=== PATIENT | male | born 1940 | race Caucasian/White ===

== ENCOUNTER 2020-02-13 07:05 | Outpatient (NON) | payer MEDICARE, BC, SELFPAY ==
[2020-02-13 18:30] LABS: SARS-CoV-2 RNA PCR Negative
== END 2020-02-13 07:06 ==
LOC: ANHCOVIDDT 07:11
PROVIDERS: Visit Provider Nurse Practitioner Adult Health
DX: R68.89 Other general symptoms and signs (principal); Z20.828 Contact with and (suspected) exposure to other viral communicable diseases
CPT/HCPCS: 87635; C9803; U0003

== ENCOUNTER 2020-06-24 15:33 | Outpatient (NON) | payer MEDICARE, BC, SELFPAY | END 2020-06-24 15:34 | disposition home or self-care (01) | LOC: ANHLAB 15:37 | PROVIDERS: Visit Provider Specialist | DX: C44.42 Squamous cell carcinoma of skin of scalp and neck (principal); L82.1 Other seborrheic keratosis | CPT/HCPCS: 88304; 88305 ==

== ENCOUNTER 2021-04-05 08:49 | Outpatient (CLI) | payer MEDICARE, SELFPAY ==
--- NOTE | ~2021-04-05 | XR_ITS ---
EXAMINATION: XR chest 2V 04/05/2021 09:15 INDICATION: Increasing shortness of breath with Covid PROCEDURE: PA and lateral views of the chest COMPARISON: 08/14/2014 FINDINGS: The lungs are clear. The cardiomediastinal silhouette is within normal limits. There are no pleural effusions. There is no pneumothorax suspected. 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 IMPRESSION: 1: NO ACUTE CARDIOPULMONARY DISEASE. Reviewed, dictated and finalized at location B. CIATE MARKETING MANAGER
== END 2021-04-05 08:50 | disposition home or self-care (01) ==
PROVIDERS: PCP Nurse Practitioner Adult Health; Visit Provider Nurse Practitioner
DX: R06.09 Other forms of dyspnea (principal)
CPT/HCPCS: 71046

== ENCOUNTER 2021-04-20 14:16 | Outpatient (CLI) | payer MEDICARE, SELFPAY ==
--- NOTE | 2021-04-21 14:24 | WPDSIXMINUTE ---
Six Minute Walk Procedure Procedure Performed Pulmonary Stress Test (6 min walk) Six Minute Walk This is a 6 minute walk test. The test was performed and interpreted in accordance with the 2014 ERS/ATS task force guidelines. Findings: The patient's resting room air oxygen saturation measured by pulse oximetry was 97% and heart rate was 69 bpm. Patient ambulated for 274 meters and oxygen saturation remained 94 to 97%. Heart rate at the end of the study was 91 bpm. The patient did not qualify for supplemental oxygen at rest or with ambulation. There are no prior studies for comparison.
--- NOTE | 2021-04-21 14:25 | WPDPFTINT ---
PFT Procedure Performed PFT Procedure Performed Spirometry with Pre/Post Bronchodilator Plethysmography (Lung Vol) Diffusing Cap (DLCO) Flow Vol Loop PFT Interpretation This is a pulmonary function test with pre and post-bronchodilator spirometry, plethysmography and diffusing capacity. The test was performed and results interpreted in accordance with the 2019 and 2005 ATS/ERS Task Force guidelines respectively using the Global Lung Function Initiative-2012 reference equations. Patient demonstrated good effort and cooperation. Reproducibility criteria were met. The quality of the pre bronchodilator spirometry maneuver was Grade A and post bronchodilator spirometry maneuver was Grade A. Findings: Spirometry: The contour the inspiratory and expiratory flow tracing are normal. The pre bronchodilator FVC is 3.40 L, 86% predicted. The pre bronchodilator FEV1 is 2.42 L, 83% predicted. The FEV1: FVC ratio 71%. The post bronchodilator FVC is 3.48 L, representing a 2% increase. The post bronchodilator FEV1 is 2.61 L, representing an 8% increase. The post bronchodilator FEV1: FVC ratio 75%. Plethysmography: The total lung capacity 5.76 L, 81% predicted. Functional residual capacity is 3.27 L, 86% predicted. The residual volume is 2.36 L, 89% predicted. Diffusing capacity: The absolute diffusion on adjusted for hemoglobin is 22.4, 93% predicted. The diffusing capacity adjusted for alveolar volume is 4.05, 111% predicted. Impression: The spirometry is normal without evidence of an obstructive abnormality. There is no significant improvement after inhaling a single dose of albuterol. The lung volumes are normal. The diffusing capacity is normal. There are no prior studies for comparison
== END 2021-04-20 14:17 | disposition home or self-care (01) ==
LOC: ANHPFT 14:18
PROVIDERS: PCP Nurse Practitioner Adult Health; Visit Provider Nurse Practitioner
DX: R06.09 Other forms of dyspnea (principal)
CPT/HCPCS: 94060; 94618; 94726; 94729

== ENCOUNTER 2021-07-27 08:51 | Outpatient (CLI) | payer MEDICARE, SELFPAY ==
--- NOTE | 2021-07-28 11:03 | WPDMETH ---
Methacholine Procedure Perform Procedure Performed Methacholine Challenge Methacholine Challenge Methacholine challenge testing was performed with increasing doses of nebulized methacholine according to ATS / ERS 2017 guidelines. Following administration of 464.4 mcg of nebulized methacholine ( level 5 of provocative dose), the measured FEV1 decreased by 21% from baseline. Post administration of nebulized short-acting bronchodilator, the FEV1 returned back to near baseline value. Impression: Positive methacholine challenge testing. Normal airway hyperresponsiveness.
== END 2021-07-27 08:52 | disposition home or self-care (01) ==
PROVIDERS: PCP Nurse Practitioner Adult Health; Visit Provider Nurse Practitioner
DX: J45.909 Unspecified asthma, uncomplicated (principal)
CPT/HCPCS: 94070; J7674

== ENCOUNTER 2023-03-28 13:59 | Outpatient (CLI) | payer MEDICARE, SELFPAY ==
--- NOTE | ~2023-03-28 | XR_ITS ---
Clinical Indication: Acute bronchitis PA and lateral views of the chest: Comparison: 04/05/2021 Findings: The lungs are clear, without evidence of focal consolidation or pleural effusion. Cardiome diastinal silhouette is stable. Bones and soft tissues are unremarkable. Impression: Clear lungs. Reviewed, dictated and finalized at location . NICAL TRAINING COORDINATOR Impression: Clear lungs.
== END 2023-03-28 14:00 | disposition home or self-care (01) ==
PROVIDERS: PCP Nurse Practitioner Adult Health; Visit Provider Family Medicine
DX: J20.9 Acute bronchitis, unspecified (principal)
CPT/HCPCS: 71046

== ENCOUNTER 2023-05-24 10:10 | Outpatient (CLI) | payer MEDICARE, SELFPAY ==
[2023-05-24 10:37] LABS: Anion Gap 6 mmol/L (8-16); Blood Urea Nitrogen 14 mg/dL (9-20); Calcium 10.3 mg/dL (8.4-10.2); Carbon Dioxide 27 mmol/L (22-30); Chloride 103 mmol/L (98-107); Estimated Glomerular Filt Rate > 60; Glucose 107 mg/dL (65-110); Potassium 4.6 mmol/L (3.4-5.0); Sodium 136 mmol/L (137-145)
== END 2023-05-24 10:11 | disposition home or self-care (01) ==
LOC: ANHSURGERY 10:13
PROVIDERS: Anesthesiology; PCP Family Medicine; Visit Provider Surgery
DX: K40.30 Unilateral inguinal hernia, with obstruction, without gangrene, not specified as recurrent (principal); E11.9 Type 2 diabetes mellitus without complications; Z01.818 Encounter for other preprocedural examination
CPT/HCPCS: 36415; 80048; 86850; 86900; 86901

== ENCOUNTER 2023-06-01 00:40 | Day surgery (SDC) | payer MEDICARE, SELFPAY ==
[2023-05-23 09:22] VITALS: BMI 27.4
--- NOTE | 2023-05-23 09:44 | PC.NURSE ---
PRE-OP INSTRUCTIONS, PLEASE READ CAREFULLY Report to the Outpatient Waiting Room, entrance under the green pavilion located off [facility], at time _1000_ on date _06/01/23_. Planned Procedure Time: _1200_. Time changes happen often and if your time is changed the preop area will call you the afternoon before. - You and your visitor will be asked to self-screen and do not enter if you have any COVID symptoms. - A mask is optional within the hospital at this time. Patients may have clear liquids (water, carbonated beverages, clear teas, apple juice) until 3 hours prior to surgery with a maximum of 20 ounces. - No food from midnight until time of surgery Take the following medications with a SIP of water the morning of surgery: _CELECOXIB, ESCITALOPRAM, METOPROLOL, & TRAMADOL IF NEEDED_ DO NOT STOP ANY OF YOUR OTHER PRESCRIPTION MEDICATIONS PRIOR TO SURGERY ?EXCEPT THE FOLLOWING Medications to discontinue per DR. QUINN - _XARELTO 5 DAYS PRIOR TO SURGERY, Date to take last dose 05/26/23_ Please no make-up, nail swedish, hairspray, perfume, deodorant, or body powder the day of surgery. No jewelry (including any body piercings) or valuables the day of surgery, leave them at home. Please take a shower or bath the night before, or the morning of, surgery with an antibacterial soap. Wear comfortable, loose fitting clothing. - Jewelry must be removed prior to entering the operating room. Rings and piercings that are not removed may be cut off. - The hospital will not accept responsibility for valuables. - Please leave all valuables, including medications, at home the day of surgery. If you are going home after surgery, a licensed front end loader driver must drive you home. - NO public transportation without another adult if you receive anesthesia. - We recommend that an adult stay with you for 24 hours following discharge. - We also recommend that you do not drive, make important decision, drink alcoholic beverages, or take any drugs that were not prescribed by your health care provider for at least 24 hours after your discharge time. Follow any additional instructions given to you from your surgeon. If you or anyone in your household have experienced Covid symptoms in the past week, please notify your surgeon or the nurse liaison at the phone number below for possible testing. Telephone instructions given to _PATIENT_and asked if any additional questions and then verbalized understanding. Patient advised to call surgeon office or pre surgery nurse liaison [phone] if any additional questions.
[2023-06-01] VITALS (8 sets, daily range): BP systolic 118–160; BP diastolic 65–87; PULSE 64–75; RESP 14–18; TEMP 36.7–37.1; O2SAT 94–99
[2023-06-01 10:26] LABS: Glucose Point of Care 122 mg/dl (65-105)
[2023-06-01] MEDS: LACTATED RINGERS 1,000 ML 30 ML IV CONT ×2 (10:35→14:01)
[2023-06-01] MEDS: ACETAMINOPHEN 500 MG TABLET 1000 MG PO (10:35)
[2023-06-01] MEDS: KETOROLAC 15 MG/ML VIAL (*BKC) IV PUSH (10:35)
--- NOTE | 2023-06-01 11:16 | WPDANESEPPF ---
Anes - Initial Pre Proc Eval Procedure: Operation Date: 06/01/23 12:00 Proposed Procedures p Robotic Assisted Laparoscopic Incarcerated Left Inguinal Hernia Repair with Mesh - Edith Pride MD Date/Time: 06/01/23 11:16 Surgeon: Edith Pride MD Pre Op Diagnosis: Incarcerated Left Inguinal Hernia Patient Data Age: 83 Gender: M Height: 1.78 m Weight: 86.81 kg Allergies Allergy/AdvReac Type Severity Reaction Status Date / Time Iodinated Contrast Media Allergy Unknown Hives Verified 05/23/23 09:20 Home Medications Medication Instructions Recorded Confirmed Type aspirin 81 mg tablet,delayed 81 mg PO DAILY 11/15/22 05/23/23 History release celecoxib 200 mg capsule (Celebrex) 200 mg PO DAILY 11/15/22 05/23/23 History escitalopram oxalate 10 mg tablet 10 mg PO DAILY 11/15/22 05/23/23 History (Lexapro) metoprolol succinate 25 mg 25 mg PO DAILY 11/15/22 05/23/23 History tablet,extended release 24 hr pantoprazole 40 mg tablet,delayed 40 mg PO QAM 11/15/22 05/23/23 History release tramadol 50 mg tablet 50 mg PO Q6H PRN Pain 11/15/22 05/23/23 History valsartan 320 mg tablet 320 mg PO DAILY 11/15/22 05/23/23 History atorvastatin 20 mg tablet 20 mg DAILY 05/23/23 05/23/23 History dulaglutide 0.75 mg/0.5 mL 0.75 mg subcut WEEKLY 05/23/23 05/23/23 History subcutaneous pen injector (Trulicity) rivaroxaban 2.5 mg tablet (Xarelto) 2.5 mg DAILY 05/23/23 05/23/23 History Laboratory Tests 06/01/23 10:23 POC Capillary Glucose 122 H mg/dl (65-105) Patient hx anesthesia problems: none Family hx anesthesia problems: none Results Review: All pre-operative results and documents have been reviewed as part of the pre-operative evaluation. [facility] Past Medical History Medical History Anxiety Asthma Depression Heart disease Stroke 2019 Surgical History Surgical History History of hernia surgery hiatal surgery repair in 1960s Hx of heart bypass surgery 1998 Family History Family History Father Diabetes mellitus Heart disease Cerebrovascular accident Mother Cancer Social History Social History Smoking status: Never smoker Second hand tobacco smoke exposure: No Alcohol intake: never Substance use: never Substance use type: does not use Living arrangements: with family Additional living arrangements comments: LIVES WITH SPOUSE Ena [place] Occupation/Education: retired Spiritual care concerns: No Anes - Eval Final PreProcedure Day of Procedure 06/01/23 11:16 Patient weight: overweight Heart: regular rate and rhythm Lungs: clear to auscultation Airway: Mallampati scale class II Neurological: alert and oriented Last oral intake: >/= 8 hours ASA classification: III Emergent: no Anesthetic plan: proceed Anesthesia type and monitoring: general ETT and standard monitoring Results Review: All pre-operative results and documents have been reviewed as part of the pre-operative evaluation. Informed Consent: The patient's anesthetic plan and its attendant risks and benefits were discussed with the patient/family/POA. Questions were solicited and answers provided to the satisfaction of the patient/family/POA.
--- NOTE | 2023-06-01 12:01 | PM.IMHP ---
H&P: HPI History of Present Illness Date/Time: 06/01/23 12:01 Chief Complaint: left inguinal hernia Narrative: Martín returns to the office accompanied by his for another recheck of a left inguinal hernia. Patient was previously evaluated for this in November 2022. Patient was asymptomatic at the time of his last visit, surgical repair was recommended, but patient elected to continue monitoring the hernia. Patient states since his last visit. The bulge causes discomfort with walking. He states the hernia is more prominent after he has a BM's. He states BM's are infrequent, states they occur every two days. Denies any difficulty with urination. Review of Systems Review of Systems: All systems reviewed & are unremarkable except as noted in HPI and below PMFSH Past Medical History Medical History Anxiety Asthma Depression Heart disease Stroke 2018 Surgical History Surgical History History of hernia surgery hiatal surgery repair in 1960s Hx of heart bypass surgery 1998 Family History Family History Father Diabetes mellitus Heart disease Cerebrovascular accident Mother Cancer Social History Social History Smoking status: Never smoker Second hand tobacco smoke exposure: No Alcohol intake: never Substance use: never Substance use type: does not use Living arrangements: with family Additional living arrangements comments: LIVES WITH SPOUSE - [place] Occupation/Education: retired Spiritual care concerns: No Meds Home Medications and Allergies Home Medications Medication Instructions Recorded Confirmed Type aspirin 81 mg tablet,delayed 81 mg PO DAILY 11/15/22 06/01/23 History release celecoxib 200 mg capsule (Celebrex) 200 mg PO DAILY 11/15/22 06/01/23 History escitalopram oxalate 10 mg tablet 10 mg PO DAILY 11/15/22 06/01/23 History (Lexapro) metoprolol succinate 25 mg 25 mg PO DAILY 11/15/22 06/01/23 History tablet,extended release 24 hr pantoprazole 40 mg tablet,delayed 40 mg PO QAM 11/15/22 05/23/23 History release tramadol 50 mg tablet 50 mg PO Q6H PRN Pain 11/15/22 05/23/23 History valsartan 320 mg tablet 320 mg PO DAILY 11/15/22 05/23/23 History atorvastatin 20 mg tablet 20 mg DAILY 05/23/23 05/23/23 History dulaglutide 0.75 mg/0.5 mL 0.75 mg subcut WEEKLY 05/23/23 05/23/23 History subcutaneous pen injector (Trulicity) rivaroxaban 2.5 mg tablet (Xarelto) 2.5 mg DAILY 05/23/23 06/01/23 History Allergies Allergy/AdvReac Type Severity Reaction Status Date / Time Iodinated Contrast Media Allergy Unknown Hives Verified 06/01/23 11:36 Vital Signs Vital Signs - 24 hr 06/01/23 10:35 Temperature 37.1 C Pulse Rate 64 Respiratory Rate 14 Blood Pressure 142/78 H Pulse Oximetry 98 Oxygen Delivery Room Air Exam Const: General: cooperative, comfortable and no acute distress Resp: Auscultation: clear to auscultation bilaterally Cardio: Rate: regular rate Rhythm: regular rhythm GI: Inspection: normal to inspection and visible herniation GI Palp: Yes abdominal tenderness, Yes Soft to palpation, Yes Tenderness to palpation present (GI) and Yes Hernia present Other: LIH - moderate sized Assessment and Plan Assessment and plan (1) Incarcerated left inguinal hernia: Code(s): K40.30 - Unilateral inguinal hernia, with obstruction, without gangrene, not specified as recurrent Status: Acute Assessment and Plan: will setup for robotic assisted repair c mesh
--- NOTE | 2023-06-01 12:02 | WPDHPUPDATE1 ---
History and Physical Update Update Date/Time: 06/01/23 12:02 History and Physical has been reviewed, including an updated exam of the patient. There are NO changes in the patient's condition. Risks, benefits, and alternatives have been discussed and questions answered. Patient agrees to proceed with procedure.
[2023-06-01] MEDS: ceFAZolin 2 GM/D5W 50 ML 2 GM/50 ML BAG IVPB (12:06)
[2023-06-01] MEDS: BUPIVACAINE/EPINEPHRINE 0.5% 30 ML VIAL INFILTRATE (12:47)
--- NOTE | 2023-06-01 13:38 | P.OP_ITS ---
Procedure Note - Detailed Date of Procedure 06/01/23 Pre-op Diagnosis Incarcerated Left Inguinal Hernia Post-op Diagnosis Same Procedure Performed robotic assisted incarcerated left inguinal hernia repair with mesh Surgeon Edith Pride MD Anesthesia General Indications 83 y/o M c LIH and worsening groin pain over last few months. Hernia has become incarcerated and is quite symptomatic. Findings Incarcerated indirect left inguinal hernia with small bowel Description of Procedure Patient was brought into the operating room and placed in the supine position. After adequate induction of general anesthesia, the patient was prepped and draped in normal sterile fashion. A time-out was then done to verify the patient's identity, as well as the procedure being performed. I began by making a 8 mm incision in the supraumbilical region, a Veress needle was then placed into the peritoneal cavity. CO2 gas was then insufflated and after adequate pneumoperitoneum was achieved, the Veress needle was removed. I then placed an 8 mm trocar through this incision. I then placed the endoscope through this trocar site and under direct visualization placed 2 further 8 mm ports in the right and left mid abdomen. The [employer] robot was then docked to the 3 trocar sites. I then scrubbed out and went to the robotic console. Upon examining the pelvis, it was noted that the patient had a large incarcerated left inguinal hernia. The right side was examined and no hernia defect was noted. Using gentle traction I was able to reduce the hernia contents which was noted to include a loop of small intestine. I then began by making a preperitoneal flap approximately 6 cm superior to the defect. This flap was carried medially past the umbilical ligaments and laterally to the transversalis. It then began dissection of my medial compartment taking this down to the pubic tubercle. I then began the lateral dissection taking this down to the transversalis fascia. Once these compartments were achieved, I began dissection around the cord structures. A large sized indirect hernia was noted at this point. Using careful dissection, was able to reduce indirect hernia sac off the cord structures. Once this was adequately done, I went ahead and placed a large piece of 3D Max mesh into the abdominal cavity. The mesh was carefully positioned, centering the center of the mesh over the indirect defect. Once this was done, was very satisfied with our repair. Using 3-0 Vicryl sutures, I tacked the mesh medially to Feliciano's ligament. Two lateral sutures were placed from the mesh to the transversalis fascia. I then closed the peritoneal flap with a running 2.0 V Lock suture. The abdomen was then desufflated, and all ports were removed. All incisions were then closed with the 4.0 monocryl sutu re. Dermabond was placed on each wound. The patient tolerated the procedure well, was extubated in the operating room postoperatively, and will now be transferred to the recovery room in stable condition. Implants large 3DMax mesh Estimated Blood Loss 10 Drains No Packing No Pathology None sent Complications No immediate complications Condition Stable Disposition PACU [facility] Billing Surgery - Charge Forward: Surgery Billing
[2023-06-01 13:49] LABS: Glucose Point of Care 135 mg/dl (65-105)
== END 2023-06-01 15:48 | disposition home or self-care (01) ==
PROVIDERS: PCP Family Medicine; Visit Provider Surgery
PROC: 8E0Y4CZ Robotic Assisted Procedure of Lower Extremity, Percutaneous Endoscopic Approach (ICD-10-PCS; CPT 49650; principal; 2023-06-01 12:00)
DX: K40.30 Unilateral inguinal hernia, with obstruction, without gangrene, not specified as recurrent (principal); F41.9 Anxiety disorder, unspecified; J45.909 Unspecified asthma, uncomplicated; F32.A Depression, unspecified; Z79.82 Long term (current) use of aspirin; Z79.1 Long term (current) use of non-steroidal anti-inflammatories (NSAID); Z79.891 Long term (current) use of opiate analgesic; Z79.85 Long-term (current) use of injectable non-insulin antidiabetic drugs; Z79.01 Long term (current) use of anticoagulants; Z98.890 Other specified postprocedural states; Z86.79 Personal history of other diseases of the circulatory system; Z86.73 Personal history of transient ischemic attack (TIA), and cerebral infarction without residual deficits; Z95.1 Presence of aortocoronary bypass graft; Z82.49 Family history of ischemic heart disease and other diseases of the circulatory system; Z80.9 Family history of malignant neoplasm, unspecified
CPT/HCPCS: 49507; S2900; 36415; 80048; 82948; 86850; 86900; 86901; A9270; C1781; J0690; J1100; J1170; J1885; J2371; J2405; J2704; J3010; J7120

== ENCOUNTER 2024-04-18 19:54 | Emergency (ER) | payer MEDICARE, SELFPAY ==
--- OUTSIDE RECORDS SUMMARY | 2024-04-18 19:57 | XMS_ITS | Clinical Summary ---
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
--- OUTSIDE RECORDS SUMMARY | 2024-04-18 19:57 | XMS_ITS | Clinical Summary ---
Author Organization [place] [id number] Address [address] [place] [address] Care Team Providers Care Puffer Tender Name Role Phone Martin Varela MD Unavailable [phone] No, Physician Primary Care Provider Allergies Active Allergy Reactions Criticality Noted Date Comments Iodinated Contrast Media Hives Medium 12/12/2018 Medications metoprolol XL (TOPROL-XL) 25 mg 24 hr tablet Take 1 tablet (25 mg total) by mouth daily Active atorvastatin (LIPITOR) 10 mg tablet Take 1 tablet (10 mg total) by mouth daily Active pantoprazole DR (PROTONIX) 40 mg EC tablet Take 1 tablet (40 mg total) by mouth daily Active valsartan (DIOVAN) 320 mg tablet Take 0.5 tablets (160 mg total) by mouth daily 9 Active ONETOUCH VERIO strip 0 Active ONETOUCH VERIO SYSTEM [facility] 0 Active escitalopram (LEXAPRO) 10 mg tablet 0 Active ONETOUCH DELICA PLUS LANCET [facility] 0 Active XARELTO 2.5 mg tablet 0 Active traMADol (ULTRAM) 50 mg tablet 0 Active nitroglycerin (NITROSTAT) 0.4 mg SL tablet Active aspirin 81 mg enteric coated tablet Take 1 tablet (81 mg total) by mouth daily 30 tablet 11 0 Active dulaglutide (Trulicity) 0.75 mg/0.5 mL pen injector Trulicity 0.75 mg/0.5 mL pen injector 0 Active Trulicity 0.75 mg/0.5 mL pen injector 1 Active celecoxib (CeleBREX) 200 mg capsule 2 Active albuterol HFA (PROVENTIL HFA,VENTOLIN HFA,PROAIR HFA) 90 mcg/actuation inhaler Inhale 2 puffs every 6 (six) hours as needed for wheezing 1 each 4 Active fluticasone furoate-vilante roL (BREO ELLIPTA) 100-25 mcg/dose diskus inhaler Inhale 1 puff daily Rinse mouth with water after use. Do not swallow. 30 each 4 02/13/20 25 Active Active Problems Problem Noted Date Diagnosed Date Chronic obstructive pulmonary disease, unspecifi ed 02/13/2024 Right wrist pain 01/07/2022 Primary osteoarthritis of fi rst carpometacarpal joint of right hand 01/07/2022 Extensor carpi ulnaris tendinitis 01/07/2022 Coronary arteriosclerosis 07/19/2019 Essential hypertension 07/19/2019 Gastroesophageal reflux disease 07/19/2019 Hyperlipidemia 07/19/2019 Type 2 diabetes mellitus 07/19/2019 Vitamin B12 deficiency (non anemic) 07/19/2019 Hemiparesis affecting left s beverly as late effect of stroke (CMS/HCC) 07/19/2019 Encounters Date Type Department Care Team Description 02/13/2024 11:00 AM EMERGENCY COMMUNICATIONS DISPATCHER Office Visit [facility] at [address] [place] [address] Jordan Ricks DO Shortness of breath (Primary Dx); Mild persistent asthma without complication; Elevated diaphragm; Obstructive sleep apnea from Last 3 Months Immunizations Name Administration Dates Next Due Influenza, Trivalent, High D ose, Split, Preservative Free, Intramuscular 12/17/2018 Surgical History Surgery Date Site/Laterality Comments HIATAL HERNIA REPAIR CORONARY ARTERY BYPASS GRAFT Medical History Medical History Date Comments Diabetes mellitus (HCC) Hypertension Hyperlipidemia CAD (coronary artery disease) Polio osteopathy of lower leg, right (HCC) Stroke ([facility]) 2018 SOB (shortness of breath) Wheezing Genetic disorder 2019 Family History Medical History Relation Name Comments Cancer Father Prostate Cancer Mother Breast Relation Name Status Comments Father Mother Social History Tobacco Use Types Packs/Day Years Used Date Smoking Tobacco: Never Passive Smoke Exposure: Past Smokeless Tobacco: Never Tobacco Cessation:Counseling Given: Not Answered Alcohol Use Standard Drinks/Week Comments Not Currently 0 (1 standard drink = 0.6 oz pur e alcohol) AUDIT-C Answer Date Recorded Q1: How often do you have a drink containing alc ohol? Monthly or less 02/13/2024 Average Number of Drinks Not on file 024 Frequency of Binge Drinking Not on file 05/2023 PHQ-2 Answer Date Recorded PHQ-2 Score 0 12/13/2018 Sex and Gender Information Value Date Recorded Sex Assigned at Not on file Legal Sex Male 9:15 AM EMERGENCY COMMUNICATIONS DISPATCHER Gender Identity Male 07/18/2019 6:52 AM CDT Sexual Orientation Not on file Obstetrics History Last Filed Vital Signs Vital Sign Reading Time Taken Comments Blood Pressure 134/78 02/13/2024 11:02 AM EMERGENCY COMMUNICATIONS DISPATCHER Pulse 67 02/13/2024 11:02 AM EMERGENCY COMMUNICATIONS DISPATCHER Temperature 35.4 C (95.7 F) 02/13/2024 11:02 AM EMERGENCY COMMUNICATIONS DISPATCHER Respiratory Rate 16 02/13/2024 11:02 AM EMERGENCY COMMUNICATIONS DISPATCHER Oxygen Saturation 99% 02/13/2024 11:02 AM EMERGENCY COMMUNICATIONS DISPATCHER Inhaled Oxygen Concentration - - Weight 87.2 kg (192 lb 4.8 oz) 02/13/2024 11:02 AM EMERGENCY COMMUNICATIONS DISPATCHER Height 177.8 cm (5' 10 ) 02/13/2024 11:02 AM EMERGENCY COMMUNICATIONS DISPATCHER Body Mass Index 27.59 02/13/2024 11:02 AM EMERGENCY COMMUNICATIONS DISPATCHER Plan of Treatment Health Maintenance Due Date Last Done Comments Albumin Creatinine Ratio, Urine 1941 Fall Risk Assessment 1941 eGFR 1941 Dilated Eye Exam 1941 Foot Exam 1941 Pneumococcal vaccine 65+ (1 of 2 - PCV) 1947 Hepatitis B Screening 1959 Zoster Vaccine (1 of 2) 1991 Well Visit 65+ 2006 Hemoglobin A1C 06/14/2019 12/13/2018, 12/12/2018 Depression Screening 12/13/2019 12/12/2018, 12/13/19 19 Lipid Panel 12/14/2019 12/13/2018, 12/12/2018 Influenza Vaccine (#1) 2023 1, 01/04/2020, 01/02/2019, Additional history exists DTaP/Tdap/Td Vaccine (2 - Td or Tdap) 09/08/2027 09/07/2017 Procedures Procedure Name Priority Date/Time Associated Diagnosis Comments HEMOGLOBIN A1C STAT 12/12/2018 3:01 PM CDT LIPID PANEL STAT 12/12/2018 3:01 PM CDT from Last 3 Months or Most Recently Relevant to Health Maintenance Results * (ABNORMAL) Hemoglobin A1c (12/12/2018 3:01 PM CDT) Hgb A1C 6.8(H) 4.0 - 5.6 % [facility] Estimated Average Glucose 148 mg/dL [facility] Comment: The ADA recommends reporting an estimated Average Glucose (eAG) with all Hemoglobin A1c results using the equation derived from a study of 507 normal and diabetic adults. Minority populations were underrepresented and children were not included. (Diabetes Care 31:5379-2225, 2008). The eAG is not equivalent to a fasting glucose. Blood specimen (specimen) 12/12/2018 3:01 PM CDT 12/12/2018 4:14 PM CDT Leann Ellis MD LAB BLOOD ORDERABLES Fin al Result [facility] [address] [place] [address] * Lipid panel (12/12/2018 3:01 PM CDT) Cholesterol 120 30 - 199 mg/dL [facility] Comment: Interpretive Data Ages < or = 19 years Acceptable: <170 mg/dL Borderline high: 170-199 mg/dL High: >or= 200 mg/dL Ages > or = 20 years Desirable: <200 mg/dL Borderline high: 200-239 mg/dL High: >or= 240 mg/dL Literature References: 1. Expert Panel on Integrated Guidelines for Cardiovascular Health and Risk Reduction in Children and Adolescents. Pediatrics 2011;128:S213 2. NCEP Expert Panel. Circulation 2004;110:227 Current Interpretive Data was last revised on 2017. Triglycerides 146 <=149 mg/dL [facility] Comment: Interpretive Data Ages < or = 9 years Acceptable: <75 mg/dL Borderline high: 75-99 mg/dL High: >or= 100 mg/dL Ages 10 to 20 years Acceptable: <90 mg/dL Borderline high: 90-129 mg/dL High: >or= 130 mg/dL Ages > or = 20 years Desirable: <150 mg/dL Borderline high: 150-199 mg/dL High: 200-499 mg/dL Very high: >or= 499 mg/dL Literature References: 1. Expert Panel on Integrated Guidelines for Cardiovascular Health and Risk Reduction in Children and Adolescents. Pediatrics 2011;128:S213 2. NCEP Expert Panel. Circulation 2004;110:227 Current Interpretive Data was last revised on 2017. HDL 41 >=40 mg/dL [facility] Comment: Interpretive Data Ages < or = 19 years Acceptable: >45 mg/dL Borderline low: 40-45 mg/dL Low: <40 mg/dL Ages > or = 20 years Desirable: >or= 60 mg/dL Low: <40 mg/dL Literature References: 1. Expert Panel on Integrated Guidelines for Cardiovascular Health and Risk Reduction in Children and Adolescents. Pediatrics 2011;128:S213 2. NCEP Expert Panel. Circulation 2004;110:227 Current Interpretive Data was last revised on 2017. LDL, calculated 50 <=129 mg/dL [facility] Comment: Interpretive Data Ages < or = 19 years Acceptable: <110 mg/dL Borderline high: 110-129 mg/dL High: >or= 130 mg/dL Ages > or = 20 years Optimal: <100 mg/dL Near optimal: 100-129 mg/dL Borderline high: 130-159 mg/dL High: >160 mg/dL Literature References: 1. Expert Panel on Integrated Guidelines for Cardiovascular Health and Risk Reduction in Children and Adolescents. Pediatrics 2011;128:S213 2. NCEP Expert Panel. Circulation 2003;110:227 Current Interpretive Data was last revised on 2017. Non-HDL Cholesterol 79 mg/dL [facility] Comment: Interpretive Data Ages < or = 19 years Acceptable: <120 mg/dL Borderline high: 120-144 mg/dL High: >145 mg/dL Ages > or = 20 years When triglycerides are >200 mg/dL, Non-HDL cholesterol is a secondary target of therapy with treatment goals that are 30 mg/dL greater than the LDL cholesterol target. Literature References: 1. Expert Panel on Integrated Guidelines for Cardiovascular Health and Risk Reduction in Children and Adolescents. Pediatrics 2011;128:S213 2. NCEP Expert Panel. Circulation 2004;110:227 Current Interpretive Data was last revised on 2017. Chol/HDL ratio 3 [facility] Blood specimen (specimen) 12/12/2018 3:01 PM CDT 12/12/2018 3:11 PM CDT Leann Ellis MD LAB BLOOD ORDERABLES Fin al Result [facility] [address] [place] [address] from Last 3 Months or Most Recently Relevant to Health Maintenance Insurance [employer] [facility] Address: [facility] [address] [place] [address] [facility] MED[facility] Address: [address] [address] [place] [address] [facility] MED[facility] Address: [address] [address] [place] [address] Advance Directives For more information, please contact: [phone] * LIMITED - No CPR (Latest Code Status on File) Date Activated Date Inactivated Comments 12/13/2018 2:31 AM 12/19/2018 4:52 PM Question Answer Comments Provide aggressive medical m anagement before a full cardiopulmonary arrest occurs. Use antibiotics, IV Fluids, and medical treatment unless specifically selected below: No intubation * Full Code Date Activated Date Inactivated Comments 12/12/2018 11:06 PM 12/13/2018 2:31 AM Care Teams Puffer Tender Relationship Specialty Start Date End Date No, Physician PCP - General 08/14/23 Martin Varela MD [address] [address] Surgeon Orthopedic Surgery 04/08/20
--- OUTSIDE RECORDS SUMMARY | 2024-04-18 19:57 | XMS_ITS | CONTINUITY OF CARE DOCUMENT ---
Author Name rosa elena, rosa elena Address Unknown Organization 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 active Deborah Nina MD HTN-- echo ef 60%, 05/2021 active Ramana wolfe Hyperlipidemia, stress nuc normal 08/2019 active Deborah Nina MD DYSLIPIDEMIA completed - Deborah Nina MD CAD-06/18 CAROTID NEG completed - Deborah Nina MD CHEST PAIN abnl stress 09/23, cath showed complete revasc w OSMAN to lAD, SVG to RCA , 30% circ active Deborah Nina MD Family History Coronary Hear t Disease male < 55: completed - Deborah Nina MD Family History Coronary Hear t Disease male < 55: completed - Deborah Nina MD Diabetes mellitus active Deborah Nina MD Unsteady gait active Deborah Nina MD Shoulder pain, left and right active Deborah Nina MD CVA active Deborah Nina MD Leg edema, bilateral active Rupert Nacht Vertigo active Rupert Polancot NIRU, mild active Ramana Hoff Cough active Ramana Hoff Diabetes Mellitus, Type II, controlled w/vascular complications active Deborah Nina MD ENCOUNTERS Date Type Provider Location Encounter Diag nosis - In-person encounter Office Visit Deborah Nina MD [facility] - In-person encounter Office Visit Deborah Nina MD [facility] - In-person encounter Office Visit Deborah Nina MD [facility] CAROTID NEG - In-person encounter Office Visit Deborah Nina MD [facility] Diabetes Mellitus, Type II, controlled w/vascular complications - In-person encounter Office Visit Deborah Nina MD [facility] - In-person encounter Office Visit Deborah Nina MD [facility] - In-person encounter Office Visit Deborah Nina MD [facility] HTN-- echo ef 60%, 2OSA, mildCough - In-person encounter Office Visit Deborah Nina MD [facility] - In-person encounter Office Visit [facility] Hyperlipidemia, stress nuc normal 08/2019 - In-person encounter Office Visit Deborah Nina MD [facility] - In-person encounter Office Visit Deborah Nina MD [facility] Leg edema, bilateralVertigo - In-person encounter Office Visit Deborah Nina MD [facility] - In-person encounter Office Visit Deborah Nina MD [facility] - In-person encounter Office Visit Deborah Nina MD [facility] - In-person encounter Office Visit Deborah Nina MD [facility] - In-person encounter Office Visit Deborah Nina MD [facility] CVA - In-person encounter Office Visit Deborah Nina MD [facility] - In-person encounter Office Visit [facility] Shoulder pain, left and right - In-person encounter Office Visit Deborah Nina MD [facility] - In-person encounter Office Visit Deborah Nina MD [facility] Unsteady gait - In-person encounter Office Visit Deborah Nina MD [facility] - In-person encounter Office Visit Deborah Nina MD [facility] - In-person encounter Office Visit Deborah Nnia MD [facility] - In-person encounter Office Visit Deborah Nina MD [facility] DYSLIPIDEMIADiabetes mellitus - In-person encounter Office Visit Deborah Nina MD [facility] CHEST PAIN abnl stress 09/23, cath showed complete revasc w OSMAN to lAD, SVG to RCA , 30% circFamily History Coronary Heart Disease male < 55:Family History Coronary Heart Disease male < 55: - In-person encounter Office Visit Deborah Nina MD [facility] CHEST PAIN abnl stress 09/23, cath showed complete revasc w OSMAN to lAD, SVG to RCA , 30% circ - In-person encounter Office Visit [facility] CAD S/P CABG,OSMAN TO LAD,SVG TO RCA 1999CHEST PAIN abnl stress 09/23, cath showed complete revasc w OSMAN to lAD, SVG to RCA , 30% circ - In-person encounter Office Visit Deborah Nina MD [facility] - In-person encounter Office Visit Deborah Nina MD [facility] - In-person encounter Office Visit Deborah Nina MD [facility] - In-person encounter Office Visit Deborah Nina MD [facility] - In-person encounter Office Visit Deborah Nina MD [facility] CAD S/P CABG,OSMAN TO LAD,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 - In-person encounter Office Visit Deborah Nina MD [facility] VITAL SIGNS Date Observation Value Provider Body Mass Index (Ratio) 27.26 kg/m2 Ramana Hoff blood pressure, diastolic 75 mm[Hg] Bharath Isabel RN blood pressure, systolic 129 mm[Hg] Luly Isabel RN oxygen saturation, oximetry 96 % Luly Isabel RN respiratory rate E&M 16 /min Luly horton RN pulse rate 70 /min Luly Isabel RN weight E&M 190 [lb_av] Luly Isabel RN Body Mass Index (Ratio) 26.25 kg/m2 Ramana Hoff pulse rate 77 /min Sujey Luke blood pressure, cuff size regular Ta bitha Luke blood pressure, diastolic 82 mm[Hg] Ta bitha Luke blood pressure, systolic 126 mm[Hg] Tab itha Luke oxygen saturation, oximetry 97 % Sujey Luke weight E&M 183 [lb_av] Sujey Luke respiratory rate E&M 12 /min Sujey Luke height E&M 70 [in_i] Sujey Luke Body Mass Index (Ratio) 27.12 kg/m2 aNbil Guzman blood pressure, diastolic 77 mm[Hg] Ary urenaLogcharmaine blood pressure, systolic 139 mm[Hg] Mimi ogic blood pressure, cuff size regular Ja et blood pressure, diastolic 77 mm[Hg] Ja rret blood pressure, systolic 139 mm[Hg] Radha brito pulse rate 75 /min Francis weight E&M 189 [lb_av] Francis y oxygen saturation, oximetry 95 % Francis respiratory rate E&M 12 /min Francis height E&M 70 [in_i] Francis y Body Mass Index (Ratio) 27.69 kg/m2 Grey Nina MD pulse rate 60 /min Jazmin Rdz respiratory rate E&M 20 /min Jazmin Rdz blood pressure, diastolic 79 mm[Hg] octavio Rdz blood pressure, systolic 146 mm[Hg] She miguel Rdz oxygen saturation, oximetry 97 % Jazmin Rdz blood pressure, cuff size regular octavio Rdz weight E&M 193 [lb_av] Jazmin Rdz height E&M 70 [in_i] Jazmin Rdz Body Mass Index (Ratio) 26.83 kg/m2 Lesly rojas Puhse blood pressure, diastolic 83 mm[Hg] Ary nkLogic blood pressure, systolic 139 mm[Hg] Mimi og blood pressure, diastolic 83 mm[Hg] octavio Rdz blood pressure, systolic 139 mm[Hg] She rrsolomon Rdz blood pressure, cuff size regular octavio Rdz respiratory rate E&M 18 /min Jazmin Rdz oxygen saturation, oximetry 97 % Jazmin Rdz pulse rate 64 /min Jazmin Rdz weight E&M 187 [lb_av] Jazmin Rdz height E&M 70 [in_i] Jazmin Rdz Body Mass Index (Ratio) 26.54 kg/m2 Lesly Lafleurmichael blood pressure, cuff size large Ke rri Gruenenfelder blood pressure, diastolic 62 mm[Hg] Ke rri Gruenenfelder blood pressure, systolic 132 mm[Hg] Ker ri Gruenenfelder oxygen saturation, oximetry 98 % Danyell Gruenenfelder respiratory rate E&M 16 /min Danyell G ruenenfelder pulse rate 70 /min Danyell Gruenenfe lder weight E&M 185 [lb_av] Danyell Gruenenfe lder height E&M 70 [in_i] Danyell Gruenenfe er Body Mass Index (Ratio) 28.41 kg/m2 Grey Nina MD blood pressure, cuff size large Mo shravan Withee blood pressure, diastolic 70 mm[Hg] [facility] blood pressure, systolic 130 mm[Hg] [facility] lauryn Withee oxygen saturation, oximetry 97 % Parris Mondragon pulse rate 80 /min Parris zhao respiratory rate E&M 18 /min Lacy Mondragon weight E&M 198 [lb_av] Parris zhao height E&M 70 [in_i] Parris zhao blood pressure, diastolic 80 mm[Hg] Ri az Vaughnmeddemetra blood pressure, systolic 136 mm[Hg] Amaya z Ahmedzai pulse rate 68 /min Ramana Vaughnmedzaramez oxygen saturation, oximetry 96 % Ramana Vaughnmedzai height E&M 70 [in_i] Dayanara Andrea Body Mass Index (Ratio) 26.97 kg/m2 Grey Nian MD blood pressure, cuff size regular Kr otis Orourke blood pressure, diastolic 80 mm[Hg] Kr otis Corderoby blood pressure, systolic 150 mm[Hg] Cornelio [place] pulse rate 66 /min Marilu [place]ourke oxygen saturation, oximetry 98 % Marilusolomon [place] respiratory rate E&M 18 /min Marilusolomon [place] weight E&M 188 [lb_av] Marilusolomon [place] height E&M 70 [in_i] Marilusolomon [place] blood pressure, cuff size regular Cy simba Mccarthy blood pressure, diastolic 62 mm[Hg] Cy simba Mccarthy blood pressure, systolic 116 mm[Hg] Chary Mccarthy oxygen saturation, oximetry 98 % Denise Mccarthy respiratory rate E&M 16 /min Denise Mccarthy pulse rate 71 /min Denise Frazier l Body Mass Index (Ratio) 27.83 kg/m2 Cynjimmy Mccarthy weight in kilograms E&M 88.00 kg Cynjimmy gorman Mccarthy weight E&M 194 [lb_av] Denise Dormanbel l height E&M 70 [in_i] Denise Dormanbel l height in centimeters E&M 177.80 cm Vasiliy cottrell Mccarthy Body Mass Index (Ratio) 27.12 kg/m2 Anurag Farr blood pressure, diastolic 60 mm[Hg] Karsten Goddard blood pressure, diastolic -1 mm[Hg] Li nkLogic blood pressure, systolic 126 mm[Hg] Mimi kLogic blood pressure, systolic 126 mm[Hg] She kaylan [place] blood pressure, resting Yes Rory Goddard pulse rate 80 /min Kathy clemons oxygen saturation, oximetry 96 % Kathy Goddard respiratory rate E&M 18 /min Giovanni Goddard weight E&M 189 [lb_av] Kathy clemons height E&M 70 [in_i] Kathy clemons Body Mass Index (Ratio) 27.69 kg/m2 Grey Nina MD blood pressure, cuff size large Ke rri Gruenenfelder blood pressure, diastolic 70 mm[Hg] Ke rri Gruenenfelder blood pressure, systolic 110 mm[Hg] Dylan Pereira respiratory rate E&M 16 /min Danyell Semaj northnfelder oxygen saturation, oximetry 97 % Danyell Maurynfelder pulse rate 70 /min Danyell Coby [facility] weight E&M 193 [lb_av] Danyell Augieuenenfe er height E&M 70 [in_i] Danyell Bibinenfe lder Body Mass Index (Ratio) 26.69 kg/m2 Grey Nina MD blood pressure, diastolic 89 mm[Hg] To nsha Barr blood pressure, systolic 132 mm[Hg] Ton sha Barr respiratory rate E&M 18 /min Tonsha Barr oxygen saturation, oximetry 93 % Tonsha Barr pulse rate 99 /min Tonsha Barr weight E&M 186 [lb_av] Tonsha Barr height E&M 70 [in_i] Tonsha Barr temperature site temporal Zakiya Tank sley temperature E&M 97.5 [degF] Zakiya Tanks darryl Body Mass Index (Ratio) 27.26 kg/m2 Grey Nina MD blood pressure, diastolic 92 mm[Hg] Cy ntsherif Fabio blood pressure, systolic 178 mm[Hg] Chary willie Mccarthy respiratory rate E&M 16 /min Denise Mccarthy pulse rate 64 /min Denise Dandybel l oxygen saturation, oximetry 98 % Denise Mccarthy blood pressure, cuff size regular Cy ntsherif Mccarthy weight E&M 190 [lb_av] Denise Campbel l height E&M 70 [in_i] Denise Campbel l temperature site temporal Zakiya [facility] temperature E&M 97.3 [degF] Zakiya [facility] Body Mass Index (Ratio) 27.12 kg/m2 Grey Nina MD blood pressure, diastolic 86 mm[Hg] To [facility] blood pressure, systolic 158 mm[Hg] [facility] oxygen saturation, oximetry 98 % [facility] respiratory rate E&M 16 /min [facility] pulse rate 73 /min [facility] weight E&M 189 [lb_av] [facility] height E&M 70 [in_i] [facility] Body Mass Index (Ratio) 27.69 kg/m2 Grey Nina MD blood pressure, cuff size regular Cy simba Mccarthy blood pressure, diastolic 80 mm[Hg] Cy ntsherif Mccarthy blood pressure, systolic 138 mm[Hg] Chary willie Fabio oxygen saturation, oximetry 98 % Denise Fabio respiratory rate E&M 16 /min Denise Mccarthy pulse rate 68 /min Denise Campbel l weight E&M 193 [lb_av] Denise Campbel l height E&M 70 [in_i] Denise jaquez Body Mass Index (Ratio) 27.69 kg/m2 Grey Nina MD blood pressure, cuff size large Ke rri Gruenenfelder blood pressure, diastolic 84 mm[Hg] Ke rri Gruenenfelder blood pressure, systolic 152 mm[Hg] Ker ri Gruenenfelder oxygen saturation, oximetry 97 % Danyell Gruenenfelder respiratory rate E&M 18 /min Danyell G ruenenfelder pulse rate 69 /min Danyell Gruenenfe lder weight E&M 193 [lb_av] Danyell Gruenenfe lder height E&M 70 [in_i] Danyell Gruenenfe lder Body Mass Index (Ratio) 27.40 kg/m2 Grey Nina MD blood pressure, diastolic 70 mm[Hg] Kr isty Sharad blood pressure, systolic 136 mm[Hg] Tuani stsolomon [place] pulse rate 77 /min Marilu [place] oxygen saturation, oximetry 96 % Marilu [place] respiratory rate E&M 16 /min Marilu [place] weight E&M 191 [lb_av] Marilu [place] blood pressure, cuff size regular Kr isty [place] height E&M 70 [in_i] Marilu [place] Body Mass Index (Ratio) 27.63 kg/m2 Grey Nina MD blood pressure, cuff size large Ke rri Augieuenemelisa blood pressure, diastolic 74 mm[Hg] Ke rri Gruenenfelder blood pressure, systolic 124 mm[Hg] Dylan ri Augieuenenfjoseer oxygen saturation, oximetry 97 % Danyell Kelli respiratory rate E&M 18 /min Danyell G ruenenfelder pulse rate 72 /min Danyell Tenorio lder weight E&M 192.6 [lb_av] Danyell Lantigua peter height E&M 70 [in_i] Danyell Lantiguae er Body Mass Index (Ratio) 27.69 kg/m2 Grey Nina MD blood pressure, cuff size large Ke rri Grueneyolandajoseer blood pressure, diastolic 100 mm[Hg] Ke rri Gruenenfjoseer blood pressure, systolic 162 mm[Hg] Dylan ri Steffier oxygen saturation, oximetry 98 % Danyell Ghoshsugeyyolandajoseer respiratory rate E&M 18 /min Danyell Cha shareelorrainenfjoseer pulse rate 62 /min Danyell Tenorio er weight E&M 193 [lb_av] Danyell Grzegorze er height E&M 70 [in_i] Danyell Tenorio er Body Mass Index (Ratio) 27.69 kg/m2 Grey Nina MD blood pressure, resting Yes [facility] Martins blood pressure, diastolic 80 mm[Hg] [facility], [facility] 130 mm[Hg] Kil [facility] oxygen saturation, oximetry 97 % [facility] E&M 16 /min [facility] pulse rate 62 /min [facility] weight E&M 193 [lb_av] Nathaly Martins height E&M 70 [in_i] [facility] Body [facility] Index (Ratio) 27.40 kg/m2 Grey Nina MD blood pressure, cuff size regular Ke rri Kelli blood pressure, diastolic 90 mm[Hg] Ke rri Gruenemelisa blood pressure, systolic 151 mm[Hg] Dylan cordova Kelli oxygen saturation, oximetry 98 % Danyell Kelli respiratory rate E&M 16 /min Danyell Cha elva pulse rate 62 /min Danyell Tenorio luis weight E&M 191 [lb_av] Danyell Coby smith height E&M 70 [in_i] Danyell Bibisamanthasurendra smith blood pressure, diastolic 90 mm[Hg] Ehsan gastelum Kelli blood pressure, systolic 140 mm[Hg] Dylan cordova Kelli pulse rate 65 /min Danyell Bibisamanthayolandamichael luis oxygen saturation, oximetry 97 % Danyell Kelli respiratory rate E&M 16 /min Danyell Cha elva Body Mass Index (Ratio) 28.26 kg/m2 Vy myrick Kelli weight E&M 197 [lb_av] Danyell Coby smith blood pressure, diastolic 81 mm[Hg] Ta maria elena Gonzalez blood pressure, systolic 137 mm[Hg] Raf walters Gonzalez pulse rate 60 /min Jo Ann Lisa oxygen saturation, oximetry 98 % Jo Ann Gonzalez respiratory rate E&M 18 /min Jo Ann Gonzalez Body Mass Index (Ratio) 29.12 kg/m2 Ying jakob Gonzalez weight E&M 203 [lb_av] Jo Ann Gonzalez Body Mass Index (Ratio) 29.27 kg/m2 Anea nicole Alexander blood pressure, diastolic 85 mm[Hg] An eatris Alexander blood pressure, systolic 150 mm[Hg] Ane atris Alexander pulse rate 66 /min Aneatris Alexander oxygen saturation, oximetry 97 % Aneatris Alexander respiratory rate E&M 17 /min Aneatri s Alexander weight E&M 204 [lb_av] Aneatris Alexander Body Mass Index (Ratio) 29.12 kg/m2 Mynorl meño Oconnorlivan blood pressure, diastolic 80 mm[Hg] As hlee Maicol blood pressure, systolic 124 mm[Hg] Mynor Milian pulse rate 66 /min Erkia Milian oxygen saturation, oximetry 98 % Erika Milian respiratory rate E&M 16 /min Erika Milian weight E&M 203 [lb_av] Erika Celestinjordana Body Mass Index (Ratio) 29.81 kg/m2 Alexsandra Hart blood pressure, har[place] tolic, second observation 82 mm[Hg] Tammy Hart blood pressure, syst olic, second observation 146 mm[Hg] Tammy Hart blood pressure, diastolic 82 mm[Hg] Na cher Hart blood pressure, systolic 146 mm[Hg] Breanna patrick Hart pulse rate 67 /min Tammy Hart oxygen saturation, oximetry 96 % Tammy Hart respiratory rate E&M 17 /min Tammy Hart weight E&M 207 [lb_av] Tammy Hart Body Mass Index (Ratio) 29.38 kg/m2 Andre Bonilla blood pressure, diastolic, left arm 76 mm [Hg] Malik Bonilla blood pressure, systolic, left arm 124 mm [Hg] Malik Bonilla blood pressure, diastolic, right arm 80 m m[Hg] Malik Bonilla blood pressure, systolic, right arm 138 m m[Hg] Malik Bonilla blood pressure, diastolic 79 mm[Hg] Strickland blood pressure, systolic 124 mm[Hg] Jasen Bonilla pulse rate 68 /min Malik Bonilla respiratory rate E&M 16 /min Malik Bonilla oxygen saturation, oximetry 96 % Malik Bonilla weight E&M 204 [lb_av] Malik Bonilla height E&M 70 [in_i] Malik Bonilla blood pressure, diastolic 88 mm[Hg] Jh Greer RN blood pressure, systolic 151 mm[Hg] Wilfredo Greer RN pulse rate 59 /min Wilfredo Greer RN oxygen saturation, oximetry 99 % Wilfredo Greer RN respiratory rate E&M 18 /min Wilfredo adams RN weight E&M 201 [lb_av] Wilfredo Greer RN blood pressure, diastolic, left arm 80 mm [Hg] Wilfredo Greer RN blood pressure, systolic, left arm 138 mm [Hg] Wilfredo Greer RN blood pressure, diastolic, right arm 90 m m[Hg] Wilfredo Greer RN blood pressure, systolic, right arm 140 m m[Hg] Wilfredo Greer RN blood pressure, diastolic 80 mm[Hg] Jh Greer RN blood pressure, systolic 138 mm[Hg] Wilfredo Greer RN pulse rate 57 /min Wilfredo Greer RN oxygen saturation, oximetry 98 % Wilfredo Greer RN respiratory rate E&M 16 /min Wilfredo adams RN weight E&M 206 [lb_av] Wilfredo Greer RN blood pressure, diastolic 82 mm[Hg] Nilda seph [place] blood pressure, systolic 138 mm[Hg] Fabricio eph [place] pulse rate 68 /min Yovanny [place] oxygen saturation, oximetry 98 % Yovanny [place] respiratory rate E&M 16 /min Yovanny [place] weight E&M 204.5 [lb_av] Yovanny [place] blood pressure, diastolic 89 mm[Hg] Doreen Summers MA blood pressure, systolic 141 mm[Hg] Mani Summers MA pulse rate 60 /min Jessica Summers MA oxygen saturation, oximetry 97 % Jessica Summers MA respiratory rate E&M 18 /min Jessica Summers MA weight E&M 211 [lb_av] Jessica Summers MA ALLERGIES Allergy Name Onset Date Reaction Criticality Status IVP DYE itching itching Low Criticality acti ve AMBIEN Low Criticality active RESULTS Date Observation Value Provider Reference Range Interpretation Location hemoglobin A1C, blood, as % of total hemoglobin 6.5 % OF TOTAL HGB [facility] <5.7 High folate, serum 13.3 ng/mL [facility] Normal B-12, serum 518 pg/mL [facility] 200-1100 Normal prostate specific antigen 2.7 ng/mL [facility] < OR = 4.0 Normal microalbumin/total urine volume 4 mg/L [facility] Units converted. See lab report for original value. Normal alanine aminotransferase (SGPT), serum 22 1/L [facility] 9-46 Normal aspartate aminotransferase (SGOT), serum 20 1/L [facility] 10-35 Normal alkaline phosphatase, serum 50 1/L [facility] 40-115 Normal bilirubin, serum, indirect 0.6 MG/DL (CALC) [facility] 0.2-1.2 Normal bilirubin, serum, direct 0.2 mg/dL [facility] < OR = 0.2 Normal bilirubin, serum, total 0.8 mg/dL [facility] 0.2-1.2 Normal albumin/globulin ratio, serum 2.0 (calc) [facility] 1.0-2.5 Normal globulins, serum, total 2.1 G/DL (CALC) [facility] 1.9-3.7 Normal albumin, serum 4.1 g/dL [facility] 3.6-5.1 Normal protein, total, serum 6.2 g/dL [facility] 6.1-8.1 Normal calcium, serum 9.5 mg/dL [facility] 8.6-10.3 Normal carbon dioxide, venous blood 27 mmol/L [facility] 20-31 Normal chloride, serum 106 mmol/L [facility] 98-110 Normal potassium, serum 4.4 mmol/L [facility] 3.5-5.3 Normal sodium, serum 139 mmol/L [facility] 135-146 Normal urea nitrogen/creatinine ratio, serum NOT APPLICABLE (calc) [facility] 6-22 Estimated Glomerular Filtration Rate (calc) 98 mL/min/{1.73_ m2} [facility] > OR = 60 Normal creatinine, serum 0.86 mg/dL [facility] 0.70-1.18 Normal urea nitrogen, blood 11 mg/dL [facility] 7-25 Normal blood glucose, random 104 mg/dL [facility] 65-99 High cholesterol, non-HDL, total 67 MG/DL (CALC) [facility] Normal cholesterol/HDL ratio, serum, percent 2.5 (calc) [facility] < OR = 5.0 Normal LDL cholesterol, serum 50 MG/DL (CALC) [facility] <130 Normal triglyceride, serum, fasting 85 mg/dL [facility] <150 Normal HDL cholesterol, serum 46 mg/dL [facility] > OR = 40 Normal cholesterol, serum 113 mg/dL [facility] 125-200 Low prothrombin time (patient) 10.4 s [facility] 9.0-11.5 Normal international normalized ratio (INR) 1.0 [facility] Normal basophils as percent of blood leukocytes 0.4 % [facility] Normal eosinophils as percent of blood leukocytes 4.5 % [facility] Normal monocyte count, blood 9.8 % [facility] Normal lymphocyte count, blood 26.1 % [facility] Normal neutrophils as percent of blood leukocytes 59.2 % [facility] Normal basophils, absolute, manual 20 cells/mcL [facility] 0-200 Normal eosinophils, absolute, manual 230 cells/mcL [facility] 15-500 Normal monocytes, absolute, manual 500 cells/mcL [facility] 200-950 Normal lymphocytes, absolute 1331 CELLS/UL [facility] 850-3900 Normal Absolute Neutrophil count 3019 cells/mcL [facility] 3331-9957 Normal platelet count 181 THOUSAND/UL [facility] 140-400 Normal red blood cell distribution width 15.2 % [facility] 11.0-15.0 High mean corpuscular hemoglobin concentration, RBC 32.1 G/DL [facility] 32.0-36.0 Normal mean corpuscular hemoglobin, RBC 26.9 pg [facility] 27.0-33.0 Low mean corpuscular volume, RBC 83.8 fL [facility] 80.0-100.0 Normal hematocrit, blood 46.5 % [facility] 38.5-50.0 Normal hemoglobin electrophoresis, blood 14.9 [facility] 13.2-17.1 Normal erythrocyte (RBC) count 5.55 MILLION/UL [facility] 4.20-5.80 Normal leukocyte (white blood cells) count, blood 5.1 THOUSAND/UL [facility] 3.8-10.8 Normal calcium, serum 9.4 mg/dL [facility] 8.6-10.3 Normal carbon dioxide, venous blood 25 mmol/L [facility] 19-30 Normal chloride, serum 104 mmol/L [facility] 98-110 Normal potassium, serum 4.6 mmol/L [facility] 3.5-5.3 Normal sodium, serum 140 mmol/L [facility] 135-146 Normal urea nitrogen/creatinine ratio, serum NOT APPLICABLE (calc) [facility] 6- Estimated Glomerular Filtration Rate (calc) 95 mL/min/{1.73_ m2} [facility] > OR = 60 Normal creatinine, serum 0.93 mg/dL [facility] 0.70-1.18 Normal urea nitrogen, blood 12 mg/dL [facility] 7-25 Normal blood glucose, random 113 mg/dL [facility] 65-99 High cholesterol/HDL ratio, serum, percent 3.0 (calc) [facility] < OR = 5.0 Normal LDL cholesterol, serum 70 MG/DL (CALC) [facility] <130 Normal triglyceride, serum, fasting 70 mg/dL [facility] <150 Normal HDL cholesterol, serum 41 mg/dL [facility] > OR = 40 Normal cholesterol, serum 125 mg/dL [facility] 125-200 Normal cholesterol, serum 130 mg/dL [facility] creatinine, serum 0.97 mg/dL [facility] blood glucose, random 119 mg/dL [facility] triglyceride, serum, fasting 81 mg/dL [facility] HDL cholesterol, serum 42 mg/dL [facility] cholesterol/HDL ratio, serum 3.3 [facility] lipoprotein, beta, serum, point, quantitative, calculated 82 mg/dL [facility] cholesterol, serum 140 mg/dL [facility] alanine aminotransferase (SGPT), serum 27 1/L [facility] aspartate aminotransferase (SGOT), serum 22 1/L [facility] creatinine, serum 0.98 mg/dL [facility] urea nitrogen, blood 14 mg/dL [facility] potassium, serum 4.8 mmol/L [facility] sodium, serum 139 mmol/L [facility] HISTORY OF MEDICATION USE Medication Status Instructions Dates Provider Indications Com ments atorvastatin 20 mg tablet active TAKE 1 TABLET BY MOUTH ONCE DAILY Deborah Nina MD lidocaine 5% adhesive patch,medicated active Apply Local application as needed for pain 09/25 Ramana Hoff magnesium oxide 200 mg magnesium tablet active Ramana Hoff Nitrostat 0.4 mg tablet, sublingual active Place 1 tablet under tongue as directed for pain May repeat every 5 minutes if still having chest pain- to max of 3 tablets per episode. 05/15 Ramana Hoff metoprolol succinate 25 mg tablet extended release 24 hr active TAKE 1 TABLET BY MOUTH ONCE DAILY 05/09 Divine Roth valsartan 320 mg tablet active TAKE 1 TABLET BY MOUTH DAILY 05/09 [facility] Xarelto 2.5 mg tablet active TAKE 1 TABLET BY MOUTH TWICE DAILY 05/09 [facility] escitalopram oxalate 10 mg tablet active TAKE 1 TABLET BY MOUTH DAILY 04/16 Deborah Nina MD atorvastatin 10 mg tablet completed TAKE 1 TABLET BY MOUTH ONCE DAILY 04/16 - Deborah Nina MD celecoxib 200 mg capsule active Ramana Hoff metoprolol succinate 25 mg tablet extended release 24 hr completed Take 1 tablet by mouth once a day 04/01 - 05/09 [facility] atorvastatin 20 mg tablet completed Take 1 tablet by mouth once a day 04/01 - 04/16 [facility] Breo Ellipta 100-25 mcg/dose blister with device active Ramana Hoff valsartan 320 mg tablet completed TAKE 1 TABLET DAILY 06/17 - 05/09 [facility] atorvastatin 20 mg tablet completed TAKE 1 TABLET DAILY 04/01 - 04/01 Danyell Pereira Xarelto 2.5 mg tablet completed TAKE 1 TABLET TWICE A DAY 10/12 - 05/09 [facility] amlodipine 10 mg tablet completed TAKE 1 TABLET DAILY 10/12 - 11/02 Jacki Clark metoprolol succinate 25 mg tablet extended release 24 hr completed TAKE 1 TABLET DAILY 10/12 - 04/01 Danyell Pereira escitalopram oxalate 10 mg tablet completed TAKE 1 TABLET DAILY 10/12 - 04/16 Francis Mejias hydrochlorothiazide 25 mg tablet completed Take 1 tablet by mouth once a day 09/28 - 09/23 Ramana Hoff Trulicity 0.75 mg/0.5 mL pen injector active 1 once a week 04/26 Danyell Pereira amlodipine 5 mg tablet completed Take 1 tablet by mouth once a day take 1/ pill of 10 mg daily 07/29 - 10/12 Deborah Nina MD LOSARTAN POTASSIUM 100 MG ORAL TABLET completed 05/06 - 07/29 Denise Mccarthy #90, 90 days supply, Prescribed by DEBORAH NINA, Filled 03/05/2018 METFORMIN HCL ER 500 MG ORAL TABLET EXTENDED RELEASE 24 HOUR completed 06/11 - 07/29 Deborah Nina MD #270, 90 days supply, Prescribed by GINA HARRISON, Filled 09/05/2018 tramadol 50 mg tablet active 03/21 Deborah Nina MD #180, 90 days supply, Prescribed by GINA HARRISON, Filled 03/21/2019 ONETOUCH VERIO W/DEVICE KIT completed USE 1 TO CHECK GLUCOSE ONCE DAILY 03/21 - 09/28 Danyell Pereira #1, 30 days supply, Prescribed by GINA HARRISON, Filled 03/22/2019 ONETOUCH DELICA PLUS [id number] completed USE 1 LANCET TO CHECK GLUCOSE ONCE DAILY 03/21 - 09/28 Danyell Pereira #100, 90 days supply, Prescribed by GINA HARRISON, Filled 03/22/2019 Lexapro 10 mg tablet completed 1 tablet once a day 03/18 - 10/12 Deborah Nina MD Xarelto 2.5 mg tablet completed Take 1 tablet twice a day - 10/12 Jacki Atkins valsartan 320 mg tablet completed Take 1 tablet once a day 03/20 - 06/17 Rupert Nacht Nitrostat 0.4 mg tablet, sublingual completed Apply 1 tablet under tongue as needed 08/31 - 05/15 Ramana Hoff Adult Aspirin Regimen 81 mg tablet,delayed release (DR/EC) active 07/07 Deborah Nina MD VITAMIN D-3 1000 UNIT ORAL CAPSULE completed once a day 06/14 - 08/21 Danyell Pereira LIDODERM 5 % EXTERNAL PATCH completed 2 patches on for 12 hours and off for 12 hours 06/14 - 08/21 Danyell Pereira pantoprazole 40 mg tablet,delayed release (DR/EC) active 1 tablet once a day 03/13 Deborah Nina MD LOSARTAN POTASSIUM 100 MG ORAL TABLET completed Take one tablet daily - 05/30 Angélica Thornton RN metoprolol succinate 25 mg tablet extended release 24 hr completed Take 1 tablet once a day 06/11 - 10/12 Jacki Clark PROTONIX 40 MG ORAL PACKET completed - 09/28 Danyell Pereira COMPASS PROTONIX VS PLACEBO completed 11/08 - 08/[address] RN ACETAMINOPHEN 650 MG RECTAL SUPPOSITORY completed as needed - 09/28 Jo Ann Gonzalez VITAMIN D3 1000 UNIT ORAL CAPSULE completed 1 daily - 09/28 Danyell Pereira METFORMIN HCL 500 MG ORAL TABLET completed 1 in am and 2 pm - 03/18 Denise Mccarthy PSYLLIUM HUSK 100 % POWD completed 2 capsule once a day - 05/24 Ramana Hoff COMPASS ASA/ RIVAROXABAN completed 06/06 - 08/[address] RN LIDODERM 5 % EXTERNAL PATCH completed 2 patch off 12 on 12 hours - 03/[address] RN NIGHTTIME SLEEP TABLET completed 2 tablet every night - 05/24 Ramana Hoff METAMUCIL CAPSULE completed 2 cap daily - 09/28 Erika Milian TRAMADOL HCL TABLET completed 50mg 1-2 tab s as needed every 4-6 hrs - 04/09 Malik Bonilla LOPRESSOR TABLET completed 50mg 1/2 tab am and pm - Deborah Nina MD PLAVIX 75 MG ORAL TABLET completed ONE TAB. DAILY - 06/[address] RN Lipitor 20 mg tablet completed 1 tablet once a day 04/26 - 04/01 Rupert Farr ASPIRIN 81 MG ORAL TABLET completed ONE TAB. DAILY - 06/[address] RN Mobic 15 mg tablet completed once a day - 05/24 Ramana Kavya SOCIAL HISTORY Date Observation Value Provider drug use none [facility] passive cigarette sm galen exposure no [facility] smoking status Never smoker [facility] drug use none [facility] alcohol use no Ramana claudio passive cigarette sm galen exposure no Ramana claudio smoking status Never smoker Ramana claudio drug use none [facility] alcohol use no Ramanajose luis Hoff passive cigarette sm galen exposure no Ramanajose luis Hoff smoking status Never smoker Ramana Israel smoking status Never smoker Jazmin Rdz social history reviewed E&M revi ewed - no changes required Deborah Nina MD social history E&M Marital Statu s: E thnicity: Smoking History: P dayana has never smoked. Ramana Hoff smoking status Never smoker Jazmin Rdz social history reviewed E&M revi ewed - no changes required Ramana Hoff exercise type walking Danyell green physical exercise, f requency, days per week no Danyell Pereira caffeine use, averag e drinks per day no Danyell Pereira passive cigarette sm galen exposure no Danyell Pereira smoking status Never smoker Danyell villanueva social history reviewed E&M revi ewed - no changes required Ramana Hoff exercise type walking Parris Frey gabriel physical exercise, f requency, days per week no Parris Mondragon caffeine use, averag e drinks per day no Parris Mondragon passive cigarette sm galen exposure no Parris Mondragon smoking status Never smoker Parris Do social history reviewed E&M revi ewed - no changes required Ramana Hoff social history reviewed E&M revi ewed - no changes required Ramana Hoff social history E&M Marital Statu s: E thnicity: S moking History: P dayana has never smoked. Ramana Hoff social history reviewed E&M revi ewed - no changes required Ramana Hoff social history E&M Marital Statu s: E thnicity: Smoking History: P dayana has never smoked. Ramana Hoff social history reviewed E&M revi ewed - no changes required Ramana Hoff exercise type walking Denise rai physical exercise, f requency, days per week no Denise Mccarthy caffeine use, averag e drinks per day no Denise Mccarthy passive cigarette sm galen exposure no Denise Mccarthy smoking status Never smoker Denise christine social history E&M Marital Statu s: E thnicity: Smoking History: P atbhavik has never smoked. Rupert Farr social history reviewed E&M revi ewed - no changes required Rupert Farr exercise type walking Kathy gonsalez physical exercise, f requency, days per week no Kathy Goddard caffeine use, averag e drinks per day no Kathy Goddard passive cigarette sm galen exposure no Kathy Goddard smoking status Never smoker Kathy chris social history E&M Marital Statu s: E thnicity: Smoking History: P atbhavik has never smoked. Cornelius Boo Evan social history reviewed E&M revi ewed - no changes required Cornelius Gordon exercise type walking Danyell Lantigua peter physical exercise, f requency, days per week no Danyell Pereira caffeine use, averag e drinks per day no Danyell Pereira passive cigarette sm galen exposure no Danyell Lantiguajoseapril smoking status Never smoker Danyell katzer social history E&M Marital Statu s: E thnicity: Smoking History: P dayana has never smoked. Deborah Nina MD social history reviewed E&M revi ewed - no changes required Deborah Nina MD exercise type walking [facility] physical exercise, f requency, days per week no [facility] caffeine use, averag e drinks per day no [facility] passive cigarette sm galen exposure no [facility] smoking status Never smoker [facility] social history E&M Marital Statu s: E thnicity: Smoking History: P atbhavik has never smoked. Deborah Nina MD social history reviewed E&M revi ewed - no changes required Deborah Nina MD exercise type walking Denise rai physical exercise, f requency, days per week no Denise Mccarthy caffeine use, averag e drinks per day no Denise Mccarthy passive cigarette sm galen exposure no Denise Mccarthy smoking status Never smoker Denise christine exercise type walking Deborah Zhao physical exercise, f requency, days per week no Deborah Nina MD caffeine use, averag e drinks per day no Deborah Nina MD passive cigarette sm galen exposure no Deborah Nina MD smoking status Never smoker Deborah Nina MD social history reviewed E&M revi ewed - no changes required Deborah Nina MD exercise type walking Deborah Zhao physical exercise, f requency, days per week no Deborah Nina MD caffeine use, averag e drinks per day no Deborah Nina MD passive cigarette sm galen exposure no Deborah Nina MD smoking status Never smoker Deborah Nina MD social history E&M Marital Statu s: E thnicity: Smoking History: P dayana has never smoked. Deborah Nina MD social history reviewed E&M revi ewed - no changes required Deborah Nina MD social history reviewed E&M revi ewed - no changes required Deborah Nina MD exercise type walking Danyell green physical exercise, f requency, days per week no Danyell Pereira alcohol use, average drinks per day none Danyell Pereira alcohol use no Danyell Coby smither caffeine use, averag e drinks per day no Danyell Pereira drug use none Danyell Coby smither passive cigarette sm galen exposure no Danyell Pereira smoking status Never smoker Danyell villanueva social history reviewed E&M revi ewed - no changes required Marilu Orourke exercise type walking Marilu Orourke physical exercise, f requency, days per week no Marilu [place] alcohol use, average drinks per day none Marilu [place] alcohol use no Marilu [place] caffeine use, averag e drinks per day no Marilu [place] drug use none Marilu Sharad passive cigarette sm galen exposure no Marilu Corderoby smoking status Never smoker Marilu Sharad social history reviewed E&M revi ewed - no changes required Deborah Nina MD exercise type walking Danyell green physical exercise, f requency, days per week no Danyell Kelli alcohol use, average drinks per day none Danyell Kelli alcohol use no Danyell Coby lder caffeine use, averag e drinks per day no Danyell Kelli drug use none Danyell Coby lder passive cigarette sm galen exposure no Danyell Kelli smoking status Never smoker Danyell villanueva number of grandchildren Deborah Nina MD T walt Nina MD social history reviewed E&M revi ewed - no changes required Deborah Nina MD exercise type walking Danyell green physical exercise, f requency, days per week no Danyell Kelli alcohol use, average drinks per day none Danyell Kelli alcohol use no Danyell Coby lder caffeine use, averag e drinks per day no Danyell Kelli drug use none Danyell Coby lder passive cigarette sm galen exposure no Danyell Kelli smoking status Never smoker Danyell villanueva social history reviewed E&M revi ewed - no changes required Deborah Nina MD exercise type walking Nathaly Martins physical exercise, f requency, days per week no Nathaly Martins alcohol use, average drinks per day none Nathaly Martins alcohol use no [place] Martins caffeine use, averag e drinks per day no [place] Martins drug use none [place] Martins passive cigarette sm galen exposure no [place] Martins smoking status Never smoker Nathaly Herring guille social history reviewed E&M revi ewed - no changes required Deborah Nina MD exercise type walking Danyell Ghoshgeorgia green physical exercise, f requency, days per week no Danyell Lantiguajoseapril alcohol use, average drinks per day none Danyell Kelli alcohol use no Danyell Tenorio lder caffeine use, averag e drinks per day no Danyell Lantiguajoseapril drug use none Danyell Tenorio lder passive cigarette sm galen exposure no Danyell Lantiguajoseapril smoking status Never smoker Danyell Ghoshsugeyjerrod kay social history reviewed E&M revi ewed - no changes required Deborah Nina MD alcohol use no Danyell Tenorio luiser smoking status Never smoker Danyell Augieemma villanueva social history reviewed E&M revi ewed - no changes required Deborah Nina MD social history reviewed E&M revi ewed - no changes required Deborah Nina MD social history reviewed E&M revi ewed - no changes required Deborah Nina MD smoking status Never smoker Eirka Celestinjordana social history reviewed E&M reviewed Deborah Nina MD social history reviewed E&M reviewed Deborah Nina MD exercise type walking Malik elder drug use none Deborah Nina MD passive cigarette sm galen exposure no Malik Bonilla smoking status never smoker Stephanijordana silveira social history reviewed E&M reviewed Wilfredo Greer RN social history reviewed E&M reviewed Wilfredo Greer RN social history reviewed E&M reviewed Deborah Nina MD social history E&M Marital Statu s: E thnicity: Deborah Nina MD drug use none Deborah Nina MD social history reviewed E&M reviewed Deborah Nina MD physical exercise, f requency, days per week no [employer] caffeine use, averag e drinks per day no [employer] alcohol use, average drinks per day none [employer] smoking status Non-smoker [employer] FUNCTIONAL STATUS Date Observation Value Provider HRA, CV Assess/Plan, Angina (inactive) Management Plan continue current therapy Ramana Ahmedzai HRA, CV Assess/Plan, Angina (inactive) Management Plan continue current therapy Ramana Ahmedzai HRA, CV Assess/Plan, Angina (inactive) Management Plan continue current therapy Ramana Ahmedzai HRA, CV Assess/Plan, Angina (inactive) Management Plan continue current therapy Deborah Nina MD HRA, CV Assess/Plan, Angina (inactive) Management Plan continue current therapy Ramana Ahmedzai HRA, CV Assess/Plan, Angina (inactive) Management Plan continue current therapy Ramana Ahmedzai HRA, CV Assess/Plan, Angina (inactive) Management Plan continue current therapy Ramana Ahmedzai HRA, CV Assess/Plan, Angina (inactive) Management Plan continue current therapy Ramana Ahmedzai HRA, CV Assess/Plan, Angina (inactive) Management Plan continue current therapy Ramana Ahmedzai HRA, CV Assess/Plan, Angina (inactive) Management Plan continue current therapy Ramana Hoff HRA, CV Assess/Plan, Angina (inactive) Management Plan continue current therapy Rupert Farr HRA, CV Assess/Plan, Angina (inactive) Management Plan continue current therapy Cornelius Gordon HRA, CV Assess/Plan, Angina (inactive) Management Plan continue current therapy Deborah Nina MD HRA, CV Assess/Plan, Angina (inactive) Management Plan continue current therapy Deborah Nina MD HRA, CV Assess/Plan, Angina (inactive) Management Plan continue current therapy Deborah Nina MD HRA, CV Assess/Plan, Angina (inactive) Management Plan continue current therapy Deborah Nina MD HRA, CV Assess/Plan, Angina (inactive) Management Plan continue current therapy Deborah Nina MD HRA, CV Assess/Plan, Angina (inactive) Management Plan continue current therapy Deborah Nina MD HRA, CV Assess/Plan, Angina (inactive) Management Plan continue current therapy Deborah Nina MD MENTAL STATUS Date Observation Value Provider assessment of judgme nt and insight E&M Alert and oriented to time, place and person. Mood and affect are normal. Deborah Nina MD assessment of judgme nt and insight E&M Alert and oriented to time, place and person. Mood and affect are normal. Nilda Street assessment of judgme nt and insight E&M Alert and oriented to time, place and person. Mood and affect are normal. Wilfredo Greer RN assessment of judgme nt and insight E&M Alert and oriented to time, place and person. Mood and affect are normal. Wilfredo Greer RN assessment of judgme nt and insight E&M Alert and oriented to time, place and person. Mood and affect are normal. Deborah Nina MD assessment of judgme nt and insight E&M Alert and oriented to time, place and person. Mood and affect are normal. Deborah Nina MD FAMILY HISTORY Family Member Condition Father IA male <55 Mother Family History Unkno wn Father Family History Coron bib Heart Disease male < 55: Father Family History Coron bib Heart Disease male < 55: INSURANCE PROVIDERS Payer name Policy type / Coverage type [employer] party ID [employer] GRP MEDICARE ADVANTAGE PLAN (PPO) Medicare [id number] ADVANCE DIRECTIVES Name Date DISCUSSED - NO DECISION MADE TREATMENT PLAN Date Name Performer [id number],B, Deborah Nina MD [id number], Deborah Nina MD [id number],B, Deborah Nina MD [id number],B, Deborah Nina MD [id number],B, Deborah Nina MD [id number],S, Ramana Ahmedza i [id number],S, Ramana Ahmedza i [id number],S, Ramana Ahmedza i [id number],S, Ramana Ahmedza i [id number],S, Ramana Ahmedza i [id number],S, Ramana Ahmedza i [id number],S, Ramana Ahmedza i [id number],S, Ramana Ahmedza i [id number],S, Ramana Ahmedza i [id number],S, Ramana Ahmedza i [id number],S, Ramana Ahmedza i [id number],S, Ramana Ahmedza i [id number],S, Ramana Ahmedza i [id number],S, Ramana Ahmedza i [id number],S, Ramana Ahmedza i [id number],S, Ramana Ahmedza i [id number],S, Ramana Ahmedza i [id number],N, Ramana Ahmedza i [id number],B, Ramana Ahmedza i [id number],B, Ramana Ahmedza i [id number],S, Ramana Ahmedza i [id number],B, Ramana Ahmedza i [id number],B, Ramana Ahmedza i [id number],S, Ramana Ahmedza i [id number],S, Ramana Ahmedza i [id number],S, Ramana Ahmedza i [id number],S, Ramana Ahmedza i [id number],S, Ramana Ahmedza i [id number],S, Ramana Ahmedza i [id number],S, Ramana Ahmedza i [id number],S, Ramana Ahmedza i [id number],S, Ramana Ahmedza i [id number],S, Ramana Ahmedza i [id number],S, Ramana Ahmedza i [id number],S, Ramana Ahmedza i [id number],S, Ramana Ahmedza i [id number],W, Rupert Farr [id number],Rupert Hammonds [id number],SRupert [id number],SRupert [id number],Rupert Hammonds Cardiology:This visi t has been a part of the consistent, comprehensive, and ongoing management of the chronic medical condition(s) listed above for the patient. His updated medication list for this problem includes: Nitrostat 0.4 Mg Tablet, Sublingual (Nitroglycerin) ..... Place 1 tablet under tongue as directed for pain may repeat every 5 minutes if still having chest pain- to max of 3 tablets per episode. Metoprolol Succinate 25 Mg Tablet Extended Release 24 Hr (Metoprolol succinate) ..... Take 1 tablet by mouth once daily Adult Aspirin Regimen 81 Mg Tablet,delayed Release (dr/ec) (Aspirin) Deborah Nina MD Cardiology Ramana Hoff Cardiology: H is updated medication list for this problem includes: Valsartan 320 Mg Tablet (Valsartan) ..... Take 1 tablet by mouth daily Trulicity 0.75 Mg/0.5 Ml Pen Injector (Dulaglutide) ..... 1 once a week Adult Aspirin Regimen 81 Mg Tablet,delayed Release (dr/ec) (Aspirin) [facility] Cardiology: H is updated medication list for this problem includes: Atorvastatin 10 Mg Tablet (Atorvastatin) ..... Take 1 tablet by mouth once daily [facility]: H is updated medication list for this problem includes: Nitrostat 0.4 Mg Tablet, Sublingual (Nitroglycerin) ..... Place 1 tablet under tongue as directed for pain may repeat every 5 minutes if still having chest pain- to max of 3 tablets per episode. Metoprolol Succinate 25 Mg Tablet Extended Release 24 Hr (Metoprolol succinate) ..... Take 1 tablet by mouth once daily Adult Aspirin Regimen 81 Mg Tablet,delayed Release (dr/ec) (Aspirin) [facility]: H is updated medication list for this problem includes: Valsartan 320 Mg Tablet (Valsartan) ..... Take 1 tablet by mouth daily Trulicity 0.75 Mg/0.5 Ml Pen Injector (Dulaglutide) ..... 1 once a week Adult Aspirin Regimen 81 Mg Tablet,delayed Release (dr/ec) (Aspirin) Ramana Israel Cardiology: H is updated medication list for this problem includes: Nitrostat 0.4 Mg Tablet, Sublingual (Nitroglycerin) ..... Place 1 tablet under tongue as directed for pain may repeat every 5 minutes if still having chest pain- to max of 3 tablets per episode. Metoprolol Succinate 25 Mg Tablet Extended Release 24 Hr (Metoprolol succinate) ..... Take 1 tablet by mouth once daily Adult Aspirin Regimen 81 Mg Tablet,delayed Release (dr/ec) (Aspirin) [facility]: B P today: 129/75 P rior BP: 126/82 (09/26/2023) Labs Reviewed: C reat: 0.86 (08/18/2016) C hol: 113 (08/18/2016) HDL: 46 (08/18/2016) LDL: 50 MG/DL (CALC) (08/18/2016) T (08/18/2016) His updated medication list for this problem includes: Metoprolol Succinate 25 Mg Tablet Extended Release 24 Hr (Metoprolol succinate) ..... Take 1 tablet by mouth once daily Valsartan 320 Mg Tablet (Valsartan) ..... Take 1 tablet by mouth daily Adult Aspirin Regimen 81 Mg Tablet,delayed Release (dr/ec) (Aspirin) [facility]: H is updated medication list for this problem includes: Nitrostat 0.4 Mg Tablet, Sublingual (Nitroglycerin) ..... Place 1 tablet under tongue as directed for pain may repeat every 5 minutes if still having chest pain- to max of 3 tablets per episode. Metoprolol Succinate 25 Mg Tablet Extended Release 24 Hr (Metoprolol succinate) ..... Take 1 tablet by mouth once daily Adult Aspirin Regimen 81 Mg Tablet,delayed Release (dr/ec) (Aspirin) [facility] Cardiology: H is updated medication list for this problem includes: Metoprolol Succinate 25 Mg Tablet Extended Release 24 Hr (Metoprolol succinate) ..... Take 1 tablet by mouth once daily Valsartan 320 Mg Tablet (Valsartan) ..... Take 1 tablet by mouth daily Adult Aspirin Regimen 81 Mg Tablet,delayed Release (dr/ec) (Aspirin) [facility] Cardiology: H is updated medication list for this problem includes: Valsartan 320 Mg Tablet (Valsartan) ..... Take 1 tablet by mouth daily Trulicity 0.75 Mg/0.5 Ml Pen Injector (Dulaglutide) ..... 1 once a week Adult Aspirin Regimen 81 Mg Tablet,delayed Release (dr/ec) (Aspirin) [facility] Cardiology: H is updated medication list for this problem includes: Nitrostat 0.4 Mg Tablet, Sublingual (Nitroglycerin) ..... Place 1 tablet under tongue as directed for pain may repeat every 5 minutes if still having chest pain- to max of 3 tablets per episode. Metoprolol Succinate 25 Mg Tablet Extended Release 24 Hr (Metoprolol succinate) ..... Take 1 tablet by mouth once daily Adult Aspirin Regimen 81 Mg Tablet,delayed Release (dr/ec) (Aspirin) [facility] Cardiology: H is updated medication list for this problem includes: Valsartan 320 Mg Tablet (Valsartan) ..... Take 1 tablet by mouth daily Trulicity 0.75 Mg/0.5 Ml Pen Injector (Dulaglutide) ..... 1 once a week Adult Aspirin Regimen 81 Mg Tablet,delayed Release (dr/ec) (Aspirin) [facility] Cardiology: H is updated medication list for this problem includes: Atorvastatin 10 Mg Tablet (Atorvastatin) ..... Take 1 tablet by mouth once daily [facility] Cardiology [facility] Cardiology: H is updated medication list for this problem includes: Nitrostat 0.4 Mg Tablet, Sublingual (Nitroglycerin) ..... Place 1 tablet under tongue as directed for pain may repeat every 5 minutes if still having chest pain- to max of 3 tablets per episode. Metoprolol Succinate 25 Mg Tablet Extended Release 24 Hr (Metoprolol succinate) ..... Take 1 tablet by mouth once daily Adult Aspirin Regimen 81 Mg Tablet,delayed Release (dr/ec) (Aspirin) [facility] Cardiology: B P today: 139/77 P rior BP: 146/79 (11/29/2022) Labs Reviewed: C reat: 0.86 (08/18/2016) C hol: 113 (08/18/2016) HDL: 46 (08/18/2016) LDL: 50 MG/DL (CALC) (08/18/2016) T (08/18/2016) His updated medication list for this problem includes: Metoprolol Succinate 25 Mg Tablet Extended Release 24 Hr (Metoprolol succinate) ..... Take 1 tablet by mouth once daily Valsartan 320 Mg Tablet (Valsartan) ..... Take 1 tablet by mouth daily Adult Aspirin Regimen 81 Mg Tablet,delayed Release (dr/ec) (Aspirin) [facility] Cardiology: H is updated medication list for this problem includes: Valsartan 320 Mg Tablet (Valsartan) ..... Take 1 tablet by mouth daily Trulicity 0.75 Mg/0.5 Ml Pen Injector (Dulaglutide) ..... 1 once a week Adult Aspirin Regimen 81 Mg Tablet,delayed Release (dr/ec) (Aspirin) [facility] Cardiology [facility] Cardiology: H is updated medication list for this problem includes: Atorvastatin 20 Mg Tablet (Atorvastatin) ..... Take 1 tablet by mouth once daily [facility] Cardiology:Pt denies any CP or SOB. H is updated medication list for this problem includes: Nitrostat 0.4 Mg Tablet, Sublingual (Nitroglycerin) ..... Place 1 tablet under tongue as directed for pain may repeat every 5 minutes if still having chest pain- to max of 3 tablets per episode. Metoprolol Succinate 25 Mg Tablet Extended Release 24 Hr (Metoprolol succinate) ..... Take 1 tablet by mouth once daily Adult Aspirin Regimen 81 Mg Tablet,delayed Release (dr/ec) (Aspirin) [facility] Deborah Nina MD Cardiology Deborah Nina MD Cardiology Deborah Nina MD Cardiology Deborah Nina MD Cardiology Deborah Nina MD Cardiology Ramana Ahmedzai Cardiology Ramana Ahmedzai Cardiology Ramana Ahmedzai Cardiology Ramana Ahmedzai Cardiology Ramana Ahmedzai Cardiology Ramana Ahmedzai Cardiology Ramana Ahmedzai Cardiology Ramana Ahmedzai Cardiology Ramana Ahmedzai Cardiology Ramana Ahmedzai Cardiology Ramana Ahmedzai Cardiology Ramana Ahmedzai Cardiology Ramana Ahmedzai Cardiology Ramana Ahmedzai Cardiology Ramana Ahmedzai Cardiology Ramana Ahmedzai Cardiology Ramana Ahmedzai Cardiology Ramana Ahmedzai Cardiology Ramana Ahmedzai Cardiology Ramana Ahmedzai Cardiology Ramana Ahmedzai Cardiology Ramana Ahmedzai Cardiology Ramana Ahmedzai Cardiology Ramana Ahmedzai Cardiology Ramana Ahmedzai Cardiology Ramana Ahmedzai Cardiology Ramana Ahmedzai Cardiology Ramana Ahmedzai Cardiology Ramana Ahmedzai Cardiology Ramana Ahmedzai Cardiology follow up Ramana Ahmedz ai Cardiology follow up Ramana Ahmedz ai Cardiology follow up Ramana Robertson ai Cardiology follow up Ramana Robertson ai Cardiology follow up Ramana Robertson ai Cardiology follow up Ramana Robertson ai Cardiology Rupert Nacht Cardiology Rupert Nacht Cardiology Rupert Nacht Cardiology Rupert Nacht Cardiology Rupert Nacht Cardiology Follow u p Toniya Sin gh Cardiology Follow u p Toniya Sin priscilla BAER Cardiology Follow u p Toniya Sin gh Cardiology Follow u p Cornelius C Regina tty Cardiology Follow u p Cornelius C Regina tty Cardiology Follow u p Cornelius C Regina tty Cardiology Deborah Nina MD Cardiology Deborah Nina MD Cardiology [place] Nina MD Cardiology Deborah Nina MD Cardiology Deborah Nina MD Cardiology [place] Nina MD Cardiology Deborah Nina MD Cardiology Deborah Nina MD Cardiology Deborah Nina MD Cardiology Deborah Nina MD Cardiology Deborah Nina MD Cardiology Deborah Nina MD Cardiology Deborah Nina MD Cardiology Deborah Nina MD Cardiology Deborah Nina MD Cardiology followup Deborah Nina MD Cardiology followup Deborah Nina MD Cardiology followup Deborah Nina MD Cardiology followup Deborah Nina MD Cardiology Follow up Deborah yancey MD Cardiology Follow up Ton[place] yancey MD Cardiology Follow up Deborah yancey MD Cardiology Follow up [place] yancey MD Cardiology Deborah Nina MD Cardiology Deborah Nina MD Cardiology: B P today: 136/70 P rior BP: 124/74 (08/21/2017) Labs Reviewed: C reat: 0.86 (08/18/2016) C hol: 113 (08/18/2016) HDL: 46 (08/18/2016) LDL: 50 MG/DL (CALC) (08/18/2016) T (08/18/2016) Deborah Nina MD Cardiology:Last week , had a severe pain in right shoulder while sitting that lasted for 5 minutes in the afternoon. Was not muscle pain, and had not eaten prior. BP was in the 140s at that time. Had a similar pain in left shoulder today and thought he should come in. Pt denies any neck issues. Prescribed nitrostat. Deborah Nina MD Cardiology Follow up Deborah yancey MD Cardiology Follow up Deborah yancey MD Cardiology Follow up Deborah yancey MD Cardiology Follow up : H is updated medication list for this problem includes: Toprol Xl 25 Mg Oral Tablet Extended Release 24 Hour (Metoprolol succinate) ..... One tab daily Aspirin Adult Low Dose 81 Mg Oral Tablet Delayed Release (Aspirin) ..... One tab by mouth daily N uclear Stress Findings: 1. Abnormal myocardial perfusion imaging after vasodilator stress with Regadenoson. 2. Normal left ventricular systolic function with a calculated ejection fraction of 64%. 3 . Myocardial scintigraphy demonstrates a moderate sized reversible lateral wall defect consistent with ischemia. - (10/22/2013) C ardiac Cath: % RCA stenosis: 50%. % LAD stenosis: 99% subtotal occlusion. (04/14/1998) C arotid Doppler/Duplex: Minimal smooth atherosclerotic plaque bilaterally (<39%). Antegrade flow in both vertebrals. (06/12/2007) C HOL: 113 (08/18/2016) LDL: 50 MG/DL (CALC) (08/18/2016) HDL: 46 (08/18/2016) T (08/18/2016) H CT: 46.5 (10/30/2013) Platelets: 181 THOUSAND/UL (10/30/2013) R BC: 5.55 MILLION/UL (10/30/2013) BUN: 11 (08/18/2016) Creat: 0.86 (08/18/2016) Na+: 139 (08/18/2016) K+: 4.4 (08/18/2016) Cl: 106 (08/18/2016) PT: 10.4 (10/30/2013) INR: 1.0 (10/30/2013) Deborah Nina MD Cardiology Follow up :Losartan increased. Will follow closely. H is updated medication list for this problem includes: Losartan Potassium 100 Mg Oral Tablet (Losartan potassium) ..... Take one tablet daily Toprol Xl 25 Mg Oral Tablet Extended Release 24 Hour (Metoprolol succinate) ..... One tab daily Aspirin Adult Low Dose 81 Mg Oral Tablet Delayed Release (Aspirin) ..... One tab by mouth daily Deborah Nina MD Cardiology Follow up Deborah yancey MD Cardiology Follow up : O rders: C arotid Duplex Bilateral (CPT-28325) 9 9214 MOD Complex (CPT-79515) Deborah Nina MD Cardiology Follow up Deborah yancey MD Cardiology follow up Deborah yancey MD Cardiology follow up Deborah yancey MD Cardiology follow up Deborah yancey MD Cardiology follow up Deborah yancey MD Cardiology follow up Deborah yancey MD Cardiology Follow up Deborah yancey MD Cardiology Follow up Deborah yancey MD Cardiology Follow up Deborah yancey MD Cardiology Follow up Luisilucian yancey MD Cardiology Follow u p Toniya Sin priscilla BAER Cardiology Follow u p Toniya Sin priscilla BAER Cardiology Follow u p Toniya Sin priscilla BAER Cardiology Follow u p Toniya Sin priscilla BAER Cardiology,follow up:on metformi n, hgbaic 7.2 Deborah Nina MD Cardiology,follow up Deborah yancey MD Cardiology,follow up Deborah yancey MD Cardiology,follow up Deborah yancey MD hfu: H is updated medication list for this problem includes: Lipitor 10 Mg Tabs (Atorvastatin calcium) ..... Daily Deborah Nina MD hfu: H is updated medication list for this problem includes: Lipitor 10 Mg Tabs (Atorvastatin calcium) ..... Daily Lopressor Tabs (Metoprolol tartrate tabs) ..... 50mg 1/2 tab am and pm Deboarh Nina MD hfu: H is updated medication list for this problem includes: Lopressor Tabs (Metoprolol tartrate tabs) ..... 50mg 1/2 tab am and pm Deborah Nina MD hfu: H is updated medication list for this problem includes: Lopressor Tabs (Metoprolol tartrate tabs) ..... 50mg 1/2 tab am and pm Deborah Nina MD f/u: H is updated medication list for this problem includes: Lipitor 10 Mg Tabs (Atorvastatin calcium) ..... Daily Deborah Nina MD f/u: H is updated medication list for this problem includes: Lopressor Tabs (Metoprolol tartrate tabs) ..... 50mg 1/2 tab am and pm Deborah Nina MD f/u: H is updated medication list for this problem includes: Lipitor 10 Mg Tabs (Atorvastatin calcium) ..... Daily Lopressor Tabs (Metoprolol tartrate tabs) ..... 50mg 1/2 tab am and pm Deborah Nina MD f/u: H is updated medication list for this problem includes: Lopressor Tabs (Metoprolol tartrate tabs) ..... 50mg 1/2 tab am and pm Deborah Nina MD follow up : H is updated medication list for this problem includes: Lipitor 10 Mg Tabs (Atorvastatin calcium) ..... Daily BP today: 146/82 Prior BP: 124/79 (04/09/2012) Deborah Nina MD follow up : H is updated medication list for this problem includes: Aspirin 81 Mg Tabs (Aspirin) ..... One tab. daily Lipitor 10 Mg Tabs (Atorvastatin calcium) ..... Daily Plavix 75 Mg Tabs (Clopidogrel bisulfate) ..... One tab. daily Lopressor Tabs (Metoprolol tartrate tabs) ..... 50mg 1/2 tab am and pm BP today: 146/82 Prior BP: 124/79 (04/09/2012) N uclear Stress Findings: EF - 59%. T est negative but inconcluside by ECG criteria as achieved only 77% of target heart rate. H ypertensive blood pressure response. G ood exercise tolerance. T est was terminated due to shortness of breath and fatigue. N ormal myocardial perfusion imaging. (06/12/2007) C ardiac Cath: % RCA stenosis: 50%. % LAD stenosis: 99% subtotal occlusion. (04/14/1998) C arotid Doppler/Duplex: Minimal smooth atherosclerotic plaque bilaterally (<39%). Antegrade flow in both vertebrals. (06/12/2007) Deborah Nina MD follow up : H is updated medication list for this problem includes: Aspirin 81 Mg Tabs (Aspirin) ..... One tab. daily Plavix 75 Mg Tabs (Clopidogrel bisulfate) ..... One tab. daily Lopressor Tabs (Metoprolol tartrate tabs) ..... 50mg 1/2 tab am and pm Orders: E KG ([id number]) BP today: 146/82 Prior BP: 124/79 (04/09/2012) N uclear Stress Findings: EF - 59%. T est negative but inconcluside by ECG criteria as achieved only 77% of target heart rate. H ypertensive blood pressure response. G ood exercise tolerance. T est was terminated due to shortness of breath and fatigue. N ormal myocardial perfusion imaging. (06/12/2007) C ardiac Cath: % RCA stenosis: 50%. % LAD stenosis: 99% subtotal occlusion. (04/14/1998) Carotid Doppler/Duplex: Minimal smooth atherosclerotic plaque bilaterally (<39%). Antegrade flow in both vertebrals. (06/12/2007) Deborah Nina MD follow up: H is updated medication list for this problem includes: Aspirin 81 Mg Tabs (Aspirin) ..... One tab. daily Lipitor 10 Mg Tabs (Atorvastatin calcium) ..... Daily Plavix 75 Mg Tabs (Clopidogrel bisulfate) ..... One tab. daily Lopressor Tabs (Metoprolol tartrate tabs) ..... 50mg 1/2 tab am and pm BP today: 124/79 Prior BP: 151/88 (04/04/2011) N uclear Stress Findings: EF - 59%. T est negative but inconcluside by ECG criteria as achieved only 77% of target heart rate. H ypertensive blood pressure response. G ood exercise tolerance. T est was terminated due to shortness of breath and fatigue. N ormal myocardial perfusion imaging. (06/12/2007) C ardiac Cath: % RCA stenosis: 50%. % LAD stenosis: 99% subtotal occlusion. (04/14/1998) C arotid Doppler/Duplex: Minimal smooth atherosclerotic plaque bilaterally (<39%). Antegrade flow in both vertebrals. (06/12/2007) Deborah Nina MD follow up: H is updated medication list for this problem includes: Lipitor 10 Mg Tabs (Atorvastatin calcium) ..... Daily BP today: 124/79 Prior BP: 151/88 (04/04/2011) Deborah Nina MD follow up: H is updated medication list for this problem includes: Aspirin 81 Mg Tabs (Aspirin) ..... One tab. daily Lipitor 10 Mg Tabs (Atorvastatin calcium) ..... Daily Plavix 75 Mg Tabs (Clopidogrel bisulfate) ..... One tab. daily Lopressor Tabs (Metoprolol tartrate tabs) ..... 50mg 1/2 tab am and pm BP today: 124/79 Prior BP: 151/88 (04/04/2011) N uclear Stress Findings: EF - 59%. T est negative but inconcluside by ECG criteria as achieved only 77% of target heart rate. H ypertensive blood pressure response. G ood exercise tolerance. T est was terminated due to shortness of breath and fatigue. N ormal myocardial perfusion imaging. (06/12/2007) C ardiac Cath: % RCA stenosis: 50%. % LAD stenosis: 99% subtotal occlusion. (04/14/1998) C arotid Doppler/Duplex: Minimal smooth atherosclerotic plaque bilaterally (<39%). Antegrade flow in both vertebrals. (06/12/2007) Deborah Nina MD follow up: H is updated medication list for this problem includes: Aspirin 81 Mg Tabs (Aspirin) ..... One tab. daily Plavix 75 Mg Tabs (Clopidogrel bisulfate) ..... One tab. daily Lopressor Tabs (Metoprolol tartrate tabs) ..... 50mg 1/2 tab am and pm Orders: E KG ([id number]) BP today: 124/79 Prior BP: 151/88 (04/04/2011) N uclear Stress Findings: EF - 59%. T est negative but inconcluside by ECG criteria as achieved only 77% of target heart rate. H ypertensive blood pressure response. G ood exercise tolerance. T est was terminated due to shortness of breath and fatigue. N ormal myocardial perfusion imaging. (06/12/2007) C ardiac Cath: % RCA stenosis: 50%. % LAD stenosis: 99% subtotal occlusion. (04/14/1998) C arotid Doppler/Duplex: Minimal smooth atherosclerotic plaque bilaterally (<39%). Antegrade flow in both vertebrals. (06/12/2007) Deborah Nina MD routine- echo prior : H is updated medication list for this problem includes: Aspirin 81 Mg Tabs (Aspirin) ..... One tab. daily Lipitor 10 Mg Tabs (Atorvastatin calcium) ..... Daily Plavix 75 Mg Tabs (Clopidogrel bisulfate) ..... One tab. daily Lopressor Tabs (Metoprolol tartrate tabs) ..... 50mg 1/2 tab am and pm BP today: 151/88 Prior BP: 138/80 (03/29/2010) N uclear Stress Findings: EF - 59%. T est negative but inconcluside by ECG criteria as achieved only 77% of target heart rate. H ypertensive blood pressure response. G ood exercise tolerance. Test was terminated due to shortness of breath and fatigue. N ormal myocardial perfusion imaging. (06/12/2007) C ardiac Cath: % RCA stenosis: 50%. % LAD stenosis: 99% subtotal occlusion. (04/14/1998) C arotid Doppler/Duplex: Minimal smooth atherosclerotic plaque bilaterally (<39%). Antegrade flow in both vertebrals. (06/12/2007) Orders: E KG ([id number]) Deborah Nina MD routine- echo prior : H is updated medication list for this problem includes: Aspirin 81 Mg Tabs (Aspirin) ..... One tab. daily Lopressor Tabs (Metoprolol tartrate tabs) ..... 50mg 1/2 tab am and pm BP today: 151/88 P rior BP: 138/80 (03/29/2010) Deborah Nina MD routine- echo prior : H is updated medication list for this problem includes: Lipitor 10 Mg Tabs (Atorvastatin calcium) ..... Daily BP today: 151/88 Prior BP: 138/80 (03/29/2010) Deborah Nina MD routine- echo prior : H is updated medication list for this problem includes: Lipitor 10 Mg Tabs (Atorvastatin calcium) ..... Daily BP today: 151/88 Prior BP: 138/80 (03/29/2010) Deborah Nina MD routine- echo prior : H is updated medication list for this problem includes: Aspirin 81 Mg Tabs (Aspirin) ..... One tab. daily Lipitor 10 Mg Tabs (Atorvastatin calcium) ..... Daily Plavix 75 Mg Tabs (Clopidogrel bisulfate) ..... One tab. daily Lopressor Tabs (Metoprolol tartrate tabs) ..... 50mg 1/2 tab am and pm BP today: 151/88 Prior BP: 138/80 (03/29/2010) N uclear Stress Findings: EF - 59%. T est negative but inconcluside by ECG criteria as achieved only 77% of target heart rate. H ypertensive blood pressure response. G ood exercise tolerance. Test was terminated due to shortness of breath and fatigue. N ormal myocardial perfusion imaging. (06/12/2007) C ardiac Cath: % RCA stenosis: 50%. % LAD stenosis: 99% subtotal occlusion. (04/14/1998) C arotid Doppler/Duplex: Minimal smooth atherosclerotic plaque bilaterally (<39%). Antegrade flow in both vertebrals. (06/12/2007) Deborah Nina MD routine- echo prior : H is updated medication list for this problem includes: Aspirin 81 Mg Tabs (Aspirin) ..... One tab. daily Plavix 75 Mg Tabs (Clopidogrel bisulfate) ..... One tab. daily Lopressor Tabs (Metoprolol tartrate tabs) ..... 50mg 1/2 tab am and pm BP today: 151/88 Prior BP: 138/80 (03/29/2010) N uclear Stress Findings: EF - 59%. T est negative but inconcluside by ECG criteria as achieved only 77% of target heart rate. H ypertensive blood pressure response. G ood exercise tolerance. T est was terminated due to shortness of breath and fatigue. N ormal myocardial perfusion imaging. (06/12/2007) C ardiac Cath: % RCA stenosis: 50%. % LAD stenosis: 99% subtotal occlusion. (04/14/1998) C arotid Doppler/Duplex: Minimal smooth atherosclerotic plaque bilaterally (<39%). Antegrade flow in both vertebrals. (06/12/2007) E chocardiogram: EF - 60%. M ild concentric LVH. D iastolic dysfunction. T race mitral valve regurgitation. T race tricuspid regurgitation. R FASHION ADVISER is estimated < 30mmHg and is normal. (06/12/2007) Deborah Nina MD routine : H is updated medication list for this problem includes: Eq Aspirin Ec Tbec (Aspirin tbec) ..... 325 mg daily Lipitor 10 Mg Tabs (Atorvastatin calcium) ..... Daily Plavix 75 Mg Tabs (Clopidogrel bisulfate) ..... One tab. daily Lopressor Tabs (Metoprolol tartrate tabs) ..... 50mg 1/2 tab am and pm BP today: / Prior BP: 138/82 (07/04/2008) N uclear Stress Findings: EF - 59%. T est negative but inconcluside by ECG criteria as achieved only 77% of target heart rate. H ypertensive blood pressure response. G ood exercise tolerance. T est was terminated due to shortness of breath and fatigue. N ormal myocardial perfusion imaging. (06/12/2007) C ardiac Cath: % RCA stenosis: 50%. % LAD stenosis: 99% subtotal occlusion. (04/14/1998) C arotid Doppler/Duplex: Minimal smooth atherosclerotic plaque bilaterally (<39%). Antegrade flow in both vertebrals. (06/12/2007) Deborah Nina MD routine : H is updated medication list for this problem includes: Eq Aspirin Ec Tbec (Aspirin tbec) ..... 325 mg daily Lopressor Tabs (Metoprolol tartrate tabs) ..... 50mg 1/2 tab am and pm Prior BP: 138/82 (07/04/2008) Deborah Nina MD routine : H is updated medication list for this problem includes: Lipitor 10 Mg Tabs (Atorvastatin calcium) ..... Daily BP today: / Prior BP: 138/82 (07/04/2008) Deborah Nina MD routine : H is updated medication list for this problem includes: Lipitor 10 Mg Tabs (Atorvastatin calcium) ..... Daily BP today: / Prior BP: 138/82 (07/04/2008) Deborah Nina MD routine : H is updated medication list for this problem includes: Eq Aspirin Ec Tbec (Aspirin tbec) ..... 325 mg daily Lipitor 10 Mg Tabs (Atorvastatin calcium) ..... Daily Plavix 75 Mg Tabs (Clopidogrel bisulfate) ..... One tab. daily Lopressor Tabs (Metoprolol tartrate tabs) ..... 50mg 1/2 tab am and pm BP today: / Prior BP: 138/82 (07/04/2008) N uclear Stress Findings: EF - 59%. T est negative but inconcluside by ECG criteria as achieved only 77% of target heart rate. H ypertensive blood pressure response. G ood exercise tolerance. T est was terminated due to shortness of breath and fatigue. N ormal myocardial perfusion imaging. (06/12/2007) C ardiac Cath: % RCA stenosis: 50%. % LAD stenosis: 99% subtotal occlusion. (04/14/1998) C arotid Doppler/Duplex: Minimal smooth atherosclerotic plaque bilaterally (<39%). Antegrade flow in both vertebrals. (06/12/2007) Deborah Nina MD routine : H is updated medication list for this problem includes: Eq Aspirin Ec Tbec (Aspirin tbec) ..... 325 mg daily Plavix 75 Mg Tabs (Clopidogrel bisulfate) ..... One tab. daily Lopressor Tabs (Metoprolol tartrate tabs) ..... 50mg 1/2 tab am and pm BP today: / Prior BP: 138/82 (07/04/2008) N uclear Stress Findings: EF - 59%. T est negative but inconcluside by ECG criteria as achieved only 77% of target heart rate. H ypertensive blood pressure response. G ood exercise tolerance. T est was terminated due to shortness of breath and fatigue. N ormal myocardial perfusion imaging. (06/12/2007) C ardiac Cath: % RCA stenosis: 50%. % LAD stenosis: 99% subtotal occlusion. (04/14/1998) C arotid Doppler/Duplex: Minimal smooth atherosclerotic plaque bilaterally (<39%). Antegrade flow in both vertebrals. (06/12/2007) E chocardiogram: EF - 60%. M ild concentric LVH. D iastolic dysfunction. T race mitral valve regurgitation. T race tricuspid regurgitation. R FASHION ADVISER is estimated < 30mmHg and is normal. (06/12/2007) Orders: E KG ([id number]) Deborah Nina MD FU: room 3: H is updated medication list for this problem includes: Eq Aspirin Ec Tbec (Aspirin tbec) ..... 325 mg daily BP today: 138/82 P rior BP: 141/89 (01/04/2008) Deborah Nina MD FU: room 3: H is updated medication list for this problem includes: Lipitor 10 Mg Tabs (Atorvastatin calcium) ..... Daily BP today: 138/82 Prior BP: 141/89 (01/04/2008) Deborah Nina MD FU: room 3: H is updated medication list for this problem includes: Eq Aspirin Ec Tbec (Aspirin tbec) ..... 325 mg daily Lipitor 10 Mg Tabs (Atorvastatin calcium) ..... Daily Plavix 75 Mg Tabs (Clopidogrel bisulfate) ..... One tab. daily BP today: 138/82 Prior BP: 141/89 (01/04/2008) N uclear Stress Findings: EF - 59%. T est negative but inconcluside by ECG criteria as achieved only 77% of target heart rate. H ypertensive blood pressure response. G ood exercise tolerance. T est was terminated due to shortness of breath and fatigue. N ormal myocardial perfusion imaging. (06/12/2007) C ardiac Cath: % RCA stenosis: 50%. % LAD stenosis: 99% subtotal occlusion. (04/14/1998) C arotid Doppler/Duplex: Minimal smooth atherosclerotic plaque bilaterally (<39%). Antegrade flow in both vertebrals. (06/12/2007) Deborah Nina MD ROUTINE : H is updated medication list for this problem includes: Eq Aspirin Ec Tbec (Aspirin tbec) ..... 325 mg daily BP today: 141/89 Deborah Nina MD ROUTINE : H is updated medication list for this problem includes: Eq Aspirin Ec Tbec (Aspirin tbec) ..... 325 mg daily Lipitor 10 Mg Tabs (Atorvastatin calcium) ..... Daily Plavix 75 Mg Tabs (Clopidogrel bisulfate) ..... One tab. daily BP today: 141/89 Prior BP: / () N uclear Stress Findings: EF - 59%. T est negative but inconcluside by ECG criteria as achieved only 77% of target heart rate. H ypertensive blood pressure response. G ood exercise tolerance. T est was terminated due to shortness of breath and fatigue. N ormal myocardial perfusion imaging. (06/12/2007) C ardiac Cath: % RCA stenosis: 50%. % LAD stenosis: 99% subtotal occlusion. (04/14/1998) C arotid Doppler/Duplex: Minimal smooth atherosclerotic plaque bilaterally (<39%). Antegrade flow in both vertebrals. (06/12/2007) Deborah Nina MD ROUTINE : H is updated medication list for this problem includes: Lipitor 10 Mg Tabs (Atorvastatin calcium) ..... Daily BP today: 141/89 Prior BP: / () Deborah Nina MD Date Name Sleep Study Home Complete Echo Venous Doppler Bilat eral LE - Reflux Renal Artery Duplex Stress Regadenoson STR - Nuclear Complete Echo Carotid Duplex Bilat eral Complete Echo HISTORY OF PROCEDURES Procedure Date Procedure Name Provider Procedure Notes S tatus Complex e/m visit add on Deborah Nina MD completed EKG Deborah Nina MD completed EKG Deborah Nina MD completed Regadenoson, 4 units Deborah Nina MD completed Cardiolite, 2 units Deborah Nina MD completed SPECT Images Deborah Nina MD complet ed Stress EKG Deborah Nina MD completed EKG Deborah Nina MD completed Stress EKG Sarika David MD complet ed Cardiolite, 2 units Sarika David MD completed SPECT Images Sarika David MD compl eted SNOMED-CT: [id number] Current Medications Documented Deborah Nina MD completed SNOMED-CT: [id number] Physical Exam, Performed: Pulse Exam of Foot Deborah Nina MD completed EKG Deborah Nina MD completed SNOMED-CT: [id number] Current Medications Documented Deborah Nina MD completed SNOMED-CT: [id number] Physical Exam, Performed: Pulse Exam of Foot Deborah Nina MD completed SNOMED-CT: [id number] Current Medications Documented Deborah Nina MD completed SNOMED-CT: [id number] Physical Exam, Performed: Pulse Exam of Foot Deborah Nina MD completed EKG Deborah Nina MD completed SNOMED-CT: [id number] Current Medications Documented Deborah Nina MD completed EKG Deborah Nina MD completed EKG Deborah Nina MD completed EKG Deborah Nina MD completed EKG Deborah Nina MD completed EKG Deborah Nina MD completed EKG Deborah Nina MD completed
--- OUTSIDE RECORDS SUMMARY | 2024-04-18 19:57 | XMS_ITS | Patient Health Summary ---
Author Organization [facility] Address [address] [address] Care Team Providers Care Bundle Breaker Name Role Phone Madisyn Echeverria ESTHER-BUTTER WRAPPER Primary Care Provider + Note from [facility],non-owned Affiliates and Associated Physician Practices is amultiple site organization consisting of ambulatory clinics and hospital sitesin [place], [place], [place] and [place]. This disclosure is being madepursuant to the Care Everywhere program and may not contain all information available regarding this patient. Last updated 17.[facility] Allergies * Contrast-Iodinated Agents For Ct/Other(Urticaria) -Medium Criticality Medications * Be aware that medications may not be up to date on this document. Alwaysverify current medications with the patient. * traMADol (ULTRAM) 50 MG tablet Take 50 mg by mouth 2 times daily as needed for Pain * aspirin (ASPIRIN) 81 MG chew tablet Take 81 mg by mouth once daily * atorvastatin (LIPITOR) 20 MG tablet Take 20 mg by mouth at bedtime * metoprolol succinate XL 24hr (TOPROL XL) 25 MG tablet(Started 06/12/2019) Take 25 mg by mouth at bedtime * pantoprazole EC (PROTONIX) 40 MG tablet Take 40 mg by mouth once daily * escitalopram (LEXAPRO) 10 MG tablet(Started 01/16/2019) Take 10 mg by mouth once daily * dulaglutide (TRULICITY) 0.75 MG/0.5ML injection(Started 02/24/2020) Inject 0.75 mg subcutaneously every 7 days On sundays * meloxicam (MOBIC) 15 MG tablet(Started 03/31/2020) Take 15 mg by mouth once daily * rivaroxaban (XARELTO) 2.5 MG TABS tablet(Started 03/14/2019) Take 2.5 mg by mouth 2 times daily * valsartan (DIOVAN) 320 MG tablet(Started 12/19/2018) Take 320 mg by mouth once daily * diphenhydrAMINE (BENADRYL) 50 MG capsule Take 50 mg by mouth at bedtime * amLODIPine (NORVASC) 10 MG tablet Take 10 mg by mouth once daily * meclizine (ANTIVERT) 25 MG tablet(Started 06/10/2020) Take 1 (one) tablet by mouth 3 times daily as needed for Dizziness 1 refill by 06/10/2021 Active Problems Problem Noted Date Diagnosed Date 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 Dyspnea on exertion 05/18/2021 Dizziness 06/09/2020 Vertigo 06/09/2020 Coronary arteriosclerosis 07/19/2019 Gastroesophageal reflux disease 07/19/2019 Hemiparesis affecting left side as late effect o f stroke 07/19/2019 CVA (cerebrovascular accident) 01/16/2019 Essential hypertension 12/21/2018 Type 2 diabetes mellitus 12/08/2014 Hyperlipidemia 07/04/2007 Social History Tobacco Use Types Packs/Day Years Used Date Smoking Tobacco: Former Smokeless Tobacco: Never Alcohol Use Standard Drinks/Week Comments Not Currently 0 (1 standard drink = 0.6 oz pur e alcohol) occ Sex and Gender Information Value Date Recorded Sex Assigned at Not on file Gender Identity Not on file Sexual Orientation Not on file Last Filed Vital Signs Vital Sign Reading Time Taken Comments Blood Pressure 117/75 07/30/2021 9:15 AM CDT Pulse 55 07/30/2021 9:15 AM CDT Temperature 36.5 C (97.7 F) 06/10/2020 4:04 PM CDT Respiratory Rate 18 07/30/2021 9:15 AM CDT Oxygen Saturation 95% 07/30/2021 9:15 AM CDT Inhaled Oxygen Concentration - - Weight 83.9 kg (185 lb) 07/30/2021 9:15 AM CDT Height 177.8 cm (5' 10 ) 07/30/2021 9:15 AM CDT Body Mass Index 26.54 07/30/2021 9:15 AM CDT Procedures * PFT(Performed 07/27/2021) * CT CHEST WO CONTRAST(Performed 06/24/2021) * PFT(Performed 04/20/2021) * CARDIAC EKG ORDER(Performed 06/17/2020) * CARDIAC EKG ORDER(Performed 06/12/2020) * MRI BRAIN WO CONTRAST(Performed 06/10/2020) Performed for Vertigo * GLUCOSE - POINT OF CARE(Performed 06/10/2020) * GLUCOSE - POINT OF CARE(Performed 06/10/2020) * BASIC METABOLIC PANEL (CALCIUM TOTAL)(Performed 06/10/2020) Performed for Dizziness * GLUCOSE - POINT OF CARE(Performed 06/10/2020) * CT HEAD WO CONTRAST(Performed 06/09/2020) Performed for Dizziness * CT ANGIO BRAIN AND NECK(Performed 06/09/2020) Performed for Dizziness * COMPREHENSIVE METABOLIC PANEL(Performed 06/09/2020) * CBC W AUTO DIFFERENTIAL(Performed 06/09/2020) * EKG 12-LEAD(Performed 06/09/2020) Performed for Dizziness Results * PFT (07/27/2021) Scanned Document SCANNING ONLY * CT CHEST WO CONTRAST (06/24/2021) Anatomical Region Laterality Modality Chest Other Scanned Document CT ORDERABLES * PFT (04/20/2021) Scanned Document SCANNING ONLY * CARDIAC EKG ORDER (06/17/2020 10:44 AM CDT) Only the most recent of2 resultswithin the time period is included. Narrative 06/17/2020 10:44 AM CDT Ordered by an unspecified provider. Scanned Document CARDIAC SERVICES ORD ERABLES * MRI BRAIN WO CONTRAST (06/10/2020 1:50 PM CDT) Anatomical Region Laterality Modality Head Magnetic Resonan ce 06/10/2020 2:20 PM CDT Impressions 06/10/2020 3:25 PM CDT Periventricular, subcortical and pontine small vessel ischemic changes. Remote lacunar infarct of the right lentiform nucleus. Right parietal and posterior temporal conglomerate of subcentimeter areas of fluid signal intensity, possibly from a combination of remote insult and focally dilated perivascular spaces. No intracranial bleed or evidence of acute ischemic process. *Reading Radiologist: Ilsa Ricks on 06/10/2020 at 3:25 PM Narrative 06/10/2020 3:25 PM CDT MR brain without contrast: HISTORY: 80-year-old with hemiparesis due to previous stroke. Sudden onset of dizziness. TECHNIQUE: MR imaging of the brain was performed using multiple planes and multiple sequences. No intravenous contrast was administered. COMPARISON: Head CT from 06/09/2020. FINDINGS: The ventricles are midline, mildly prominent, proportionate to the sulci. There is no prominence of the frontal extra-axial spaces. There is no extraaxial hematoma. There is no subarachnoid bleed. The basilar cisterns are preserved. There are several small focal areas of increased T2 and FLAIR signal at the periventricular, subcortical white matter and josé, most consistent with small vessel ischemic changes. There is a remote lacunar infarct of the right lentiform nucleus. A conglomerate of small subcentimeter areas of fluid signal intensity are seen at the right parietal and posterior temporal periventricular and subcortical white matter, that could be from sequela of prior insult and focally dilated perivascular spaces. There are also tiny remote infarcts of the left cerebellum. The cerebellar pontine angles are patent. The major vascular flow voids are maintained. The retro-orbital fat is normal. The visualized portions of the paranasal sinuses demonstrate normal aeration. The mastoid cells appear well aerated. On the diffusion sequences, there is no evidence of acute ischemic process. Procedure Note Ilsa Ricks MD - 06/10/2020 MR brain without contrast: HISTORY: 80-year-old with hemiparesis due to previous stroke. Sudden onset of dizziness. TECHNIQUE: MR imaging of the brain was performed using multiple planes and multiple sequences. No intravenous contrast was administered. COMPARISON: Head CT from 06/09/2020. FINDINGS: The ventricles are midline, mildly prominent, proportionate to the sulci. There is no prominence of the frontal extra-axial spaces. There is no extraaxial hematoma. There is no subarachnoid bleed. The basilar cisterns are preserved. There are several small focal areas of increased T2 and FLAIR signal at the periventricular, subcortical white matter and josé, most consistent with small vessel ischemic changes. There is a remote lacunar infarct of the right lentiform nucleus. A conglomerate of small subcentimeter areas of fluid signal intensity are seen at the right parietal and posterior temporal periventricular and subcortical white matter, that could be from sequela of prior insult and focally dilated perivascular spaces. There are also tiny remote infarcts of the left cerebellum. The cerebellar pontine angles are patent. The major vascular flow voids are maintained. The retro-orbital fat is normal. The visualized portions of the paranasal sinuses demonstrate normal aeration. The mastoid cells appear well aerated. On the diffusion sequences, there is no evidence of acute ischemic process. IMPRESSION Periventricular, subcortical and pontine small vessel ischemic changes. Remote lacunar infarct of the right lentiform nucleus. Right parietal and posterior temporal conglomerate of subcentimeter areas of fluid signal intensity, possibly from a combination of remote insult and focally dilated perivascular spaces. No intracranial bleed or evidence of acute ischemic process. *Reading Radiologist: Ilsa Ricks on 06/10/2020 at 3:25 PM Piotr Alejandra MD MR ORDERABLES * (ABNORMAL) GLUCOSE - POINT OF CARE (06/10/2020 1:06 PM CDT) Only the most recent of3 resultswithin the time period is included. [facility] Glucose WB/POC 210(H) 70 - 106 mg/dL 06/10/2020 2:41 PM CDT [facility] Specimen Type Arterial/C apillary 06/10/2020 2:41 PM CDT [facility] Blood BLOOD SPECIMEN / Unknown 06/10/2020 1:06 PM CDT 06/10/2020 2:41 PM CDT Angelica Townsend MD LAB - POINT OF CARE ORDERABLES [facility] [address] [place] [address] * (ABNORMAL) BASIC METABOLIC PANEL (CALCIUM TOTAL) (06/10/2020 3:30 AM CDT) [facility] Glucose 159(H) 70 - 105 mg/dL 06/10/2020 4:24 AM CDT [facility] Sodium 138 136 - 145 mmol/L 06/10/2020 4:24 AM CDT [facility] Potassium 4.3 3.5 - 5.1 mmol/L 06/10/2020 4:24 AM CDT [facility] Chloride 108(H) 98 - 107 mmol/L 06/10/2020 4:24 AM CDT [facility] CO2 21(L) 23 - 31 mmol/L 06/10/2020 4:24 AM CDT [facility] Calcium 9.6 8.4 - 10.4 mg/dL 06/10/2020 4:24 AM CDT [facility] Anion Gap 9 8 - 18 mmol/L 06/10/2020 4:24 AM CDT [facility] Comment:Attention clinician: Reference Range change. BUN 21 8.4 - 25.7 mg/dL 06/10/2020 4:24 AM CDT [facility] Creatinine 0.81 0.72 - 1.25 mg/dL 06/10/2020 4:24 AM CDT [facility] eGFR by MDRD >60 mL/min/1.7 3m2 06/10/2020 4:24 AM CDT [facility] eGFR by MDRD >60 mL/min/1.7 3m2 06/10/2020 4:24 AM T [facility] Blood BLOOD SPECIMEN / Unknown Lab Venipuncture / Unknown 06/10/2020 3:30 AM CDT 06/10/2020 3:46 AM CDT Keisha Martini MD LAB - CHEMISTRY RICK [facility] Organization Address City/State/ZIP Co de Phone Number [facility] [address] [place] [address] * CT HEAD - NON CONTRAST (06/09/2020 2:37 PM CDT) Anatomical Region Laterality Modality Head Computed Tomogra phy 06/09/2020 2:39 PM CDT Impressions 06/09/2020 2:41 PM CDT Old right basal ganglia and deep white matter infarcts on the right. No acute findings. *Reading Radiologist: Gerry Tai on 06/09/2020 at 2:41 PM Narrative 06/09/2020 2:[address] head without contrast HISTORY: Dizziness and nausea. History of CVA in 2019. History of contrast allergy. TECHNIQUE: A noncontrast head CT was obtained. All CT scans at [facility] are performed using dose optimization techniques as appropriate to a performed exam to include AEC and Adjustment of mA and/or kV according to patient size (as appropriate to indication/reason for exam). FINDINGS: There is cerebral cortical atrophy. There are old right basal ganglia lacunar infarcts and infarcts in the posterior right mcclure radiata. The ventricles are not dilated out of proportion to the cortical sulci. There is no mass or midline shift. No intracranial hemorrhage is seen. No significant inflammatory change involves the paranasal sinuses or the mastoid air cells. Procedure Note Gerry Tai MD - 06/09/2020 CT head without contrast HISTORY: Dizziness and nausea. History of CVA in 2019. History of contrast allergy. TECHNIQUE: A noncontrast head CT was obtained. All CT scans at [facility] are performed using dose optimization techniques as appropriate to a performed exam to include AEC and Adjustment of mA and/or kV according to patient size (as appropriate to indication/reason for exam). FINDINGS: There is cerebral cortical atrophy. There are old right basal ganglia lacunar infarcts and infarcts in the posterior right mcclure radiata. The ventricles are not dilated out of proportion to the cortical sulci. There is no mass or midline shift. No intracranial hemorrhage is seen. No significant inflammatory change involves the paranasal sinuses or the mastoid air cells. IMPRESSION Old right basal ganglia and deep white matter infarcts on the right. No acute findings. *[place] Radiologist: Gerry Tai on 06/09/2020 at 2:41 PM Bean Pickering MD CT ORDERABLES * CT ANGIO HEAD AND NECK W WO CONTRAST (CTA for STROKE) (06/09/2020 2:33 PM CDT) Anatomical Region Laterality Modality Head Computed Tomogra phy 06/09/2020 2:42 PM CDT Impressions 06/09/2020 2:47 PM CDT Minor calcific plaque in the aortic arch and at the carotid bifurcations. No significant stenosis or arterial occlusive disease in the neck or head. *[place] Radiologist: Gerry Tai on 06/09/2020 at 2:47 PM Narrative 06/09/2020 2:[address] angiogram brain and neck HISTORY: Dizziness and nausea. Rule out carotid dissection or occlusion. History of CVA in 2019. TECHNIQUE: The patient was premedicated with Benadryl due to history of contrast allergy. 100 cc of Isovue-[address] scans at [facility] are performed using dose optimization techniques as appropriate to a performed exam to include AEC and Adjustment of mA and/or kV according to patient size (as appropriate to indication/reason for exam). FINDINGS: There is calcific plaque in the aortic arch. The origins of the great vessels are nonstenotic. The common carotid arteries appear unremarkable. There is a small amount of calcific plaque at the carotid bifurcations with no measurable stenosis. The internal and external carotid arteries higher up in the neck appear unremarkable. Both vertebral arteries are patent and similar in size. Views of the intracranial circulation show that the petrous and cavernous portions of each internal carotid artery are patent. Anterior and middle cerebral artery branch vessels are normal in appearance. The basilar artery and posterior fossa branch vessels are likewise normal. There is no [place] aneurysm, vascular malformation, or major arterial branch occlusion. There is no evidence of aneurysm or intimal dissection in the carotid or vertebral circulations. There has been prior median sternotomy. There is cervical spondylosis C3-C7. Procedure Note Gerry Tai MD - 06/09/2020 CT angiogram brain and neck HISTORY: Dizziness and nausea. Rule out carotid dissection or occlusion. History of CVA in 2019. TECHNIQUE: The patient was premedicated with Benadryl due to history of contrast allergy. 100 cc of Isovue-[address] scans at [facility] are performed using dose optimization techniques as appropriate to a performed exam to include AEC and Adjustment of mA and/or kV according to patient size (as appropriate to indication/reason for exam). FINDINGS: There is calcific plaque in the aortic arch. The origins of the great vessels are nonstenotic. The common carotid arteries appear unremarkable. There is a small amount of calcific plaque at the carotid bifurcations with no measurable stenosis. The internal and external carotid arteries higher up in the neck appear unremarkable. Both vertebral arteries are patent and similar in size. Views of the intracranial circulation show that the petrous and cavernous portions of each internal carotid artery are patent. Anterior and middle cerebral artery branch vessels are normal in appearance. The basilar artery and posterior fossa branch vessels are likewise normal. There is no [place] aneurysm, vascular malformation, or major arterial branch occlusion. There is no evidence of aneurysm or intimal dissection in the carotid or vertebral circulations. There has been prior median sternotomy. There is cervical spondylosis C3-C7. IMPRESSION Minor calcific plaque in the aortic arch and at the carotid bifurcations. No significant stenosis or arterial occlusive disease in the neck or head. *[place] Radiologist: Gerry Tai on 06/09/2020 at 2:47 PM Bean Pickering MD CT ORDERABLES * (ABNORMAL) CBC W AUTO DIFFERENTIAL (06/09/2020 1:33 PM CDT) WBC 6.8 4.4 - 10.7 x10E9/L 06/09/2020 1:37 PM CDT [facility] WBC Corrected 06/09/2020 1:37 PM CDT [facility] RBC 4.93 3.80 - 5.40 x10E12/L 06/09/2020 1:37 PM CDT [facility] Hemoglobin 12.9 12.0 - 17.6 gm/dL 06/09/2020 1:37 PM CDT [facility] Hematocrit 39.7 35.2 - 51.7 % 06/09/2020 1:37 PM CDT [facility] MCV 80.5(L) 80.7 - 98.3 fl 06/09/2020 1:37 PM CDT [facility] MCH 26.2(L) 26.7 - 34.0 pg 06/09/2020 1:37 PM CDT [facility] MCHC 32.5 30.8 - 35.9 gm/dL 06/09/2020 1:37 PM CDT [facility] Platelet Count 208 153 - 416 x10E9/L 06/09/2020 1:37 PM CDT [facility] RDW-CV 15.7(H) 12.1 - 14.9 % 06/09/2020 1:37 PM CDT [facility] MPV 10.5 9.4 - 12.9 fl 06/09/2020 1:37 PM CDT [facility] Neutrophils % 81.6(H) 44.0 - 73.0 % 06/09/2020 1:37 PM CDT [facility] Lymphocytes % 10.0(L) 20.0 - 43.0 % 06/09/2020 1:37 PM CDT [facility] Monocytes % 7.2 5.0 - 13.0 % 06/09/2020 1:37 PM CDT [facility] Eosinophils % 0.3 0.0 - 6.0 % 06/09/2020 1:37 PM CDT [facility] Basophils % 0.6 0.0 - 2.0 % 06/09/2020 1:37 PM CDT [facility] Immature Granulocytes 0.3 0 - 1 % 06/09/2020 1:37 PM CDT [facility] Neutrophil Absolute 5.55 2.01 - 7.14 x10E9/L 06/09/2020 1:37 PM CDT [facility] Lymphocytes Absolute 0.68(L) 1.07 - 3.94 x10E9/L 06/09/2020 1:37 PM CDT [facility] Monocytes Absolute 0.49 0.26 - 1.07 x10E9/L 06/09/2020 1:37 PM CDT [facility] Eosinophils Absolute 0.02 0 - 0.47 x10E9/L 06/09/2020 1:37 PM CDT [facility] Basophils Absolute 0.04 0 - 0.08 x10E9/L 06/09/2020 1:37 PM CDT [facility] Immature Granulocytes Absolute 0.02 0.00 - 0.06 x10E9/L 06/09/2020 1:37 PM CDT [facility] nRBC Auto 0 /100 WBC 06/09/2020 1:37 PM CDT [facility] Blood BLOOD SPECIMEN / Unknown Venipuncture / Unknown 06/09/2020 1:33 PM CDT 06/09/2020 1:35 PM CDT Bean Pickering MD LAB - HEMATOLOGY ORD ERABLES [facility] [address] [place] [address] * (ABNORMAL) COMPREHENSIVE METABOLIC PANEL (06/09/2020 1:33 PM CDT) [facility] Signature Glucose 142(H) 70 - 105 mg/dL 06/09/2020 1:53 PM CDT [facility] Sodium 137 136 - 145 mmol/L 06/09/2020 1:53 PM CDT [facility] Potassium 4.2 3.5 - 5.1 mmol/L 06/09/2020 1:53 PM CDT [facility] Chloride 109(H) 98 - 107 mmol/L 06/09/2020 1:53 PM CDT [facility] CO2 19(L) 23 - 31 mmol/L 06/09/2020 1:53 PM CDT [facility] Calcium 9.2 8.4 - 10.4 mg/dL 06/09/2020 1:53 PM CDT [facility] Anion Gap 9 8 - 18 mmol/L 06/09/2020 1:53 PM CDT [facility] Comment:Attention clinician: Reference Range change. BUN 13 8.4 - 25.7 mg/dL 06/09/2020 1:53 PM CDT [facility] Creatinine 0.81 0.72 - 1.25 mg/dL 06/09/2020 1:53 PM CDT [facility] Alkaline Phosphatase 61 40 - 150 U/L 06/09/2020 1:53 PM CDT [facility] Comment:Attention clinician: Reference Range change. ALT 31 0 - 61 U/L 06/09/2020 1:53 PM CDT [facility] AST 27 5 - 34 U/L 06/09/2020 1:53 PM CDT [facility] Protein Total 6.2(L) 6.4 - 8.3 gm/dL 06/09/2020 1:53 PM CDT [facility] Albumin 3.8 3.2 - 4.6 gm/dL 06/09/2020 1:53 PM CDT [facility] Bilirubin Total 0.8 0.2 - 1.2 mg/dL 06/09/2020 1:53 PM CDT [facility] Comment:Attention clinician: Reference Range change. eGFR by MDRD >60 mL/min/1.7 3m2 06/09/2020 1:53 PM CDT [facility] eGFR by MDRD >60 mL/min/1.7 3m2 06/09/2020 1:53 PM CDT [facility] Blood BLOOD SPECIMEN / Unknown Venipuncture / Unknown 06/09/2020 1:33 PM CDT 06/09/2020 1:35 PM CDT Bean Pickering MD LAB - CHEMISTRY RICK BAIG [facility] [address] [place] [address] * EKG 12-LEAD (06/09/2020 1:25 PM CDT) Pathologist [facility] Ventricular Rate 80 BPM [facility] Atrial Rate 80 BPM [facility] P-R Interval 148 ms [facility] QRS Duration ms 92 ms [facility] Q-T Interval ms 410 ms [facility] QTC Calculation (Bezet) 472 ms [facility] Calculated R [place] 156 degrees [facility] Calculated T [place] 153 degrees [facility] Interpretation EKG Normal sinus rhythm Left posterior fascicular block Possible Inferior infarct , age undetermined Abnormal ECG No previous ECGs available Confirmed by Shan Gillette ([id number]) on 06/10/2020 10:59:22 AM [facility] 06/09/2020 1:25 PM CDT 06/10/2020 10:59 AM CDT Bean Pickering MD ECG ORDERABLES [facility] Care Teams Bundle Breaker Relationship Specialty Start Date End Date Madisyn Echeverria APRN-WALDEMAR [address] [id number] PCP - General Nurse Practitioner 07/30/21
--- OUTSIDE RECORDS SUMMARY | 2024-04-18 19:57 | XMS_ITS | Referral Summary ---
Author Organization [facility] Address [address] [place] [address] Care Team Providers Care Lead Manufacturing Technician Name Role Phone Madisyn Echeverria ESTHER-INDEPENDENT SALES REPRESENTATIVE Primary Care Provider + Source Comments [facility],non-owned Affiliates and Associated Physician Practices is amultiple site organization consisting of ambulatory clinics and hospital sitesin [place], [place], [place] and [place]. This disclosure is being madepursuant to the Care Everywhere program and may not contain all information available regarding this patient. Last updated 17.[facility] Allergies Active Allergy Reactions Criticality Noted Date Comments Contrast-Iodinated Agents For Ct/Other Urticaria Medium 06/09/2020 Medications * Be aware that medications may not be up to date on this document. Alwaysverify current medications with the patient. Medication Sig Dispensed Refills Start Date End Date Status traMADol (ULTRAM) 50 MG tablet Take 50 mg by mouth 2 times daily as needed for Pain Active aspirin (ASPIRIN) 81 MG chew tablet Take 81 mg by mouth once daily Active atorvastatin (LIPITOR) 20 MG tablet Take 20 mg by mouth at bedtime Active metoprolol succinate XL 24hr (TOPROL XL) 25 MG tablet Take 25 mg by mouth at bedtime 06/12/2019 Active pantoprazole EC (PROTONIX) 40 MG tablet Take 40 mg by mouth once daily Active escitalopram (LEXAPRO) 10 MG tablet Take 10 mg by mouth once daily 01/16/2019 Active dulaglutide (TRULICITY) 0.75 MG/0.5ML injection Inject 0.75 mg subcutaneously every 7 days On sundays02/24/2020 Active meloxicam (MOBIC) 15 MG tablet Take 15 mg by mouth once daily 03/31/2020 Active rivaroxaban (XARELTO) 2.5 MG TABS tablet Take 2.5 mg by mouth 2 times daily 03/14/2019 Active valsartan (DIOVAN) 320 MG tablet Take 320 mg by mouth once daily 12/19/2018 Active diphenhydrAMINE (BENADRYL) 50 MG capsule Take 50 mg by mouth at bedtime Active amLODIPine (NORVASC) 10 MG tablet Take 10 mg by mouth once daily Active meclizine (ANTIVERT) 25 MG tablet Take 1 (one) tablet by mouth 3 times daily as needed for Dizziness 30 tablet 1 06/10/2020 Active Additional Information Patient not taking.Reported on 07/30/2021 Active Problems Problem Noted Date Diagnosed Date [...] Mass Index 26.54 07/30/2021 9:15 AM CDT Plan of Treatment Not on file Procedures Procedure Name Priority Date/Time Associated Diagnosis Comments BASIC METABOLIC PANEL (CALCIUM TOTAL) Routine 06/10/2020 3:30 AM CDT Dizziness from Last 3 Months or Most Recently Relevant to Health Maintenance Results * (ABNORMAL) BASIC METABOLIC PANEL (CALCIUM TOTAL) (06/10/2020 3:30 AM CDT) Glucose 159(H) 70 - 105 mg/dL 06/10/2020 4:24 AM CDT [facility] Sodium 138 136 - 145 mmol/L 06/10/2020 4:24 AM CDT [facility] Potassium 4.3 3.5 - 5.1 mmol/L 06/10/2020 4:24 AM CDT [facility] Chloride 108(H) 98 - 107 mmol/L 06/10/2020 4:24 AM CDT [facility] CO2 21(L) 23 - 31 mmol/L 06/10/2020 4:24 AM CDT [facility] Calcium 9.6 8.4 - 10.4 mg/dL 06/10/2020 4:24 AM CDT [facility] Anion Gap 9 8 - 18 mmol/L 06/10/2020 4:24 AM CDT [facility] Comment:Attention clinician: Reference Range change. BUN 21 8.4 - 25.7 mg/dL 06/10/2020 4:24 AM CDT [facility] Creatinine 0.81 0.72 - 1.25 mg/dL 06/10/2020 4:24 AM CDT [facility] eGFR by MDRD >60 mL/min/1.7 3m2 06/10/2020 4:24 AM CDT [facility] eGFR by MDRD >60 mL/min/1.7 3m2 06/10/2020 4:24 AM CDT [facility] Blood BLOOD SPECIMEN / Unknown Lab Venipuncture / Unknown 06/10/2020 3:30 AM CDT 06/10/2020 3:46 AM CDT Keisha Martini MD LAB - CHEMISTRY RICK Macdonald Organization Address City/State/ZIP Co de Phone Number [facility] [address] [place] [address] from Last 3 Months or Most Recently Relevant to Health Maintenance Advance Directives * Full Code (Latest Code Status on File) Date Activated Date Inactivated Comments 06/09/2020 8:16 PM 06/10/2020 8:56 PM * Full Code Date Activated Date Inactivated Comments 06/09/2020 7:13 PM 06/09/2020 8:16 PM Care Teams Lead Manufacturing Technician Relationship Specialty Start Date End Date Madisyn Echeverria APRN-CNP [address] [phone] PCP - General Nurse Practitioner 07/30/21
--- OUTSIDE RECORDS SUMMARY | 2024-04-18 19:57 | XMS_ITS | Encounter Summary ---
Author Organization [facility] Address [address] [place] [address] Care Team Providers Care Associate Director Of Sales Name Role Phone Madisyn Echeverria NP Primary Care Provider [phone] Encounter Details Date Type Department Care Team (Late st Contact Info) Description 12/26/2018 Hospital Follow-up Call [facility] [place] [address] Mere Carty Social History Tobacco Use Types Packs/Day Years Used Date Smoking Tobacco: Never Smokeless Tobacco: Never Alcohol Use Standard Drinks/Week Comments No 0 (1 standard drink = 0.6 oz pur e alcohol) AUDIT-C Answer Date Recorded Frequency of Alcohol Consumption Never 12/19/2018 Average Number of Drinks Not on file 019 Frequency of Binge Drinking Not on file 11/2018 Sex and Gender Information Value Date Recorded Sex Assigned at Not on file Legal Sex Male 12:21 PM CDT Gender Identity Not on file Sexual Orientation Not on file documented as of this encounter Functional Status * RETIRED Are you deaf or do you have serious difficulty hearing Answer Date of Assessment Author Status No 12/19/2018 3:40 PM CDT Activ e * RETIRED Are you blind or do you have serious difficulty seeing, even when wearing glasses? Answer Date of Assessment Author Status No 12/19/2018 3:40 PM CDT Activ e * Do you have serious difficulty walking or climbing stairs? Answer Date of Assessment Author Status No 12/19/2018 3:40 PM CDT Yovana Diamond RN Active * Do you have difficulty dressing or bathing? Answer Date of Assessment Author Status Yes 12/19/2018 3:40 PM Yovana Camacho RN Active * Because of a physical, mental, or emotional condition, do you have difficulty doing errands alone such as visiting a doctor's office or shopping? Answer Date of Assessment Author Status No 12/19/2018 3:40 PM Yovana Camacho RN Active documented as of this encounter Mental Status * Because of a physical, mental, or emotional condition, do you have serious difficulty concentrating, remembering, or making decisions? Answer Entry Date Author Status No 12/19/2018 3:40 PM Yovana Camacho RN Active documented in this encounter Plan of Treatment Not on file documented as of this encounter Visit Diagnoses Not on filedocumented in this encounter Care Teams Associate Director Of Sales Relationship Specialty Start Date End Date Madisyn Echeverria NP [address] [place] [address] PCP - General NURSE PRACTITIONER 12/19/18 documented as of this encounter
--- OUTSIDE RECORDS SUMMARY | 2024-04-18 19:57 | XMS_ITS | Clinical Summary ---
Author Organization [facility] Address [address] [place] [address] Care Team Providers Care Fingernail Sculptor Name Role Phone Madisyn Echeverria ESTHER-CASING SPLITTER Primary Care Provider + Source Comments [facility],non-owned Affiliates and Associated Physician Practices is amultiple site organization consisting of ambulatory clinics and hospital sitesin [place], [place], [place] and [place]. This disclosure is being madepursuant to the Care Everywhere program and may not contain all information available regarding this patient. Last updated 17.[facility] Allergies Active Allergy Reactions Criticality Noted Date [...] 07/30/2021 9:15 AM CDT Plan of Treatment Health Maintenance Due Date Last Done Comments MEDICARE AWV 12 MONTHS 1940 DTAP/TDAP/TD VACCINES (1 - Tdap) 1960 PNEUMOCOCCAL VACCINE 50+ (1 of 2 - PCV) 1960 ZOSTER VACCINE (1 of 2) 1991 Respiratory Syncytial Virus (RSV) Vaccine Pt: or over 60 yrs (1 - 1-dose 75+ series) 2016 DIABETES-SERUM CREATININE 06/10/20212020, 06/09/2020, 03/04/2009, Additional history exists DIABETES RETINOPATHY SCREENING 07/27/2021 DIABETES-FOOT EXAM WITH MONOFILAMENT 07/27/2021 DIABETES-HGB A1C 07/27/2021 COVID-19 VACCINE ( season) 2023 06/26/2020, 06/07/2020 INFLUENZA VACCINE (#1) 2023 , 01/04/2020, 01/02/2019, Additional history exists DEPRESSION SCREENING 03/13/2024 DIABETES - URINE PROTEIN SCREENING 03/13/2024 HEPATITIS B VACCINE Aged Out No longe r eligible based on patient's age to complete this topic HIB VACCINE Aged Out No longer eligi ble based on patient's age to complete this topic HPV VACCINE Aged Out No longer eligi ble based on patient's age to complete this topic MENINGOCOCCAL (Group B) VACCINE Aged Out No longer eligible based on patient's age to complete this topic MENINGOCOCCAL VACCINE Aged Out No tigre luisa eligible based on patient's age to complete this topic Procedures Procedure Name Priority Date/Time Associated Diagnosis Comments BASIC METABOLIC PANEL (CALCIUM TOTAL) Routine 06/10/2020 3:30 AM CDT Dizziness from Last 3 Months or Most Recently Relevant to Health Maintenance Results * (ABNORMAL) BASIC METABOLIC PANEL (CALCIUM TOTAL) (06/10/2020 3:30 AM CDT) [facility] Signature Glucose 159(H) 70 - 105 mg/dL 06/10/2020 4:24 AM CDT [facility] Sodium 138 136 - 145 mmol/L 06/10/2020 4:24 AM CDT [facility] Potassium 4.3 3.5 - 5.1 mmol/L 06/10/2020 4:24 AM CDT [facility] Chloride 108(H) 98 - 107 mmol/L 06/10/2020 4:24 AM CDT [facility] CO2 21(L) 23 - 31 mmol/L 06/10/2020 4:24 AM CDT [facility] Calcium 9.6 8.4 - 10.4 mg/dL 06/10/2020 4:24 AM CDT [facility] Anion Gap 9 8 - 18 mmol/L 06/10/2020 4:24 AM CDT [facility] Comment:Attention clinician: Reference Range change. BUN 21 8.4 - 25.7 mg/dL 06/10/2020 4:24 AM CDT [facility] Creatinine 0.81 0.72 - 1.25 mg/dL 06/10/2020 4:24 AM CDT [facility] eGFR by MDRD >60 mL/min/1.7 3m2 06/10/2020 4:24 AM CDT [facility] eGFR by MDRD >60 mL/min/1.7 2 06/10/2020 4:24 AM CDT [facility] Blood BLOOD SPECIMEN / Unknown Lab Venipuncture / Unknown 06/10/2020 3:30 AM CDT 06/10/2020 3:46 AM CDT Keisha Martini MD LAB - CHEMISTRY RICK BAIG [facility] Organization Address City/State/ZIP Co de Phone Number [facility] [address] [place] [place] [phone] from Last 3 Months or Most Recently Relevant to Health Maintenance Advance Directives * Full Code (Latest Code Status on File) Date Activated Date Inactivated Comments 06/09/2020 8:16 PM 06/10/2020 8:56 PM * Full Code Date Activated Date Inactivated Comments 06/09/2020 7:13 PM 06/09/2020 8:16 PM Care Teams Fingernail Sculptor Relationship Specialty Start Date End Date Madisyn Echeverria APRN-CNP [address] [phone] PCP - General Nurse Practitioner 07/30/21
--- OUTSIDE RECORDS SUMMARY | 2024-04-18 19:57 | XMS_ITS | Referral Summary ---
Author Organization [place] [id number] [facility] Address [address] [place] [address] Care Team Providers Care Tobacco Stripper Hand Name Role Phone Martin Varela MD Unavailable [phone] No, Physician Primary Care Provider [phone] Encounters Date Type Department Care Team Description 02/13/2024 11:00 AM ANGER CONTROL COUNSELOR Office Visit [facility] Pulmonary at [address] [place] [address] Jordan Ricks DO Shortness of breath (Primary Dx); Mild persistent asthma without complication; Elevated diaphragm; Obstructive sleep apnea from Last 3 Months Allergies Active Allergy Reactions Criticality Noted Date [...] VERIO strip 0 Active [facility]CH [facility] 0 Active escitalopram (LEXAPRO) 10 mg tablet 0 Active ONETOUCH DELICA PLUS LANCET 33 gauge misc 0 Active XARELTO 2.5 mg tablet 0 [...] hours as needed for wheezing 1 each 11 4 Active fluticasone furoate-vilante roL (BREO ELLIPTA) 100-25 mcg/dose diskus inhaler Inhale 1 puff daily Rinse mouth with water after use. Do not swallow. 30 each 11 4 02/13/20 25 Active Active Problems Problem [...] s beverly as late effect of stroke ([facility]) 07/19/2019 Immunizations Name Administration Dates Next Due Influenza, Trivalent, High D ose, Split, Preservative Free, Intramuscular 12/17/2018 Social History Tobacco Use Types Packs/Day Years [...] on file Legal Sex Male 9:15 AM ANGER CONTROL COUNSELOR Gender Identity Male 07/18/2019 6:52 AM CDT Sexual Orientation Not on file Last Filed Vital Signs Vital Sign Reading Time Taken Comments Blood Pressure 134/78 02/13/2024 11:02 AM ANGER CONTROL COUNSELOR Pulse 67 02/13/2024 11:02 AM ANGER CONTROL COUNSELOR Temperature 35.4 C (95.7 F) 02/13/2024 11:02 AM ANGER CONTROL COUNSELOR Respiratory Rate 16 02/13/2024 11:02 AM ANGER CONTROL COUNSELOR Oxygen Saturation 99% 02/13/2024 11:02 AM ANGER CONTROL COUNSELOR Inhaled Oxygen Concentration - - Weight 87.2 kg (192 lb 4.8 oz) 02/13/2024 11:02 AM ANGER CONTROL COUNSELOR Height 177.8 cm (5' 10 ) 02/13/2024 11:02 AM ANGER CONTROL COUNSELOR Body Mass Index 27.59 02/13/2024 11:02 AM ANGER CONTROL COUNSELOR Plan of Treatment Not on file Procedures Procedure Name Priority Date/Time Associated Diagnosis Comments HEMOGLOBIN A1C STAT 12/12/2018 3:01 PM CDT LIPID PANEL STAT 12/12/2018 3:01 PM CDT from Last 3 Months or Most Recently Relevant to Health Maintenance Results * (ABNORMAL) Hemoglobin A1c (12/12/2018 3:01 PM CDT) Hgb A1C 6.8(H) 4.0 - 5.6 % [facility] Estimated Average Glucose 148 mg/dL [facility] Comment: The ADA recommends reporting an estimated Average Glucose (eAG) with all Hemoglobin A1c results using the equation derived from a study of 507 normal and diabetic adults. Minority populations were underrepresented and children were not included. (Diabetes Care 31:0521-7034, 2008). The eAG is not equivalent to a fasting glucose. Blood specimen (specimen) 12/12/2018 3:01 PM CDT 12/12/2018 4:14 PM CDT us Leann Ellis MD LAB BLOOD ORDERABLES Fin al Result [facility] [address] [place] [address] * Lipid panel (12/12/2018 3:01 PM CDT) Cholesterol 120 30 - 199 mg/dL [facility] Comment: Interpretive Data Ages < or = [...] revised on 2017. Triglycerides 146 <=149 mg/dL [facility] Comment: Interpretive Data Ages < or = [...] revised on 2017. HDL 41 >=40 mg/dL [facility] Comment: Interpretive Data Ages < or = [...] on 2017. LDL, calculated 50 <=129 mg/dL [facility] Comment: Interpretive Data Ages < or = [...] revised on 2017. Non-HDL Cholesterol 79 mg/dL [facility] Comment: Interpretive Data Ages < or = [...] last revised on 2017. Chol/HDL ratio 3 [facility] Blood specimen (specimen) 12/12/2018 3:01 PM CDT 12/12/2018 3:11 PM CDT Leann Ellis MD LAB BLOOD ORDERABLES Fin al Result [facility] [address] [place] [address] from Last 3 Months or Most Recently Relevant to Health Maintenance Insurance MEDICARE [facility] Address: [address] [address] [place] [address] MEDICARE [facility] Address: [address] [address] [place] [address] MEDICARE [employer] Advance Directives For more information, please contact: [phone] * LIMITED - No CPR (Latest Code [...] 11:06 PM 12/13/2018 2:31 AM Care Teams Tobacco Stripper Hand Relationship Specialty Start Date End Date No, Physician PCP - General 08/14/23 Martin Varela MD [address] [address] Surgeon Orthopedic Surgery 04/08/20
--- OUTSIDE RECORDS SUMMARY | 2024-04-18 19:57 | XMS_ITS | Clinical Summary ---
Author Organization [facility] Address [address] [place] [address] Care Team Providers Care Biopharmaceutical Rep Name Role Phone Madisyn Echeverria NP Primary Care Provider [phone] Allergies Active Allergy Reactions Criticality Noted Date Comments Iodinated Contrast Media Hives 12/19/2018 contrast Medications atorvastatin 10 MG tablet Take 10 mg by mouth nightly at bedtime. Active metoprolol succinate ER 25 MG 24 hr tablet Take 25 mg by mouth daily. Active pantoprazole EC 40 MG tablet Take 40 mg by mouth daily. Active valsartan 160 MG tablet Take 160 mg by mouth daily. 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 120 tablet 12/26/2018 Active escitalopram 10 MG tablet 01/16/2019 Active Active Problems Problem Noted Date Diagnosed Date Spastic hemiparesis of left nondominant side ([facility]) 01/30/2019 Slurred speech 12/21/2018 Essential hypertension 12/21/2018 Diabetes ([facility]) 12/21/2018 CVA (cerebral vascular accident) ([facility]) 12/19/2018 Family History Medical History Relation Comments Heart Disease Father Cancer Mother Relation Status Comments Father Mother breast Social History Tobacco Use Types Packs/Day Years [...] Sign Reading Time Taken Comments Blood Pressure 120/66 12/25/2018 8:00 AM CDT Pulse 76 12/25/2018 8:00 AM CDT Temperature 36.9 C (98.5 F) 12/25/2018 8:00 AM CDT Respiratory Rate 20 12/25/2018 8:00 AM CDT Oxygen Saturation 97% 12/25/2018 8:00 AM CDT Inhaled Oxygen Concentration - - Weight 80.8 kg (178 lb 2.1 oz) 12/22/2018 2:31 A M CDT Height 177.8 cm (5' 10 ) 12/19/2018 2:00 PM CDT Body Mass Index 25.56 12/19/2018 2:00 PM CDT Plan of Treatment Health Maintenance Due Date Last Done Comments Kidney Health Evaluation 1941 Hemoglobin A1C 1941 Lipid Panel 1941 Pneumococcal Vaccine: 65+ Years (1 of 2 - PCV) 1947 Diabetes: Retinopathy Eye Exam 1959 DTaP, Tdap and Td Vaccines (1 - Tdap) 1960 Zoster Vaccines (1 of 2) 1991 Annual Medicare Wellness Visit 2006 RSV Immunization or 60+ Years (1 - 1-dose 75+ series) 2016 COVID-19 Vaccine ( - 2023- season) 2023 Influenza Adult (#1) 2023 11/28/2017, 01/05/2017, 12/14/2015, Additional history exists Meningococcal B Vaccine Aged Out No l onger eligible based on patient's age to complete this topic Meningococcal Vaccine Aged Out No tigre luisa eligible based on patient's age to complete this topic RSV Immunizations Under 20 Months Aged Out No longer eligible based on patient's age to complete this topic Insurance [employer] Advance Directives * DNR (Latest Code Status on File) Date Activated Date Inactivated Comments 12/19/2018 2:41 PM 12/25/2018 4:32 PM * Full Code Date Activated Date Inactivated Comments 12/19/2018 2:18 PM 12/19/2018 2:41 PM Care Teams Biopharmaceutical Rep Relationship Specialty Start Date End Date Madisyn Echeverria NP [facility] [place] [address] PCP - General NURSE PRACTITIONER 12/19/18
[2024-04-18 20:30] VITALS: BP 139/65; PULSE 72; RESP 16; TEMP 37.1; O2SAT 97
[2024-04-18 21:12] LABS: Influenza A QL RT-PCR Positive (Negative); Influenza B QL RT-PCR Negative (Negative); RSV RNA, RT-PCR Negative (Negative); SARS-CoV-2 RNA PCR Negative (Negative)
--- NOTE | 2024-04-18 23:09 | PC.NURSE ---
gonna take dad home.
--- OUTSIDE RECORDS SUMMARY | 2024-04-18 23:24 | XMS_ITS | Clinical Summary ---
Author Organization [facility] Address [address] [place] [address] Phone Care Team Providers Care Enamel Drier Name Role Phone Unavailable Primary Care Provider Unavailabl e Social History Tobacco Use Types Packs/Day Years Used Date Smoking Tobacco: Never Assessed Sex and Gender Information Value Date Recorded Sex Assigned at Not on file Legal Sex Male 5:42 AM PATIENT [facility] MGR Gender Identity Not on file Sexual Orientation [...] 2023 Insurance MEDICARE PART A AND B [employer] BLUE ACCESS/TRUE BLUE PPO [facility]
--- OUTSIDE RECORDS SUMMARY | 2024-04-18 23:24 | XMS_ITS | Clinical Summary ---
Author Organization [facility] Address [address] [place] [address] Care Team Providers Care American Indian Studies Professor Name Role Phone Madisyn Echeverria NP Primary Care Provider [phone] Allergies Active Allergy Reactions Criticality Noted Date [...] to thrombosis of right middle cerebral artery ([facility]) Take 1 tablet (325 mg total) by mouth daily. 120 tablet 12/26/2018 Active escitalopram 10 MG tablet 01/16/2019 Active Active Problems Problem Noted Date Diagnosed Date Spastic hemiparesis of left nondominant side ([facility]) 01/30/2019 Slurred speech 12/21/2018 Essential hypertension 12/21/2018 Diabetes ([facility]) 12/21/2018 CVA (cerebral vascular accident) ([facility]) 12/19/2018 Family History Medical History Relation [...] 2:18 PM 12/19/2018 2:41 PM Care Teams American Indian Studies Professor Relationship Specialty Start Date End Date Madisyn Echeverria NP [facility] [place] [address] PCP - General NURSE PRACTITIONER 12/19/18
--- OUTSIDE RECORDS SUMMARY | 2024-04-18 23:24 | XMS_ITS | Patient Health Summary ---
Author Organization [facility] Address [address] [place] [address] Care Team Providers Care Width Stripper Name Role Phone Madisyn Echeverria ESTHER-SPECIAL EVENTS MANAGER Primary Care Provider + Note from [facility],non-owned Affiliates and Associated Physician Practices is amultiple site organization consisting of ambulatory clinics and hospital sitesin [place], [place], [place] and [place]. This disclosure is being madepursuant to the Care Everywhere program and may not contain all information available regarding this patient. Last updated 17.[facility] Allergies * Contrast-Iodinated Agents For Ct/Other(Urticaria) [...] at the periventricular, subcortical white matter and ojsé, most consistent with small vessel ischemic changes. [...] of3 resultswithin the time period is included. [facility] Glucose WB/POC 210(H) 70 - 106 mg/dL 06/10/2020 2:41 PM CDT [facility] Specimen Type Arterial/C apillary 06/10/2020 2:41 PM CDT [facility] Blood BLOOD SPECIMEN / Unknown 06/10/2020 1:06 PM CDT 06/10/2020 2:41 PM CDT Angelica Townsend MD LAB - POINT OF CARE ORDERABLES [facility] [address] [place] [address] * (ABNORMAL) BASIC METABOLIC PANEL (CALCIUM TOTAL) (06/10/2020 3:30 AM CDT) [facility] Glucose 159(H) 70 - 105 mg/dL 06/10/2020 4:24 AM CDT [facility] Sodium 138 136 - 145 mmol/L 06/10/2020 4:24 AM CDT [facility] Potassium 4.3 3.5 - 5.1 mmol/L 06/10/2020 4:24 AM CDT [facility] Chloride 108(H) 98 - 107 mmol/L 06/10/2020 4:24 AM CDT [facility] CO2 21(L) 23 - 31 mmol/L 06/10/2020 4:24 AM CDT [facility] Calcium 9.6 8.4 - 10.4 mg/dL 06/10/2020 4:24 AM CDT [facility] Anion Gap 9 8 - 18 mmol/L 06/10/2020 4:24 AM CDT [facility] Comment:Attention clinician: Reference Range change. BUN 21 8.4 - 25.7 mg/dL 06/10/2020 4:24 AM CDT [facility] Creatinine 0.81 0.72 - 1.25 mg/dL 06/10/2020 4:24 AM CDT [facility] eGFR by MDRD >60 mL/min/1.7 3m2 06/10/2020 4:24 AM CDT [facility] eGFR by MDRD >60 mL/min/1.7 3m2 06/10/2020 4:24 AM T [facility] Blood BLOOD SPECIMEN / Unknown Lab Venipuncture / Unknown 06/10/2020 3:30 AM CDT 06/10/2020 3:46 AM CDT Keisha Martini MD LAB - CHEMISTRY RICK [facility] Organization Address City/State/ZIP Co de Phone Number [facility] [address] [place] [address] * CT HEAD - NON CONTRAST (06/09/2020 [...] CT was obtained. All CT scans at [facility] are performed using dose optimization [...] CT was obtained. All CT scans at [facility] are performed using dose optimization [...] Isovue-[address] scans at [facility] are performed using dose optimization [...] vessels are likewise normal. There is no [place] aneurysm, vascular malformation, or major [...] Isovue-[address] scans at [facility] are performed using dose optimization [...] vessels are likewise normal. There is no [place] aneurysm, vascular malformation, or major [...] - 12.9 fl 06/09/2020 1:37 PM CDT [facility] Neutrophils % 81.6(H) 44.0 - 73.0 % 06/09/2020 1:37 PM CDT [facility] Lymphocytes % 10.0(L) 20.0 - 43.0 % 06/09/2020 1:37 PM CDT [facility] Monocytes % 7.2 5.0 - 13.0 % 06/09/2020 1:37 PM CDT [facility] Eosinophils % 0.3 0.0 - 6.0 % 06/09/2020 1:37 PM CDT [facility] Basophils % 0.6 0.0 - 2.0 % 06/09/2020 1:37 PM CDT [facility] Immature Granulocytes 0.3 0 - 1 % 06/09/2020 1:37 PM CDT [facility] Neutrophil Absolute 5.55 2.01 - 7.14 x10E9/L 06/09/2020 1:37 PM CDT [facility] Lymphocytes Absolute 0.68(L) 1.07 - 3.94 x10E9/L 06/09/2020 1:37 PM CDT [facility] Monocytes Absolute 0.49 0.26 - 1.07 x10E9/L 06/09/2020 1:37 PM CDT [facility] Eosinophils Absolute 0.02 0 - 0.47 x10E9/L 06/09/2020 1:37 PM CDT [facility] Basophils Absolute 0.04 0 - 0.08 x10E9/L 06/09/2020 1:37 PM CDT [facility] Immature Granulocytes Absolute 0.02 0.00 - 0.06 x10E9/L 06/09/2020 1:37 PM CDT [facility] nRBC Auto 0 /100 WBC 06/09/2020 1:37 PM CDT [facility] Blood BLOOD SPECIMEN / Unknown Venipuncture / Unknown 06/09/2020 1:33 PM CDT 06/09/2020 1:35 PM CDT Bean Pickering MD LAB - HEMATOLOGY ORD ERABLES [facility] [address] [place] [address] * (ABNORMAL) COMPREHENSIVE METABOLIC PANEL (06/09/2020 1:33 PM CDT) [facility] Signature Glucose 142(H) 70 - 105 mg/dL 06/09/2020 1:53 PM CDT [facility] Sodium 137 136 - 145 mmol/L 06/09/2020 1:53 PM CDT [facility] Potassium 4.2 3.5 - 5.1 mmol/L 06/09/2020 1:53 PM CDT [facility] Chloride 109(H) 98 - 107 mmol/L 06/09/2020 1:53 PM CDT [facility] CO2 19(L) 23 - 31 mmol/L 06/09/2020 1:53 PM CDT [facility] Calcium 9.2 8.4 - 10.4 mg/dL 06/09/2020 1:53 PM CDT [facility] Anion Gap 9 8 - 18 mmol/L 06/09/2020 1:53 PM CDT [facility] Comment:Attention clinician: Reference Range change. BUN 13 8.4 - 25.7 mg/dL 06/09/2020 1:53 PM CDT [facility] Creatinine 0.81 0.72 - 1.25 mg/dL 06/09/2020 1:53 PM CDT [facility] Alkaline Phosphatase 61 40 - 150 U/L 06/09/2020 1:53 PM CDT [facility] Comment:Attention clinician: Reference Range change. ALT 31 0 - 61 U/L 06/09/2020 1:53 PM CDT [facility] AST 27 5 - 34 U/L 06/09/2020 1:53 PM CDT [facility] Protein Total 6.2(L) 6.4 - 8.3 gm/dL 06/09/2020 1:53 PM CDT [facility] Albumin 3.8 3.2 - 4.6 gm/dL 06/09/2020 1:53 PM CDT [facility] Bilirubin Total 0.8 0.2 - 1.2 mg/dL 06/09/2020 1:53 PM CDT [facility] Comment:Attention clinician: Reference Range change. eGFR by MDRD >60 mL/min/1.7 3m2 06/09/2020 1:53 PM CDT [facility] eGFR by MDRD >60 mL/min/1.7 3m2 06/09/2020 1:53 PM CDT [facility] Blood BLOOD SPECIMEN / Unknown Venipuncture / Unknown 06/09/2020 1:33 PM CDT 06/09/2020 1:35 PM CDT Bean Pickering MD LAB - CHEMISTRY RICK BAIG [facility] [address] [place] [address] * EKG 12-LEAD (06/09/2020 1:25 PM CDT) Pathologist [facility] Ventricular Rate 80 BPM [facility] Atrial Rate 80 BPM [facility] P-R Interval 148 ms [facility] QRS Duration ms 92 ms [facility] Q-T Interval ms 410 ms [facility] QTC Calculation (Bezet) 472 ms [facility] Calculated R Corning 156 degrees [facility] Calculated T Corning 153 degrees [facility] Interpretation EKG Normal sinus rhythm Left posterior fascicular block Possible Inferior infarct , age undetermined Abnormal ECG No previous ECGs available Confirmed by Shan Gillette ([id number]) on 06/10/2020 10:59:22 AM [facility] 06/09/2020 1:25 PM CDT 06/10/2020 10:59 AM CDT Bean Pickering MD ECG ORDERABLES [facility] Care Teams Width Stripper Relationship Specialty Start Date End Date Madisyn Echeverria APRN-WALDEMAR [address] [phone] PCP - General Nurse Practitioner 07/30/21
--- OUTSIDE RECORDS SUMMARY | 2024-04-18 23:24 | XMS_ITS | Clinical Summary ---
Author Organization [facility] Address [address] [place] [address] Care Team Providers Care Implementation Specialist Name Role Phone Madisyn Echeverria ESTHER-SENIOR MANAGER [employer] Primary Care Provider + Source Comments [facility],non-owned Affiliates and Associated Physician Practices is amultiple site organization consisting of ambulatory clinics and hospital sitesin [place], [place], [place] and [place]. This disclosure is being madepursuant to the Care Everywhere program and may not contain all information available regarding this patient. Last updated 17.[employer] [facility] Allergies Active Allergy Reactions Criticality Noted Date [...] PANEL (CALCIUM TOTAL) (06/10/2020 3:30 AM CDT) [facility] Signature Glucose 159(H) 70 - 105 mg/dL 06/10/2020 4:24 AM CDT [facility] Sodium 138 136 - 145 mmol/L 06/10/2020 4:24 AM CDT [facility] Potassium 4.3 3.5 - 5.1 mmol/L 06/10/2020 4:24 AM CDT [facility] Chloride 108(H) 98 - 107 mmol/L 06/10/2020 4:24 AM CDT [facility] CO2 21(L) 23 - 31 mmol/L 06/10/2020 4:24 AM CDT [facility] Calcium 9.6 8.4 - 10.4 mg/dL 06/10/2020 4:24 AM CDT [facility] Anion Gap 9 8 - 18 mmol/L 06/10/2020 4:24 AM CDT [facility] Comment:Attention clinician: Reference Range change. BUN 21 8.4 - 25.7 mg/dL 06/10/2020 4:24 AM CDT [facility] Creatinine 0.81 0.72 - 1.25 mg/dL 06/10/2020 4:24 AM CDT [facility] eGFR by MDRD >60 mL/min/1.7 3m2 06/10/2020 4:24 AM CDT [facility] eGFR by MDRD >60 mL/min/1.7 2 06/10/2020 4:24 AM CDT [facility] Blood BLOOD SPECIMEN / Unknown Lab Venipuncture / Unknown 06/10/2020 3:30 AM CDT 06/10/2020 3:46 AM CDT Keisha Martini MD LAB - CHEMISTRY RICK BAIG [facility] Organization Address City/State/ZIP Co de Phone Number [facility] [address] [place] [phone] from Last 3 Months or Most Recently Relevant to Health Maintenance Advance Directives * Full Code (Latest Code Status on File) Date Activated Date Inactivated Comments 06/09/2020 8:16 PM 06/10/2020 8:56 PM * Full Code Date Activated Date Inactivated Comments 06/09/2020 7:13 PM 06/09/2020 8:16 PM Care Teams Implementation Specialist Relationship Specialty Start Date End Date Madisyn Echeverria APRN-CNP [address] [phone] PCP - General Nurse Practitioner 07/30/21
--- OUTSIDE RECORDS SUMMARY | 2024-04-18 23:24 | XMS_ITS | Encounter Summary ---
Author Organization [facility] Address 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 Gender Identity Not on file Sexual Orientation Not on file documented as of this encounter Plan of Treatment Not on file documented as of this encounter Procedures Procedure Name Priority Date/Time Associated Diagnosis Comments XR CHEST PA AND LATERAL 2 VW Routine 05/22/2008 2:06 PM CDT CBC WITH DIFFERENTIAL Routine 05/22/2008 1:34 PM CDT COMPREHENSIVE METABOLIC PANEL Routine 05/22/2008 1:34 PM CDT documented in this encounter Results * XR CHEST PA AND LATERAL (05/22/2008 2:06 PM CDT) Anatomical Region Laterality Modality Chest Other 05/22/2008 2:06 PM CDT Narrative 05/23/2008 7:56 AM CDT [address] [address] Admit Date: 05/20/2008 MICHAEL CARRILLO Sex: M Admit Prov: MARTIN COOK Date: 1940 Primary Care Prov: CHEL MART CMRN: [id number] Room: [facility] N: [id number] IMAGING SERVICES Ordering Prov: N/A Accession Number: [id number] Interpretation CHEST, 2 PROJECTIONS, 05/22/2008. Clinical History: Sprained rotator cuff. 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 There is postoperative change from a median sternotomy. There is no acute infiltration, congestion, pleural effusion, or pneumothorax. Heart size is normal. Conclusion: No active infiltration. 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 . Dictated by: JERMAINE WEAVER 05/22/2008 14:13 Electronically signed by: JERMAINE WEAVER 05/23/2008 07:55 Transcribed: 05/22/2008 20:31 AMK Procedure Note Provider, Historical - 05/23/[address] [address] Admit Date: 05/20/2008 MICHAEL CARRILLO Sex: M Admit Prov: MARTIN COOK Date: 1940 Primary Care Prov: CHEL MART CMRN: [id number] [id number] IM[facility]ING SERVICES Ordering Prov: N/A Interpretation CHEST, 2 PROJECTIONS, 05/22/2008. Clinical History: Sprained rotator cuff. 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 There ispostoperative change from a median sternotomy. There is no acute infiltration, congestion, pleural effusion, or pneumothorax. Heart size isnormal. Conclusion: No active infiltration. Status post median sternotomy and eventration of the lefthemidiaphragm. . Dictated by: JERMAINE WEAVER 05/22/2008 14:13 Electronically signed by: JERMAINE WEAVER 05/23/2008 07:55 Transcribed: 05/22/2008 20:31 AMK Martin Cook MD DIAGNOSTIC IMAGING ORDERABLES Final Result * (ABNORMAL) CBC WITH DIFFERENTIAL (05/22/2008 1:34 PM CDT) MCV 82.6 82.0 - 99.0 fL [facility] PLATELETS 166 140 - 350 K/uL [facility] HEMOGLOBIN 15.0 13.6 - 16.5 g/dL [facility] RDW 14.2 11.5 - 14.5 % [facility] WBC 5.7 4.0 - 9.8 K/uL [facility] MCH 27.1(L) 27.2 - 32.6 pg [facility] MPV 11.9 9.3 - 12.4 fL [facility] HEMATOCRIT 45.7 40.0 - 48.0 % [facility] RDW-STDEV 42.9 37.1 - 48.7 fL [facility] RBC 5.53(H) 4.50 - 5.40 M/uL [facility] MCHC 32.8 31.5 - 35.5 % [facility] EOSINOPHILS 2 0 - 7 % [facility] EOSINOPHIL ABSOLUTE 0.11 0.00 - 0.70 K/uL [facility] LYMPHOCYTES 26 16 - 45 % [facility] LYMPHOCYTE ABSOLUTE 1.48 0.70 - 4.50 K/uL [facility] BASOPHILS 1 0 - 2 % [facility] BASOPHILS ABSOLUTE 0.05 0.00 - 0.20 K/uL [facility] MONOCYTES 7 3 - 13 % [facility] MONOCYTE ABSOLUTE 0.40 0.10 - 1.30 K/uL [facility] NEUTROPHILS 64 45 - 70 % [facility] NEUTROPHIL ABSOLUTE 3.64 1.90 - 7.00 K/uL [facility] Blood specimen (specimen) 05/22/2008 1:34 PM CDT 05/22/2008 3:15 PM CDT us Martin Cook MD HEMATOLOGY ORDERABLES Edited INTERFACE SYSTEM Refer to clinic/hospital department [facility] CLIA# [id number] [place], [place] [address] * (ABNORMAL) COMPREHENSIVE METABOLIC PANEL (05/22/2008 1:34 PM CDT) CO2 24 22 - 30 mmol/L [facility] TOTAL PROTEIN 6.7 6.3 - 8.6 g/dL [facility] POTASSIUM 4.1 3.5 - 4.9 mmol/L [facility] GLUCOSE 162(H) 65 - 99 mg/dL [facility] AST 26 12 - 38 U/L [facility] BUN 12 6 - 20 mg/dL [facility] CALCIUM 9.3 8.6 - 10.2 mg/dL [facility] ALBUMIN 4.4 3.4 - 4.8 g/dL [facility] CHLORIDE 103 96 - 108 mmol/L [facility] CREATININE 0.93 0.67 - 1.17 mg/dL [facility] ALT 39 0 - 41 U/L [facility] SODIUM 137 135 - 145 mmol/L [facility] ALKALINE PHOSPHATASE 55 40 - 129 U/L [facility] BILIRUBIN TOTAL 0.6 0.2 - 1.0 mg/dL [facility] GFR, >60 >=60 mL/min/1. 7 sq meter [facility] GFR >60 >=60 mL/min/1. 7 sq meter [facility] Comment: Modification of Diet in Renal Disease (MDRD) study formula. Estimated GFR rate interpretative information for both Americans and non- Americans is available on the [facility] Intranet at: [email or web address] Select: Lab Policies and Procedures Select: Reference Ranges - GFR Blood specimen (specimen) 05/22/2008 1:34 PM CDT 05/22/2008 3:15 PM CDT Martin Cook MD CHEMISTRY ORDERABLES Edited INTERFACE SYSTEM Refer to clinic/hospital department [facility] CLIA# [id number] [address] [place] [address] documented in this encounter Visit Diagnoses Diagnosis Rotator cuff (capsule) sprain documented in this encounter
--- OUTSIDE RECORDS SUMMARY | 2024-04-18 23:24 | XMS_ITS | Referral Summary ---
Author Organization [facility] [employer] Address [address] [place] [address] Care Team Providers Care Director Of Counterintelligence Name Role Phone Madsiyn Echeverria ESTHER-REIMBURSEMENT CONSULTANT Primary Care Provider + Source Comments [facility] [employer],non-owned Affiliates and Associated Physician Practices is amultiple site organization consisting of ambulatory clinics and hospital sitesin [place], [place], [place] and [place]. This disclosure is being madepursuant to the Care Everywhere program and may not contain all information available regarding this patient. Last updated 17.[facility] [employer] Allergies Active Allergy Reactions Criticality Noted Date [...] 4:24 AM CDT [facility] Blood BLOOD SPECIMEN / Unknown Lab Venipuncture / Unknown 06/10/2020 3:30 AM CDT 06/10/2020 3:46 AM CDT Keisha Martini MD LAB - CHEMISTRY RICK [facility] Organization Address City/State/ZIP Co de Phone Number [facility] [address] [place] [address] from Last 3 Months or Most Recently Relevant to Health Maintenance Advance Directives * Full Code (Latest Code Status on File) Date Activated Date Inactivated Comments 06/09/2020 8:16 PM 06/10/2020 8:56 PM * Full Code Date Activated Date Inactivated Comments 06/09/2020 7:13 PM 06/09/2020 8:16 PM Care Teams Director Of Counterintelligence Relationship Specialty Start Date End Date Madisyn Echeverria APRN-CNP [address] [phone] PCP - General Nurse Practitioner 07/30/21
--- OUTSIDE RECORDS SUMMARY | 2024-04-18 23:24 | XMS_ITS | CONTINUITY OF CARE DOCUMENT ---
Author Name rosa elena, rosa elena Address Unknown Organization [facility] Address [address] [place] [address] Phone [phone] Care Team Providers Care Sat Act Instructor Name Role Phone Maico BAER, Deborah Unavailable Miriam TERMINAL SUPERVISOR, Ritchie Unavailable Miriam TERMINAL SUPERVISOR, Ritchie Unavailable [phone] PROBLEMS Condition Status Date Provider Notes HTN-- echo ef 60%, 05/2021 active Ramana wolfe Hyperlipidemia, stress nuc normal 08/2019 active Deborah Nina MD DYSLIPIDEMIA completed - Deborah Nina MD CAD-06/18 CAROTID NEG completed - Deborah Nina MD CHEST PAIN abnl stress 09/23, cath showed complete revasc w OSMAN to lAD, SVG to RCA , 30% circ active Deborah Nina MD Diabetes mellitus active Deborah Nina MD Unsteady gait active Deborah Nina MD Shoulder pain, left and right active Deborah Nina MD CVA active Deborah Nina MD Leg edema, bilateral active Rupert Nacht Vertigo active Rupert Nacht Cough active Ramana Hoff Diabetes Mellitus, Type II, controlled w/vascular complications active Deborah Nina MD NIRU, mild active Ramana Hoff Family History Coronary Hear t Disease male < 55: completed - Deborah Nina MD Family History Coronary Hear t Disease male < 55: completed - Deborah Nina MD CAD S/P CABG,OSMAN TO LAD,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 active Deborah Nina MD ENCOUNTERS Date Type Provider Location Encounter Diag nosis - In-person encounter Office Visit Deborah Nina MD [facility] - In-person encounter Office Visit Deborah Nina MD [facility] - In-person encounter Office Visit Deborah Nina MD [facility] CAD-06/18 CAROTID NEG - In-person encounter Office Visit Deborah Nina MD [facility] Diabetes Mellitus, Type II, controlled w/vascular complications - In-person encounter Office Visit Deborah Nina MD [facility] - In-person encounter Office Visit Deborah Nina MD [facility] - In-person encounter Office Visit Deborah Nina MD [facility] HTN-- echo ef 60%, 2OSA, mildCough - In-person encounter Office Visit Deborah Nina MD [facility] - In-person encounter Office Visit Deborah [facility] Hyperlipidemia, stress nuc normal 08/2019 - In-person encounter Office Visit Deborah Nina MD [facility] - In-person encounter Office Visit Deborah Nina MD [facility] Leg edema, bilateralVertigo - In-person encounter Office Visit Deborah Nina MD [facility] - In-person encounter Office Visit Deborah Nina MD [facility] - In-person encounter Office Visit Deborah Nina MD [facility] - In-person encounter Office Visit Deborah Nina MD [facility] - In-person encounter Office Visit Deborah Nina MD [facility] CVA - In-person encounter Office Visit Deborah Nina MD [facility] - In-person encounter Office Visit Deborah [facility] Shoulder pain, left and right - In-person encounter Office Visit Deborah Nina MD [facility] - In-person encounter Office Visit Deborah Nina MD [facility] Unsteady gait - In-person encounter Office Visit Deborah Nina MD [facility] - In-person encounter Office Visit Deborah Nina MD [facility] - In-person encounter Office Visit Deborah Nina MD [facility] - In-person encounter Office Visit Deborah Nina MD [facility] DYSLIPIDEMIADiabetes mellitus - In-person encounter Office Visit Deborah Nina MD [facility] CHEST PAIN abnl stress 09/23, cath showed complete revasc w OSMAN to lAD, SVG to RCA , 30% circFamily History Coronary Heart Disease male < 55:Family History Coronary Heart Disease male < 55: - In-person encounter Office Visit Deborah Nina MD [facility] CHEST PAIN abnl stress 09/23, cath showed complete revasc w OSMAN to lAD, SVG to RCA , 30% circ - In-person encounter Office Visit Deborah [facility] CAD S/P CABG,OSMAN TO LAD,SVG TO RCA 1999CHEST PAIN abnl stress 09/23, cath showed complete revasc w OSMAN to lAD, SVG to RCA , 30% circ - In-person encounter Office Visit Deborah Nina MD [facility] - In-person encounter Office Visit Deborah Nina MD [facility] - In-person encounter Office Visit Deborah Nina MD [facility] - In-person encounter Office Visit Deborah Nina MD [facility] - In-person encounter Office Visit Deborah Nina MD [place] CAD S/P CABG,OSMAN TO LAD,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 - In-person encounter Office Visit Deborah Nina MD [place] [facility] VITAL SIGNS Date Observation Value Provider [...] Luke Body Mass Index (Ratio) 27.12 kg/m2 Nabil Guzman blood pressure, diastolic 77 mm[Hg] Ary [...] Nina MD blood pressure, cuff size large Sd shravan [place] blood pressure, diastolic 70 mm[Hg] [facility] blood pressure, systolic 130 mm[Hg] [facility] lauryn [place] oxygen saturation, oximetry 97 % Parris Mondragon [...] Body Mass Index (Ratio) 26.97 kg/m2 Grey Nina MD blood pressure, cuff size regular Kr otis [place] blood pressure, diastolic 80 mm[Hg] Kr otis Corderoby blood pressure, systolic 150 mm[Hg] Cornelio [place] pulse rate 66 /min Marilu [place] oxygen saturation, oximetry 98 % Marilusolomon [place] respiratory rate E&M 18 /min Amrilusolomon [place] weight E&M 188 [lb_av] Marilusolomon [place] [...] Maurynfelder pulse rate 70 /min Danyell Coby [facility] weight E&M 193 [lb_av] Danyell uAgieuenenfe er height E&M 70 [in_i] Danyell Bibinenfe [...] Denise Campbel l temperature site temporal Zakiya [facility] temperature E&M 97.3 [degF] Zakiay [facility] Body Mass Index (Ratio) 27.12 kg/m2 Grey Nina MD blood pressure, diastolic 86 mm[Hg] To [facility] blood pressure, systolic 158 mm[Hg] [facility] oxygen saturation, oximetry 98 % [facility] respiratory rate E&M 16 /min [facility] pulse rate 73 /min [facility] weight E&M 189 [lb_av] [facility] height E&M 70 [in_i] [facility] Body Mass Index (Ratio) 27.69 kg/m2 Grey [...] blood pressure, systolic 136 mm[Hg] Tuani stsolomon [place] pulse rate 77 /min Marilu [place] oxygen saturation, oximetry 96 % Marilu [place] respiratory rate E&M 16 /min Marilu [place] weight E&M 191 [lb_av] Marilu [place] blood pressure, cuff size regular Kr isty [place] height E&M 70 [in_i] Marilu Sharad Body Mass Index (Ratio) 27.63 kg/m2 Grey [...] Steffier oxygen saturation, oximetry 98 % Danyell hGoshsugeyyolandajoseer respiratory rate E&M 18 /min Danyell Cha shareelorrainenfjoseer pulse rate 62 /min Danyell Tenorio er weight E&M 193 [lb_av] Danyell Grzegorze er height E&M 70 [in_i] Danyell Tenorio er Body Mass Index (Ratio) 27.69 kg/m2 Grey Nina MD blood pressure, resting Yes [facility] blood pressure, diastolic 80 mm[Hg] [facility], systolic 130 mm[Hg] Kil [facility] oxygen saturation, oximetry 97 % [facility] respiratory rate E&M 16 /min [facility] pulse rate 62 /min [facility] weight E&M 193 [lb_av] Nathaly Martins height E&M 70 [in_i] [facility] Body Mass Index (Ratio) 27.40 kg/m2 Grey [...] mm[Hg] Mynor Milian pulse rate 66 /min Erika Milian oxygen saturation, oximetry 98 % Erika [...] Greer RN blood pressure, diastolic 82 mm[Hg] Nilad seph [place] blood pressure, systolic 138 mm[Hg] [...] Normal Absolute Neutrophil count 3019 cells/mcL [employer] [id number] Normal platelet count 181 THOUSAND/UL [employer] 140-400 [...] [employer] 125-200 Normal cholesterol, serum 130 mg/dL [facility] creatinine, serum 0.97 mg/dL [facility] blood glucose, random 119 mg/dL [facility] triglyceride, serum, fasting 81 mg/dL [facility] HDL cholesterol, serum 42 mg/dL [facility] cholesterol/HDL ratio, serum 3.3 [facility] lipoprotein, beta, serum, point, quantitative, calculated 82 mg/dL [facility] cholesterol, serum 140 mg/dL [facility] alanine aminotransferase (SGPT), serum 27 1/L [facility] aspartate aminotransferase (SGOT), serum 22 1/L [facility] creatinine, serum 0.98 mg/dL [facility] urea nitrogen, blood 14 mg/dL [facility] potassium, serum 4.8 mmol/L [facility] sodium, serum 139 mmol/L [facility] HISTORY OF MEDICATION USE Medication [...] TAKE 1 TABLET BY MOUTH DAILY 05/09 [facility] Xarelto 2.5 mg tablet active TAKE 1 TABLET BY MOUTH TWICE DAILY 05/09 [facility] escitalopram oxalate 10 mg tablet active TAKE 1 TABLET BY MOUTH DAILY 04/16 Deborah Nina MD atorvastatin 10 mg tablet completed TAKE 1 TABLET BY MOUTH ONCE DAILY 04/16 - Deborah Nina MD celecoxib 200 mg capsule active Ramana Hoff metoprolol succinate 25 mg tablet extended release 24 hr completed Take 1 tablet by mouth once a day 04/01 - 05/09 [facility] atorvastatin 20 mg tablet completed Take 1 tablet by mouth once a day 04/01 - 04/16 [facility] Breo Ellipta 100-25 mcg/dose blister with device active Ramana Hoff valsartan 320 mg tablet completed TAKE 1 TABLET DAILY 06/17 - 05/09 [facility] atorvastatin 20 mg tablet completed TAKE 1 TABLET DAILY 04/01 - 04/01 Danyell Pereira Xarelto 2.5 mg tablet completed TAKE 1 TABLET TWICE A DAY 10/12 - 05/09 [facility] amlodipine 10 mg tablet completed TAKE 1 [...] GINA HARRISON, Filled 03/22/2019 ONETOUCH DELICA PLUS [id number] completed USE 1 LANCET TO CHECK GLUCOSE [...] Date Observation Value Provider [facility] passive cigarette sm galen exposure no [facility] smoking status Never smoker [facility] use no Ramana claudio passive cigarette sm galen exposure no Ramana claudio smoking status Never smoker Ramana claudio drug use none [facility] use no Ramanajose luis Hoff passive [...] required Deborah Nina MD exercise type walking [facility] physical exercise, f requency, days per week no [facility] caffeine use, averag e drinks per day no [facility] passive cigarette sm galen exposure no [facility] smoking status Never smoker [facility] social history E&M Marital Statu s: E [...] f requency, days per week no Marilu [place] alcohol use, average drinks per day none Marilu [place] alcohol use no Marilu [place] caffeine use, averag e drinks per day no Marliu [place] drug use none Marilu Sharad passive cigarette [...] use, average drinks per day none Nathaly Mratins alcohol use no [place] caffeine use, averag e drinks per day no [place] drug use none [place] passive cigarette sm galen exposure no [place] smoking status Never smoker Nathaly Herring [...] lder passive cigarette sm galen exposure no aDnyell Lantiguajoseapril smoking status Never smoker Danyell Ghoshsugeyjerrod [...] Deborah Nina MD smoking status Never smoker Erika Celestinjordana social history reviewed E&M reviewed Deborah [...] MD FAMILY HISTORY Family Member Condition Father MD male <55 Mother Family History Unkno wn Father Family History Coron bib Heart Disease male < 55: Father Family History Coron bib Heart Disease male < 55: INSURANCE PROVIDERS Payer name Policy type / Coverage type [place] [employer] party ID [employer] GRP MEDICARE ADVANTAGE PLAN (PPO) Medicare [id number] ADVANCE DIRECTIVES Name Date DISCUSSED - NO DECISION MADE TREATMENT PLAN Date Name Performer [id number],B, Deborah Nina MD [id number],B, Deborah Nina MD [id number],B, Deborah Nina MD [id number],B, Deborah Nina MD [id number],B, Deborah Nina MD [id number],S, Ramana Ahmedza i [id number],S, Ramana Ahmedza i [id number],S, Ramana Ahmedza i [id number],S, Ramana Ahmedza i [id number],S, Ramana Ahmedza i [id number],S, Ramana Ahmedza i [id number],S, Ramana Ahmedza i [id number],S, Ramana Ahmedza i [id number],S, Ramana Ahmedza i [id number],S, Ramana Ahmedza i [id number],S, Ramana Ahmedza i [id number],S, Ramana Ahmedza i [id number],S, Ramana Ahmedza i [id number],S, Ramana Ahmedza i [id number],S, Ramana Ahmedza i [id number],S, Ramana Ahmedza i [id number],S, Ramana Ahmedza i [id number],N, Ramana Ahmedza i [id number],B, Ramana Ahmedza i [id number],B, Ramana Ahmedza i [id number],S, Ramana Ahmedza i [id number],B, Ramana Ahmedza i [id number],B, Ramana Ahmedza i [id number],S, Ramana Ahmedza i [id number],S, Ramana Ahmedza i [id number],S, Ramana Ahmedza i [id number],S, Ramana Ahmedza i [id number],S, Ramana Ahmedza i [id number],S, Ramana Ahmedza i [id number],S, Ramana Ahmedza i [id number],S, Ramana Ahmedza i [id number],S, Ramana Ahmedza i [id number],S, Ramana Ahmedza i [id number],S, Ramana Ahmedza i [id number],S, Ramana Ahmedza i [id number],S, Ramana Ahmedza i [id number],W, Rupert Farr [id number],Rupert Hammonds [id number],SRupert [id number],SRupert [id number],Rupert Hammonds Cardiology:This visi t has been a [...] Regimen 81 Mg Tablet,delayed Release (dr/ec) (Aspirin) [facility]: H is updated medication list for this problem includes: Atorvastatin 10 Mg Tablet (Atorvastatin) ..... Take 1 tablet by mouth once daily [facility] H is updated medication list for [...] Regimen 81 Mg Tablet,delayed Release (dr/ec) (Aspirin) [facility]: H is updated medication list for [...] Mg Tablet,delayed Release (dr/ec) (Aspirin) [facility]ose [facility]uis [facility]: B P today: 129/75 P [...] Regimen 81 Mg Tablet,delayed Release (dr/ec) (Aspirin) [facility]: H is updated medication list [...] Regimen 81 Mg Tablet,delayed Release (dr/ec) (Aspirin) [facility]: H is updated medication list for this problem includes: Metoprolol Succinate 25 Mg Tablet Extended Release 24 Hr (Metoprolol succinate) ..... Take 1 tablet by mouth once daily Valsartan 320 Mg Tablet (Valsartan) ..... Take 1 tablet by mouth daily Adult Aspirin Regimen 81 Mg Tablet,delayed Release (dr/ec) (Aspirin) [facility]: H is updated medication list for this problem includes: Valsartan 320 Mg Tablet (Valsartan) ..... Take 1 tablet by mouth daily Trulicity 0.75 Mg/0.5 Ml Pen Injector (Dulaglutide) ..... 1 once a week Adult Aspirin Regimen 81 Mg Tablet,delayed Release (dr/ec) (Aspirin) [facility]: H is updated medication list for [...] Regimen 81 Mg Tablet,delayed Release (dr/ec) (Aspirin) [facility]: H is updated medication list for this problem includes: Valsartan 320 Mg Tablet (Valsartan) ..... Take 1 tablet by mouth daily Trulicity 0.75 Mg/0.5 Ml Pen Injector (Dulaglutide) ..... 1 once a week Adult Aspirin Regimen 81 Mg Tablet,delayed Release (dr/ec) (Aspirin) [facility]: H is updated medication list for this problem includes: Atorvastatin 10 Mg Tablet (Atorvastatin) ..... Take 1 tablet by mouth once daily [facility]: H is updated medication list for [...] Regimen 81 Mg Tablet,delayed Release (dr/ec) (Aspirin) [facility]: B P today: 139/77 P rior [...] Regimen 81 Mg Tablet,delayed Release (dr/ec) (Aspirin) [facility]: H is updated medication list for this problem includes: Valsartan 320 Mg Tablet (Valsartan) ..... Take 1 tablet by mouth daily Trulicity 0.75 Mg/0.5 Ml Pen Injector (Dulaglutide) ..... 1 once a week Adult Aspirin Regimen 81 Mg Tablet,delayed Release (dr/ec) (Aspirin) [facility]: H is updated medication list for this problem includes: Atorvastatin 20 Mg Tablet (Atorvastatin) ..... Take 1 tablet by mouth once daily [facility]:Pt denies any CP or SOB. H [...] Nacht Cardiology Follow u p Toniya Sin priscilla BAER Cardiology Follow u p Toniya Sin priscilla BAER Cardiology Follow u p Toniya Sin priscilla BAER Cardiology Follow u p Cornelius C Regina [...] Cardiology Follow up Deborah yancey MD Cardiology Deborah Nina MD Cardiology [...] : O rders: C arotid Duplex Bilateral (CPT-62430) 9 9214 MOD Complex (CPT-09291) Deborah Nina MD Cardiology Follow up Deborah [...] priscilla BAER Cardiology Follow u p Toniya León wells MD Cardiology,follow up:on metformi n, hgbaic 7.2 Deborah Nina MD Cardiology,follow up Deborah yancey MD Cardiology,follow up Deborah yancey MD Cardiology,follow up Deobrah yancey MD [facility]: H is updated medication [...] tab am and pm Orders: E KG (CPT-92852) BP today: 146/82 Prior BP: 124/79 (04/09/2012) [...] tab am and pm Orders: E KG (CPT-08143) BP today: 124/79 Prior BP: 151/88 (04/04/2011) [...] in both vertebrals. (06/12/2007) Orders: E KG (CPT-52051) Deborah Nina MD routine- echo prior : [...] valve regurgitation. T race tricuspid regurgitation. R WASHER OPERATOR is estimated < 30mmHg and is normal. [...] valve regurgitation. T race tricuspid regurgitation. R WASHER OPERATOR is estimated < 30mmHg and is normal. (06/12/2007) Orders: E KG (CPT-04242) Deborah Nina MD FU: room 3: H [...] Images Sarika David MD compl eted SNOMED-CT: 442451815 700303 Current Medications Documented Deborah Nina MD completed SNOMED-CT: 66864211 Physical Exam, Performed: Pulse Exam of Foot Deborah Nina MD completed EKG Deborah Nina MD completed SNOMED-CT: 383213670 155252 Current Medications Documented Deborah Nina MD completed SNOMED-CT: 83564095 Physical Exam, Performed: Pulse Exam of Foot Deborah Nina MD completed SNOMED-CT: 058225515 918813 Current Medications Documented Deborah Nina MD completed SNOMED-CT: 45811181 Physical Exam, Performed: Pulse Exam of Foot Deborah Nina MD completed EKG Deborah Nina MD completed SNOMED-CT: 523505191 191884 Current Medications Documented Deborah Nina MD completed EKG Deborah Nina MD completed EKG Deborah Nina MD completed EKG Deborah Nina MD completed EKG Deborah Nina MD completed EKG Deborah Nina MD completed EKG Deborah Nina MD completed
--- OUTSIDE RECORDS SUMMARY | 2024-04-18 23:24 | XMS_ITS | Encounter Summary ---
Author Organization [facility] Address [address] [place] [address] Care Team Providers Care Reference Archivist Name Role Phone Madisyn Echeverria NP Primary Care Provider [phone] Encounter Details Date Type Department Care Team (Late st Contact Info) Description 12/26/2018 Hospital Follow-up Call [facility] [place] [address] Mere Carty Social History Tobacco Use Types [...] on filedocumented in this encounter Care Teams Reference Archivist Relationship Specialty Start Date End Date Madisyn Echeverria NP [address] [place] [address] PCP - General NURSE PRACTITIONER 12/19/18 documented as of this encounter
--- OUTSIDE RECORDS SUMMARY | 2024-04-18 23:24 | XMS_ITS | Clinical Summary ---
Author Organization [place] [id number] [facility] Address [address] [place] [address] Care Team Providers Care Recruiting Intern Name Role Phone Martin Varela MD Unavailable [phone] No, Physician Primary Care Provider [phone] Allergies Active Allergy Reactions Criticality Noted Date [...] VERIO strip 0 Active ONETOUCH VERIO SYSTEM [facility] 0 Active escitalopram (LEXAPRO) 10 mg tablet 0 Active ONETOUCH DELICA PLUS LANCET [facility] gauge [facility] 0 Active XARELTO 2.5 mg tablet 0 [...] Department Care Team Description 02/13/2024 11:00 AM VALVE PIPE IRRIGATOR Office Visit [facility] at [address] [place] [address] Jordan Ricks DO Shortness of [...] osteopathy of lower leg, right (HCC) Stroke ([facility]) 2018 SOB (shortness of breath) Wheezing [...] on file Legal Sex Male 9:15 AM VALVE PIPE IRRIGATOR Gender Identity Male 07/18/2019 6:52 AM CDT Sexual Orientation Not on file Obstetrics History Last Filed Vital Signs Vital Sign Reading Time Taken Comments Blood Pressure 134/78 02/13/2024 11:02 AM VALVE PIPE IRRIGATOR Pulse 67 02/13/2024 11:02 AM VALVE PIPE IRRIGATOR Temperature 35.4 C (95.7 F) 02/13/2024 11:02 AM VALVE PIPE IRRIGATOR Respiratory Rate 16 02/13/2024 11:02 AM VALVE PIPE IRRIGATOR Oxygen Saturation 99% 02/13/2024 11:02 AM VALVE PIPE IRRIGATOR Inhaled Oxygen Concentration - - Weight 87.2 kg (192 lb 4.8 oz) 02/13/2024 11:02 AM VALVE PIPE IRRIGATOR Height 177.8 cm (5' 10 ) 02/13/2024 11:02 AM VALVE PIPE IRRIGATOR Body Mass Index 27.59 02/13/2024 11:02 AM VALVE PIPE IRRIGATOR Plan of Treatment Health Maintenance Due Date [...] MATA Estimated Average Glucose 148 mg/dL [facility] Comment: The ADA recommends reporting an estimated Average Glucose (eAG) with all Hemoglobin A1c results using the equation derived from a study of 507 normal and diabetic adults. Minority populations were underrepresented and children were not included. (Diabetes Care 31:5350-5452, 2008). The eAG is not equivalent to a fasting glucose. Blood specimen (specimen) 12/12/2018 3:01 PM CDT 12/12/2018 4:14 PM CDT Leann Ellis MD LAB BLOOD ORDERABLES Fin al Result [facility] [address] [place] [address] * Lipid panel (12/12/2018 3:01 PM CDT) Cholesterol 120 30 - 199 mg/dL [facility] Comment: Interpretive Data Ages < or = [...] revised on 2017. Triglycerides 146 <=149 mg/dL [facility] Comment: Interpretive Data Ages < or = [...] revised on 2017. HDL 41 >=40 mg/dL [facility] Comment: Interpretive Data Ages < or = [...] on 2017. LDL, calculated 50 <=129 mg/dL [facility] Comment: Interpretive Data Ages < or = [...] revised on 2017. Non-HDL Cholesterol 79 mg/dL [facility] Comment: Interpretive Data Ages < or = [...] ORDERABLES Fin al Result [facility] [address] [place] [address] from Last 3 Months or Most Recently Relevant to Health Maintenance Insurance MEDICARE SOLUTIONS MEDICARE SOLUTIONS MEDICARE SOLUTIONS Advance Directives For more information, please contact: [phone] * LIMITED - No CPR (Latest Code [...] 11:06 PM 12/13/2018 2:31 AM Care Teams Recruiting Intern Relationship Specialty Start Date End Date No, Physician PCP - General 08/14/23 Martin Varela MD [address] [address] Surgeon Orthopedic Surgery 04/08/20
--- OUTSIDE RECORDS SUMMARY | 2024-04-18 23:24 | XMS_ITS | Referral Summary ---
Author Organization [place] [id number] [facility] Address [address] [place] [address] Care Team Providers Care Management Trainer Name Role Phone Martin Varela MD Unavailable [phone] No, Physician Primary Care Provider [phone] Encounters Date Type Department Care Team Description 02/13/2024 11:00 AM CLEAN IN PLACES OPERATOR Office Visit [facility] Pulmonary at [address] [place] [address] Jordan Ricks DO Shortness of [...] VERIO strip 0 Active ON[facility]OUCH [facility] Active escitalopram (LEXAPRO) 10 mg tablet [...] s beverly as late effect of stroke ([facility]) 07/19/2019 Immunizations Name Administration Dates Next Due [...] on file Legal Sex Male 9:15 AM CLEAN IN PLACES OPERATOR Gender Identity Male 07/18/2019 6:52 AM CDT Sexual Orientation Not on file Last Filed Vital Signs Vital Sign Reading Time Taken Comments Blood Pressure 134/78 02/13/2024 11:02 AM CLEAN IN PLACES OPERATOR Pulse 67 02/13/2024 11:02 AM CLEAN IN PLACES OPERATOR Temperature 35.4 C (95.7 F) 02/13/2024 11:02 AM CLEAN IN PLACES OPERATOR Respiratory Rate 16 02/13/2024 11:02 AM CLEAN IN PLACES OPERATOR Oxygen Saturation 99% 02/13/2024 11:02 AM CLEAN IN PLACES OPERATOR Inhaled Oxygen Concentration - - Weight 87.2 kg (192 lb 4.8 oz) 02/13/2024 11:02 AM CLEAN IN PLACES OPERATOR Height 177.8 cm (5' 10 ) 02/13/2024 11:02 AM CLEAN IN PLACES OPERATOR Body Mass Index 27.59 02/13/2024 11:02 AM CLEAN IN PLACES OPERATOR Plan of Treatment Not on file Procedures Procedure Name Priority Date/Time Associated Diagnosis Comments HEMOGLOBIN A1C STAT 12/12/2018 3:01 PM CDT LIPID PANEL STAT 12/12/2018 3:01 PM CDT from Last 3 Months or Most Recently Relevant to Health Maintenance Results * (ABNORMAL) Hemoglobin A1c (12/12/2018 3:01 PM CDT) Hgb A1C 6.8(H) 4.0 - 5.6 % [facility] Estimated Average Glucose 148 mg/dL [facility] Comment: The ADA recommends reporting an estimated Average Glucose (eAG) with all Hemoglobin A1c results using the equation derived from a study of 507 normal and diabetic adults. Minority populations were underrepresented and children were not included. (Diabetes Care 31:5467-0556, 2008). The eAG is not equivalent to a fasting glucose. Blood specimen (specimen) 12/12/2018 3:01 PM CDT 12/12/2018 4:14 PM CDT us Leann Ellis MD LAB BLOOD ORDERABLES Fin al Result [facility] [address] [place] [address] * Lipid panel (12/12/2018 3:01 PM CDT) [...] on 2017. LDL, calculated 50 <=129 mg/dL [facility] Comment: Interpretive Data Ages < or = [...] on 2017. Non-HDL Cholesterol 79 mg/dL [facility] Comment: Interpretive Data Ages < or = [...] last revised on 2017. Chol/HDL ratio 3 [facility] Blood specimen (specimen) 12/12/2018 3:01 PM CDT 12/12/2018 3:11 PM CDT Leann Ellis MD LAB BLOOD ORDERABLES Fin al Result [facility] 1 [place] [address] from Last 3 Months or Most Recently Relevant to Health Maintenance Insurance [employer] MEDICARE Collactive MEDICARE Collactive Advance Directives For more information, please contact: [phone] * LIMITED - No CPR (Latest Code [...] 11:06 PM 12/13/2018 2:31 AM Care Teams Management Trainer Relationship Specialty Start Date End Date No, Physician PCP - General 08/14/23 Martin Varela MD [address] [address] Surgeon Orthopedic Surgery 04/08/20
== END 2024-04-19 01:21 | disposition left against medical advice (07) ==
LOC: ANHED 23:21
PROVIDERS: Emergency Provider Emergency Medicine; PCP Family Medicine
DX: R05.9 Cough, unspecified (principal); Z20.822 Contact with and (suspected) exposure to COVID-19
CPT/HCPCS: 87637; 99199

== ENCOUNTER 2024-07-09 11:29 | Emergency (ER) | payer MEDICARE, SELFPAY ==
--- NOTE | ~2024-07-09 | XR_ITS ---
EXAMINATION: XR knee LT 3V DATE: 07/09/2024 12:58 INDICATION: Lateral left knee pain post injury TECHNIQUE: AP, oblique and crosstable lateral views of the left knee were obtained COMPARISON: None. FINDINGS: Alignment is normal. No fracture. Chondral calcinosis at the medial lateral compartments of the left knee. There is tricompartmental osteoarthritis at the left knee with at least mild joint space narro wing the medial compartment although joint space narrowing can be underestimated on nonweightbearing imaging. There are some calcific debris but no significant joint effusion at the suprapatellar pouch. Enthesophytes at the patellar insertion of the distal quadriceps tendon and at the anterior tibial i nsertion of the distal patellar tendon. Atherosclerotic calcifications posterior to the knee. Surgica l clips likely first saphenous vein graft harvest along the medial aspect of the distal thigh. IMPRESSION: 1. No left knee joint effusion or acute osseous abnormality. 2. 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 Reviewed, dictated and finalized at location B.
[2024-07-09 11:55] VITALS: BP 154/68; PULSE 65; RESP 18; TEMP 36.4; O2SAT 98
--- OUTSIDE RECORDS SUMMARY | 2024-07-09 12:54 | XMS_ITS | Encounter Summary ---
Author Organization [facility] Address [address] [place] [address] Care Team Providers Care Knotting Machine Operator Name Role Phone Martin Varela MD Unavailable [phone] Leann Pineda NP Primary Care Provider Encounter Details Date Type Department Care Team (Late st Contact Info) Description 06/11/2024 Results Follow-Up [facility] Pulmonary at [address] [address] Christy Duffy NP [address] [place] [address] Social History Tobacco Use Types Packs/Day Years Used Date Smoking Tobacco: Never Passive Smoke Exposure: Past Smokeless Tobacco: Never Alcohol Use Standard Drinks/Week [...] on file Legal Sex Male 9:15 AM NEURO INTENSIVIST PHYSICIAN Gender Identity Male 07/18/2019 6:52 AM CDT Sexual Orientation Not on file documented as of this encounter Plan of Treatment Not on file documented as of this encounter Visit Diagnoses Not on filedocumented in this encounter Care Teams Knotting Machine Operator Relationship Specialty Start Date End Date Leann Pineda NP 2044 [facility] 15 [place] [address] PCP - General Family Medicine 05/30/24 Martin Varela MD 675 [facility] 100 [place] [address] Surgeon Orthopedic Surgery 04/08/20 documented as of this encounter
--- OUTSIDE RECORDS SUMMARY | 2024-07-09 12:54 | XMS_ITS | Referral Summary ---
Author Organization [place] [address] [facility] Address [address] [place] [address] Care Team Providers Care Parts Sales Representative Name Role Phone Martin Varela MD Unavailable [phone] Leann Pineda NP Primary Care Provider [phone] Encounters Date Type Department Care Team Description 06/11/2024 Results Follow-Up [facility] Pulmonary at [address] [place] [phone] Christy Duffy NP 06/06/2024 9:37 AM CDT - 06/06/2024 11:59 PM CDT Hospital Encounter [facility] Respiratory 1 [place] [address] Mild persistent asthma without complication Discharge Disposition: Discharge to home or self care 05/29/2024 Orders Only [facility] Pulmonary at [address] [place] [phone] Christy Duffy NP Mild persistent asthma without complication (Primary Dx) 05/01/2024 10:30 AM SITE ENGINEER Office Visit [facility] Pulmonary at [address] [place] [phone] Christy Duffy NP Upper respiratory tract infection due to influenza A virus (Primary Dx); Mild intermittent asthma without complication; Elevated diaphragm; NIRU (obstructive sleep apnea); Heterozygous alpha 1-antitrypsin deficiency (HCC) 04/25/2024 Orders Only [facility] Pulmonary at [address] [place] [address] Christy Duffy, PAT 04/25/2024 Telephone [facility] Pulmonary at [address] [place] [address] Ele Jones, EDEN Influenza A from Last 3 Months Allergies Active Allergy [...] VERIO strip 0 Active ONETOUCH VERIO SYSTEM [facility] 0 Active escitalopram (LEXAPRO) 10 mg tablet 0 Active ONETOUCH DELICA PLUS LANCET 33 gauge [facility] 0 Active XARELTO 2.5 mg tablet 0 [...] 30 each 11 4 02/13/20 25 Active gabapentin (NEURONTIN) 100 mg capsule 1 5 Active Active Problems Problem Noted Date Diagnosed Date NIRU (obstructive sleep apnea) 05/01/2024 Assessment & Plan (05/01/2024 1:00 PM SITE ENGINEER): He had a positive home sleep study in 2021 with an AHI of 11.5. 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 Continue Breo Ellipta 200 for now. Albuterol as needed only, we have discussed indications for use. 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 01/07/2022 Extensor carpi ulnaris tendinitis 01/07/2022 Coronary arteriosclerosis 07/19/2019 Essential hypertension 07/19/2019 Gastroesophageal reflux disease 07/19/2019 Hyperlipidemia 07/19/2019 Type 2 diabetes mellitus 07/19/2019 Vitamin B12 deficiency (non anemic) 07/19/2019 Hemiparesis affecting left side as late effect o f stroke 07/19/2019 Immunizations Immunization Administration Dates Next Due Influenza, Trivalent, High [...] on file Legal Sex Male 9:15 AM SITE ENGINEER Gender Identity Male 07/18/2019 6:52 AM CDT Sexual Orientation Not on file Last Filed Vital Signs Vital Sign Reading Time Taken Comments Blood Pressure 138/62 05/01/2024 10:36 AM SITE ENGINEER Pulse 86 05/01/2024 10:36 AM SITE ENGINEER Temperature 36.3 C (97.3 F) 05/01/2024 10:36 AM SITE ENGINEER Respiratory Rate 16 02/13/2024 11:02 AM SITE ENGINEER Oxygen Saturation 90% 05/01/2024 10:36 AM SITE ENGINEER Inhaled Oxygen Concentration - - Weight 84.6 kg (186 lb 6.4 oz) 05/01/2024 10:36 AM SITE ENGINEER Height 177.8 cm (5' 10 ) 05/01/2024 10:36 AM SITE ENGINEER Body Mass Index 26.75 05/01/2024 10:36 AM SITE ENGINEER Plan of Treatment Not on file Procedures Procedure Name Priority Date/Time Associated Diagnosis Comments PULMONARY FUNCTION TEST (PFT) Routine 06/06/2024 10:19 AM CDT Mild persistent asthma without complication HEMOGLOBIN A1C STAT 12/12/2018 3:01 PM CDT LIPID PANEL STAT 12/12/2018 3:01 PM CDT from Last 3 Months or Most Recently Relevant to Health Maintenance Results * Pulmonary Function Test - (06/06/2024 10:19 AM CDT) Anatomical Region Laterality Modality PFT 06/06/2024 9:41 AM CDT Impressions 06/10/2024 1:18 PM CDT Pulmonary function testing was not repeatable. Please interpret with caution. 1. Spirometry is normal. 2. Lung volumes demonstrate mild restrictive ventilatory defect. 3. Normal diffusion capacity. 4. Total 6 minute walk distance is 1050 feet. At this level exertion the patient did not have any exercise-induced hypoxemia requiring supplemental oxygen. Clinical correlation is advised Electronically signed by Jordan Ricks, Pulmonary & Critical Care Narrative 06/10/2024 1:18 PM CDT PULMONARY FUNCTION TESTS Martín Carrillo 84 y.o. 06/10/2024 INTERPRETATION Please see technologist's comments mentioned in attached results report. SPIROMETRY: Pre bronchodilator FEV1 is 94 % predicted, FVC is 90 % predicted, FEV1/FVC is 77 Bronchodilator response: There was no significant bronchodilator response Inspection of the patient's flow-volume loops shows: Normal configuration of the inspiratory and expiratory limbs. LUNG VOLUMES: Lung volumes by body plethysmography: TLC is 74 % predicted, RV is 76 % predicted DLCO: Unadjusted for hemoglobin and carboxyhemoglobin DLCO is 92 % predicted SIX MINUTE WALK TEST Interpretation: The patient walked for 6 minutes on level ground and covered total distance of 1050 feet. On the Danya scale at baseline, reported dyspnea was 0. At the end of the study, reported dyspnea on the Danya scale was 2. Oxygen saturation remained above 95% throughout the study. us Christy Duffy CONSERVATION TECHNICIAN PFT ORDERABLES Final Resul t * (ABNORMAL) Hemoglobin A1c (12/12/2018 3:01 PM CDT) Hgb A1C 6.8(H) 4.0 - 5.6 % [facility] Estimated Average Glucose 148 mg/dL [facility] Comment: The ADA recommends reporting an estimated Average Glucose (eAG) with all Hemoglobin A1c results using the equation derived from a study of 507 normal and diabetic adults. Minority populations were underrepresented and children were not included. (Diabetes Care 31:3718-3379, 2008). The eAG is not equivalent to a fasting glucose. Blood specimen (specimen) 12/12/2018 3:01 PM CDT 12/12/2018 4:14 PM CDT us Leann Ellis MD LAB BLOOD ORDERABLES Fin al Result [facility] [address] [place] [address] * Lipid panel (12/12/2018 3:01 PM CDT) [...] 2017. LDL, calculated 50 <=129 mg/dL [facility] Comment: Interpretive Data Ages < or [...] on 2017. Non-HDL Cholesterol 79 mg/dL [facility] Comment: Interpretive Data Ages < or [...] LAB BLOOD ORDERABLES Fin al Result [facility] 1 [place] [address] from Last 3 Months or Most Recently Relevant to Health Maintenance Insurance UHC MEDICARE ADVANTAGE UHC MEDICARE ADVANTAGE UHC MEDICARE ADVANTAGE Advance Directives For more information, please contact: [phone] * LIMITED - No CPR (Latest Code [...] 11:06 PM 12/13/2018 2:31 AM Care Teams Parts Sales Representative Relationship Specialty Start Date End Date Leann Pineda NP 20[address] [facility] 15 [place] [address] PCP - General Family Medicine 05/30/24 Martin Varela MD 675 [facility] 100 [place] [address] Surgeon Orthopedic Surgery 04/08/20
--- OUTSIDE RECORDS SUMMARY | 2024-07-09 12:54 | XMS_ITS | Clinical Summary ---
Author Organization [place] [id number] [facility] Address [address] [place] [address] Care Team Providers Care Patient Service Associate Name Role Phone Martin Varela MD Unavailable [phone] Leann Pineda NP Primary Care Provider [phone] Allergies Active Allergy Reactions Criticality Noted Date [...] VERIO strip 0 Active ONETOUCH VERIO SYSTEM misc 0 Active escitalopram (LEXAPRO) 10 mg tablet [...] swallow. 30 each 4 02/13/20 25 Active gabapentin (NEURONTIN) 100 mg capsule 1 5 Active Active Problems Problem Noted Date Diagnosed Date NIRU (obstructive sleep apnea) 05/01/2024 Assessment & Plan (05/01/2024 1:00 PM PASTER OPERATOR): He had a positive home sleep study in 2021 with an AHI of 11.5. 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 Continue Breo Ellipta 200 for now. Albuterol as needed only, we have discussed indications for use. Upper respiratory tract infection due to influen za A virus 05/01/2024 Assessment & Plan (05/01/2024 12:58 PM PASTER OPERATOR): He has improved from initial infection 2 1/2 weeks ago but his sputum continues to be thick and yellow Start azithromycin Start NAC twice daily Monitor for worsening symptoms Heterozygous alpha 1-antitrypsin deficiency 04/13 Assessment & Plan (05/01/2024 1:03 PM PASTER OPERATOR): M/S - his last level was 137 [...] as late effect o f stroke 07/19/2019 Encounters Date Type Department Care Team Description 06/11/2024 Results Follow-Up [facility] Pulmonary at [address] [phone] Christy Duffy NP 06/06/2024 9:37 AM CDT - 06/06/2024 11:59 PM CDT Hospital Encounter [facility] Respiratory 1 [place] [address] Mild persistent asthma without complication Discharge Disposition: Discharge to home or self care 05/29/2024 Orders Only [facility] Pulmonary at [address] [address] Christy Duffy NP Mild persistent asthma without complication (Primary Dx) 05/01/2024 10:30 AM PASTER OPERATOR Office Visit [facility] Pulmonary at [address] [address] Christy Duffy NP Upper respiratory tract infection due to influenza A virus (Primary Dx); Mild intermittent asthma without complication; Elevated diaphragm; NIRU (obstructive sleep apnea); Heterozygous alpha 1-antitrypsin deficiency (HCC) 04/25/2024 Orders Only [facility] Pulmonary at [address] [phone] Christy Duffy NP 04/25/2024 Telephone [facility] Pulmonary at [address] [place] [address] Ele Jones LPN Influenza A from Last 3 Months Immunizations Immunization Administration Dates Next Due Influenza, Trivalent, High D ose, Split, Preservative Free, Intramuscular 12/17/2018 Surgical History Surgery Date Site/Laterality Comments HIATAL HERNIA REPAIR CORONARY ARTERY BYPASS GRAFT Medical History Medical History Date Comments Diabetes mellitus (HCC) Hypertension Hyperlipidemia CAD (coronary artery disease) Polio osteopathy of lower leg, right (HCC) Stroke (HCC) 2018 SOB (shortness of breath) Wheezing Genetic disorder 2019 NIRU (obstructive sleep apnea) 05/01/2024 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 Upper respiratory tract infection due to influen za A virus 05/01/2024 Heterozygous alpha 1-antitrypsin deficiency (HCC ) 05/01/2024 Family History Medical History Relation Name Comments [...] on file Legal Sex Male 9:15 AM PASTER OPERATOR Gender Identity Male 07/18/2019 6:52 AM CDT Sexual Orientation Not on file Obstetrics History Last Filed Vital Signs Vital Sign Reading Time Taken Comments Blood Pressure 138/62 05/01/2024 10:36 AM PASTER OPERATOR Pulse 86 05/01/2024 10:36 AM PASTER OPERATOR Temperature 36.3 C (97.3 F) 05/01/2024 10:36 AM PASTER OPERATOR Respiratory Rate 16 02/13/2024 11:02 AM PASTER OPERATOR Oxygen Saturation 90% 05/01/2024 10:36 AM PASTER OPERATOR Inhaled Oxygen Concentration - - Weight 84.6 kg (186 lb 6.4 oz) 05/01/2024 10:36 AM PASTER OPERATOR Height 177.8 cm (5' 10 ) 05/01/2024 10:36 AM PASTER OPERATOR Body Mass Index 26.75 05/01/2024 10:36 AM PASTER OPERATOR Plan of Treatment Health Maintenance Due Date Last Done Comments Albumin Creatinine Ratio, Urine 1941 Fall Risk Assessment 1941 eGFR 1941 Dilated Eye Exam 1941 Foot Exam 1941 Hepatitis B Screening 1959 Pneumococcal vaccine 65+ (1 of 2 - PCV) 1960 Well Visit 65+ 2006 Hemoglobin A1C 06/14/2019 12/13/2018, 12/12/2018 Depression Screening 12/13/2019 12/12/2018, 12/13/19 19 Lipid Panel 12/14/2019 12/13/2018, 12/12/2018 Covid-19 Vaccine (5 - 2023-2 5 season) 2023 02/09/2021, 06/28/2020, 06/26/2020, Additional history exists Zoster Vaccine (2 of 2) 02/08/2024 12/14/2023 DTaP/Tdap/Td Vaccine (2 - Td or Tdap) 09/08/2027 09/07/2017 Influenza Vaccine Completed 12/14/2023, , 01/04/2020, Additional history exists Procedures Procedure Name Priority Date/Time Associated Diagnosis [...] correlation is advised Electronically signed by Jordan Ricks DO Pulmonary & Critical Care Narrative 06/10/2024 1:18 [...] 95% throughout the study. us Christy Duffy EXHIBITION CARVER PFT ORDERABLES Final Resul t * (ABNORMAL) Hemoglobin A1c (12/12/2018 3:01 PM CDT) Hgb A1C 6.8(H) 4.0 - 5.6 % [facility] Estimated Average Glucose 148 mg/dL [facility] Comment: The ADA recommends reporting an estimated Average Glucose (eAG) with all Hemoglobin A1c results using the equation derived from a study of 507 normal and diabetic adults. Minority populations were underrepresented and children were not included. (Diabetes Care 31:0376-8465, 2008). The eAG is not equivalent to a fasting glucose. Blood specimen (specimen) 12/12/2018 3:01 PM CDT 12/12/2018 4:14 PM CDT us Leann Ellis MD LAB BLOOD ORDERABLES Fin al Result [facility] [address] [place] [address] * Lipid panel (12/12/2018 3:01 PM CDT) Cholesterol 120 30 - 199 mg/dL [facility] Comment: Interpretive Data Ages < or [...] on 2017. Triglycerides 146 <=149 mg/dL [facility] Comment: Interpretive Data Ages < or [...] on 2017. HDL 41 >=40 mg/dL [facility] Comment: Interpretive Data Ages < or [...] 2017. LDL, calculated 50 <=129 mg/dL [facility] Comment: Interpretive Data Ages < or [...] on 2017. Non-HDL Cholesterol 79 mg/dL [facility] Comment: Interpretive Data Ages < or [...] last revised on 2017. Chol/HDL ratio 3 [facility] Blood specimen (specimen) 12/12/2018 3:01 PM CDT 12/12/2018 3:11 PM CDT Leann Ellis MD LAB BLOOD ORDERABLES Fin al Result Performing Organization Address City/State/[facility] Co de Phone Number [facility] 1 [place] [address] from Last 3 Months or Most Recently Relevant to Health Maintenance Insurance [facility] MEDICARE ADVANTAGE [facility]ALTH [facility] MEDICARE Address: [address] [address] [place] [address] [id number] MEDICARE ADVANTAGE [facility]ALTH [facility] Address: [address] [address] [place] [address] MEDICARE ADVANTAGE HEALTH [facility] Address: [address] [address] [place] [address] Advance Directives For more information, please contact: [phone] * LIMITED - No CPR (Latest Code [...] 11:06 PM 12/13/2018 2:31 AM Care Teams Patient Service Associate Relationship Specialty Start Date End Date Leann Pineda NP 4 [facility] 15 [place] [address] PCP - General Family Medicine 05/30/24 Martin Varela MD 675 [facility] 100 [place] [address] Surgeon Orthopedic Surgery 04/08/20
--- OUTSIDE RECORDS SUMMARY | 2024-07-09 12:54 | XMS_ITS | Clinical Summary ---
Author Organization [facility] [email or web address] Address [address] [place] [address] Care Team Providers Care Control Panel Assembler Name Role Phone Madisyn Echeverria ESTHER-[employer] EMISSION AUTOMOBILE DESIGNER Primary Care Provider + Source Comments [email or web address],non-owned Affiliates and Associated Physician Practices is amultiple site organization consisting of ambulatory clinics and hospital sitesin [place], [place], [place] and [place]. This disclosure is being madepursuant to the Care Everywhere program and may not contain all information available regarding this patient. Last updated [email or web address].[employer] [email or web address] Allergies Active Allergy Reactions Criticality Noted Date Comments Contrast-Iodinated Agents For Ct/Other Urticaria Medium 06/09/2020 Medications * Be aware that medications may not be up to date on this document. Alwaysverify current medications with the patient. traMADol (ULTRAM) 50 MG tablet Take 50 mg by mouth 2 times daily as needed for Pain Active aspirin (ASPIRIN) 81 MG chew tablet Take 81 mg by mouth once daily Active atorvastatin (LIPITOR) 20 MG tablet Take 20 mg by mouth at bedtime Active metoprolol succinate XL 24hr (TOPROL XL) 25 MG tablet Take 25 mg by mouth at bedtime 0 Active pantoprazole EC (PROTONIX) 40 MG tablet Take 40 mg by mouth once daily Active escitalopram (LEXAPRO) 10 MG tablet Take 10 mg by mouth once daily 9 Active dulaglutide (TRULICITY) 0.75 MG/0.5ML injection Inject 0.75 mg subcutaneously every 7 days On sundays 0 Active meloxicam (MOBIC) 15 MG tablet Take 15 mg by mouth once daily 1 Active rivaroxaban (XARELTO) 2.5 MG TABS tablet Take 2.5 mg by mouth 2 times daily 0 Active valsartan (DIOVAN) 320 MG tablet Take 320 mg by mouth once daily 9 Active diphenhydrAMIN E (BENADRYL) 50 MG capsule Take 50 mg by mouth at bedtime Active amLODIPine (NORVASC) 10 MG tablet Take 10 mg by mouth once daily Active meclizine (ANTIVERT) 25 MG tablet Take 1 (one) tablet by mouth 3 times daily as needed for Dizziness 30 tablet 1 1 Active Additional Information Patient not taking.Reported on [...] at Not on file Legal Sex Male 2:49 PM CDT Gender Identity Not on file [...] COVID-19 VACCINE ( season) 2023 06/26/2020, 06/07/2020 DEPRESSION SCREENING 03/13/2024 DIABETES - URINE PROTEIN SCREENING 03/13/2024 INFLUENZA VACCINE (Season Ended) 2024 12/16/2020, 01/04/2020, 01/02/2019, Additional history exists HEPATITIS B VACCINE Aged Out No longe r eligible based on patient's age to complete this topic HIB VACCINE Aged Out No longer eligi ble based on patient's age to complete this topic HPV VACCINE Aged Out No longer eligi ble based on patient's age to complete this topic MENINGOCOCCAL (Group B) VACCINE SHARED DECISION-MAKING Aged Out No longer eligible based on patient's age to complete this topic MENINGOCOCCAL GROUPS A/C/Y/W VACCINE Aged Out No longer eligible based on patient's age to complete this topic Procedures Procedure Name Priority Date/Time Associated Diagnosis Comments BASIC METABOLIC PANEL (CALCIUM TOTAL) Routine 06/10/2020 3:30 AM CDT Dizziness from Last 3 Months or Most Recently Relevant to Health Maintenance Results * (ABNORMAL) BASIC METABOLIC PANEL (CALCIUM TOTAL) (06/10/2020 3:30 AM CDT) [facility] Glucose 159(H) 70 - 105 mg/dL 06/10/2020 4:24 AM CDT [facility] Sodium 138 136 - 145 mmol/L 06/10/2020 4:24 AM CDT [facility] Potassium 4.3 3.5 - 5.1 mmol/L 06/10/2020 4:24 AM CDT [facility] Chloride 108(H) 98 - 107 mmol/L 06/10/2020 4:24 AM CDT [facility] CO2 21(L) 23 - 31 mmol/L 06/10/2020 4:24 AM CDT [facility] Calcium 9.6 8.4 - 10.4 mg/dL 06/10/2020 4:24 AM CDT [facility] Anion Gap 9 8 - 18 mmol/L 06/10/2020 4:24 AM CDT [facility] Comment:Attention clinician: Reference Range change. BUN 21 8.4 - 25.7 mg/dL 06/10/2020 4:24 AM CDT [facility] Creatinine 0.81 0.72 - 1.25 mg/dL 06/10/2020 4:24 AM CDT [facility] eGFR by MDRD >60 mL/min/1.7 3m2 06/10/2020 4:24 AM CDT [facility] eGFR by MDRD >60 mL/min/1.7 3m2 06/10/2020 4:24 AM CDT [facility] Blood BLOOD SPECIMEN / Unknown Lab Venipuncture / Unknown 06/10/2020 3:30 AM CDT 06/10/2020 3:46 AM CDT Keisha Martini MD LAB - CHEMISTRY ORDERABLES Final Result [facility] [address] [place] [address] from Last 3 Months or Most Recently Relevant to Health Maintenance Insurance MEDICARE AET[employer] MEDICARE Advance Directives * Full Code (Latest Code Status on File) Date Activated Date Inactivated Comments 06/09/2020 8:16 PM 06/10/2020 8:56 PM * Full Code Date Activated Date Inactivated Comments 06/09/2020 7:13 PM 06/09/2020 8:16 PM Care Teams Control Panel Assembler Relationship Specialty Start Date End Date Madisyn Echeverria APRN-WALDEMAR [address] [address] PCP - General Nurse Practitioner 07/30/21
--- OUTSIDE RECORDS SUMMARY | 2024-07-09 12:54 | XMS_ITS | Encounter Summary ---
Author Organization [facility] Address [address] [place] [address] Care Team Providers Care Electric Serviceman Name Role Phone Madisyn Echeverria NP Primary Care Provider [phone] Encounter Details Date Type Department Care Team (Late st Contact Info) Description 12/26/2018 Hospital Follow-up Call [facility] [place] [address] Mere Carty Social History Tobacco Use Types [...] on filedocumented in this encounter Care Teams Electric Serviceman Relationship Specialty Start Date End Date Madisyn Echeverria NP [address] [place] [address] PCP - General NURSE PRACTITIONER 12/19/18 documented as of this encounter
--- OUTSIDE RECORDS SUMMARY | 2024-07-09 12:54 | XMS_ITS | Encounter Summary ---
Author Organization [facility] Address 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 Clinical History: [...] AMK Procedure Note Provider, Historical - 05/23/[address] [address] Admit Date: 05/20/2008 MICHAEL CARRILLO Sex: M Admit Prov: MARTIN COOK Date: 1940 Primary Care Prov: CHEL MART CMRN: [id number] [id number] [facility] Ordering Prov: N/A Interpretation CHEST, [...] CDT) MCV 82.6 82.0 - 99.0 fL [facility] PLATELETS 166 140 - 350 K/uL [facility] HEMOGLOBIN 15.0 13.6 - 16.5 g/dL [facility] RDW 14.2 11.5 - 14.5 % [facility] WBC 5.7 4.0 - 9.8 K/uL [facility] MCH 27.1(L) 27.2 - 32.6 pg [facility] MPV 11.9 9.3 - 12.4 fL [facility] HEMATOCRIT 45.7 40.0 - 48.0 % [facility] RDW-STDEV 42.9 37.1 - 48.7 fL [facility] RBC 5.53(H) 4.50 - 5.40 M/uL [facility] MCHC 32.8 31.5 - 35.5 % [facility] EOSINOPHILS 2 0 - 7 % [facility] EOSINOPHIL ABSOLUTE 0.11 0.00 - 0.70 K/uL [facility] LYMPHOCYTES 26 16 - 45 % [facility] LYMPHOCYTE ABSOLUTE 1.48 0.70 - 4.50 K/uL [facility] BASOPHILS 1 0 - 2 % [facility] BASOPHILS ABSOLUTE 0.05 0.00 - 0.20 K/uL [facility] MONOCYTES 7 3 - 13 % [facility] MONOCYTE ABSOLUTE 0.40 0.10 - 1.30 K/uL [facility] NEUTROPHILS 64 45 - 70 % [facility] NEUTROPHIL ABSOLUTE 3.64 1.90 - 7.00 K/uL [facility] Blood specimen (specimen) 05/22/2008 1:34 PM CDT 05/22/2008 3:15 PM CDT us Martin Cook MD HEMATOLOGY ORDERABLES Edited INTERFACE SYSTEM Refer to clinic/hospital department [facility] CLIA# [id number] [place], [place] [address] * (ABNORMAL) COMPREHENSIVE METABOLIC PANEL (05/22/2008 1:34 PM CDT) CO2 24 22 - 30 mmol/L [facility] TOTAL PROTEIN 6.7 6.3 - 8.6 g/dL [facility] POTASSIUM 4.1 3.5 - 4.9 mmol/L [facility] GLUCOSE 162(H) 65 - 99 mg/dL [facility] AST 26 12 - 38 U/L [facility] BUN 12 6 - 20 mg/dL [facility] CALCIUM 9.3 8.6 - 10.2 mg/dL [facility] ALBUMIN 4.4 3.4 - 4.8 g/dL [facility] CHLORIDE 103 96 - 108 mmol/L [facility] CREATININE 0.93 0.67 - 1.17 mg/dL [facility] ALT 39 0 - 41 U/L [facility] SODIUM 137 135 - 145 mmol/L [facility] ALKALINE PHOSPHATASE 55 40 - 129 U/L [facility] BILIRUBIN TOTAL 0.6 0.2 - 1.0 mg/dL [facility] GFR, >60 >=60 mL/min/1. 7 sq meter [facility] GFR >60 >=60 mL/min/1. 7 sq meter [facility] Comment: Modification of Diet in Renal Disease (MDRD) study formula. Estimated GFR rate interpretative information for both Americans and non- Americans is available on the [facility] at: [email or web address] Select: Lab Policies and Procedures Select: Reference Ranges - GFR Blood specimen (specimen) 05/22/2008 1:34 PM CDT 05/22/2008 3:15 PM CDT Martin Cook MD CHEMISTRY ORDERABLES Edited INTERFACE SYSTEM Refer to clinic/hospital department [facility] CLIA# [id number] [address] [place] [address] documented in this encounter Visit Diagnoses Diagnosis Rotator cuff (capsule) sprain documented in this encounter
--- OUTSIDE RECORDS SUMMARY | 2024-07-09 12:54 | XMS_ITS | Clinical Summary ---
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 120 tablet 12/26/2018 Active escitalopram 10 MG tablet 01/16/2019 Active Active Problems Problem Noted Date Diagnosed Date Spastic hemiparesis of left nondominant side ([facility]) 01/30/2019 Slurred speech 12/21/2018 Essential hypertension 12/21/2018 Diabetes ([facility]) 12/21/2018 CVA (cerebral vascular accident) ([facility]) 12/19/2018 Family History Medical History [...] 1940 Hemoglobin A1C 1941 Lipid Panel 1941 Diabetes: Retinopathy Eye Exam 1959 DTaP, Tdap and Td Vaccines ( 1 - Tdap) 1960 Pneumococcal Vaccine: 50+ Ye ars (1 of 2 - PCV) 1960 Zoster Vaccines (1 of 2) 1991 Annual Medicare Wellness Visit 2006 RSV Immunization or 60+ Years (1 - 1-dose 75+ series) 2016 COVID-19 Vaccine ( - 2023-2 5 season) 2023 Meningococcal B Vaccine Aged Out No l [...] 2:18 PM 12/19/2018 2:41 PM Care Teams Combined Rail Operator Relationship Specialty Start Date End Date Madisyn Echeverria NP [address] [place] [address] PCP - General NURSE PRACTITIONER 12/19/18
--- OUTSIDE RECORDS SUMMARY | 2024-07-09 12:54 | XMS_ITS | Clinical Summary ---
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
--- OUTSIDE RECORDS SUMMARY | 2024-07-09 12:54 | XMS_ITS | Data Portability ---
Author Organization [facility], Main Office Address [address] [place] [address] Assessment Encounter Date Assessment Date Assessment LastModified by Organization Details LastModified Time 12/12/2023 12/12/2023 phil johnson Not available 12/13/2023 08:53:36 06/24/2024 06/24/2024 45 minutes spent with the patient, meds reviewed, and referrals provided andreina Not available 06/24/2024 18:59:55 Plan of Treatment Reminders Order Date Submit Date Provider Last Modified By Organization Details Last Modified Time Details Appointments Follow Up 15 2024 02:30P Carroll lunsford MD Not available Not available Not available Any 15 2024 10:00A M Lisette lunsford MD Not available Not available Not available Lab glycohem oglobin, total, blood 2024 025 [facility] (Lab), [address] [place], [address], 06/25/2024 09:37:36 microalb umin, urine 2024 025 [facility] (Lab), [address] [place], [address], 06/25/2024 09:38:02 lipid panel, serum 2024 025 [facility] (Lab), [address] [place], [address], 06/27/2024 05:06:05 CBC w/ auto diff 2024 025 [facility] (Lab), [address] [place], [address], 06/27/2024 05:06:08 TSH, serum or plasma 2024 025 [facility] (Lab), [address] [place], [address], 06/27/2024 05:06:10 CMP, serum or plasma 2024 025 [facility] (Lab), [address] [place], [address], 06/27/2024 05:06:07 Referral rheumato logist referral - Please call patient to schedule an appointm ent. Thank you. 2024 025 FOSTER Hansen MD, [address] [facility] [address], [address], [place], [address], 07/01/2024 11:10:[address] referral - Please call patient to schedule an appointm ent. Thank you. 2024 025 LYN Oliver DPM, [address] [facility], [place], [address], 06/26/2024 14:17:12 Procedures None recorded . Surgeries None recorded . Imaging None recorded . Medication Orders tramadol 50 mg tablet 2024 025 [place] [facility], [address], [address], [place], [place], [id number], 05/29/2024 10:55:16 ferrous sulfate 325 mg (65 mg iron) tablet 2024 025 [place] [facility], [address], [address], [place], [place], [id number], 05/29/2024 10:55:08 Trulicit y 0.75 mg/0.5 mL subcutan eous pen injector 2024 025 LYN [facility], [address], [address], [place], [place], [id number], 05/29/2024 10:55:06 pantopra zole 40 mg tablet,d elayed release 2024 025 LYN [facility], [address], [address], [place], [place], [id number], 05/29/2024 10:55:06 gabapent in 100 mg capsule 2024 025 LYN [facility], [address], [address], [place], [place], [id number], 05/29/2024 10:55:09 celecoxi b 200 mg capsule 2024 025 LYN [facility], [address], [address], [place], [place], [id number], 05/29/2024 10:55:11 cyanocob alamin (vit B-12) 1,000 mcg tablet 2024 025 [facility], [address], [address], [place], [place], [id number], 06/24/2024 16:47:43 tramadol 50 mg tablet 2024 025 LYN [facility], [address], [address], [place], [place], [id number], 03/20/2024 08:55:46 gabapent in 100 mg capsule 2024 025 LYN [facility], [address], [address], [place], [place], [id number], 03/20/2024 08:55:46 Diflucan 150 mg tablet 2023 024 [email or web address] [facility], [facility] [address], [place] [address], [place], [place], [id number], 01/24/2024 13:07:52 gabapent in 100 mg capsule 2023 024 [facility], [address] [facility], [place], [address], 01/01/2024 14:40:11 Patient TargetsNo targets recorded. Patient Instructions Encounter Date Encounter Id Patient Instructions Last Modified By Organization Details Last Modified Time 03/20/2024 [id number] Follow up in May- appointment Tests: Referral: Recommend: Shingles vaccine Not available 03/20/2024 08:55:06 05/29/2024 [id number] Follow up in [address] 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 Thank you. 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 Thank you. Referring Physician: Lisette Ray, Internal Medicine, Encounter Date: 06/24/2024 Results Created Date Observation Date Name Description Value Unit Range Abnormal Flag Note LastModifiedBy Organization Detail LastModifiedTime Result Notes None recorded. Problems Name Problem SNOMED Code Status Onset Date Resolution Date Notes Provider Name and Address Organization Details Recorded Time Excessive cerumen in ear canal 495935837 Completed Not Available [facility] 3 06:56:47 Indigesti on 357868618 Completed Not Available [facility] 3 06:56:48 Pain in throat 569278844 Completed Not Available [facility] 3 06:56:48 Nocturia due to benign prostatic hypertrop hy 26620003013 01 Active Leann Pineda APRN [address], [address], [place], [address] , [employer] [facility] 4 13:07:45 Asthma 109085533 Active 2021 Leann Pineda APRN [address], [address], [place], [address] , [employer] [facility] 4 13:07:05 Deformity of foot 158707158 Active Leann Pineda APRN [address], [address], [place], [address] , [employer] [facility] 4 13:07:13 Gastroeso phageal reflux disease 726903828 Active Leann Pineda APRN [address], [address], [place], [address] , [employer] [facility] 4 13:07:30 Dysplasti c nevus of skin 888591509 Active 2021 Not Available [facility] 3 06:56:48 Low back pain 753563207 Active Leann Pineda APRN [address], [address], [place], [address] , [employer] [facility] 4 13:07:39 History of SARS-CoV- 2 72790974249 4537607 Active 2021 Not Available [facility] 3 06:56:48 Alpha-1-a ntitrypsi n deficienc y 12910732 Active 2021 Leann Pineda APRN [address], [address], [place], [address] , [employer] [facility] 4 13:07:01 Thyroid function tests abnormal 160484232 Active 2020 Not Available [facility] 3 06:56:48 Bronchiti s 99155900 Completed Not Available [facility] 3 06:56:48 Depressiv e disorder 11877384 Active Leann ESTHER Pineda [address], [address], [place], [address] , [employer] [facility] 4 13:07:15 Arthritis 2206403 Active Leann Pineda APRN [address], [address], [place], [address] , [facility] 4 13:07:02 Spider bite wound 812343681 Completed Not Available [facility] 3 06:56:48 Type 2 diabetes mellitus 17727021 Active Leann Pineda APRN [address], [address], [place], [address] , [employer] 4 13:07:55 Cough 90563051 Completed Not Available [facility] 3 06:56:49 Coronary arteriosc lerosis 40404112 Active Leann Pineda APRN [address], [address], [place], [address] , [employer] [facility] 4 13:07:10 Upper respirato ry infection 46980096 Completed BRYANT Torres [address] [facility] [address] [place] [address], [place], [address] , [employer] [facility] [employer] [facility] 4 16:01:10 Acute upper respirato ry infection 15428267 Active 2021 Not Available [facility] 3 06:56:49 Hyperlipi demia 39227701 Active Leann Pineda APRN [address], [address], [place], [address] , [employer] [facility] [employer] [facility] 4 13:07:33 Wheezing 09447726 Completed Not Available [facility] 3 06:56:49 Essential hypertens ion 92363350 Active Leann VANESSA PinedaN [address], [address], [place], [address] , [employer] [facility] 4 13:07:25 Dyspnea on exertion 04824225 Active 2021 Not Available [facility] 3 06:56:49 Vitamin B12 deficienc y (non anemic) 09416741 Active Not Available [facility] 3 06:56:49 History of exposure to second hand smoke 917853318 Active 2021 Not Available [facility] 3 06:56:49 Posterior rhinorrhe a 29649445 Active Not Available [facility] 3 06:56:50 Obstructi ve sleep apnea syndrome 64055342 Active 2021 Leann Pineda APRN [address], [address], [place], [address] , [employer] 4 13:07:48 COVID-19 321669830 Active 2020 Not Available [facility] 3 06:56:50 Iron deficienc y anemia 98608594 Active 2022 Leann Pineda APRN [address], [address], [place], [address] , [employer] 4 13:07:36 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 Leann Pineda APRN [address], [address], [place], [address] , [employer] 4 13:07:23 Cobalamin deficienc y 678857642 Active 2022 Leann Pineda APRN [address], [address], [place], [address] , [employer] 4 13:07:07 Diabetes mellitus 72128342 Active 2022 Leann Pineda APRN [address], [address], [place], [address] , [employer] 4 13:07:21 Left inguinal hernia 433891165 Active 2022 Yovana Wilson MD [address], [address], [place], [address] , [employer] 3 12:57:13 Osteoarth ritis 374667580 Active 2022 Leann Pineda APRN [address], [address], [place], [address] , [facility] 4 13:07:53 Upper respirato ry infection 13175084 Active 2023 BRYANT Torres [address], [address], [place], [address] , [facility] 4 16:01:10 Acute bronchiti s 97553168 Active 2023 Yovana Wilson MD [address], [address], [place], [address] , [facility] 4 09:22:52 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 2023 Leann Pineda APRN [address], [address], [place], [address] , [facility] 4 11:04:51 Bilateral shoulder joint pain 98414800210 893652 Active 2023 Leann Pineda APRN [address], [address], [place], [address] , [facility] 4 11:01:50 Onychomyc osis of toenails 710442094 Active 2023 SAQIB Mckeon null, [facility] 4 11:26:01 Pain in left foot 47642843148 9107 Active 2023 Rudy Rowe DPM [address], [address], [place], [address] , [facility] 4 08:53:17 Pain in right foot 67488378842 9107 Active 2023 Rudy Rowe DPM [address], [address], [place], [address] , [facility] 4 08:53:26 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 69905293841 07 Active 2023 Rudy Rowe DPM [address], [address], [place], [address] , [facility] 4 08:53:45 Ferritin level below reference range 302830148 Active 2023 Leann Pineda APRN [address], [address], [place], [address] , [facility] 4 20:21:08 Moderate recurrent major depressio n 40589042 Active 2024 Lisette nuñez MD [address], [address], [place], [address] , [facility] 5 16:05:16 Gastroeso phageal reflux disease without esophagit is 681211219 Active 2024 Lisette nuñez MD [address], [address], [place], [address] , [facility] 5 16:05:45 Pain of multiple joints 67880803 Active 2024 Lisette nuñez MD [address], [address], [place], [address] , [facility] 5 16:06:36 Neuropath y 718008939 Active 2024 Lisette nuñez MD [address], [address], [place], [address] , [facility] 5 16:07:13 Anemia 684923693 Active 2024 Lisette nuñez MD [address], [place], [address] , [facility] 5 16:11:36 Cerebrova scular accident 102533940 Active 2024 Lisette nuñez MD [address], [address], [place], [address] , [employer] 16:12:44 Notes:Some problems listed i n Document: #[id number] could not be added to this patient's chart. Please review this document and add these problems to the patient's chart manually as needed. Problem Notes None recorded. Procedures Surgical History Date Name Laterality Status Provider Name and Address Organization Details Recorded Time 12/12/19 24 Nail Debridement completed Rudy Rowe DPM [address], [address], [place], [address], [employer] 12/13/2023 08:53:02 12/12/19 24 Callus Debridement 2-4 completed Rudy Rowe DPM [address], [address], [place], [address], [employer] 12/13/2023 08:53:11 08/23/19 24 Medicare Wellness CPT Code, subsequent completed David Levine LPN [employer] 08/23/2023 09:46:14 Carpal tunnel completed Not Available [employer] 05/11/2022 06:54:21 Cholecystectomy completed Not Available [facility] 05/11/2022 06:54:21 Hernia Repair completed Not Available [facility] 05/11/2022 06:54:21 EGD completed Not Available [facility] 05/11/2022 06:54:21 Colonoscopy completed Not Available [facility] 05/11/2022 06:54:21 other completed Not Available [facility] 05/11/2022 06:54:21 Imaging Results None recorded. Procedure Notes None recorded. Medical Equipment None Reported. Allergies Allergen ID Allergen Name Allergen Category Reaction Reaction Severity Criticality Documentation Date Start Date Code Code System Note Provider Name and Address Organization Details Recorded Time 15960 Iodinated contrast media (substanc e) medicatio n Not available Not available Not available 05/11/2022 67231 2004 SNOMED Not Available [facility] 07:00:18 Medications Name Sig Start Date Stop Date Status Note LastModified by Organization Details LastModified Time losartan 50 mg tablet 02/28 completed Not Available Not Available Not Available celecoxib 200 mg capsule TAKE 1 CAPSULE BY MOUTH DAILY 2024 active Not Available Not Available Not Avai lable prednisone 10 mg tablet Take by oral route take 3 tabs for 2 days then 2 tabs for 2 days then 1 tab for 2 days . active Not Available Not Available No t Available doxycyclin e hyclate 100 mg capsule TAKE 1 CAPSULE BY MOUTH TWICE DAILY FOR 10 DAYS 05/29 completed Not Available Not Available Not Available atorvastat in 20 mg tablet 1 po qhs active Not Available Not Available Not Available ipratropiu m 0.5 mg-albuter ol 3 mg (2.5 mg base)/3 mL nebulizati on soln active [facility]#: [id number] 03-15 Not Available Not Available Not Available atorvastat in 10 mg tablet Take 1 tablet every day by oral route. 01/23 completed Not Available Not Available Not Available fluconazol e 150 mg tablet Take 1 tablet every week by oral route. 01/23 completed Not Available Not Available Not Available hydrocodon e 5 mg-acetami nophen 325 mg tablet TAKE 1 TABLET BY MOUTH EVERY 6 HOURS NEEDED FOR PAIN 06/24 completed Not Available Not Available Not Available meloxicam 15 mg tablet TAKE 1 TABLET DAILY 02/09 completed Not Available Not Available Not Available ondansetro n HCl 4 mg tablet Take 2 tablets twice a day by oral route as needed. active Not Available Not Available No t Available Medrol (Jacques) 4 mg tablets in a dose pack Take as directed on pack. Directio ns for Medrol Dosepak: 1st day: 2 tablets before breakfas t, 1 tablet after lunch and after supper, and 2 tablets at bedtime. 2nd day: 1 tablet before breakfas t. 1 tablet after lunch and after supper, and 2 tablets at bedtime. 3rd day: 1 tablet before breakfas t, after lunch, after supper and at bedtime. 4th day: 1 tablet before breakfas t, after lunch and at bedtime. 5th day: 1 tablet before breakfas t and at bedtime. 6th day: 1 tablet before breakfas t 03/28 completed Not Available Not Available Not Available prednisone 20 mg tablet TAKE 2 TABLETS BY MOUTH ONCE DAILY FOR 5 DAYS 05/29 completed Not Available Not Available Not Available Zithromax Z-Jacques 250 mg tablet TAKE 2 TABLETS (500 MG) BY ORAL ROUTE ONCE DAILY FOR 1 DAY THEN 1 TABLET (250 MG) BY ORAL ROUTE ONCE DAILY FOR 4 DAYS 03/28 completed Not Available Not Available Not Available cyanocobal alexis (vit B-12) 1,000 mcg tablet 1 tablet by mouth daily 06/24 completed Not Available Not Available Not Available Accu-Chek Softclix Lancets USE ONE TO CHECK GLUCOSE ONCE DAILY active Not Available Not Available No t Available clopidogre l 75 mg tablet Take 1 tablet every day by oral route for 90 days. active not taking Not Available Not Available Not Available amlodipine 5 mg tablet TAKE 1 TABLET BY MOUTH ONCE DAILY active Not Available Not Available No t Available tramadol 50 mg tablet Take 1 tablet twice a day by oral route as needed for pain 2024 active Not Available Not Available Not Avai lable meclizine 25 mg tablet Take 1 tablet twice a day by oral route as needed for 10 days. 05/19 completed Not Available Not Available Not Available amlodipine 10 mg tablet 02/09 completed Not Available Not Available Not Available benzonatat e 100 mg capsule Take 1 capsule every 4-6 hours by oral route as directed for 15 days. active Not Available Not Available No t Available cephalexin 500 mg capsule Take 1 capsule 3 times a day by oral route. active Not Available Not Available No t Available pantoprazo le 40 mg tablet,del ayed release TAKE 1 TABLET BY MOUTH DAILY 2024 active Not Available Not Available Not Avai lable cyanocobal alexis (vit B-12) 1,000 mcg/mL injection solution Inject 1 mL every month by subcutan eous route. 05/19 completed Not Available Not Available Not Available ferrous sulfate 325 mg (65 mg iron) tablet TAKE 1 TABLET BY MOUTH ONCE DAILY 2024 active Not Available Not Available Not Avai lable prednisone 50 mg tablet Take 1 tablet every day by oral route as directed for 5 days. active Not Available Not Available No t Available lidocaine 5 % topical patch Apply by topical route for 30 days. active Not Available Not Available No t Available valsartan 320 mg tablet Take 1 po daily active Not Available Not Available No t Available nitroglyce rin 0.4 mg sublingual tablet DISSOLVE ONE TABLET UNDER THE TONGUE EVERY 5 MINUTES NEEDED FOR CHEST PAIN. DO NOT EXCEED A TOTAL OF 3 DOSES IN 15 MINUTES active Not Available Not Available No t Available docusate sodium 100 mg capsule TAKE 1 CAPSULE BY MOUTH TWICE DAILY 08/22 completed Not Available Not Available Not Available hydrochlor othiazide 25 mg tablet TAKE 1 TABLET BY MOUTH ONCE DAILY 04/04 completed Not Available Not Available Not Available gabapentin 100 mg capsule Take 1 capsule twice a day by oral route as directed . 2024 active Not Available Not Available Not Avai lable metoprolol succinate ER 25 mg tablet,ext ended release 24 hr Take 1 tablet every day by oral route for 90 days. active Not Available Not Available No t Available levofloxac in 500 mg tablet Take 1 tablet every 24 hours by oral route as directed for 10 days. active Not Available Not Available No t Available losartan 100 mg tablet 09/20 completed Not Available Not Available Not Available fluticason e propionate 50 mcg/actuat ion nasal spray,susp ension Inhale 2 sprays every day by intranas al route in the morning for 30 days. active Not Available Not Available No t Available metformin ER 500 mg tablet,ext ended release 24 hr TAKE 1 TABLET IN THE MORNING AND 2 TABLETS WITH EVENING MEAL 08/21 completed Not Available Not Available Not Available amoxicilli n 875 mg-potassi um clavulanat e 125 mg tablet Take 1 tablet twice a day by oral route as directed for 7 days. active Not Available Not Available No t Available Ventolin HFA 90 mcg/actuat ion aerosol inhaler Inhale 2 puffs every 4 hours by inhalati on route as needed. 04/01 completed Not Available Not Available Not Available escitalopr am 10 mg tablet 1 po qday active Not Available Not Available No t Available metoprolol tartrate 25 mg tablet TAKE 1 TABLET TWICE A DAY active Not Available Not Available No t Available Flovent HFA 110 mcg/actuat ion aerosol inhaler Inhale 1 puff twice a day by inhalati on route as directed for 30 days. 04/04 completed Not Available Not Available Not Available chlorhexid ine gluconate 0.12 % mouthwash RINSE MOUTH WITH ONE CAPFUL FOR ONE MINUTE TWICE DAILY AFTER BRUSHING AND FLOSSING AND THEN SPIT active Not Available Not Available No t Available aspirin 325mg daily 2018 active Not Available Not Available Not Avai lable metformin ER 500 mg 24 hr tablet,ext ended release (gastric retention) TAKE 1 IN THE AM AND 2 WITH SUPPER 2013 active Not Available Not Available Not Avai lable BD Ultra-Fine Tracey Pen Needle 32 gauge x active Not Available Not Available Not Available Lumigan 0.01 % eye drops active Not Available Not Available Not Available OneTouch Verio test strips USE 1 STRIP TO CHECK GLUCOSE ONCE DAILY Dx E11.65 11/28 completed Not Available Not Available Not Available Breo Ellipta 100 mcg-25 mcg/dose powder for inhalation INHALE 1 PUFF BY MOUTH ONCE DAILY DIRECTED active Not Available Not Available No t Available Trulicity 0.75 mg/0.5 mL subcutaneo us pen injector INJECT THE CONTENTS OF ONE PEN SUBCUTAN EOUSLY WEEKLY DIRECTED 2024 active Not Available Not Available Not Avai lable OneTouch Verio Meter USE 1 TO CHECK GLUCOSE ONCE DAILY 11/28 completed Not Available Not Available Not Available Xarelto 2.5 mg tablet bid active Not Available Not Available Not Available OneTouch Delica Plus Lancet 33 gauge USE 1 LANCET TO CHECK GLUCOSE ONCE DAILY 11/28 completed Not Available Not Available Not Available FreeStyle Pearl 2 Brisbin Use as directed dx e11.9 active Not Available Not Available No t Available FreeStyle Pearl 2 Sensor active Not Available Not Available Not Available Fluad Quad 1444-6322( 65yr up)(PF) 60 mcg (15 mcg x 4)/0.5mL IM syringe ADM 0.5ML IM UTD 07/08 completed Not Available Not Available Not Available BinaxNOW COVID-19 Ag Self Test kit Use as Directed on the Package 01/23 completed Not Available Not Available Not Available Vitals Date Recorded Body height Body mass index (BMI) Body weight Oxygen saturation Oxygen saturation in Arterial blood by Pulse oximetry Heart rate Body temperature Provider Name and Address Organization Details Last Updated DateTime 4 177.8 cm 27.3 kg/m2 51655.5 5 g 90 % 90 % 80 /min 98.2 [degF] SAQIB Mckeon [place] - [facility] [employer] 4 11:16:18 Date Recorded Body height Body mass index (BMI) Body weight Body temperature Heart rate Oxygen saturation Oxygen saturation in Arterial blood by Pulse oximetry Systolic blood pressure Diastolic blood pressure Provider Name and Address Organization Details Last Updated DateTime 5 177.8 cm 27.5 kg/m2 81289.7 4 g 97.6 [degF] 71 /min 96 % 96 % 158 mm[Hg] 84 mm[Hg] Marcella Weaver RN [facility] [employer] [facility] 5 08:43:03 Date Recorded Body height Body mass index (BMI) Body weight Body temperature Heart rate Oxygen saturation Oxygen saturation in Arterial blood by Pulse oximetry Systolic blood pressure Diastolic blood pressure Provider Name and Address Organization Details Last Updated DateTime 5 177.8 cm 27.1 kg/m2 93291.9 6 g 97.1 [degF] 61 /min 98 % 98 % 128 mm[Hg] 64 mm[Hg] Dayanara Stevens MA [facility] for; to (do) Centers [facility] 5 10:39:19 Date Recorded Body height Body mass index (BMI) Body weight Body temperature Heart rate Systolic blood pressure Diastolic blood pressure Provider Name and Address Organization Details Last Updated DateTime 5 177.8 cm 27.7 kg/m2 02529.3 3 g 97.3 [degF] 60 /min 112 mm[Hg] 60 mm[Hg] SAQIB Faye [facility] 5 16:52:44 Social History Question Answer Notes LastModified by Organizat ion Details LastModified Time Tobacco Smoking Status Never Smoker Not Available [employer] 05/11/2022 06:54:14 Do You Have An Advance Directive? Yes [email or web address] Information not available 08/23/2023 What Is Your Level Of Alcohol Consumption? None MIGRATION.63651 21479 Information not available 05/11/2022 Are You Blind Or Do You Have Difficulty Seeing? No [email or web address] Information not available 08/23/2023 Is Blood Transfusion Acceptable In An Emergency? Yes [email or web address] Information not available 08/23/2023 What Is Your Level Of Caffeine Consumption? Occasional MIGRATION.02437 44728 Information not available 05/11/2022 How Much Tobacco Do You Chew? None MIGRATION.60728 19460 Information not available 05/11/2022 In The 14 Days Before Symptom Onset, Have You Had Close Contact With A Laboratory-confir med COVID-19 While That Case Was Ill? No MIGRATION.50973 65097 Information not available 05/11/2022 In The 14 Days Before Symptom Onset, Have You Had Close Contact With A Person Who Is Under Investigation For COVID-19 While That Person Was Ill? No MIGRATION.65641 31696 Information not available 05/11/2022 Are You Currently Employed? No [email or web address] Information not available 08/23/2023 Are You Deaf Or Do You Have Serious Difficulty Hearing? No [email or web address] Information not available 08/23/2023 What Type Of Diet Are You Following? REGULAR MIGRATION.42993 69552 Information not available 05/11/2022 Which Illicit Or Recreational Drugs Have You Used? None MIGRATION.60985 12689 Information not available 05/11/2022 What Is The Highest Grade Or Level Of School You Have Completed Or The Highest Degree You Have Received? ED41708-6 [email or web address] Information not available 08/23/2023 Do You Have An Electrostatic Air Filter? Yes MIGRATION.94219 61082 Information not available 05/11/2022 What Is Your Occupation? Retired MIGRATION.45217 44240 Information not available 05/11/2022 Have There Been Any Changes To Your Family Or Social Situation? No Information no t available 08/23/2023 Are There Any Guns Present In Your Home? Yes MIGRATION.72032 66156 Information not available 05/11/2022 Do You Have A Humidifier? Yes MIGRATION.35293 07788 Information not available 05/11/2022 Do You Use Insect Repellent Routinely? No Information not available 08/23/2023 Where Do You Live? [place]House MIGRATION.50930 72856 Information not available 05/11/2022 Presence Of Domestic Violence No [email or web address] Information no t available 08/23/2023 Guns Present In The Home? Yes [email or web address] Information not available 08/23/2023 Are You Able To Care For Yourself? Yes [email or web address] Information not available 08/23/2023 Are You Blind Or Do Yo Have Difficulty Seeing? No Information not available 08/23/2023 Are You Deaf Or Do You Have Serious Difficulty Hearing? No [email or web address] Information not available 08/23/2023 General Stress Level? Low Information not available 08/23/2023 Live Alone Of With Others? With Others Information not available 08/23/2023 Do You Have A Medical Power Of File Drawer Finisher? Yes Information not available 06/24/2024 Do You Have Moisture Problems In Your Home? No MIGRATION.00472 95368 Information not available 05/11/2022 What Was The Date Of Your Most Recent Tobacco Screening? 06/24/2024 Information not available 06/24/2024 How Many Children Do You Have? 3 Information not available 08/23/2023 Do You Have Any Pets? No MIGRATION.58046 61717 Information not available 05/11/2022 What Is Your Relationship Status? Information not available 08/23/2023 Do You Use Your Seat Belt Or Car Seat Routinely? Yes Information not available 08/23/2023 Do You Have Smoke And Carbon Monoxide Detectors In Your Home? Yes MIGRATION.86695 50117 Information not available 05/11/2022 Are You Passively Exposed To Smoke? No MIGRATION.34819 43278 Information not available 05/11/2022 Are There Any Smokers In Your House? No Information not available 08/23/2023 Do You Feel Stressed (tense, Restless, Nervous, Or Anxious, Or Unable To Sleep At Night)? [id number] Information not available 08/23/2023 Do You Use Any Illicit Or Recreational Drugs? No MIGRATION.79713 56890 Information not available 05/11/2022 Do You Use Sunscreen Routinely? No MIGRATION.51168 80983 Information not available 05/11/2022 Has Tobacco Cessation Counseling Been Provided? No N/a Information not available 06/24/2024 Have You Recently Traveled Abroad? No MIGRATION.10393 06527 Information not available 05/11/2022 Do You Have Any Dietary Restrictions? No MIGRATION.81949 83268 Information not available 05/11/2022 Do You Or Have You Ever Used Any Other Forms Of Tobacco Or Nicotine? No [email or web address] Information not available 08/23/2023 Sex: Male Functional Status Question Answer Note LastModified by Organizat ion Details LastModified Time Do you have difficulty walking or climbing stairs? Yes [email or web address] Information not available 08/23/2023 Do you have transportation difficulties? No [email or web address] Information not available 08/23/2023 Are you able to walk? YESWOREST [email or web address] Information not available 08/23/2023 Do you have difficulty doing errands alone? No [email or web address] Information not available 08/23/2023 Are you able to care for yourself? Yes [email or web address] Information n ot available 08/23/2023 Do you have difficulty dressing or bathing? No [email or web address] Information not available 08/23/2023 What is your exercise level? Occasional MIGRATION.0070281 026 Information not available 05/11/2022 Mental Status Question Answer Note LastModified by Organization D etails LastModified Time Do you have difficulty concentrating, remembering or making decisions? No [email or web address] Information no t available 08/23/2023 Family History Relationship Description Onset Age of this Age Resolved Age Notes LastModified by Organization Details LastModified Time Father Heart disease MIGRATION.576 [id number] Not available 05/11/2022 06:54:22 Father Diabetes mellitus MIGRATION.451 [id number] Not available 05/11/2022 06:54:22 Mother Malignant tumor of breast MIGRATION.576 [id number] Not available 05/11/2022 06:54:22 Father Myocardial infarction Not available 06/24 16:50:23 Father Malignant neoplasm of prostate Not available 2024 16:50:33 Notes:arthritis runs in mom' s side Medical History Condition Response HEART DISEASE/HEART PROBLEMS Y DIABETES, TYPE Y ARTHRITIS Y BACK / NECK PROBLEMS Y STROKE/TIA Y Immunizations Vaccine Type Date Status Note Provider Nam e and Address Organization Details Recorded Time Influenza, high-dose, quadrivalent, PF 1 completed Leann Pineda APRN [address], [place], [address], [employer] 08/23/2023 12:47:25 Influenza, high-dose, quadrivalent, PF 2 completed Leann Pineda APRN [address], [place], [address], [employer] 08/23/2023 12:47:25 Influenza, adjuvanted, quadrivalent, PF 0 completed Leann Pineda APRN [address], [place], [address], [facility] Interior [employer] [facility] 08/23/2023 12:47:25 COVID-19, mRNA, LNP-S, PF, 30 mcg/0.3 mL dose 1 completed Leann Pineda APRN [address], [place], [address], [facility] [employer] [facility] 08/23/2023 12:47:25 COVID-19, mRNA, LNP-S, PF, 30 mcg/0.3 mL dose 1 completed Leann Pineda APRN [address], [place], [address], [facility] [employer] [facility] 08/23/2023 12:47:25 COVID-19, mRNA, LNP-S, PF, 30 mcg/0.3 mL dose [address], [place], [address], [facility] [employer] [facility] 08/23/2023 12:47:25 COVID-19, mRNA, LNP-S, PF, 30 mcg/0.3 mL dose, nicole-sucrose 2 completed Leann Pineda APRN [address], [place], [address], [facility] [employer] [facility] 08/23/2023 12:47:25 COVID-19, mRNA, LNP-S, bivalent, PF, 30 mcg/0.3 mL dose 2 completed Leann Pineda APRN [address], [place], [address], [facility] Interior Define [facility] 08/23/2023 12:47:25 Influenza, high-dose, trivalent, PF 8 completed Leann Pineda APRN [address], [place], [address], [facility] [employer] [facility] 08/23/2023 12:47:25 Influenza, high-dose, quadrivalent, PF 3 completed Leann Pineda APRN [address], [place], [address], [facility] Interior [employer] [facility] 08/23/2023 12:47:37 RSV, bivalent, protein subunit RSVpreF, diluent reconstituted, 0.5 mL, PF 3 completed Leann Pineda APRN [address], [place], [address], [facility] [employer] [facility] 08/23/2023 12:47:37 COVID-19, mRNA, LNP-S, PF, nicole-sucrose, 30 mcg/0.3 mL 3 completed Leann Pineda APRN [address], [place], [address], [facility] [employer] [facility] 08/23/2023 12:47:37 Influenza, high-dose, trivalent, PF 9 completed Leann Pineda APRN [address], [place], [address], [facility] [employer] [facility] 08/23/2023 12:47:37 zoster recombinant [address], [place], [address], [facility] [employer] [facility] 03/20/2024 08:45:49 Pneumococcal conjugate PCV20, polysaccharide GQX111 conjugate, adjuvant, PF [address], [place], [address], [facility] Interior [employer] [facility] 03/20/2024 08:45:49 COVID-19, mRNA, LNP-S, PF, nicole-sucrose, 30 mcg/0.3 mL 4 completed Leann Pineda APRN [address], [place], [address], [facility] [employer] [facility] [employer] [facility] 03/20/2024 08:45:49 Influenza, high-dose, trivalent, PF 4 completed Leann Pineda APRN [address], [place], [address], [employer] [facility] [employer] [facility] 03/20/2024 08:45:49 Influenza, split virus, trivalent, preservative 3 completed Leann Pineda APRN [address], [place], [address], [employer] [facility] [employer] [facility] 08/23/2023 12:47:25 Influenza, split virus, quadrivalent, preservative 1 completed Not Available [facility] 05/11/2022 07:00:09 COVID-19, mRNA, LNP-S, PF, 100 mcg/0.5mL dose or 50 mcg/0.25mL dose 1 completed Leann Pineda APRN [address], [place], [address], [employer] [facility] [employer] [facility] 08/23/2023 12:47:25 COVID-19, mRNA, LNP-S, PF, 100 mcg/0.5mL dose or 50 mcg/0.25mL dose 1 completed Leann Pineda APRN [address], [place], [address], [facility] [employer] [facility] [employer] [facility] 08/23/2023 12:47:25 Influenza, split virus, quadrivalent, preservative 0 completed Leann Pineda APRN [address], [place], [address], [facility] [employer] [facility] [employer] [facility] 08/23/2023 12:47:25 Influenza, split virus, quadrivalent, preservative 9 completed Not Available [facility] 05/11/2022 07:00:10 Tdap 8 completed Not Available [facility] 05/11/2022 07:00:10 Influenza, high-dose, trivalent, PF 7 completed Not Available [facility] 05/11/2022 07:00:10 Influenza, high-dose, trivalent, PF 6 completed Not Available [facility] 05/11/2022 07:00:10 Influenza, high-dose, trivalent, PF 5 completed Not Available [facility] 05/11/2022 07:00:10 Influenza, high-dose, trivalent, PF 4 completed Not Available [facility] 05/11/2022 07:00:10 Past Encounters Encounter ID Performer Location Encounter Start Date Encounter Closed Date Diagnosis/Indication Diagnosis SNOMED-CT Code Diagnosis ICD10 Code Diagnosis Note [id number] [facility] [address] [place] [address] 07/08/2020 00:00:00 07/08/2020 13:20:19 [id number] S_[facility] [address] [facility] [address] [place] [address] 11/10/2020 00:00:00 11/10/2020 13:23:11 [id number] S_[facility] [place] [facility] [address] [place] [address] 02/09/2021 00:00:00 02/09/2021 10:06:50 [id number] [facility] [place] [address] [place] [address] 04/01/2021 00:00:00 04/01/2021 16:19:44 [id number] [facility] [place] [address] [place] [address] 05/19/2021 00:00:00 05/19/2021 16:58:51 [id number] [facility] [place] [address] [place] [address] 06/30/2021 00:00:00 06/30/2021 15:28:14 [id number] [facility] [address] [place] [address] 08/04/2021 00:00:00 08/04/2021 10:24:39 [id number] [facility] [place] [address] [place] [address] 08/23/2021 00:00:00 08/23/2021 15:45:33 [id number] [facility] [place] [address] [place] [address] 10/04/2021 00:00:00 10/04/2021 15:55:23 [id number] [facility] [place] [address] [place] [address] 12/14/2021 00:00:00 12/14/2021 19:47:39 [id number] [facility] Primary Care [facility] [address] [facility] [address] [facility] [place] [address] 04/04/2022 00:00:00 04/11/2022 18:17:23 [id number] [facility] [address] [facility] [address] [facility] [place] [address] 04/07/2022 00:00:00 04/11/2022 17:59:20 [id number] Yovana Wilson MD [facility] Primary Care [facility] [address] [facility] [address] [place] [address] 05/16/2022 11:46:43 05/16/2022 12:01:38 [id number] Christy Duffy [facility]- [facility] [place] [address] [place] [address] 06/14/2022 15:02:11 06/14/2022 15:27:41 Asthma 018587337 J45.909 ACT 22+ methacholi ne challenge testing 07/27/21Co ntinue Breo Ellipta 100 dailyDiscu ssed use and techniqueH e is aware to rinse and spit after useDiscuss ed reportable signs and symptomsRT C in 6 months, PRN for concerns Alpha-1-an titrypsin deficiency 37658205 E88.01 MS, normal levelHe is aware to get siblings and children tested Dyspnea on exertion 6084 5006 R06.09 Multifacto ralIGGS with slightly low subclass 1 and 2IGE normalIncr ease activity as toleratedQ uantiferon GOLD normalRAST and HP panel normal History of SARS-CoV-2 29 03154375 36817956 Z86.16 + 02/2021 Obstructiv e sleep apnea syndrome 46487161 G47.33 NOtcomplia nt with therapyUni nterested in troublesho oting [id number] Yovana Wilson MD [facility] Primary Care [facility] [address] [facility] [address] [place] [address] 10/20/2022 12:32:25 10/20/2022 13:53:28 Iron deficiency anemia 72383356 D50.9 continue mvi with ironcheck labs Diabetes mellitus 096521 09 E11.9 Hyperlipidemia 14302886 E78.5 Essential hypertension 45907615 I10 Cobalamin deficiency 190 095249 E53.8 Left inguinal hernia 236 000376 K40.90 Ok for activities as toleratedG eneral surgery referral given Osteoarthritis 531190849 M19.90 [id number] Christy Duffy, SAFETY CONSULTANT-[facility] [place] [address] [place] [address] 12/14/2022 15:08:11 12/14/2022 16:40:48 Asthma 390172468 J45.909 ACT 24+ methacholi ne challenge testing 07/27/21Co ntinue Breo Ellipta 100 dailyDiscu ssed use and techniqueH e is aware to rinse and spit after useDiscuss ed reportable signs and symptomsAd vised vaccines this fall Alpha-1-an titrypsin deficiency 03768189 E88.01 MS, normal levelHe is aware to get siblings and children tested Dyspnea on exertion 6084 5006 R06.09 Multifacto ralIGGS with slightly low subclass 1 and 2IGE normalIncr ease activity as toleratedQ uantiferon GOLD normalRAST and HP panel normal History of SARS-CoV-2 29 56043585 34607741 Z86.16 + 02/2021 Obstructiv e sleep apnea syndrome 51496116 G47.33 Not compliant with therapyUni nterested in troublesho otingDiscu ssed the risks of uncorrecte d NIRU, including [id number] Yovana Wilson MD [facility] Primary Care [facility] [address] [facility] [address] [place] [address] 03/28/2023 09:08:52 03/28/2023 09:34:55 Acute bronchitis 58966671 J20.9 check cxrdoxycyc line 100 mg po bid x 10 dayspredni sone taper with food, avoid other nsaidscont inue inhalersca ll/return if no improvemen t in 1-2 days or sooner if neededrevi ewed s/s that warrant urgent/ami rgent eval in meantime [id number] Yovana Wilson MD [facility] Primary Care [facility] [address] [facility] [address] [place] [address] 05/30/2023 09:34:11 05/30/2023 11:24:07 Iron deficiency anemia 54422858 D50.9 continue mvi with ironcheck labs Diabetes mellitus 826968 09 E11.9 stable per home readingswi order cgmcheck labs Hyperlipidemia 62480903 E78.5 Essential hypertension 81135073 I10 monitored by cardiology no med changes this month Cobalamin deficiency 190 958152 E53.8 Left inguinal hernia 236 469048 K40.90 will have surgical repair this week with Dr. Pride [id number] Leann Pineda APRN [facility] Internal Med [place] [address] [place] [address] [place] [address] [address] 08/23/2023 10:30:18 08/23/2023 11:39:47 Adult health examination 766688217 Z00.00 Screening for disorder 550444503 Z13.9 [id number] Leann Pineda APRN [facility] Internal Med [place] [facility] [address] [place] [address] [place] [address] 11/29/2023 10:24:38 11/29/2023 11:11:01 Hyperlipidemia 70406259 E78.5 Iron defic iency anemia 30776107 D50.9 Type 2 laine betes mellitus 11421168 E11.9 Bilateral shoulder joint pain 0735884152 2491748 M25.346 [id number] Rudy Rowe DPM [facility] Podiatry [facility] [address] [address] 12/12/2023 10:49:54 12/13/2023 11:32:27 Onychomycosis of toenails 407050492 B35.1 Pain in left foot 079737 4334 71396 M79.672 Pain in right foot 95009 87064 19212 M79.671 Peripheral neuropathy due to type 2 diabetes mellitus 6218423174 107 E11.42 [id number] Leann Pineda APRN [facility] Primary Care [facility] [address] [facility] [address] [place] [address] 03/20/2024 08:35:45 03/20/2024 08:59:09 Osteoarthritis 054768339 M19.90 Peripheral neuropathy due to type 2 diabetes mellitus 4553308821 107 E11.42 [id number] Leann Pineda APRN [facility] Internal Med [facility] [address] [address] 05/29/2024 10:23:38 05/29/2024 11:18:07 Pain of multiple joints 81443615 M25.50 Cobalamin deficiency 190 739392 E53.8 Ferritin l evel below reference range 618380070 R77.8 Peripheral neuropathy due to type 2 diabetes mellitus 8122376747 107 E11.42 Gastroesop hageal reflux disease without esophagitis 760454547 K21.9 Osteoarthritis 887528162 M19.90 Type 2 laine betes mellitus without complication 809247631 E11.9 [id number] Lisette nuñez MD S_[facility] Primary Care [facility] [address] [facility] [address] [place] [address] 06/24/2024 16:01:13 06/24/2024 17:10:56 Screening - NAD 532060698 Z13.9 C-scope: Not doing now, denies any complaints Get yearly fluGet tdap if not doneGet shingrix vaccineGet COVID 19 boostersCa n do RSV vaccine and pneumonia vaccines RTC in 3 months, do labs, ER if worse Hyperlipidemia 81488623 E78.5 On ASAOn atorvastat in 20mg dailyGet labs Moderate r ecurrent major depression 88272087 F33.1 On lexaproNot suicidal or homicidalD oes not see psychiatry Diabetes mellitus 274529 09 E11.9 On trulicityN o history of MEN2 or MCT or thyroid or parathyroi d complaints , also no psychiatry complaints , and is on medication sGet labs Gastroesop hageal reflux disease without esophagitis 933617607 K21.9 On pantoprazo le 40mg daily as needed Pain of mu ltiple joints 86768938 M25.50 On tramadolOn celebrexAd vise to take ONLY as neededGet a referral to rheumatolo gy Neuropathy 720817031 G62 .9 On gabapentin Essential hypertension 43410377 I10 On ASAOn metoprolol ER 25mg dailyOn valsartan 320mg dailyOn xarelto 2.5mg bid Dr Nina [facility] 06/18/2024 Obstructiv e sleep apnea syndrome 66665078 G47.[address] Ricks 02/13/2024 Asthma 942186651 J45.[address] Ricks 02/13/2024 Anemia 270800643 D64.9 On ironGet labs Cerebrovas cular accident 483348428 I63.9 On xarelto 2.5mg bidSees [facility] [id number] Alee Asfhord RN [facility] Primary Care [address] [place] [address] 06/25/2024 08:57:33 06/25/2024 09:34:16 Health Concerns Section Related Observation LastModified by Organization Detai ls LastModified Time None Recorded Concern Status LastModified by Organization Details LastModified Time None Recorded Advance Directives Directive Y: Payers Encounter Date Sequence Insurance Name Policy Number Policy Shah Covered Member ID Shah Member ID Guarantor Name 12/12/2023 1 [facility] (MEDICARE REPLACEMENT/A DVANTAGE - PPO) [id number] Martín Carrillo [id number] Martín Carrillo 03/20/2024 1 [facility] (MEDICARE REPLACEMENT/A DVANTAGE - PPO) [id number] Martín Carrillo [id number] Martín Carrillo 05/29/2024 1 [employer] (MEDICARE REPLACEMENT/A DVANTAGE - PPO) [id number] Martín Carrillo [id number] Martín Carrillo 06/24/2024 1 [facility] (MEDICARE REPLACEMENT/A DVANTAGE - PPO) [id number] Martín Carrillo [id number] Martín Carrillo Notes Date Note Type Note Provider Name and Address Organization Details Recorded Time 12/12/2023 text/html NIDDM pt RTC for routine c/o calluses both feet. Decreased sensation and neuropathic symptoms. Pain, especially at night. Rudy Rowe DPM [address], [place], [address], [employer] 12/13/2023 09:05:37 03/20/2024 text/html Martín presents today for medication refill. He is also in need of his handicapped parking placard to be renewed. He states that [employer] / ?.?? came out to his house in early February and his A1C was 6.1. He walks with a cane. 11/29/2023negra presents today for 3 month follow up. He states that he receives injections in his shoulders every 6 months. He states that he has tried using lidocaine patches and they have worked and he would like to have a prescription. He also states that he is on the [place] Pearl 2 to monitor his blood sugars. 08/23/2023negra presents today to establish care as his provider has left the area. He is also due to his Medicare Wellness. He was recently diagnosed with diabetes, he states his blood sugars have been under control with the Trulicity. Leann Pineda APRN [address], [place], [address], [employer] 03/20/2024 08:55:59 05/29/2024 text/html Martín presents today for 3 month follow up. He states that he had influenza that took a while to get over, but he is feeling better now. He denies any other illnesses, falls, or injuries. He states that he received his parking placard. He is walking with his cane. 03/20/2024Martín presents today for medication refill. He is also in need of his handicapped parking placard to be renewed. He states that [facility] came out to his house in early February and his A1C was 6.1. He walks with a cane. 11/29/2023negra presents today for 3 month follow up. He states that he receives injections in his shoulders every 6 months. He states that he has tried using lidocaine patches and they have worked and he would like to have a prescription. He also states that he is on the [employer] 2 to monitor his blood sugars. 08/23/2023negra presents today to establish care as his provider has left the area. He is also due to his Medicare Wellness. He was recently diagnosed with diabetes, he states his blood sugars have been under control with the Trul[employer]. Leann Pineda APRN [address], [address], [place], [id number], [employer] 05/29/2024 10:55:16 06/24/2024 text/html OV 06/24/2024: Here to establish care Present Hx:HLDDepressionGE RDNeuropathyHTNOSA AsthmaAnemiaCVA Here to discuss above and to get labs Lisette Ray MD [address], [place], [id number], [employer] 06/24/2024 19:00:12
--- OUTSIDE RECORDS SUMMARY | 2024-07-09 12:55 | XMS_ITS | CONTINUITY OF CARE DOCUMENT ---
Author Name rosa elena, rosa elena Address Unknown Organization [facility] Address [address] [place] [address] Phone [phone] Care Team Providers Care Can Sterilizer Name Role Phone Maico BAER, Deborah Unavailable Miriam PREMIUM CANCELLATION CLERK, Ritchie Unavailable [phone] Miriam PREMIUM CANCELLATION CLERK, Ritchie Unavailable PROBLEMS Condition Status Date Provider Notes HTN-- [...] bilateral active Rupert Nacht Vertigo active Rupert Sherrit Cough active Ramana Hoff Cardiology examination active Ramana Hoff Shortness of breath active Ramana Hoff Diabetes Mellitus, Type II, controlled w/vascular complications active Deborah Nina MD NIRU, mild active Ramana Israelramez Family History Coronary Hear t Disease male < 55: completed - Deborah Nina MD Family History Coronary Hear t Disease male < 55: completed - Deborah Nina MD CAD S/P CABG,OSMAN TO LAD,SVG TO RCA 1999 active Deborah Nina MD ENCOUNTERS Date Type Provider Location Encounter Diag nosis - In-person encounter Office Visit Deborah Nina MD [facility] Cardiology examinationShortness of breath - In-person encounter Office Visit Deborah Nina MD [facility] - In-person encounter Office Visit Deborah Nina MD [facility] - In-person encounter Office Visit Deborah Nina MD [facility] CAD-06/18 CAROTID NEG - In-person encounter Office Visit Deborah Nina MD [facility] Diabetes Mellitus, Type II, controlled w/vascular complications - In-person encounter Office Visit Deborah Nina MD [facility] - In-person encounter Office Visit Deborah Nina MD [facility] - In-person encounter Office Visit Deborah Nina MD [facility] HTN-- echo ef 60%, 2OSA, mildCough - In-person encounter Office Visit Deborah Nina MD [facility] - In-person encounter Office Visit Deborah Nina MD [facility] Hyperlipidemia, stress nuc normal 08/2019 - In-person encounter Office Visit Deborah Nina MD [facility] - In-person encounter Office Visit Deborah Nina MD [facility] Leg edema, bilateralVertigo - In-person encounter Office Visit Deborah Nina MD [facility] - In-person encounter Office Visit Deborah Nina MD [facility] - In-person encounter Office Visit Deborah Nina MD [facility] - In-person encounter Office Visit Deborah Nina MD [facility] - In-person encounter Office Visit Deborah Nina MD [facility] CVA - In-person encounter Office Visit Deborah Nina MD [facility] - In-person encounter Office Visit [facility] Shoulder pain, left and right - In-person encounter Office Visit Deborah Nina MD [facility] - In-person encounter Office Visit Deborah Nina MD [facility] Unsteady gait - In-person encounter Office Visit Deborah Nina MD [facility] - In-person encounter Office Visit Deborah Nina MD [facility] - In-person encounter Office Visit Deborah Nina MD [facility] - In-person encounter Office Visit Deborah Nina MD [facility] DYSLIPIDEMIADiabetes mellitus - In-person encounter Office Visit Deborah Nnia MD [facility] CHEST PAIN abnl stress 09/23, cath showed complete revasc w OSMAN to lAD, SVG to RCA , 30% circFamily History Coronary Heart Disease male < 55:Family History Coronary Heart Disease male < 55: - In-person encounter Office Visit Deborah Nina MD [facility] CHEST PAIN abnl stress 14, cath showed complete revasc w OSMAN to lAD, SVG to RCA , 30% circ - In-person encounter Office Visit [facility] CAD S/P CABG,OSMAN TO LAD,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CHEST PAIN abnl stress 09/23, cath showed complete revasc w OSMAN to lAD, SVG to RCA , 30% circ - In-person encounter Office Visit Deborah Nina MD [facility] - In-person encounter Office Visit Deborah Nina MD [facility] - In-person encounter Office Visit Deborah Nina MD [facility] - In-person encounter Office Visit Deborah Nina MD [facility] - In-person encounter Office Visit Deborah Nina MD [facility] CAD S/P CABG,OSMAN TO LAD,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 - In-person encounter Office Visit Deborah Nina MD [facility] VITAL SIGNS Date Observation Value Provider Body Mass Index (Ratio) 27.83 kg/m2 Ramanajose luis Israel blood pressure, diastolic 78 mm[Hg] Jordana andrew Carrillo blood pressure, systolic 132 mm[Hg] Joselin castro Carrillo oxygen saturation, oximetry 97 % Melvina Carrillo pulse rate 59 /min Melvina Carrillo respiratory rate E&M 12 /min Melvina Carrillo weight E&M 194 [lb_av] Melvina [place] height E&M 70 [in_i] Melvina [place] blood pressure, cuff size regular lorrie Carrillo Body Mass Index (Ratio) 27.26 kg/m2 Ramana Hoff blood pressure, diastolic 75 mm[Hg] Bharath Isabel RN blood pressure, systolic 129 mm[Hg] Luly Isabel RN oxygen saturation, oximetry 96 % Luly Isabel RN respiratory rate E&M 16 /min Luly horton RN pulse rate 70 /min Luly sIabel RN weight E&M 190 [lb_av] Luly Isabel RN Body Mass Index (Ratio) 26.25 kg/m2 Ramana Hoff pulse rate 77 /min Sujey Luke blood pressure, cuff size regular Ta howie Luke blood pressure, diastolic 82 mm[Hg] Ta bitha Luke blood pressure, systolic 126 mm[Hg] Tab itha [place] oxygen saturation, oximetry 97 % Sujey Luke weight E&M 183 [lb_av] Sujey Luke respiratory rate E&M 12 /min Sujey Luke height E&M 70 [in_i] Sujey Luke Body Mass Index (Ratio) 27.12 kg/m2 Nabil ntdonald Cran[place] blood pressure, diastolic 77 mm[Hg] Li nkLogic blood pressure, systolic 139 mm[Hg] Mimi kLogic blood pressure, cuff size regular Ja rret blood pressure, diastolic 77 mm[Hg] Ja rret blood pressure, systolic 139 mm[Hg] Jar ret pulse rate 75 /min Francis y weight E&M 189 [lb_av] Francis y oxygen saturation, oximetry 95 % Francis respiratory rate E&M 12 /min Francis height E&M 70 [in_i] Francis y Body Mass Index (Ratio) 27.69 kg/m2 Grey Nina MD pulse rate 60 /min Jazmin Rdz respiratory rate E&M 20 /min Jazmin Rdz blood pressure, diastolic 79 mm[Hg] Karsten Rdz blood pressure, systolic 146 mm[Hg] She miguel Rdz oxygen saturation, oximetry 97 % Jazmin Rdz blood pressure, cuff size regular octavio Rdz weight E&M 193 [lb_av] Jazmin Rdz height E&M 70 [in_i] Jazmin Rdz Body Mass Index (Ratio) 26.83 kg/m2 [facility] blood pressure, diastolic 83 mm[Hg] Li nkLog blood pressure, systolic 139 mm[Hg] Mimi kLog blood pressure, diastolic 83 mm[Hg] Karsten Rdz blood pressure, systolic 139 mm[Hg] She miguel Rdz blood pressure, cuff size regular octavio Rdz respiratory rate E&M 18 /min Jazmin Rdz oxygen saturation, oximetry 97 % Jazmin Rdz pulse rate 64 /min Jazmin Rdz weight E&M 187 [lb_av] Jazmin Rdz height E&M 70 [in_i] Jazmin Rdz Body Mass Index (Ratio) 26.54 kg/m2 [facility], cuff size large Ke rrramez Ghoshmartine blood pressure, diastolic 62 mm[Hg] Ke rri Steffi blood pressure, systolic 132 mm[Hg] Dylan ri Kelli oxygen saturation, oximetry 98 % Danyell Kelli respiratory rate E&M 16 /min Danyell stevenson pulse rate 70 /min Danyell Coby [facility] weight E&M 185 [lb_av] Danyell Coby [facility] height E&M 70 [in_i] Danyell Coby [facility] Body Mass Index (Ratio) 28.41 kg/m2 Grey Nina MD blood pressure, cuff size large Gaby cheney [place] blood pressure, diastolic 70 mm[Hg] Gaby cheney [place] blood pressure, systolic 130 mm[Hg] Eduard combs [place] oxygen saturation, oximetry 97 % Parris Mondragon pulse rate 80 /min Parris Annitajordana antwan respiratory rate E&M 18 /min Lacy rodriguez [place] weight E&M 198 [lb_av] Parris Gutierrez [place] height E&M 70 [in_i] Parris Matt zhao blood pressure, diastolic 80 mm[Hg] Ri az Vaughnmeddemetra blood pressure, systolic 136 mm[Hg] Amaya jose luis medzaramez pulse rate 68 /min Ramana medzaramez oxygen saturation, oximetry 96 % Ramana medzaramez height E&M 70 [in_i] Dayanara Nelsons Body Mass Index (Ratio) 26.97 kg/m2 Grey Nina MD blood pressure, cuff size regular Kr isperfecto Sharad blood pressure, diastolic 80 mm[Hg] Kr isty Sharad blood pressure, systolic 150 mm[Hg] Cornelio misael Corderoby pulse rate 66 /min Marilu Sharad oxygen saturation, oximetry 98 % Marilu Sharad respiratory rate E&M 18 /min [place] weight E&M 188 [lb_av] [place] height E&M 70 [in_i] Marilu Sharad blood pressure, cuff size regular Cy simba Mccarthy blood pressure, diastolic 62 mm[Hg] Cy ntsherif Mccarthy blood pressure, systolic 116 mm[Hg] Chary thisavannah Mccarthy oxygen saturation, oximetry 98 % Denise Mccarthy respiratory rate E&M 16 /min Denise Mccarthy pulse rate 71 /min Denise jaquez Body Mass Index (Ratio) 27.83 kg/m2 Tom Mccarthy weight in kilograms E&M 88.00 kg Cynjimmy Mccarthy weight E&M 194 [lb_av] Denise jaquez height E&M 70 [in_i] Denise jaquez height in centimeters E&M 177.80 cm Cy simba Mccarthy Body Mass Index (Ratio) 27.12 kg/m2 Anurag bonilla Nachjimmy blood pressure, diastolic 60 mm[Hg] [facility], diastolic -1 mm[Hg] Li nkLog blood pressure, systolic 126 mm[Hg] Mimi kLog blood pressure, systolic 126 mm[Hg] She rkeitdonald [place] blood pressure, resting Yes Rory shani [place] pulse rate 80 /min [facility] [place] oxygen saturation, oximetry 96 % Kathy [place] respiratory rate E&M 18 /min Giovanni pretty [place] weight E&M 189 [lb_av] [facility] [place] height E&M 70 [in_i] Kathy [place] Body Mass Index (Ratio) 27.69 kg/m2 Grey Nina MD blood pressure, cuff size large Ke rri Kelli blood pressure, diastolic 70 mm[Hg] Ke rri Bibineyolandaeldapril blood pressure, systolic 110 mm[Hg] Dylan Pereira respiratory rate E&M 16 /min Danyell stevenson oxygen saturation, oximetry 97 % Danyell Pereira pulse rate 70 /min Danyell Tenorio lder weight E&M 193 [lb_av] Danyell Coby [facility] height E&M 70 [in_i] Danyell Tenorio [facility] Body Mass Index (Ratio) 26.69 kg/m2 Grey Nina MD blood pressure, diastolic 89 mm[Hg] To [facility] blood pressure, systolic 132 mm[Hg] Ton [facility] respiratory rate E&M 18 /min [facility] oxygen saturation, oximetry 93 % [facility] pulse rate 99 /min [facility] weight E&M 186 [lb_av] [facility]&M 70 [in_i] [facility] temperature site temporal Zakiya [facility] temperature E&M 97.5 [degF] Zakiya Tanks [facility] Body Mass Index (Ratio) 27.26 kg/m2 Grey Nina MD blood pressure, diastolic 92 mm[Hg] Cy [facility] Mccarthy blood pressure, systolic 178 mm[Hg] Chary opalsavannah Mccarthy respiratory rate E&M 16 /min [facility] pulse rate 64 /min Denise Dandybel l oxygen saturation, oximetry 98 % Denise Mccarthy blood pressure, cuff size regular Cy ntfla Mccarthy weight E&M 190 [lb_av] Denise Campbel l height E&M 70 [in_i] Denise Campbel l temperature site temporal Zakiya [facility] temperature E&M 97.3 [degF] Zakiya Tanks [facility] Body Mass Index (Ratio) 27.12 kg/m2 Grey Nina MD blood pressure, diastolic 86 mm[Hg] To [facility] blood pressure, systolic 158 mm[Hg] Luis [facility] oxygen saturation, oximetry 98 % [facility] respiratory rate E&M 16 /min [facility] pulse rate 73 /min [facility] weight E&M 189 [lb_av] [facility] height E&M 70 [in_i] [facility] Body Mass Index (Ratio) 27.69 kg/m2 Grey Nina MD blood pressure, cuff size regular Cy simba Mccarthy blood pressure, diastolic 80 mm[Hg] Cy simba Mccarthy blood pressure, systolic 138 mm[Hg] Chary willie Mccarthy oxygen saturation, oximetry 98 % Denise Mccarthy respiratory rate E&M 16 /min Denise Mccarthy pulse rate 68 /min Denise Frazier l weight E&M 193 [lb_av] Denise Campbel l height E&M 70 [in_i] Denise Campbel l Body Mass Index (Ratio) 27.69 kg/m2 Grey Nina MD blood pressure, cuff size large Ke rri Kelli blood pressure, diastolic 84 mm[Hg] Ke rri Kelli blood pressure, systolic 152 mm[Hg] Dylan Pereira oxygen saturation, oximetry 97 % Danyell Pereira respiratory rate E&M 18 /min Danyell stevenson pulse rate 69 /min Danyell Tenorio lder weight E&M 193 [lb_av] Danyell Tenorio lder height E&M 70 [in_i] Danyell Tenorio lder Body Mass Index (Ratio) 27.40 kg/m2 Grey Nina MD blood pressure, diastolic 70 mm[Hg] Tuan Orourke blood pressure, systolic 136 mm[Hg] Cornelio [place] pulse rate 77 /min Marilu [place]ourke oxygen saturation, oximetry 96 % Marilu [place]our[place] respiratory rate E&M 16 /min Marilu [place] weight E&M 191 [lb_av] Marilu [place]ourke blood pressure, cuff size regular Tuan [place] height E&M 70 [in_i] Marilu Orourke Body Mass Index (Ratio) 27.63 kg/m2 Grey Nina MD blood pressure, cuff size large Ke rri Kelli blood pressure, diastolic 74 mm[Hg] Ke rri Kelli blood pressure, systolic 124 mm[Hg] Dylan Pereira oxygen saturation, oximetry 97 % Danyell Pereira respiratory rate E&M 18 /min Danyell Semaj stevenson pulse rate 72 /min Danyell Coby smither weight E&M 192.6 [lb_av] Danyell green height E&M 70 [in_i] Danyell smither Body Mass Index (Ratio) 27.69 kg/m2 Grey Nina MD blood pressure, cuff size large Ke rri Kelli blood pressure, diastolic 100 mm[Hg] Ke rri Gruenenfpeter blood pressure, systolic 162 mm[Hg] Dylan ri Kelli oxygen saturation, oximetry 98 % Danyell Kelli respiratory rate E&M 18 /min Danyell G shareeenenfpeter pulse rate 62 /min Danyell Bibinesurendra smither weight E&M 193 [lb_av] Danyell Coby smither height E&M 70 [in_i] Danyell Coby er Body Mass Index (Ratio) 27.69 kg/m2 Grey Nina MD blood pressure, resting Yes Ramu lawson Martins blood pressure, diastolic 80 mm[Hg] Ki llrenny Martins blood pressure, systolic 130 mm[Hg] Trudy swain Martins oxygen saturation, oximetry 97 % Nathaly Martins respiratory rate E&M 16 /min Nathaly Martins pulse rate 62 /min Burnside Martins weight E&M 193 [lb_av] Nathaly Martins height E&M 70 [in_i] [facility] (Ratio) 27.40 kg/m2 Grey Nina MD blood pressure, cuff size regular Ke rri Kelli blood pressure, diastolic 90 mm[Hg] Ke rri Steffier blood pressure, systolic 151 mm[Hg] Dylan ri Kelli oxygen saturation, oximetry 98 % Danyell Kelli respiratory rate E&M 16 /min Danyell G elva pulse rate 62 /min Danyell Grzegorze er weight E&M 191 [lb_av] Danyell Grzegorze lder height E&M 70 [in_i] Danyell Grzegorze lder blood pressure, diastolic 90 mm[Hg] Ke rri Steffier blood pressure, systolic 140 mm[Hg] Dylan ri Kelli pulse rate 65 /min Danyell Grzegorze lder oxygen saturation, oximetry 97 % Danyell Kelli respiratory rate E&M 16 /min Danyell G bruceer Body Mass Index (Ratio) 28.26 kg/m2 Mcclellan ramez Pereira weight E&M 197 [lb_av] Danyell Tenorio verónica blood pressure, diastolic 81 mm[Hg] Kurt Gonzalez blood pressure, systolic 137 mm[Hg] Raf Gonzalez pulse rate 60 /min Jo Ann Gonzalez oxygen saturation, oximetry 98 % Jo Ann Gonzalez respiratory rate E&M 18 /min Jo Ann Gonzalez Body Mass Index (Ratio) 29.12 kg/m2 Ying jakob Gonzalez weight E&M 203 [lb_av] Jo Ann Gonzalez Body Mass Index (Ratio) 29.27 kg/m2 Anea nicole Alexander blood pressure, diastolic 85 mm[Hg] An eatris Alexander blood pressure, systolic 150 mm[Hg] Ane atris [facility] pulse rate 66 /min Aneatris [facility] oxygen saturation, oximetry 97 % Aneatrmonse Alexander respiratory rate E&M 17 /min Aneatri s [facility] weight E&M 204 [lb_av] Aneatris [facility] Body Mass Index (Ratio) 29.12 kg/m2 Ashl meño Milain blood pressure, diastolic 80 mm[Hg] As ee Maicol blood pressure, systolic 124 mm[Hg] [facility] Maicol pulse rate 66 /min Erikamichael Milian oxygen saturation, oximetry 98 % Erikamichael Milian respiratory rate E&M 16 /min Erika Zjordana weight E&M 203 [lb_av] Erika Zjordana Body Mass Index (Ratio) 29.81 kg/m2 Alexsandra Hart blood pressure, [place] tolic, second observation 82 mm[Hg] Tammy Hart blood pressure, syst olic, second observation 146 mm[Hg] Tammy Hart blood pressure, diastolic 82 mm[Hg] Na cher Hart blood pressure, systolic 146 mm[Hg] Breanna patrick Hart pulse rate 67 /min Tammy Hailey oxygen saturation, oximetry 96 % Tammy Hailey respiratory rate E&M 17 /min Tammy Hailey weight E&M 207 [lb_av] Tammy Hailey Body Mass Index (Ratio) 29.38 kg/m2 Andre Bonilla blood pressure, diastolic, left arm 76 mm [Hg] Malik Bonilla blood pressure, systolic, left arm 124 mm [Hg] Malik Bonilla blood pressure, diastolic, right arm 80 m m[Hg] Malik Bonilla blood pressure, systolic, right arm 138 m m[Hg] Jasenjordana Bonilla blood pressure, diastolic 79 mm[Hg] Strickland blood pressure, systolic 124 mm[Hg] Jasen Bonilla pulse rate 68 /min [facility] Ansonjordana Bonilla respiratory rate E&M 16 /min Jasenjordana Bonilla oxygen saturation, oximetry 96 % Jasenjordana Bonilla weight E&M 204 [lb_av] Jasenjordana Bonilla height E&M 70 [in_i] Malik Bonilla [...] RN respiratory rate E&M 16 /min Wilfredo stacyekaterina RN weight E&M 206 [lb_av] Wilfredo Greer RN blood pressure, diastolic 82 mm[Hg] Nilda seph [place] blood pressure, systolic 138 mm[Hg] Fabricio eph [place] pulse rate 68 /min Yovanny [place] oxygen saturation, oximetry 98 % Yovanny [place] respiratory rate E&M 16 /min Yovanny [place] weight E&M 204.5 [lb_av] Yovanny [place] blood pressure, diastolic 89 mm[Hg] Doreen coleman Kristopher LONDONO blood pressure, systolic 141 mm[Hg] Mani wilkins Kristopher L[place]ONO pulse rate 60 /min Jessica Summers MA [...] Normal Absolute Neutrophil count 3019 cells/mcL LinkLogic [id number] Normal platelet count 181 THOUSAND/UL LinkLogic 140-400 [...] LinkLogic 6-22 Estimated Glomerular Filtration Rate (calc) 95 mL/min/{1.73_ [...] LinkLogic 125-200 Normal cholesterol, serum 130 mg/dL [facility] creatinine, serum 0.97 mg/dL [facility] Jose blood glucose, random 119 mg/dL Isabel Garcia triglyceride, serum, fasting 81 mg/dL [facility] HDL cholesterol, serum 42 mg/dL [facility] cholesterol/HDL ratio, serum 3.3 [facility] lipoprotein, beta, serum, point, quantitative, calculated 82 mg/dL [facility] cholesterol, serum 140 mg/dL [facility] alanine aminotransferase (SGPT), serum 27 1/L [facility] aspartate aminotransferase (SGOT), serum 22 1/L [facility] creatinine, serum 0.98 mg/dL [facility] urea nitrogen, blood 14 mg/dL [facility] potassium, serum 4.8 mmol/L [facility] sodium, serum 139 mmol/L [facility] HISTORY OF MEDICATION USE Medication Status Instructions Dates Provider Indications Com ments atorvastatin 20 mg tablet active TAKE 1 TABLET BY MOUTH ONCE DAILY Deborah Nina MD lidocaine 5% adhesive patch,medicated active Apply Local application as needed for pain 09/25 Ramana Pedersenzai magnesium oxide 200 mg magnesium tablet active Ramana Mendesmedzai Nitrostat 0.4 mg tablet, sublingual active Place [...] TAKE 1 TABLET BY MOUTH DAILY 05/09 Divine Roth Xarelto 2.5 mg tablet active TAKE 1 TABLET BY MOUTH TWICE DAILY 05/09 Divine Roth escitalopram oxalate 10 mg tablet active TAKE 1 TABLET BY MOUTH DAILY 04/16 Deborah Nina MD atorvastatin 10 mg tablet completed TAKE 1 TABLET BY MOUTH ONCE DAILY 04/16 - Deborah Nina MD celecoxib 200 mg capsule active Ramana Hoff metoprolol succinate 25 mg tablet extended release 24 hr completed Take 1 tablet by mouth once a day 04/01 - 05/09 [facility] atorvastatin 20 mg tablet completed Take 1 tablet by mouth once a day 04/01 - 04/16 [facility] Breo Ellipta 100-25 mcg/dose blister with device active Ramana Hoff valsartan 320 mg tablet completed TAKE 1 TABLET DAILY 06/17 - 05/09 [facility] atorvastatin 20 mg tablet completed TAKE 1 TABLET DAILY 04/01 - 04/01 Danyell Pereira Xarelto 2.5 mg tablet completed TAKE 1 TABLET TWICE A DAY 10/12 - 05/09 [facility] amlodipine 10 mg tablet completed TAKE 1 TABLET DAILY 10/12 - 11/02 Jacki Clark metoprolol succinate 25 mg tablet extended release 24 hr completed TAKE 1 TABLET DAILY 10/12 - 04/01 Danyell Pereira escitalopram oxalate 10 mg tablet completed TAKE 1 TABLET DAILY 10/12 - 04/16 [facility] hydrochlorothiazide 25 mg tablet completed Take 1 tablet by mouth once a day 09/28 - 09/23 Ramana Hoff Trulicity 0.75 mg/0.5 mL pen injector active 1 once a week 04/26 Danyell Pereira amlodipine 5 mg tablet completed Take 1 tablet by mouth once a day take 1/2 pill of 10 mg daily 07/29 - [...] CHECK GLUCOSE ONCE DAILY 03/21 - 09/28 Adnyell Kelli #1, 30 days supply, Prescribed by GINA HARRISON, Filled 03/22/2019 ONETOUCH DELICA PLUS [id number] completed USE 1 LANCET TO CHECK GLUCOSE ONCE DAILY 03/21 - 09/28 Danyell Ghoshmartineapril #100, 90 days supply, Prescribed by GINA HARRISON, Filled 03/22/2019 Lexapro 10 mg tablet completed 1 tablet once a day 03/18 - 10/12 Deborah Nina MD Xarelto 2.5 mg tablet completed Take 1 tablet twice a day - 10/12 Lavonshea Atkins valsartan 320 mg tablet completed Take 1 tablet once a day 03/20 - 06/17 Rupert Farr Nitrostat 0.4 mg tablet, sublingual completed Apply [...] tablet once a day 06/11 - 10/12 Lavonshea Atkins PROTONIX 40 MG ORAL PACKET completed - 09/28 Danyell Pereira COMPASS PROTONIX VS PLACEBO completed 11/08 - 08/[address] RN ACETAMINOPHEN 650 MG RECTAL SUPPOSITORY completed as needed - 09/28 Jo Annromeo Gonzalez VITAMIN D3 1000 UNIT ORAL CAPSULE completed 1 daily - 09/28 Danyell Kelli METFORMIN HCL 500 MG ORAL TABLET completed [...] 2 tablet every night - 05/24 Ramana Vaughnemir METAMUCIL CAPSULE completed 2 cap daily - [...] tablet once a day 04/26 - 04/01 Rupetr aFrr ASPIRIN 81 MG ORAL TABLET completed ONE TAB. DAILY - 06/[address] RN Mobic 15 mg tablet completed once a day - 05/24 Ramana Hoff SOCIAL HISTORY Date Observation Value Provider drug use none Ramana Hoff alcohol use no Ramana Hoff passive cigarette sm galen exposure no Ramana Hoff smoking status Never smoker Ramana Hoff drug use none Ramana Hoff alcohol use no Ramana Hoff passive cigarette sm galen exposure no Ramana Hoff smoking status Never smoker Ramana Hoff drug use none Ramana Hoff alcohol use no Ramana Hoff passive cigarette sm galen exposure no Ramana Hoff smoking status Never smoker Ramana Hoff drug use none Ramana Hoff alcohol use no Ramana Hoff passive cigarette sm galen exposure no Ramana Hoff smoking status Never smoker Ramana Hoff smoking status Never smoker Jazmin Rdz social history reviewed E&M revi ewed - no changes required Deborah Nina MD social history E&M Marital Statu s: E thnicity: Smoking History: P dayana has never smoked. Ramana Hoff smoking status Never smoker Jazmin Rdz social history reviewed E&M revi ewed - no changes required Ramana Israelramez exercise type walking Danyell green physical exercise, f requency, days per week no Danyelltasha Pereira caffeine use, averag e drinks per day no Danyelltasha Pereira passive cigarette sm galen exposure no Danyell Ghoshrosita smoking status Never smoker Danyell Ghoshemma villanueva social history reviewed E&M revi ewed - no changes required Ramana Lindyramez exercise type walking Parris Frey nd physical exercise, f requency, days per week no Parris Mondragon caffeine use, averag e drinks per day no Parris Mondragon passive cigarette sm galen exposure no Parris Mondragon smoking status Never smoker Parris Do social history reviewed E&M revi ewed - no changes required Ramana Lindyramez social history reviewed E&M revi ewed - no changes required Ramana Israelramez social history E&M Marital Statu s: E thnicity: S moking History: P dayana has never smoked. Ramana Israelramez social history reviewed E&M revi ewed - no changes required Ramana Israelramez social history E&M Marital Statu s: E thnicity: Smoking History: P dayana has never smoked. Ramana Israelramez social history reviewed E&M revi ewed - no changes required Ramana Pedersendemetra exercise type walking Denise Kash rai physical exercise, f requency, days per week no Denise Fabio caffeine use, averag e drinks per day no Denise Fabio passive cigarette sm galen exposure no Denise Fabio smoking status Never smoker Denise Yolanda christine social history E&M Marital Statu s: E thnicity: Smoking History: P dayana has never smoked. Rupert Farr social history reviewed E&M revi ewed - no changes required Rupert Farr exercise type walking Kathy Eduardo gonsalez physical exercise, f requency, days per week no Kathy Ogddard caffeine use, averag e drinks per day no Kathy Goddard passive cigarette sm galen exposure no Kathy Cubaford smoking status Never smoker Kathy Jeffry chris social history E&M Marital Statu s: E thnicity: Smoking History: P dayana has never smoked. Cornelius Gordon social history reviewed E&M revi ewed - no changes required Cornelius Gordon exercise type walking Danyell green physical exercise, f requency, days per week no Danyell Pereira caffeine use, averag e drinks per day no Danyell Ghoshrosita passive cigarette sm galen exposure no Danyell Ghoshrosita smoking status Never smoker Danyell villanueva social history E&M Marital Statu s: E thnicity: Smoking History: P atbhavik has never smoked. Deborah Nina MD social history reviewed E&M revi ewed - no changes required Deborah Nina MD exercise type walking [facility] physical exercise, f requency, days per week no [facility] caffeine use, averag e drinks per day no [facility] passive cigarette sm galen exposure no [facility] smoking status Never smoker [facility] social history E&M Marital Statu s: E thnicity: Smoking History: P atient has never smoked. Deborah Nina MD social [...] MD passive cigarette sm galen exposure no Deborha Nina MD smoking status Never smoker Deborah [...] Marital Statu s: E thnicity: Smoking History: Mary anne has never smoked. Deborah Nina MD social history reviewed E&M revi ewed - no changes required Deborah Nina MD social history reviewed E&M revi ewed - no changes required Deborah Nina MD exercise type walking Danyell green physical exercise, f requency, days per week no Danyell Augierosita alcohol use, average drinks per day none Danyell Kelli alcohol use no Danyell Maurysurendra smither caffeine use, averag e drinks per day no Danyell Kelli drug use none Danyell Augiecheng smither passive cigarette sm galen exposure no Danyell Bibireyna smoking status Never smoker Danyell Ghoshemma villanueva social history reviewed E&M revi ewed - no changes required Marilu Corderoby exercise type walking [place] physical exercise, f requency, days per week no Marilu Sharad alcohol use, average drinks per day none Marilu Sharad alcohol use no [place] caffeine use, averag e drinks per day no [place] drug use none Marilu Sharad passive cigarette sm galen exposure no Marilu Sharad smoking status Never smoker Marilu Sharad social history reviewed E&M revi ewed - no changes required Deborah Nina MD exercise type walking Danyell green physical exercise, f requency, days per week no Danyelltasha Pereira alcohol use, average drinks per day [...] required Deborah Nina MD exercise type walking [employer] physical exercise, f requency, days per week no Nathaly Martins alcohol use, average drinks per day none Nathaly Martins alcohol use no Nathaly Martins caffeine use, averag e drinks per day no Nathaly Martins drug use none Nathaly Martins passive cigarette sm galen exposure no Nathaly Martins smoking status Never [facility]oker [facility] reviewed E&M revi ewed - no changes required Deborah Nina MD exercise type walking Danyell green physical exercise, f requency, days per week no Danyell Pereira alcohol use, average drinks per day none Danyell Lantiguajoseapril alcohol use no Danyell Tenorio lder caffeine use, averag e drinks per day no Danyell Pereira drug use none Danyell Tenorio lder passive cigarette sm galen exposure no Danyell Pereira smoking status Never smoker Danyell villanueva social history reviewed E&M revi ewed - no changes required Deborah Nina MD alcohol use no Danyell Tenorio luiser smoking status Never smoker Danyell katzer social history reviewed E&M revi ewed - no changes required Deborah Nina MD social history reviewed E&M revi ewed - no changes required Deborah Nina MD social history reviewed E&M revi ewed - no changes required Deborah Nina MD smoking status Never smoker Erika Milian social history reviewed E&M reviewed Deborah Nina MD social history reviewed E&M reviewed Deborah Nina MD exercise type walking Malik elder drug use none Deborah Nina MD passive cigarette sm galen exposure no Malik Bonilla smoking status never smoker Malik silveira social history reviewed E&M reviewed Wilfredo [...] (inactive) Management Plan continue current therapy Cornelius Jorgety HRA, CV Assess/Plan, Angina (inactive) Management Plan [...] and person. Mood and affect are normal. [address] assessment of judgme nt and insight [...] MD FAMILY HISTORY Family Member Condition Father MT male <55 Mother Family History Unkno wn Father Family History Coron bib Heart Disease male < 55: Father Family History Coron bib Heart Disease male < 55: INSURANCE PROVIDERS Payer name Policy type / Coverage type [employer] libertarian [employer] [facility] GRP MEDICARE ADVANTAGE PLAN (PPO) Medicare [id number] ADVANCE DIRECTIVES Name Date DISCUSSED - NO DECISION MADE TREATMENT PLAN Date Name Performer [id number],BDeborah MD [id number],BDeborah MD [id number],BDeborah MD [id number],BDeborah MD [id number],BDeborah MD [id number],SRamana i [id number],S, Ramana Ahmedza i [id number],S, Ramana Ahmedza i [id number],S, Ramana Ahmedza i [id number],S, Ramana Ahmedza i [id number],S, Ramana Ahmedza i [id number],S, Ramana Ahmedza i [id number],S, Ramana Ahmedza i [id number],S, Ramana Ahmedza i [id number],S, Ramana Ahmedza i [id number],S, Ramana Ahmedza i [id number],S, Ramana Ahmedza i [id number],S, Ramana Ahmedza i [id number],S, Ramana Ahmedza i [id number],S, Ramana Ahmedza i [id number],S, Ramana Ahmedza i [id number],S, Ramana Ahmedza i [id number],N, Ramana Ahmedza i [id number],B, Ramana Ahmedza i [id number],B, Ramana Ahmedza i [id number],S, Ramana Ahmedza i [id number],B, Ramana Ahmedza i [id number],B, Ramana Ahmedza i [id number],S, Ramana Ahmedza i [id number],S, Ramana Ahmedza i [id number],S, Ramana Ahmedza i [id number],S, Ramana Ahmedza i [id number],S, Ramana Vaughnmedza i [id number],S, Ramana Vaughnmedza i [id number],S, Ramana Vaughnmedza i [id number],S, Ramana Vaughnmedza i [id number],S, Ramana Vaughnmedza i [id number],S, Ramana Vaughnmedza i [id number],S, Ramana Vaughnmedza i [id number],S, Ramana Vaughnmedza i [id number],S, Ramana Pedersenza i [id number],W, Rupert Polancot [id number],S, Rupert Polancot [id number],S, Rupert Polancot [id number],S, Rupert Polancot [id number],S, Rupert Farr Cardiology:This visi t has been a part of the consistent, comprehensive, and ongoing management of the chronic medical condition(s) listed above for the patient. Deborah Nina MD Cardiology Deborah Nina MD Cardiology: H is updated medication list for this problem includes: Valsartan 320 Mg Tablet (Valsartan) ..... Take 1 tablet by mouth daily Trulicity 0.75 Mg/0.5 Ml Pen Injector (Dulaglutide) ..... 1 once a week Adult Aspirin Regimen 81 Mg Tablet,delayed Release (dr/ec) (Aspirin) Deborah Nina MD Cardiology: H is updated medication list for this problem includes: Metoprolol Succinate 25 Mg Tablet Extended Release 24 Hr (Metoprolol succinate) ..... Take 1 tablet by mouth once daily Valsartan 320 Mg Tablet (Valsartan) ..... Take 1 tablet by mouth daily Adult Aspirin Regimen 81 Mg Tablet,delayed Release (dr/ec) (Aspirin) BP today: 132/78 P rior BP: 129/75 (12/19/2023) Labs Reviewed: C reat: 0.86 (08/18/2016) C hol: 113 (08/18/2016) HDL: 46 (08/18/2016) LDL: 50 MG/DL (CALC) (08/18/2016) T (08/18/2016) Orders: C omplete Echo (53107) S tress Regadenoson (CPT-68232) Deborah Nina MD Cardiology: H is updated medication list for this problem includes: Metoprolol Succinate 25 Mg Tablet Extended Release 24 Hr (Metoprolol succinate) ..... Take 1 tablet by mouth once daily Valsartan 320 Mg Tablet (Valsartan) ..... Take 1 tablet by mouth daily Adult Aspirin Regimen 81 Mg Tablet,delayed Release (dr/ec) (Aspirin) Orders: C omplete Echo (08535) S tress Regadenoson (CPT-90616) Deborah Nina MD Cardiology: H is updated medication list for this problem includes: Metoprolol Succinate 25 Mg Tablet Extended Release 24 Hr (Metoprolol succinate) ..... Take 1 tablet by mouth once daily Nitrostat 0.4 Mg Tablet, Sublingual (Nitroglycerin) ..... Place 1 tablet under tongue as directed for pain may repeat every 5 minutes if still having chest pain- to max of 3 tablets per episode. Adult Aspirin Regimen 81 Mg Tablet,delayed Release (dr/ec) (Aspirin) Orders: C omplete Echo (29887) S tress Regadenoson (CPT-85775) Deborah Nina MD Cardiology:This visi t has been a part [...] Release (dr/ec) (Aspirin) Deborah Nina MD Cardiology [facility] Cardiology: H is updated medication list for this problem includes: Valsartan 320 Mg Tablet (Valsartan) ..... Take 1 tablet by mouth daily Trulicity 0.75 Mg/0.5 Ml Pen Injector (Dulaglutide) ..... 1 once a week Adult Aspirin Regimen 81 Mg Tablet,delayed Release (dr/ec) (Aspirin) [facility] Cardiology: H is updated medication list for this problem includes: Atorvastatin 10 Mg Tablet (Atorvastatin) ..... Take 1 tablet by mouth once daily [facility] Cardiology: H is updated medication list for [...] Regimen 81 Mg Tablet,delayed Release (dr/ec) (Aspirin) [facility] Cardiology: H is updated medication list for this problem includes: Valsartan 320 Mg Tablet (Valsartan) ..... Take 1 tablet by mouth daily Trulicity 0.75 Mg/0.5 Ml Pen Injector (Dulaglutide) ..... 1 once a week Adult Aspirin Regimen 81 Mg Tablet,delayed Release (dr/ec) (Aspirin) [facility] Cardiology: H is updated medication list for [...] 81 Mg Tablet,delayed Release (dr/ec) (Aspirin) Ramana curryjohn Cardiology: B P today: 129/75 P rior [...] Regimen 81 Mg Tablet,delayed Release (dr/ec) (Aspirin) [facility]: H is updated medication [...] Regimen 81 Mg Tablet,delayed Release (dr/ec) (Aspirin) [facility]: H is updated medication list for this problem includes: Metoprolol Succinate 25 Mg Tablet Extended Release 24 Hr (Metoprolol succinate) ..... Take 1 tablet by mouth once daily Valsartan 320 Mg Tablet (Valsartan) ..... Take 1 tablet by mouth daily Adult Aspirin Regimen 81 Mg Tablet,delayed Release (dr/ec) (Aspirin) [facility]: H is updated medication list for this problem includes: Valsartan 320 Mg Tablet (Valsartan) ..... Take 1 tablet by mouth daily Trulicity 0.75 Mg/0.5 Ml Pen Injector (Dulaglutide) ..... 1 once a week Adult Aspirin Regimen 81 Mg Tablet,delayed Release (dr/ec) (Aspirin) [facility] Cardiology: H is updated medication list for [...] Regimen 81 Mg Tablet,delayed Release (dr/ec) (Aspirin) [facility] Cardiology: H is updated medication list for this problem includes: Valsartan 320 Mg Tablet (Valsartan) ..... Take 1 tablet by mouth daily Trulicity 0.75 Mg/0.5 Ml Pen Injector (Dulaglutide) ..... 1 once a week Adult Aspirin Regimen 81 Mg Tablet,delayed Release (dr/ec) (Aspirin) [facility] Cardiology: H is updated medication list for this problem includes: Atorvastatin 10 Mg Tablet (Atorvastatin) ..... Take 1 tablet by mouth once daily [facility] Cardiology [facility] Cardiology: H is updated medication list for [...] Regimen 81 Mg Tablet,delayed Release (dr/ec) (Aspirin) [facility] Cardiology: B P today: 139/77 P rior [...] 81 Mg Tablet,delayed Release (dr/ec) (Aspirin) Ramana emir Cardiology: H is updated medication list for this problem includes: Valsartan 320 Mg Tablet (Valsartan) ..... Take 1 tablet by mouth daily Trulicity 0.75 Mg/0.5 Ml Pen Injector (Dulaglutide) ..... 1 once a week Adult Aspirin Regimen 81 Mg Tablet,delayed Release (dr/ec) (Aspirin) Ramanajose luis Hoff Cardiology Ramana claudio Cardiology: H is updated medication list for this problem includes: Atorvastatin 20 Mg Tablet (Atorvastatin) ..... Take 1 tablet by mouth once daily Ramanajose luis Hoff Cardiology:Pt denies any CP or SOB. H [...] 81 Mg Tablet,delayed Release (dr/ec) (Aspirin) Ramana Hoff Cardiology Deborah Nina MD Cardiology Deborah Nina MD Cardiology Deborah Nina MD Cardiology Deborah Nina MD Cardiology Deborah Nina MD Cardiology Ramana Ahmedzai Cardiology Ramana Ahmedzai Cardiology Ramana Ahmedzai Cardiology Ramana Ahmedzai Cardiology Ramana Ahmedzai Cardiology Ramana Ahmedzai Cardiology Ramana Ahmedzai Cardiology Ramana Ahmedzai Cardiology Ramana Ahmedzai Cardiology Ramana Ahmedzai Cardiology Ramnaa Ahmedzai Cardiology Ramana Ahmedzai Cardiology Ramana Ahmedzai [...] Cardiology follow up Ramana Ahmedz ai Cardiology Rupert Nacht Cardiology Rupert Nacht Cardiology Rupert Nacht Cardiology Rupert Nacht Cardiology Rupert Nacht Cardiology Follow u p Toniya León wells MD Cardiology Follow u p Toniya León wells MD Cardiology Follow u p Toniya León wells MD Cardiology Follow u p Cornelius C Regina [...] up Deborah yancey MD Cardiology Follow up Tonilucian yancey MD Cardiology Follow up Toncuong yancey [...] lateral wall defect consistent with ischemia. - GC (10/22/2013) C ardiac Cath: % RCA stenosis: [...] : O rders: C arotid Duplex Bilateral (CPT-51093) 9 9214 MOD Complex (CPT-84387) Deborah Nina MD Cardiology Follow up Deborah [...] Follow up Deborah yancey MD Cardiology Follow u p Luisiya León wells MD Cardiology Follow u p Luisiya León wells MD Cardiology Follow u p Luisilucian wells MD Cardiology Follow u p Toniya León wells [...] tab am and pm Orders: E KG (CPT-83286) BP today: 146/82 Prior BP: 124/79 (04/09/2012) [...] tab am and pm Orders: E KG (CPT-21941) BP today: 124/79 Prior BP: 151/88 (04/04/2011) [...] in both vertebrals. (06/12/2007) Orders: E KG (CPT-85312) Deborah Nina MD routine- echo prior : [...] valve regurgitation. T race tricuspid regurgitation. R [employer] is estimated < 30mmHg and is normal. [...] valve regurgitation. T race tricuspid regurgitation. R [employer] is estimated < 30mmHg and is normal. (06/12/2007) Orders: E KG (CPT-07906) Deborah Nina MD FU: room 3: H [...] / () Deborah Nina MD Date Name Stress Regadenoson Complete Echo Sleep Study Home Complete Echo Venous Doppler Bilat eral LE - Reflux Renal Artery Duplex Stress Regadenoson STR - Nuclear Complete Echo Carotid Duplex Bilat eral Complete Echo HISTORY OF PROCEDURES Procedure Date Procedure Name Provider Procedure Notes S tatus Complex e/m visit add on Deborah Nina MD completed EKG Deborah Nina MD completed Complex e/m visit add on Deborah Nina [...] Images Sarika David MD compl eted SNOMED-CT: 526366830 403912 Current Medications Documented Deborah Nina MD completed SNOMED-CT: 37684264 Physical Exam, Performed: Pulse Exam of Foot Deborah Nina MD completed EKG Deborah Nina MD completed SNOMED-CT: 500602129 030016 Current Medications Documented Deborah Nina MD completed SNOMED-CT: 10422052 Physical Exam, Performed: Pulse Exam of Foot Deborah Nina MD completed SNOMED-CT: 735205391 254235 Current Medications Documented Deborah Nina MD completed SNOMED-CT: 07953258 Physical Exam, Performed: Pulse Exam of Foot Deborah Nina MD completed EKG Deborah Nina MD completed SNOMED-CT: 540025654 962609 Current Medications Documented Deborah Nina MD completed EKG Deborah Nina MD completed EKG Deborah Nina MD completed EKG Deborah Nina MD completed EKG Deborah Nina MD completed EKG Deborah Nina MD completed EKG Deborah Nina MD completed
--- OUTSIDE RECORDS SUMMARY | 2024-07-09 13:25 | XMS_ITS | Clinical Summary ---
Author Organization [place] [id number] [facility] Address [address] [place] [address] Care Team Providers Care First Mate Name Role Phone Martin Varela MD Unavailable [phone] Leann Pineda NP Primary Care Provider Allergies Active Allergy Reactions [...] 05/01/2024 Assessment & Plan (05/01/2024 1:00 PM CHILD CARE ASSOCIATE): He had a positive home sleep study in 2021 with an AHI of 11.5. 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 Continue Breo Ellipta 200 for now. Albuterol as needed only, we have discussed indications for use. Upper respiratory tract infection due to influen za A virus 05/01/2024 Assessment & Plan (05/01/2024 12:58 PM CHILD CARE ASSOCIATE): He has improved from initial infection 2 1/2 weeks ago but his sputum continues to be thick and yellow Start azithromycin Start NAC twice daily Monitor for worsening symptoms Heterozygous alpha 1-antitrypsin deficiency 04/13 Assessment & Plan (05/01/2024 1:03 PM CHILD CARE ASSOCIATE): M/S - his last level was 137 [...] Department Care Team Description 06/11/2024 Results Follow-Up [facility] Pulmonary at [address] [address] Christy Duffy NP 06/06/2024 9:37 AM CDT - 06/06/2024 11:59 PM CDT Hospital Encounter [facility] [address] [place] [address] Mild persistent asthma without complication Discharge Disposition: Discharge to home or self care 05/29/2024 Orders Only [facility] Pul[facility] at [address] [address] Christy Duffy NP Mild persistent asthma without complication (Primary Dx) 05/01/2024 10:30 AM CHILD CARE ASSOCIATE Office Visit [facility] Pulmonary at [address] [address] Christy Duffy NP Upper respiratory tract infection due to influenza A virus (Primary Dx); Mild intermittent asthma without complication; Elevated diaphragm; NIRU (obstructive sleep apnea); Heterozygous alpha 1-antitrypsin deficiency (HCC) 04/25/2024 Orders Only [facility] Pulmonary at [address] [address] hCristy Duffy NP 04/25/2024 Telephone [facility] Pulmonary at [address] [place] [address] Ele Jones LPN Influenza A [...] on file Legal Sex Male 9:15 AM CHILD CARE ASSOCIATE Gender Identity Male 07/18/2019 6:52 AM CDT Sexual Orientation Not on file Obstetrics History Last Filed Vital Signs Vital Sign Reading Time Taken Comments Blood Pressure 138/62 05/01/2024 10:36 AM CHILD CARE ASSOCIATE Pulse 86 05/01/2024 10:36 AM CHILD CARE ASSOCIATE Temperature 36.3 C (97.3 F) 05/01/2024 10:36 AM CHILD CARE ASSOCIATE Respiratory Rate 16 02/13/2024 11:02 AM CHILD CARE ASSOCIATE Oxygen Saturation 90% 05/01/2024 10:36 AM CHILD CARE ASSOCIATE Inhaled Oxygen Concentration - - Weight 84.6 kg (186 lb 6.4 oz) 05/01/2024 10:36 AM CHILD CARE ASSOCIATE Height 177.8 cm (5' 10 ) 05/01/2024 10:36 AM CHILD CARE ASSOCIATE Body Mass Index 26.75 05/01/2024 10:36 AM CHILD CARE ASSOCIATE Plan of Treatment Health Maintenance Due Date [...] 95% throughout the study. us Christy Duffy SIZE MAKER PFT ORDERABLES Final Resul t * (ABNORMAL) Hemoglobin A1c (12/12/2018 3:01 PM CDT) Hgb A1C 6.8(H) 4.0 - 5.6 % [facility] Estimated Average Glucose 148 mg/dL [facility] Comment: The ADA recommends reporting an estimated Average Glucose (eAG) with all Hemoglobin A1c results using the equation derived from a study of 507 normal and diabetic adults. Minority populations were underrepresented and children were not included. (Diabetes Care 31:4036-6401, 2008). The eAG is not equivalent to a fasting glucose. Blood specimen (specimen) 12/12/2018 3:01 PM CDT 12/12/2018 4:14 PM CDT us Leann Ellis MD LAB BLOOD ORDERABLES Fin al Result [facility] [address] [place] [address] * Lipid panel (12/12/2018 3:01 PM CDT) Cholesterol 120 30 - 199 mg/dL [facility] Comment: Interpretive Data Ages < [...] on 2017. Triglycerides 146 <=149 mg/dL [facility] Comment: Interpretive Data Ages < [...] on 2017. HDL 41 >=40 mg/dL [facility] Comment: Interpretive Data Ages < [...] 2017. LDL, calculated 50 <=129 mg/dL [facility] Comment: Interpretive Data Ages < [...] on 2017. Non-HDL Cholesterol 79 mg/dL [facility] Comment: Interpretive Data Ages < [...] last revised on 2017. Chol/HDL ratio [address] [facility] Blood specimen (specimen) 12/12/2018 3:01 PM CDT 12/12/2018 3:11 PM CDT Leann Ellis MD LAB BLOOD ORDERABLES Fin al Result Performing Organization Address City/State/[facility] Co de Phone Number [facility] [address] [place] [address] from Last 3 Months or Most Recently Relevant to Health Maintenance Insurance [facility] MEDICARE ADVANTAGE [id number] MEDICARE ADVANTAGE MEDICARE ADVANTAGE Advance Directives For more information, please contact: [phone] * LIMITED - No CPR (Latest Code [...] 11:06 PM 12/13/2018 2:31 AM Care Teams First Mate Relationship Specialty Start Date End Date Leann Pineda NP [address] [facility] [address] [place] [address] PCP - General Family Medicine 05/30/24 Martin Varela MD [address] [facility] [address] [place] [address] Surgeon Orthopedic Surgery 04/08/20
--- OUTSIDE RECORDS SUMMARY | 2024-07-09 13:25 | XMS_ITS | Encounter Summary ---
Author Organization [facility] Address 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 Clinical History: [...] AMK Procedure Note Provider, Historical - 05/23/[address] [address] Admit Date: 05/20/2008 MICHAEL CARRILLO Sex: M Admit Prov: MARTIN COOK Date: 1940 Primary Care Prov: CHEL MART CMRN: [id number] [id number] [facility] Ordering Prov: N/A Interpretation CHEST, [...] CDT) MCV 82.6 82.0 - 99.0 fL [facility] PLATELETS 166 140 - 350 K/uL [facility] HEMOGLOBIN 15.0 13.6 - 16.5 g/dL [facility] RDW 14.2 11.5 - 14.5 % [facility] WBC 5.7 4.0 - 9.8 K/uL [facility] MCH 27.1(L) 27.2 - 32.6 pg [facility] MPV 11.9 9.3 - 12.4 fL [facility] HEMATOCRIT 45.7 40.0 - 48.0 % [facility] RDW-STDEV 42.9 37.1 - 48.7 fL [facility] RBC 5.53(H) 4.50 - 5.40 M/uL [facility] MCHC 32.8 31.5 - 35.5 % [facility] EOSINOPHILS 2 0 - 7 % [facility] EOSINOPHIL ABSOLUTE 0.11 0.00 - 0.70 K/uL [facility] LYMPHOCYTES 26 16 - 45 % [facility] LYMPHOCYTE ABSOLUTE 1.48 0.70 - 4.50 K/uL [facility] BASOPHILS 1 0 - 2 % [facility] BASOPHILS ABSOLUTE 0.05 0.00 - 0.20 K/uL [facility] MONOCYTES 7 3 - 13 % [facility] MONOCYTE ABSOLUTE 0.40 0.10 - 1.30 K/uL [facility] NEUTROPHILS 64 45 - 70 % [facility] NEUTROPHIL ABSOLUTE 3.64 1.90 - 7.00 K/uL [facility] Blood specimen (specimen) 05/22/2008 1:34 PM CDT 05/22/2008 3:15 PM CDT us Martin Cook MD HEMATOLOGY ORDERABLES Edited INTERFACE SYSTEM Refer to clinic/hospital department [facility] CLIA# [id number] [place], [place] [address] * (ABNORMAL) COMPREHENSIVE METABOLIC PANEL (05/22/2008 1:34 PM CDT) CO2 24 22 - 30 mmol/L [facility] TOTAL PROTEIN 6.7 6.3 - 8.6 g/dL [facility] POTASSIUM 4.1 3.5 - 4.9 mmol/L [facility] GLUCOSE 162(H) 65 - 99 mg/dL [facility] AST 26 12 - 38 U/L [facility] BUN 12 6 - 20 mg/dL [facility] CALCIUM 9.3 8.6 - 10.2 mg/dL [facility] ALBUMIN 4.4 3.4 - 4.8 g/dL [facility] CHLORIDE 103 96 - 108 mmol/L [facility] CREATININE 0.93 0.67 - 1.17 mg/dL [facility] ALT 39 0 - 41 U/L [facility] SODIUM 137 135 - 145 mmol/L [facility] ALKALINE PHOSPHATASE 55 40 - 129 U/L [facility] BILIRUBIN TOTAL 0.6 0.2 - 1.0 mg/dL [facility] GFR, >60 >=60 mL/min/1. 7 sq meter [facility] GFR >60 >=60 mL/min/1. 7 sq meter [facility] Comment: Modification of Diet in Renal Disease (MDRD) study formula. Estimated GFR rate interpretative information for both Americans and non- Americans is available on the [facility] Intranet at: [email or web address] Select: Lab Policies and Procedures Select: Reference Ranges - GFR Blood specimen (specimen) 05/22/2008 1:34 PM CDT 05/22/2008 3:15 PM CDT Martin Cook MD CHEMISTRY ORDERABLES Edited INTERFACE SYSTEM Refer to clinic/hospital department [facility] CLIA# [id number] [address] [place] [address] documented in this encounter Visit Diagnoses Diagnosis Rotator cuff (capsule) sprain documented in this encounter
--- OUTSIDE RECORDS SUMMARY | 2024-07-09 13:25 | XMS_ITS | Encounter Summary ---
Author Organization [facility] Address [address] [place] [address] Care Team Providers Care Shook Splicer Name Role Phone Madisyn Echeverria NP Primary Care Provider [phone] Encounter Details Date Type Department Care Team (Late st Contact Info) Description 12/26/2018 Hospital Follow-up Call [facility] [place]patient [place] [address] Mere Carty Social History Tobacco Use Types [...] on filedocumented in this encounter Care Teams Shook Splicer Relationship Specialty Start Date End Date Madisyn Echeverria NP [address] [place] [address] PCP - General NURSE PRACTITIONER 12/19/18 documented as of this encounter
--- OUTSIDE RECORDS SUMMARY | 2024-07-09 13:25 | XMS_ITS | Clinical Summary ---
Author Organization [facility] Address [address] [place] [address] Care Team Providers Care Cuff Turner Name Role Phone Madisyn Echeverria ESTHER-CRIMPING MACHINE OPERATOR FOR METAL Primary Care Provider + Source Comments [facility],non-owned Affiliates and Associated Physician Practices is amultiple site organization consisting of ambulatory clinics and hospital sitesin [place], [place], [place] and [place]. This disclosure is being madepursuant to the Care Everywhere program and may not contain all information available regarding this patient. Last updated [facility] Allergies Active Allergy Reactions Criticality Noted Date [...] PANEL (CALCIUM TOTAL) (06/10/2020 3:30 AM CDT) [facility] Glucose 159(H) 70 - 105 mg/dL 06/10/2020 4:24 AM CDT [facility] Sodium 138 136 - 145 mmol/L 06/10/2020 4:24 AM CDT [facility] Potassium 4.3 3.5 - 5.1 mmol/L 06/10/2020 4:24 AM CDT [facility] Chloride 108(H) 98 - 107 mmol/L 06/10/2020 4:24 AM CDT [facility] CO2 21(L) 23 - 31 mmol/L 06/10/2020 4:24 AM CDT [facility] Calcium 9.6 8.4 - 10.4 mg/dL 06/10/2020 4:24 AM CDT [facility] Anion Gap 9 8 - 18 mmol/L 06/10/2020 4:24 AM CDT [facility] Comment:Attention clinician: Reference Range change. BUN 21 8.4 - 25.7 mg/dL 06/10/2020 4:24 AM CDT [facility] Creatinine 0.81 0.72 - 1.25 mg/dL 06/10/2020 4:24 AM CDT [facility] eGFR by MDRD >60 mL/min/1.7 3m2 06/10/2020 4:24 AM CDT [facility] eGFR by MDRD >60 mL/min/1.7 3m2 06/10/2020 4:24 AM CDT [facility] Blood BLOOD SPECIMEN / Unknown Lab Venipuncture / Unknown 06/10/2020 3:30 AM CDT 06/10/2020 3:46 AM CDT Keisha Martini MD LAB - CHEMISTRY ORDERABLES Final Result [facility] [address] [place] [address] from Last 3 Months or Most Recently Relevant to Health Maintenance Insurance MEDICARE [employer] MEDICARE Advance Directives * Full Code (Latest Code Status on File) Date Activated Date Inactivated Comments 06/09/2020 8:16 PM 06/10/2020 8:56 PM * Full Code Date Activated Date Inactivated Comments 06/09/2020 7:13 PM 06/09/2020 8:16 PM Care Teams Cuff Turner Relationship Specialty Start Date End Date Madisyn Echeverria APRN-WALDEMAR [address] [address] PCP - General Nurse Practitioner 07/30/21
--- OUTSIDE RECORDS SUMMARY | 2024-07-09 13:25 | XMS_ITS | Clinical Summary ---
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 120 tablet 12/26/2018 Active escitalopram 10 MG tablet 01/16/2019 Active Active Problems Problem Noted Date Diagnosed Date Spastic hemiparesis of left nondominant side ([facility]) 01/30/2019 Slurred speech 12/21/2018 Essential hypertension 12/21/2018 Diabetes ([facility]) 12/21/2018 CVA (cerebral vascular accident) ([facility]) 12/19/2018 Family History Medical [...] 2:18 PM 12/19/2018 2:41 PM Care Teams Asphalt Heater Tender Relationship Specialty Start Date End Date Madisyn Echeverria NP [address] [place] [address] PCP - General NURSE PRACTITIONER 12/19/18
--- OUTSIDE RECORDS SUMMARY | 2024-07-09 13:25 | XMS_ITS | Clinical Summary ---
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
--- OUTSIDE RECORDS SUMMARY | 2024-07-09 13:25 | XMS_ITS | CONTINUITY OF CARE DOCUMENT ---
Author Name rosa elena, rosa elena Address Unknown Organization [facility] Address [address] [place] [address] Phone [phone] Care Team Providers Care Truck Driver Helper Name Role Phone Maico BAER, Deborah Unavailable Miriam PV INSTALLER TECH, Ritchie Unavailable Miriam PV INSTALLER TECH, Ritchie Unavailable [phone] PROBLEMS Condition Status Date Provider Notes CAD [...] active Rupert Polancot NIRU, mild active Ramana Ahmedzaramez Cough active Ramana Hoff Diabetes Mellitus, Type II, controlled w/vascular complications active Deborah Nina MD Cardiology examination active Ramana Hoff Shortness of breath active Ramana Hoff ENCOUNTERS Date Type Provider Location Encounter Diag nosis - In-person encounter Office Visit Deborah Nina MD [facility] Cardiology examinationShortness of breath - In-person encounter Office Visit Deborah Nina MD [facility] - In-person encounter Office Visit Deborah Nina MD [facility] - In-person encounter Office Visit Deborah Nina MD [facility] -06/18 CAROTID NEG - In-person encounter Office Visit Deborah Nina MD [facility] Diabetes Mellitus, Type II, controlled w/vascular complications - In-person encounter Office Visit Deborah Nina MD [facility] - In-person encounter Office Visit Deborah Nina MD [facility] - In-person encounter Office Visit Deborah Nina MD [facility] HTN-- echo ef 60%, 2OSA, mildCough - In-person encounter Office Visit Deborah Nina MD [facility] - In-person encounter Office Visit Deborah Nina MD [facility] Hyperlipidemia, stress nuc normal 08/2019 - In-person encounter Office Visit Deborah Nina MD [facility] - In-person encounter Office Visit Deborah Nina MD [facility] Leg edema, bilateralVertigo - In-person encounter Office Visit Deborah Nina MD [facility] - In-person encounter Office Visit Deborah Nina MD [facility] - In-person encounter Office Visit Deborah Nina MD [facility] - In-person encounter Office Visit Deborah Nina MD [facility] - In-person encounter Office Visit Deborah Nina MD [facility] CVA - In-person encounter Office Visit Deborah Nina MD [facility] - In-person encounter Office Visit [facility] Shoulder pain, left and right - In-person encounter Office Visit Deborah Nina MD [facility] - In-person encounter Office Visit Deborah Nina MD [facility] Unsteady gait - In-person encounter Office Visit Deborah Nina MD [facility] - In-person encounter Office Visit Deborah Nina MD [facility] - In-person encounter Office Visit Deborah Nina MD [facility] - In-person encounter Office Visit Deborah Nina MD [facility] DYSLIPIDEMIADiabetes mellitus - In-person encounter Office Visit Deborah Nina MD [facility] CHEST PAIN abnl stress 09/23, cath showed complete revasc w OSMAN to lAD, SVG to RCA , 30% circFamily History Coronary Heart Disease male < 55:Family History Coronary Heart Disease male < 55: - In-person encounter Office Visit Deborah Nina MD [facility] CHEST PAIN abnl stress 14, cath showed complete revasc w OSMAN to lAD, SVG to RCA , 30% circ - In-person encounter Office Visit [facility] CAD S/P CABG,OSMAN TO LAD,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CHEST PAIN abnl stress 09/23, cath showed complete revasc w OSMAN to lAD, SVG to RCA , 30% circ - In-person encounter Office Visit Deborah Nina MD [facility] - In-person encounter Office Visit Deborah Nina MD [facility] - In-person encounter Office Visit Deborah Nina MD [facility] - In-person encounter Office Visit Deborah Nina MD [facility] - In-person encounter Office Visit Deborah Nina MD [facility] CAD S/P CABG,OSMAN TO LAD,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 - In-person encounter Office Visit Deborah Nina MD [facility] VITAL SIGNS Date Observation Value Provider Body Mass Index (Ratio) 27.83 kg/m2 Ramanajose luis [place] blood pressure, diastolic 78 mm[Hg] Jordana andrew Carrillo blood pressure, systolic 132 mm[Hg] Joselin castro Carrillo oxygen saturation, oximetry 97 % Melvina Carrillo pulse rate 59 /min Melvina Carrillo respiratory rate E&M 12 /min Melvina Carrillo weight E&M 194 [lb_av] Melvina Malone height E&M 70 [in_i] Mlevina Malone blood pressure, cuff size regular lorrie Carrillo [...] blood pressure, systolic 126 mm[Hg] Tab itha [place] oxygen saturation, oximetry 97 % Sujey Luke [...] Body Mass Index (Ratio) 26.83 kg/m2 [facility] blood pressure, diastolic 83 mm[Hg] Li nkLog [...] Rdz Body Mass Index (Ratio) 26.54 kg/m2 [facility], cuff size large Ke rrramez Ghoshmartine blood pressure, diastolic 62 mm[Hg] Ke rri Steffi blood pressure, systolic 132 mm[Hg] Dylan ri Kelli oxygen saturation, oximetry 98 % Danyell Kelli respiratory rate E&M 16 /min Danyell stevenson pulse rate 70 /min Danyell Coby [facility] weight E&M 185 [lb_av] Danyell Coby [facility] height E&M 70 [in_i] Danyell Coby [facility] Body Mass Index (Ratio) 28.41 kg/m2 Grey Nina MD blood pressure, cuff size large Gaby cheney [place] blood pressure, diastolic 70 mm[Hg] Gaby cheney [place] blood pressure, systolic 130 mm[Hg] Eduard combs [place] oxygen saturation, oximetry 97 % Parris Mondragon pulse rate 80 /min Parris Annitajordana antwan respiratory rate E&M 18 /min Lacy rodriguez [place] weight E&M 198 [lb_av] Parris Gutierrez antwan [...] Sharad respiratory rate E&M 18 /min Marilu [place] [employer] weight E&M 188 [lb_av] Marilu [employer] [employer] height E&M 70 [in_i] Marilu Sharad blood pressure, cuff size regular Cy simba Mccrathy blood pressure, diastolic 62 mm[Hg] Cy ntsherif [...] Nachjimmy blood pressure, diastolic 60 mm[Hg] [facility], diastolic -1 mm[Hg] Li nkLog blood pressure, systolic 126 mm[Hg] Mimi kLog blood pressure, systolic 126 mm[Hg] She rkeitdnoald [place] blood pressure, resting Yes Rory shani [place] pulse rate 80 /min [facility] [place] oxygen saturation, oximetry 96 % Kathy [place] respiratory rate E&M 18 /min Giovanni pretty [place] weight E&M 189 [lb_av] [facility] [place] height E&M 70 [in_i] Kathy [...] lder weight E&M 193 [lb_av] Danyell Coby [facility] height E&M 70 [in_i] Danyell Tenorio [facility] Body Mass Index (Ratio) 26.69 kg/m2 Grey Nina MD blood pressure, diastolic 89 mm[Hg] To [facility] blood pressure, systolic 132 mm[Hg] Ton [facility] respiratory rate E&M 18 /min [facility] oxygen saturation, oximetry 93 % [facility] pulse rate 99 /min [facility] weight E&M 186 [lb_av] [facility] E&M 70 [in_i] [facility] temperature site temporal Zakiya [facility] temperature E&M 97.5 [degF] Zakiya Tanks [facility] Body Mass Index (Ratio) 27.26 kg/m2 Grey Nina MD blood pressure, diastolic 92 mm[Hg] Cy [facility] Mccarthy blood pressure, systolic 178 mm[Hg] Chary opalsavannah Mccarthy respiratory rate E&M 16 /min [facility] pulse rate 64 /min Denise Dandybel l oxygen saturation, oximetry 98 % Denise Mccarthy blood pressure, cuff size regular Cy ntkya Mccarthy weight E&M 190 [lb_av] Denise Campbel l height E&M 70 [in_i] Denise Campbel l temperature site temporal Zakiya [facility] temperature E&M 97.3 [degF] Zakiya [facility] Body Mass Index (Ratio) 27.12 kg/m2 Grey Nina MD blood pressure, diastolic 86 mm[Hg] To [facility] blood pressure, systolic 158 mm[Hg] Luis [facility] oxygen saturation, oximetry 98 % [facility] respiratory rate E&M 16 /min [facility] pulse rate 73 /min [facility] weight E&M 189 [lb_av] [facility] height E&M 70 [in_i] [facility] Body Mass Index (Ratio) 27.69 kg/m2 [...] /min Nathaly Martins pulse rate 62 /min Elrama Martins weight E&M 193 [lb_av] Nathaly Martins height E&M 70 [in_i] [facility] Body Mass Index (Ratio) 27.40 kg/m2 Grey [...] blood pressure, systolic 150 mm[Hg] Ane atris [facility] pulse rate 66 /min Aneatris [facility] oxygen saturation, oximetry 97 % Aneatrmonse Alexander respiratory rate E&M 17 /min Aneatri s [facility] weight E&M 204 [lb_av] Aneatris [facility] Body Mass Index (Ratio) 29.12 kg/m2 Ashl meño Milian blood pressure, diastolic 80 mm[Hg] As ee Maicol blood pressure, systolic 124 mm[Hg] [facility] Maicol pulse rate 66 /min Erikamichael [...] pressure, systolic, right arm 138 m m[Hg] Jasnejordana Bonilla blood pressure, diastolic 79 mm[Hg] Strickland blood pressure, systolic 124 mm[Hg] Jasen Bonilla pulse rate 68 /min [facility] Bonilla respiratory rate E&M 16 /min Jasenjordana [...] RN respiratory rate E&M 16 /min Wilfredo stcayekaterina RN weight E&M 206 [lb_av] Wilfredo Greer [...] Normal Absolute Neutrophil count 3019 cells/mcL [employer] [id number] Normal platelet count 181 THOUSAND/UL [employer] 140-400 [...] [employer]ic 125-200 Normal cholesterol, serum 130 mg/dL [facility] creatinine, serum 0.97 mg/dL [facility] Jose blood glucose, random 119 mg/dL Isabel Garcia triglyceride, serum, fasting 81 mg/dL [facility] Jose HDL cholesterol, serum 42 mg/dL [facility] cholesterol/HDL ratio, serum 3.3 [facility] lipoprotein, beta, serum, point, quantitative, calculated 82 mg/dL [facility] cholesterol, serum 140 mg/dL [facility] alanine aminotransferase (SGPT), serum 27 1/L [facility] aspartate aminotransferase (SGOT), serum 22 1/L [facility] creatinine, serum 0.98 mg/dL [facility] urea nitrogen, blood 14 mg/dL [facility] potassium, serum 4.8 mmol/L [facility] sodium, serum 139 mmol/L [facility] HISTORY OF MEDICATION USE Medication Status Instructions [...] mouth once a day 04/01 - 05/09 [facility] atorvastatin 20 mg tablet completed Take 1 tablet by mouth once a day 04/01 - 04/16 [facility] Breo Ellipta 100-25 mcg/dose blister with device active Ramana Hoff valsartan 320 mg tablet completed TAKE 1 TABLET DAILY 06/17 - 05/09 [facility] atorvastatin 20 mg tablet completed TAKE 1 TABLET DAILY 04/01 - 04/01 Danyell Pereira Xarelto 2.5 mg tablet completed TAKE 1 TABLET TWICE A DAY 10/12 - 05/09 [facility] amlodipine 10 mg tablet completed TAKE 1 TABLET DAILY 10/12 - 11/02 Jacki Clark metoprolol succinate 25 mg tablet extended release 24 hr completed TAKE 1 TABLET DAILY 10/12 - 04/01 Danyell Pereira escitalopram oxalate 10 mg tablet completed TAKE 1 TABLET DAILY 10/12 - 04/16 [facility] hydrochlorothiazide 25 mg tablet completed Take 1 [...] GLUCOSE ONCE DAILY 03/21 - 09/28 Danyell Kelli #1, 30 days supply, Prescribed by GINA HARRISON, Filled 03/22/2019 ONETOUCH DELICA PLUS [id number] completed USE 1 LANCET TO CHECK GLUCOSE [...] required Deborah Nina MD exercise type walking [facility] physical exercise, f requency, days per week no [facility] caffeine use, averag e drinks per day no [facility] passive cigarette sm galen exposure no [facility] smoking status Never smoker [facility] social history E&M Marital Statu s: [...] required Marilu Corderoby exercise type walking Marilu [employer] physical exercise, f requency, days per week no Marilu Sharad alcohol use, average drinks per day none Marilu Sharad alcohol use no Marilu [employer] caffeine use, averag e drinks per day no Marilu [employer] drug use none Marilu Sharad passive cigarette [...] day no Danyell Kelli drug use none Dnayell Coby lder passive cigarette sm galen exposure no Danyell Pereira smoking status Never smoker Danyell villanueva social history reviewed E&M revi ewed - no changes required Deborah Nina MD exercise type walking Elrama Martins physical exercise, f requency, days per week no Nathaly Martins alcohol use, average drinks per day none Nathaly Martins alcohol use no Nathaly Martins caffeine use, averag e drinks per day no Nathaly Martins drug use none Nathaly Martins passive cigarette sm galen exposure no Nathaly Martins smoking status Never smoker [facility] social history reviewed E&M revi ewed - [...] Payer name Policy type / Coverage type [place] [employer] party ID [facility] GR[facility] MEDICARE ADVANTAGE PLAN (PPO) Medicare [id number] ADVANCE DIRECTIVES Name Date DISCUSSED - NO DECISION MADE TREATMENT PLAN Date Name Performer [id number],BDeborah MD [id number],BDeborah MD [id number],BDeborah MD [id number],BDeborah MD [id number],BDeborah MD [id number],SRamana i [id number],S, Ramana Ahmedza i [id number],S, Ramana Ahmedza i [id number],S, Ramana Ahmedza i [id number],S, Ramana Ahmedza i [id number],S, Ramana Ahmedza i [id number],S, Ramana Ahmedza i [id number],S, Ramana Ahmedza i [id number],S, Ramana Ahmedza i [id number],S, Ramana Ahmedza i [id number],S, Ramana Ahmedza i [id number],S, Ramana Ahmedza i [id number],S, Ramana Ahmedza i [id number],S, Ramana Ahmedza i [id number],S, Ramana Ahmedza i [id number],S, Ramana Ahmedza i [id number],S, Ramana Ahmedza i [id number],N, Ramana Ahmedza i [id number],B, Ramana Ahmedza i [id number],B, Ramana Ahmedza i [id number],S, Ramana Ahmedza i [id number],B, Ramana Ahmedza i [id number],B, Ramana Ahmedza i [id number],S, Ramana Ahmedza i [id number],S, Ramana Ahmedza i [id number],S, Ramana Ahmedza i [id number],S, Ramana Ahmedza i [id number],S, Ramana Vaughnmedza i [id number],S, Ramana Vaughnmedza i [id number],S, Ramana Vaughnmedza i [id number],S, Ramana Vaughnmedza i [id number],S, Ramana Vaughnmedza i [id number],S, Ramana Vaughnmedza i [id number],S, Ramana Vaughnmedza i [id number],S, Ramana Vaughnmedza i [id number],S, Ramana Pedersenza i [id number],W, Rupert Polancot [id number],S, Rupert Polancot [id number],S, Rupert Polancot [id number],S, Rupert Polancot [id number],S, Rupert Farr Cardiology:This visi t has been [...] (08/18/2016) T (08/18/2016) Orders: C omplete Echo (09583) S tress Regadenoson (CPT-12210) Deborah Nina MD Cardiology: H is updated medication list for this problem includes: Metoprolol Succinate 25 Mg Tablet Extended Release 24 Hr (Metoprolol succinate) ..... Take 1 tablet by mouth once daily Valsartan 320 Mg Tablet (Valsartan) ..... Take 1 tablet by mouth daily Adult Aspirin Regimen 81 Mg Tablet,delayed Release (dr/ec) (Aspirin) Orders: C omplete Echo (22411) S tress Regadenoson (CPT-75193) Deborah Nina MD Cardiology: H is updated [...] Release (dr/ec) (Aspirin) Orders: C omplete Echo (06481) S tress Regadenoson (CPT-31616) Deborah Nina MD Cardiology:This visi t has [...] Release (dr/ec) (Aspirin) Deborah Nina MD Cardiology [facility] Cardiology: H is updated medication list for this problem includes: Valsartan 320 Mg Tablet (Valsartan) ..... Take 1 tablet by mouth daily Trulicity 0.75 Mg/0.5 Ml Pen Injector (Dulaglutide) ..... 1 once a week Adult Aspirin Regimen 81 Mg Tablet,delayed Release (dr/ec) (Aspirin) [facility] Cardiology: H is updated medication list for this problem includes: Atorvastatin 10 Mg Tablet (Atorvastatin) ..... Take 1 tablet by mouth once daily [facility] Cardiology: H is updated [...] Regimen 81 Mg Tablet,delayed Release (dr/ec) (Aspirin) [facility] Cardiology: H is updated medication list for this problem includes: Valsartan 320 Mg Tablet (Valsartan) ..... Take 1 tablet by mouth daily Trulicity 0.75 Mg/0.5 Ml Pen Injector (Dulaglutide) ..... 1 once a week Adult Aspirin Regimen 81 Mg Tablet,delayed Release (dr/ec) (Aspirin) [facility] Cardiology: H is updated [...] Regimen 81 Mg Tablet,delayed Release (dr/ec) (Aspirin) [facility]: H is updated medication list [...] Regimen 81 Mg Tablet,delayed Release (dr/ec) (Aspirin) [facility]: H is updated medication list for this problem includes: Metoprolol Succinate 25 Mg Tablet Extended Release 24 Hr (Metoprolol succinate) ..... Take 1 tablet by mouth once daily Valsartan 320 Mg Tablet (Valsartan) ..... Take 1 tablet by mouth daily Adult Aspirin Regimen 81 Mg Tablet,delayed Release (dr/ec) (Aspirin) [facility]: H is updated medication list for this problem includes: Valsartan 320 Mg Tablet (Valsartan) ..... Take 1 tablet by mouth daily Trulicity 0.75 Mg/0.5 Ml Pen Injector (Dulaglutide) ..... 1 once a week Adult Aspirin Regimen 81 Mg Tablet,delayed Release (dr/ec) (Aspirin) [facility] Cardiology: H is updated [...] Regimen 81 Mg Tablet,delayed Release (dr/ec) (Aspirin) [facility] Cardiology: H is updated medication list for this problem includes: Valsartan 320 Mg Tablet (Valsartan) ..... Take 1 tablet by mouth daily Trulicity 0.75 Mg/0.5 Ml Pen Injector (Dulaglutide) ..... 1 once a week Adult Aspirin Regimen 81 Mg Tablet,delayed Release (dr/ec) (Aspirin) [facility] Cardiology: H is updated medication list for this problem includes: Atorvastatin 10 Mg Tablet (Atorvastatin) ..... Take 1 tablet by mouth once daily [facility] Cardiology [facility] Cardiology: H is updated [...] Regimen 81 Mg Tablet,delayed Release (dr/ec) (Aspirin) [facility] Cardiology: B P today: [...] MD Cardiology Deborah Nina MD Cardiology Deborah iNna MD Cardiology Deborah Nina MD Cardiology Deborah Nina MD Cardiology Deborah iNna MD Cardiology Deborah Nina MD Cardiology Deborah [...] Cardiology Follow up Toncuong yancey MD Cardiology eDborah Nina MD Cardiology Deborah Nina MD Cardiology: [...] : O rders: C arotid Duplex Bilateral (CPT-46779) 9 9214 MOD Complex (CPT-01060) Deborah Nina MD Cardiology Follow up Deborah [...] tab am and pm Orders: E KG (CPT-90372) BP today: 146/82 Prior BP: 124/79 (04/09/2012) [...] tab am and pm Orders: E KG (CPT-91145) BP today: 124/79 Prior BP: 151/88 (04/04/2011) [...] in both vertebrals. (06/12/2007) Orders: E KG (CPT-17089) Deborah Nina MD routine- echo prior : [...] valve regurgitation. T race tricuspid regurgitation. R TRIM SAWYER is estimated < 30mmHg and is normal. [...] valve regurgitation. T race tricuspid regurgitation. R TRIM SAWYER is estimated < 30mmHg and is normal. (06/12/2007) Orders: E KG (CPT-34713) Deborah Nina MD FU: room 3: H [...] Images Sarika David MD compl eted SNOMED-CT: [id number] Current Medications Documented Deborah Nina MD completed SNOMED-CT: [id number] Physical Exam, Performed: Pulse Exam of Foot Deborah Nina MD completed EKG Deborah Nina MD completed SNOMED-CT: [id number] 447245 Current Medications Documented Deborah Nina MD completed SNOMED-CT: [id number] Physical Exam, Performed: Pulse Exam of Foot Deborah Nina MD completed SNOMED-CT: 954112454 986883 Current Medications Documented Deborah Nina MD completed SNOMED-CT: 93305709 Physical Exam, Performed: Pulse Exam of Foot Deborah Nina MD completed EKG Deborah Nina MD completed SNOMED-CT: 779102898 203197 Current Medications Documented Deborah Nina MD completed EKG Deborah Nina MD completed EKG Deborah Nina MD completed EKG Deborah Nina MD completed EKG Deborah Nina MD completed EKG Deborah Nina MD completed EKG Deborah Nina MD completed
--- OUTSIDE RECORDS SUMMARY | 2024-07-09 13:25 | XMS_ITS | Referral Summary ---
Author Organization [place] [id number] [facility] Address [address] [place] [address] Care Team Providers Care Police Clerk Name Role Phone Martin Varela MD Unavailable [phone] Leann Pineda NP Primary Care Provider [phone] Encounters Date Type Department Care Team Description 06/11/2024 Results Follow-Up [facility] Pulmonary at [address] [place] [phone] Chrisyt Duffy NP 06/06/2024 9:37 AM CDT - 06/06/2024 11:59 PM CDT Hospital Encounter [facility] Respiratory [address] [place] [address] Mild persistent asthma without complication Discharge Disposition: Discharge to home or self care 05/29/2024 Orders Only [facility] Pulmonary at [address] [place] [phone] Christy Duffy NP Mild persistent asthma without complication (Primary Dx) 05/01/2024 10:30 AM FRENCH BINDING FOLDER Office Visit [facility] Pulmonary at [address] [place] [phone] Christy Duffy NP Upper respiratory tract infection due to influenza A virus (Primary Dx); Mild intermittent asthma without complication; Elevated diaphragm; NIRU (obstructive sleep apnea); Heterozygous alpha 1-antitrypsin deficiency (HCC) 04/25/2024 Orders Only [facility] Pulmonary at [address] [place] [address] Christy Duffy, PAT 04/25/2024 Telephone [facility] Pulmonary at [address] [place] [address] Ele Jones, EDEN Influenza A [...] VERIO strip 0 Active ONETOUCH VERIO SYSTEM [facility] 0 Active escitalopram (LEXAPRO) 10 mg tablet 0 Active ONETOUCH DELICA PLUS LANCET 33 gauge [facility] 0 Active XARELTO 2.5 mg tablet 0 [...] 05/01/2024 Assessment & Plan (05/01/2024 1:00 PM FRENCH BINDING FOLDER): He had a positive home sleep study in 2021 with an AHI of 11.5. We have discussed the risks of uncorrected NIRU I will place an order for sleep medicine evaluation 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 Assessment & Plan (05/01/2024 1:01 PM FRENCH BINDING FOLDER): Unsure if this is a true paralysis, consider sniff testing in the future Mild intermittent asthma without complication Assessment & Plan (05/01/2024 1:01 PM FRENCH BINDING FOLDER): When he is at baseline I will repeat pulmonary function testing. Continue Breo Ellipta 200 for now. Albuterol as needed only, we have discussed indications for use. Upper respiratory tract infection due to influen za A virus 05/01/2024 Assessment & Plan (05/01/2024 12:58 PM FRENCH BINDING FOLDER): He has improved from initial infection 2 1/2 weeks ago but his sputum continues to be thick and yellow Start azithromycin Start NAC twice daily Monitor for worsening symptoms Heterozygous alpha 1-antitrypsin deficiency 04/13 Assessment & Plan (05/01/2024 1:03 PM FRENCH BINDING FOLDER): M/S - his last level was 137 [...] on file Legal Sex Male 9:15 AM FRENCH BINDING FOLDER Gender Identity Male 07/18/2019 6:52 AM CDT Sexual Orientation Not on file Last Filed Vital Signs Vital Sign Reading Time Taken Comments Blood Pressure 138/62 05/01/2024 10:36 AM FRENCH BINDING FOLDER Pulse 86 05/01/2024 10:36 AM FRENCH BINDING FOLDER Temperature 36.3 C (97.3 F) 05/01/2024 10:36 AM FRENCH BINDING FOLDER Respiratory Rate 16 02/13/2024 11:02 AM FRENCH BINDING FOLDER Oxygen Saturation 90% 05/01/2024 10:36 AM FRENCH BINDING FOLDER Inhaled Oxygen Concentration - - Weight 84.6 kg (186 lb 6.4 oz) 05/01/2024 10:36 AM FRENCH BINDING FOLDER Height 177.8 cm (5' 10 ) 05/01/2024 10:36 AM FRENCH BINDING FOLDER Body Mass Index 26.75 05/01/2024 10:36 AM FRENCH BINDING FOLDER Plan of Treatment Not on file Procedures [...] 95% throughout the study. us Christy Duffy CAVALRY OFFICER PFT ORDERABLES Final Resul t * (ABNORMAL) [...] and children were not included. (Diabetes Care 31:6690-7687, 2008). The eAG is not equivalent to a fasting glucose. Blood specimen (specimen) 12/12/2018 3:01 PM CDT 12/12/2018 4:14 PM CDT us Leann Ellis MD LAB BLOOD ORDERABLES Fin al Result [facility] [address] [place] [address] * Lipid panel (12/12/2018 3:01 PM CDT) [...] LDL, calculated 50 <=129 mg/dL [facility] Comment: Interpretive Data Ages < or = [...] 2017. Non-HDL Cholesterol 79 mg/dL [facility] Comment: Interpretive Data Ages < or = [...] MD LAB BLOOD ORDERABLES Fin al Result [facility] [address] [place] [address] from Last 3 Months or Most Recently Relevant to Health Maintenance Insurance [employer] MEDICARE ADVANTAGE [facility] MEDIC[facility] Address: [address] [address] [place] [address] [employer] MEDICARE ADVANTAGE [facility] MEDIC[facility] Address: [address] [address] [place] [address] [employer] MEDICARE ADVANTAGE Advance Directives For more information, please contact: [phone] * LIMITED - No CPR (Latest Code [...] 11:06 PM 12/13/2018 2:31 AM Care Teams Police Clerk Relationship Specialty Start Date End Date Leann Pineda NP [address] [facility] 15 [place] [address] PCP - General Family Medicine 05/30/24 Martin Varela MD [address] [facility] 100 [place] [address] Surgeon Orthopedic Surgery 04/08/20
--- OUTSIDE RECORDS SUMMARY | 2024-07-09 13:25 | XMS_ITS | Encounter Summary ---
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
--- NOTE | 2024-07-09 13:32 | ED_ITS ---
HPI - General Adult General Chief complaint: Extremity Problem,Nontraumatic Stated complaint: Left knee pain- popped Time Seen by Provider: 07/09/24 12:18 History of Present Illness HPI narrative: 84-year-old male with history of left knee pain presents to the emergency department for evaluation for acute on chronic left knee pain. Patient states he was walking when he felt a pop in his left knee. Patient states he did not fall did not strike his head had loss of consciousness. Patient states pain is worse with ambulation but while he is at rest he has no knee pain. When the pain is present he describes as a left lateral knee pain. Related Data Home Medications ?Medication ?Instructions ?Recorded ?Confirmed ?Last Taken ?Type aspirin 81 mg tablet,delayed 81 mg PO DAILY 11/15/22 06/14/23 05/27/23 History release celecoxib 200 mg capsule (Celebrex) 200 mg PO DAILY 11/15/22 06/14/23 06/01/23 History escitalopram oxalate 10 mg tablet 10 mg PO DAILY 11/15/22 06/14/23 06/01/23 History (Lexapro) metoprolol succinate 25 mg 25 mg PO DAILY 11/15/22 06/14/23 06/01/23 History tablet,extended release 24 hr pantoprazole 40 mg tablet,delayed 40 mg PO QAM 11/15/22 06/14/23 Unknown History release tramadol 50 mg tablet 50 mg PO Q6H PRN Pain 11/15/22 06/14/23 Unknown History valsartan 320 mg tablet 320 mg PO DAILY 11/15/22 06/14/23 Unknown History atorvastatin 20 mg tablet 20 mg DAILY 05/23/23 06/14/23 Unknown History dulaglutide 0.75 mg/0.5 mL 0.75 mg subcut WEEKLY 05/23/23 06/14/23 Unknown History subcutaneous pen injector (Trulicity) rivaroxaban 2.5 mg tablet (Xarelto) 2.5 mg DAILY 05/23/23 06/14/23 05/27/23 History Allergies Allergy/AdvReac Type Severity Reaction Status Date / Time Iodinated Contrast Media Allergy Unknown Hives Verified 07/09/24 11:58 Review of Systems Review of Systems: All systems reviewed & are unremarkable except as noted in HPI and below PMFSH Past Medical History Medical History (Updated 07/09/24 @ 14:32 by Kashif Summers MD) Heart disease Stroke 2019 Anxiety Depression Asthma Surgical History Surgical History (Updated 06/13/23 @ 14:07 by Ana Santacruz, ALEXUS) History of left inguinal hernia repair robotic assisted incarcerated left inguinal hernia repair with mesh 06/01/23 History of hernia surgery hiatal surgery repair in 1960s Hx of heart bypass surgery 1998 Family History Family History Father Diabetes mellitus Heart disease Cerebrovascular accident Mother Cancer Social History Social History Smoking status: Never smoker Second hand tobacco smoke exposure: No Alcohol intake: never Substance use: never Substance use type: does not use Living arrangements: with family Additional living arrangements comments: LIVES WITH SPOUSE - [place] Occupation/Education: retired Spiritual care concerns: No Exam Narrative: APPEARANCE: Well appearing, no pain, no distress, well-nourished. HEAD: normocephalic, atraumatic. EYES: PERRLA/EOMI, conjunctivae clear. NOSE: Normal no drainage EARS:TMS clear with good light reflex. THROAT: Pharynx clear, no exudate. NECK: Supple. No adenopathy, no masses. RESPIRATORY: Airway patent, respirations nonlabored. Clear to auscultation bilaterally, no rales, rhonchi, wheezing. CARDIOVASCULAR: Regular rate and rhythm without murmurs rubs or gallops. ABDOMINAL: Soft, nontender, nondistended, normal bowel sounds MUSCULOSKELETAL: Left lateral knee tenderness to palpation NEURO: Alert. Cranial nerves II through XII intact. Good gait. Good coordination SKIN: Warm, dry. Normal Color Course Vital Signs Vital signs: Vital Signs Temperature 97.5 F L 07/09/24 11:55 Pulse Rate 65 07/09/24 11:55 Respiratory Rate 18 07/09/24 11:55 Blood Pressure 154/68 H 07/09/24 11:55 Pulse Oximetry 98 07/09/24 11:55 Oxygen Delivery Room Air 07/09/24 11:55 Temperature 98.0 F 07/09/24 16:22 Pulse Rate 89 07/09/24 16:22 Respiratory Rate 18 07/09/24 16:22 Blood Pressure 149/73 H 07/09/24 16:22 Pulse Oximetry 98 07/09/24 16:22 Oxygen Delivery Room Air 07/09/24 11:55 Medical Decision Making MDM Narrative Medical decision making narrative: 84-year-old male presents emergency department for evaluation for acute injury to his left knee. 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 Patient is unable to walk on crutches but is being provided a knee immobilizer and states he is able to ambulate with a walker. Differential Diagnosis Differential Diagnosis: Knee fracture, knee dislocation, osteoarthritis arthritis, ligament injury Vital Signs Vital Signs: Vital Signs Temperature 97.5 F L 07/09/24 11:55 Pulse Rate 65 07/09/24 11:55 Respiratory Rate 18 07/09/24 11:55 Blood Pressure 154/68 H 07/09/24 11:55 Pulse Oximetry 98 07/09/24 11:55 Oxygen Delivery Room Air 07/09/24 11:55 Temperature 98.0 F 07/09/24 16:22 Pulse Rate 89 07/09/24 16:22 Respiratory Rate 18 07/09/24 16:22 Blood Pressure 149/73 H 07/09/24 16:22 Pulse Oximetry 98 07/09/24 16:22 Oxygen Delivery Room Air 07/09/24 11:55 Imaging Data Radiologist's impression: Impressions Knee X-Ray 07/09/24 12:59 IMPRESSION: 1. No left knee joint effusion or acute osseous abnormality. 2. 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 Discharge Plan Discharge Clinical Impression: Injury of knee, left Patient Disposition: Home Condition: Stable Instructions: Antibiotic Form, Knee Pain (ED), Knee Immobilizer (ED) Additional Instructions: Knee immobilizer as directed. Utilize walker for limited weight-bearing on the affected leg. Have close follow-up with Orthopedics. Patient Language: Latvian Prescriptions: No Action metoprolol succinate 25 mg tablet extended release 24 hr 25 mg PO DAILY pantoprazole 40 mg tablet,delayed release (DR/EC) 40 mg PO QAM valsartan 320 mg tablet 320 mg PO DAILY aspirin 81 mg tablet,delayed release (DR/EC) 81 mg PO DAILY celecoxib [Celebrex] 200 mg capsule 200 mg PO DAILY escitalopram oxalate [Lexapro] 10 mg tablet 10 mg PO DAILY tramadol 50 mg tablet 50 mg PO Q6H PRN (Reason: Pain) Xarelto 2.5 mg tablet 2.5 mg DAILY atorvastatin 20 mg tablet 20 mg DAILY Trulicity 0.75 mg/0.5 mL pen injector 0.75 mg SUBCUT WEEKLY Rx Instructions: TAKES ON SUNDAYS Follow-up/Referrals: Cory,MD Lisette [Primary Care Provider] - Yohannes Ku MD [Physician] -
[2024-07-09 16:22] VITALS: BP 149/73; PULSE 89; RESP 18; TEMP 36.7; O2SAT 98
== END 2024-07-09 16:22 | disposition home or self-care (01) ==
PROVIDERS: Emergency Provider Emergency Medicine; PCP Internal Medicine
DX: S89.92XA Unspecified injury of left lower leg, initial encounter (principal); F41.9 Anxiety disorder, unspecified; F32.A Depression, unspecified; J45.909 Unspecified asthma, uncomplicated; Z86.73 Personal history of transient ischemic attack (TIA), and cerebral infarction without residual deficits; X50.0XXA Overexertion from strenuous movement or load, initial encounter
CPT/HCPCS: 73562; 99283

== ENCOUNTER 2024-10-03 15:32 | Outpatient (CLI) | payer MEDICARE, SELFPAY ==
--- NOTE | ~2024-10-03 | XR_ITS ---
XR hand LT 2V 10/03/2024 16:09 Indication: Left hand pain Procedure: 2 views left hand Comparison: No prior studies for comparison. 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 No acute fracture or traumatic malalignment. 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 Reviewed, dictated and finalized at location A. 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
--- NOTE | ~2024-10-03 | XR_ITS ---
XR foot RT 2V 10/03/2024 16:09 Indication: Arthritis Procedure: 2 views right foot Comparison: No prior studies for comparison. Findings: There is polyarticular osteoarthritis most pronounced in the midfoot as well as the third M TP and IP joints. Lisfranc joint intact. Small osteochondroma originating from the second metatarsal shaft. There is atherosclerosis. Osteopenia. There is heterotopic ossification along the expected loc ation of the Achilles tendon. Impression: 1: Moderate polyarticular osteoarthritis. Reviewed, dictated and finalized at location A. Impression: 1: Moderate polyarticular osteoarthritis.
--- NOTE | ~2024-10-03 | XR_ITS ---
XR hand RT 2V 10/03/2024 16:09 Indication: Right hand pain Procedure: 2 views right hand Comparison: No prior studies for comparison. Findings: There is severe polyarticular osteoarthritis most advanced at the triscaphe, first carpal m etacarpal and MCP joints. Moderate degenerative changes of the interphalangeal joints. No acute fract ure is identified. Impression: 1: Severe polyarticular osteoarthritis of the right hand and wrist. Reviewed, dictated and finalized at location A. Impression: 1: Severe polyarticular osteoarthritis of the right hand and wrist.
--- NOTE | ~2024-10-03 | XR_ITS ---
XR lumbar spine min 4V 10/03/2024 16:09 Indication: Arthritis Procedure: 5 views lumbar spine Comparison: No prior studies for comparison. Findings: There is levoscoliosis centered at T12-L1. There is disc narrowing at all lumbar levels. Th ere is degenerative retrolisthesis at L1 to, L2-3 and L3-4 with anterolisthesis at L4-5. No acute fra cture or traumatic malalignment. 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 Reviewed, dictated and finalized at location A. 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
--- NOTE | ~2024-10-03 | XR_ITS ---
XR foot LT 2V 10/03/2024 16:09 Indication: Septic arthritis Procedure: 2 views left foot Comparison: No prior studies for comparison. Findings: There is heterotopic ossification surrounding the first MTP joint. No acute fracture or tra umatic malalignment. Lisfranc joint intact. There are degenerative calcaneal enthesophytes. There is mild polyarticular osteoarthritis of the midfoot. No evidence for osteomyelitis. 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 Reviewed, dictated and finalized at location A. 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
--- OUTSIDE RECORDS SUMMARY | 2024-10-03 15:36 | XMS_ITS | Patient Health Record ---
Author Organization [facility] [address] Address [address] [place], [place] [address] Care Team Providers Care Decorator Store Name Role Phone BRITTNY BAER, CHEL Primary Care Provider Chyna Latham Unavailable [phone] REASON FOR REFERRAL No Information MEDICATIONS Medication SIG (Take, Route, Frequency, Duration) Notes Start Date End Date Status meloxicam 15 mg 1 tab(s) orally once a day for 30 day(s) 03/13/2024 03/13/2024 Active fish oil as directed oral 03/13/2024 03/13/2024 A ctive Lipitor 10 mg 1 tab(s) orally once a day (at bedtime) for 30 day(s) 03/13/2024 03/13/2024 Active metoprolol 50 mg 1 tab(s) orally once a day for 30 day(s) 03/13/2024 03/13/2024 Active Pepcid AC Maximum Strength 20 mg 1 tab(s) orally 2 times a day for 30 day(s) 03/13/2024 03/13/2024 Active Aspirin Low Dose 81 mg 1 tab(s) orally o nce a day for 30 day(s) 03/13/2024 03/13/2024 Active Plavix 75 mg 1 tab(s) orally once a day for 30 day(s) 03/13/2024 03/13/2024 Active PROBLEMS Problem Type ICD Code Onset Dates Problem Status W/U Status Risk SNOMED Code Notes Problem Osteoarthrosis (715.09) Active confirmed PLAN OF TREATMENT No Information Insurance Providers Payer Name Payer Address Payer Phone Subscriber Number Group Number Insured Name Patient Relationship to Insured Coverage Start Date Coverage End Date MEDICARE ASSIGNMENT [address] [place] [address] [id number] Martín Carrillo Self - patient is the insured 7 [employer] HMO [address] [address] [place] [address] [id number] Martín Carrillo Self - patient is the insured 9 MEDICAL (GENERAL) HISTORY Medical History History ICD Code bruises easily hemorrhoids erectile dsyfunction Surgical History Surgery Date(Month/Year) heart bypass 1997 knee 2006 rotator cuff 2009
--- OUTSIDE RECORDS SUMMARY | 2024-10-03 15:36 | XMS_ITS | Data Portability ---
Author Organization [place] - [facility], Main Office Address [address] [place] [address] Assessment Encounter Date Assessment Date Assessment LastModified by Organization Details LastModified Time 06/24/2024 06/24/2024 45 minutes spent with the patient, meds reviewed, and referrals provided [email or web address] Not available 06/24/2024 18:59:55 07/24/2024 07/24/2024 06/27/2024: A1C 7.2 HGB 12.0 Gluc 133 Not available 07/24/2024 16:21:21 Plan of Treatment Reminders Order Date Submit Date Provider Last Modified By Organization Details Last Modified Time Details Appointments Follow Up 15 2024 02:15P Carroll lunsford MD Not available Not available Not available Lab glycohemo globin, total, blood 2024 025 [email or web address] [facility], [address], [place], [address], 08/21/2024 08:59:52 microalbu min, urine 2024 025 [facility], [address], [place], [address], 08/21/2024 09:00:03 vitamin B12 + folate, serum or blood 2024 025 [facility], [address], [place], [address], 08/07/2024 09:03:59 lipid panel, serum 2024 025 [place] [address] [facility], [address], [place], [address], 08/21/2024 08:59:43 CBC w/ auto diff 2024 025 [place] [address] [facility], [address], [place], [address], 08/07/2024 09:03:29 TSH, serum or plasma 2024 025 [place] [address] [facility], [address], [place], [address], 08/07/2024 09:03:38 CMP, serum or plasma 2024 025 [place] [address] [facility], [address], [place], [address], 08/07/2024 09:03:51 glycohemo globin, total, blood [address] (Lab), [address] [place], [address], 07/23/2024 17:05:59 microalbu min, urine [address] (Lab), [address] [place], [address], 07/23/2024 17:05:59 lipid panel, serum 2024 025 [facility] (Lab), [address] [place], [address], 06/27/2024 05:06:05 CBC w/ auto diff 2024 025 [facility] (Lab), [address] [place], [address], 06/27/2024 05:06:08 TSH, serum or plasma 2024 025 [facility] (Lab), [address] [place], [address], 06/27/2024 05:06:10 CMP, serum or plasma 2024 025 [facility] (Lab), [address] [place], [address], 06/27/2024 05:06:07 Referral rheumatol ogist referral - Please call patient to schedule an appointme nt. Thank you. 2024 025 FOSTER Hogan MD, [address] [facility], [address], [place], [address], 07/25/2024 10:08:42 podiatris t referral - Please call patient to schedule an appointme nt. Thank you. 2024 025 LYN Oliver DPM, [address] [facility], [facility] [address], [place], [address], 07/25/2024 10:13:02 rheumatol ogist referral - Please call patient to schedule an appointme nt. Thank you. 2024 025 nancy Hansen MD, [address] [facility], [address], [place], [address], 09/30/2024 17:09:41 podiatris t referral - Please call patient to schedule an appointme nt. Thank you. 2024 025 nancy Oliver DPM, [address] [facility], [address], [place], [address], 09/24/2024 09:28:13 Procedures None recorded. Surgeries None recorded. Imaging None recorded. Medication Orders tramadol 50 mg tablet 2024 025 LYN [facility], [address], [address], [place], [place], [id number], 05/29/2024 10:55:16 ferrous sulfate 325 mg (65 mg iron) tablet 2024 025 [email or web address] [facility], [address], [address], [place], [place], [id number], 07/24/2024 15:32:50 Trulicity 0.75 mg/0.5 mL subcutane ous pen injector 2024 025 LYN [facility], [address], [address], [place], [place], [id number], 05/29/2024 10:55:06 pantopraz ole 40 mg tablet,de layed release 2024 025 LYN [facility], [address], [address], [place], [place], [id number], 05/29/2024 10:55:06 gabapenti n 100 mg capsule 2024 025 LYN [facility], [address], [address], [place], [place], [id number], 05/29/2024 10:55:09 celecoxib 200 mg capsule 2024 025 LYN [facility], [address], [address], [place], [place], [id number], 05/29/2024 10:55:11 cyanocoba eloina (vit B-12) 1,000 mcg tablet 2024 025 [facility], [address], [address], [place], [place], [id number], 06/24/2024 16:47:43 tramadol 50 mg tablet 2024 025 LYN [facility], [address] [place] [address], [address], [place], [place], [id number], 03/20/2024 08:55:46 gabapenti n 100 mg capsule 2024 025 BUSBY [facility], [address] [place] [address], [address], [place], [place], [id number], 03/20/2024 08:55:46 Patient TargetsNo targets recorded. Patient Instructions Encounter Date Encounter Id Patient Instructions Last Modified By Organization Details Last Modified Time 03/20/2024 [id number] Follow up in May- appointment Tests: Referral: Recommend: Shingles vaccine Not available 03/20/2024 08:55:06 05/29/2024 [id number] Follow up in [address] Ray Prescriptions sent to pharmacy Obtain labs Tests: Referral: Recommend: Not available 05/29/2024 10:54:36 06/24/2024 [id number] diabetic eye exam* ATHENAFAX Not available 06/25/2024 14:40:37 07/24/2024 [id number] diabetic eye exam* ATHENAFAX Not available 07/24/2024 17:41:48 Reason for Referral Instructional Interventionist Referral for Diab etes mellitus Please call patient to schedule an appointment. Thank you. Referring Physician: Lisette Ray Internal Medicine, Encounter Date: 06/24/2024 Dewaxer Referral for Pain of multiple joints Please call patient to schedule an appointment. Thank you. Referring Physician: Lisette Ray Internal Medicine, Encounter Date: 06/24/2024 Instructional Interventionist Referral for Diab etes mellitus Please call patient to schedule an appointment. Thank you. Referring Physician: Lisette Ray Internal Medicine, Encounter Date: 07/24/2024 Dewaxer Referral for Pain of multiple joints Please call patient to schedule an appointment. Thank you. Referring Physician: Carmen Rodriguez Medicine, Encounter Date: 07/24/2024 Results Created Date Observation Date Name Description Value Unit Range Abnormal Flag Note LastModifiedBy Organization Detail LastModifiedTime 07/10/1907/09/2024 imagi ng/di agnos tic resul t No observ ation record ed. [facility] [address] [facility] [address], [place], [address], 07/09/2024 14:04:56 07/17/19 25 07/16/2024 imagi ng/di agnos tic resul t No observ ation record ed. [facility] [address], [place], [address], 07/16/2024 16:18:38 Result Notes None recorded. Problems Name Problem SNOMED Code Status Onset Date Resolution Date Notes Provider Name and Address Organization Details Recorded Time Excessive cerumen in ear canal 317487515 Completed Not Available [facility] 3 06:56:47 Indigesti on 468226635 Completed Not Available [facility] 3 06:56:48 Pain in throat 977931502 Completed Not Available [facility] 3 06:56:48 Nocturia due to benign prostatic hypertrop hy [id number] 01 Joanie Pineda APRN [address], [address], [place], [address] , [facility] 4 13:07:45 Deformity of foot 961870925 Joanie Pineda APRN [address], [address], [place], [address] , [facility] 4 13:07:13 Gastroeso phageal reflux disease 453265640 Joanie Pineda APRN [address], [address], [place], [address] , [facility] 4 13:07:30 Low back pain 035658709 Joanie Pineda APRN [address], [address], [place], [address] , [facility] 4 13:07:39 Bronchiti s 23280263 Completed Not Available [facility] 3 06:56:48 Depressiv e disorder 07476811 Active Leann Pineda APRN [address], [place] [address], [place], [address] [place] [address] , [facility] [employer] [facility] 4 13:07:15 Arthritis 8765328 Active Leann Pineda APRN [address], [place] [address], [place], [address] [place] [address] , [facility] [employer] [facility] 4 13:07:02 Spider bite wound 463181262 Completed Not Available [facility] 3 06:56:48 Type 2 diabetes mellitus 19864125 Active Leann Pineda APRN [address], [place] [address], [place], [address] [place] [address] , [facility] [employer] [facility] 4 13:07:55 Cough 01343776 Completed Not Available [facility] 3 06:56:49 Coronary arteriosc lerosis 61000475 Active Leann Pineda APRN [address], [place] [address], [place], [address] [place] [address] , [facility] [employer] [facility] 4 13:07:10 Upper respirato ry infection 86970933 Completed BRYANT Torres [address], [place] [address], [place], [address] [place] [address] , [facility] [employer] [facility] 4 16:01:10 Hyperlipi demia 87827489 Active Leann Pineda APRN [address], [place] [address], [place], [address] [place] [address] , [facility] [employer] [facility] 4 13:07:33 Wheezing 11404229 Completed Not Available [facility] 3 06:56:49 Essential hypertens ion 47280670 Joanie Pineda APRN [address], [place] [address], [place], [address] [place] [address] , [facility] [employer] [facility] 4 13:07:25 Vitamin B12 deficienc y (non anemic) 34522467 Active Not Available [facility] 3 06:56:49 Posterior rhinorrhe a 78581947 Active Not Available [facility] 3 06:56:50 Thyroid function tests abnormal 881117878 Active 2020 Not Available [facility] 3 06:56:48 COVID-19 330737870 Active 2020 Not Available [facility] 3 06:56:50 Asthma 743324706 Active 2021 Leann Pineda APRN [address], [address], [place], [address] , [facility] 4 13:07:05 Dysplasti c nevus of skin 440783191 Active 2021 Not Available [facility] 3 06:56:48 History of SARS-CoV- 2 75682261626 2085855 Active 2021 Not Available [facility] 3 06:56:48 Alpha-1-a ntitrypsi n deficienc y 38716235 Active 2021 Leann Pineda APRN [address], [address], [place], [address] , [facility] 4 13:07:01 Acute upper respirato ry infection 00509446 Active 2021 Not Available [facility] 3 06:56:49 Dyspnea on exertion 17476323 Active 2021 Not Available [facility] 3 06:56:49 History of exposure to second hand smoke 170004577 Active 2021 Not Available [facility] 3 06:56:49 Obstructi ve sleep apnea syndrome 06927561 Active 2021 Leann Pineda APRN [address], [address], [place], [address] , [employer] [facility] 4 13:07:48 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 Leann Pineda APRN [address], [address], [place], [address] , [facility] 4 13:07:23 Iron deficienc y anemia 69154066 Active 2022 Leann Pineda APRN [address], [address], [place], [address] , [employer] [facility] [employer] [facility] 4 13:07:36 Cobalamin deficienc y 539444644 Active 2022 Leann Pineda APRN [address], [address], [place], [address] , [employer] [facility] [employer] [facility] 4 13:07:07 Diabetes mellitus 43382601 Active 2022 Leann Pineda APRN [address], [address], [place], [address] , [facility] [employer] [facility] [employer] [facility] 4 13:07:21 Left inguinal hernia 291340424 Active 2022 Yovana Wilson MD [address], [address], [place], [address] , [facility] [employer] [facility] [employer] [facility] 3 12:57:13 Osteoarth ritis 515529619 Active 2022 Leann Pineda APRN [address], [address], [place], [address] , [employer] [facility] [employer] [facility] 4 13:07:53 Upper respirato ry infection 95536041 Active 2023 BRYANT Torres [address], [address], [place], [address] , [facility] [employer] [facility] 4 16:01:10 Acute bronchiti s 77874699 Active 2023 Yovana iWlson MD [address], [address], [place], [address] , [facility] [employer] [facility] [employer] [facility] 4 09:22:52 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 2023 Leann Pineda APRN [address], [address], [place], [address] , [facility] [employer] [facility] [employer] [facility] 4 11:04:51 Bilateral shoulder joint pain 99850542082 322731 Active 2023 Leann Pineda APRN [address], [address], [place], [address] , [facility] 4 11:01:50 Onychomyc osis of toenails 726948901 Active 2023 Arvind Morfin Sav[place] null, [facility] 4 11:26:01 Pain in left foot 06638339579 9107 Active 2023 Rudy Rowe DPM [address], [address], [place], [address] , [facility] 4 08:53:17 Pain in right foot 62374313950 9107 Active 2023 Rudy Rowe DPM [address], [address], [place], [address] , [facility] 4 08:53:26 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 74173598757 07 Active 2023 Rudy Rowe DPM [address], [address], [place], [address] , [facility] 4 08:53:45 Ferritin level below reference range 833858822 Active 2023 Leann Pineda APRN [address], [address], [place], [address] , [facility] [employer] [facility] 4 20:21:08 Moderate recurrent major depressio n 15317648 Active 2024 Lisette nuñez MD [address], [address], [place], [address] , [facility] [employer] [facility] 5 16:05:16 Gastroeso phageal reflux disease without esophagit is 657663166 Active 2024 Lisette nuñez MD [address], [address], [place], [address] , [email or web address] [facility] 5 16:05:45 Pain of multiple joints 82327442 Active 2024 Lisette nuñez MD [address], [address], [place], [address] , [place] [facility] [employer] [facility] 16:06:36 Neuropath y 451506191 Active 2024 Lisette nuñez MD [address], [address], [place], [address] , [employer] [facility] 16:07:13 Anemia 601220216 Active 2024 Lisette nuñez MD [address], [address], [place], [address] , [email or web address] [facility] 16:11:36 Cerebrova scular accident 829007830 Active 2024 Lisette nuñez MD [address], [address], [place], [address] , [email or web address] [facility] 16:12:44 Pain of left knee joint 35358374553 4107 Active 2024 Lisette nuñez MD [address], [address], [place], [address] , [email or web address] [facility] 16:17:03 Notes:Some problems listed i n Document: #[id number] could not be added to this patient's chart. Please review this document and add these problems to the patient's chart manually as needed. Problem Notes None recorded. Procedures Surgical History Date Name Laterality Status Provider Name and Address Organization Details Recorded Time 12/12/19 24 Nail Debridement completed Rudy Rowe DPM [address], [address], [place], [address], [facility] [email or web address] [facility] 12/13/2023 08:53:02 12/12/19 24 Callus Debridement 2-4 completed Rudy Rowe DPM [address], [address], [place], [address], [employer] 12/13/2023 08:53:11 08/23/19 24 Medicare Wellness CPT Code, subsequent completed Davidsavannah Levine LPN [employer] [facility] 08/23/2023 09:46:14 Carpal tunnel completed Not Available [facility] 05/11/2022 06:54:21 Cholecystectomy completed Not Available [facility] 05/11/2022 06:54:21 Hernia Repair completed Not Available [facility] 05/11/2022 06:54:21 EGD completed Not Available [facility] 05/11/2022 06:54:21 Colonoscopy completed Not Available [facility] 05/11/2022 06:54:21 other completed Not Available [facility] 05/11/2022 06:54:21 Imaging Results None recorded. Procedure Notes None recorded. Medical Equipment None Reported. Allergies Allergen ID Allergen Name Allergen Category Reaction Reaction Severity Criticality Documentation Date Start Date Code Code System Note Provider Name and Address Organization Details Recorded Time 56724 Iodinated contrast media (substanc e) medicatio n Not available Not available Not available 05/11/2022 63188 2004 SNOMED Not Available [facility] 07:00:18 Medications Name Sig Start Date Stop [...] mg base)/3 mL nebulizati on soln active [facility]#: [id number] 03-15 Not Available Not Available Not [...] TAKE 1 TABLET BY MOUTH ONCE DAILY 07/24 completed Not Available Not Available Not Available prednisone 50 mg tablet Take 1 tablet [...] Available Not Available gabapentin 100 mg capsule TAKE 1 CAPSULE BY MOUTH TWICE DAILY DIRECTED active Not Available Not Available No t Available metoprolol succinate ER 25 mg tablet,ext ended [...] Not Available Not Available FreeStyle Pearl 2 Ider Use as directed dx e11.9 active Not Available Not Available No t Available [employer]Style Pearl 2 Sensor active Not Available Not Available Not Available Fluad Quad ( 65yr up)(PF) 60 mcg (15 mcg x [...] in Arterial blood by Pulse oximetry Systolic And Diastolic Provider Name and Address Organization Details Last Updated DateTime 5 177.8 cm 27.5 kg/m2 41826.7 4 g 97.6 [degF] 71 /min 96 % 96 % 158/84 mm[Hg] Marcella Weaver RN [facility] [employer] [facility] 5 08:43:03 Date Recorded Body height Body mass index (BMI) Body weight Body temperature Heart rate Oxygen saturation Oxygen saturation in Arterial blood by Pulse oximetry Systolic And Diastolic Provider Name and Address Organization Details Last Updated DateTime 5 177.8 cm 27.1 kg/m2 70314.9 6 g 97.1 [degF] 61 /min 98 % 98 % 128/64 mm[Hg] Dayanara Stevens MA [facility] [employer] [facility] 5 10:39:19 Date Recorded Body height Body mass index (BMI) Body weight Body temperature Heart rate Systolic And Diastolic Provider Name and Address Organization Details Last Updated DateTime 5 177.8 cm 27.7 kg/m2 70197.3 3 g 97.3 [degF] 60 /min 112/60 mm[Hg] SAQIB Faye [facility] [employer] [facility] 5 16:52:44 Date Recorded Body height Body mass index (BMI) Body weight Body temperature Heart rate Oxygen saturation Oxygen saturation in Arterial blood by Pulse oximetry Pain severity - 0-10 verbal numeric rating [Score] - Reported Systolic And Diastolic Provider Name and Address Organization Details Last Updated DateTime 5 177.8 cm 27.1 kg/m2 56336.9 6 g 98.1 [degF] 63 /min 95 % 95 % 1 118/64 mm[Hg] Ирина Marks MA [place] - [employer] [facility] 5 15:31:45 Social History Question Answer Notes LastModified by Organizat ion Details LastModified Time Tobacco Smoking Status Never Smoker Not Available [employer] 05/11/2022 06:54:14 Do You Have An Advance Directive? Yes [email or web address] Information not available 08/23/2023 Are You Blind Or Do You Have Difficulty Seeing? No [email or web address] Information not available 08/23/2023 Is Blood Transfusion Acceptable In An Emergency? Yes [email or web address] Information not available 08/23/2023 What Is Your Level Of Caffeine Consumption? Occasional MIGRATION.46766 53474 Information not available 05/11/2022 How Much Tobacco Do You Chew? None MIGRATION.05918 53552 Information not available 05/11/2022 In The 14 Days Before Symptom Onset, Have You Had Close Contact With A Laboratory-confir med COVID-19 While That Case Was Ill? No MIGRATION.85309 70981 Information not available 05/11/2022 In The 14 Days Before Symptom Onset, Have You Had Close Contact With A Person Who Is Under Investigation For COVID-19 While That Person Was Ill? No MIGRATION.63377 02523 Information not available 05/11/2022 Are You Deaf Or Do You Have Serious Difficulty Hearing? No [email or web address] Information not available 08/23/2023 What Type Of Diet Are You Following? REGULAR MIGRATION.10337 98560 Information not available 05/11/2022 Which Illicit Or Recreational Drugs Have You Used? None MIGRATION.08547 61329 Information not available 05/11/2022 What Is The Highest Grade Or Level Of School You Have Completed Or The Highest Degree You Have Received? [id number] [email or web address] Information not available 08/23/2023 Do You Have An Electrostatic Air Filter? Yes MIGRATION.98056 35762 Information not available 05/11/2022 Have There Been Any Changes To Your Family Or Social Situation? No Information no t available 08/23/2023 Are There Any Guns Present In Your Home? Yes MIGRATION.05077 88192 Information not available 05/11/2022 Do You Have A Humidifier? Yes MIGRATION.81290 31288 Information not available 05/11/2022 Do You Use Insect Repellent Routinely? No Information not available 08/23/2023 Where Do You Live? [place]House MIGRATION.21485 16268 Information not available 05/11/2022 Presence Of Domestic Violence No [email or web address] Information no t available 08/23/2023 Guns Present In The Home? Yes [email or web address] Information not available 08/23/2023 Are You Able To Care For Yourself? Yes [email or web address] Information not available 08/23/2023 Are You Blind Or Do Yo Have Difficulty Seeing? No [email or web address] Information not available 08/23/2023 Are You Deaf Or Do You Have Serious Difficulty Hearing? No [email or web address] Information not available 08/23/2023 General Stress Level? Low [email or web address] Information not available 08/23/2023 Live Alone Of With Others? With Others [email or web address] Information not available 08/23/2023 Do You Have A Medical Power Of Laborer [place]? Yes Information not available 06/24/2024 Do You Have Moisture Problems In Your Home? No MIGRATION.31277 57360 Information not available 05/11/2022 What Was The Date Of Your Most Recent Tobacco Screening? 07/24/2024 Information not available 07/24/2024 How Many Children Do You Have? 3 Information not available 08/23/2023 Do You Have Any Pets? No MIGRATION.21761 00598 Information not available 05/11/2022 What Is Your Relationship Status? Information not available 08/23/2023 Do You Use Your Seat Belt Or Car Seat Routinely? Yes Information not available 08/23/2023 Do You Have Smoke And Carbon Monoxide Detectors In Your Home? Yes MIGRATION.25215 82680 Information not available 05/11/2022 Are You Passively Exposed To Smoke? No MIGRATION.41863 59645 Information not available 05/11/2022 Are There Any Smokers In Your House? No Information not available 08/23/2023 Do You Use Sunscreen Routinely? No MIGRATION.85128 87664 Information not available 05/11/2022 Has Tobacco Cessation Counseling Been Provided? No N/a Information not available 06/24/2024 Have You Recently Traveled Abroad? No MIGRATION.27284 16443 Information not available 05/11/2022 Do You Have Difficulty Walking Or Climbing Stairs? Yes [email or web address] Information not available 08/23/2023 Do You Have Any Dietary Restrictions? No MIGRATION.98681 60521 Information not available 05/11/2022 Sex: Male Functional Status Question Answer Note LastModified by Organizat ion Details LastModified Time Do you use any illicit or recreational drugs? No MIGRATION.9304611 026 Information not available 05/11/2022 Do you or have you ever used any other forms of tobacco or nicotine? No [email or web address] Information not available 08/23/2023 What is your level of alcohol consumption? None MIGRATION.8474988 026 Information not available 05/11/2022 Are you currently employed? No [email or web address] Information not available 08/23/2023 Do you have transportation difficulties? No [email or web address] Information not available 08/23/2023 Are you able to walk? YESWOREST [email or web address] Information not available 08/23/2023 Do you have difficulty doing errands alone? No Information not available 08/23/2023 Are you able to care for yourself? Yes Information n ot available 08/23/2023 What is your occupation? retired [id number] Information not available 05/11/2022 Do you have difficulty dressing or bathing? No [email or web address] Information not available 08/23/2023 What is your exercise level? Occasional [id number] Information not available 05/11/2022 Mental Status Question Answer Note LastModified by Organizat ion Details LastModified Time Do you feel stressed (tense, restless, nervous, or anxious, or unable to sleep at night)? [id number] Information not available 08/23/2023 Do you have difficulty concentrating, remembering or making decisions? No [email or web address] Information no t available 08/23/2023 Family History Relationship Description Onset Age of this Age Resolved Age Notes LastModified by Organization Details LastModified Time Father Heart disease [id number] Not available 05/11/2022 06:54:22 Father Diabetes mellitus [id number] Not available 05/11/2022 06:54:22 Mother Malignant tumor of breast [id number] Not available 05/11/2022 06:54:22 Father Myocardial infarction Not available 06/24 16:50:23 Father Malignant neoplasm of prostate Not available 2024 16:50:33 Notes:arthritis runs in mom' s side Medical History Condition Response ARTHRITIS Y DIABETES, TYPE Y BACK / NECK PROBLEMS Y STROKE/TIA Y HEART DISEASE/HEART PROBLEMS Y Immunizations Vaccine Type Date Status Note Provider Nam e and Address Organization Details Recorded Time Influenza, high-dose, quadrivalent, PF 1 completed Leann Pineda APRN [address], [address], [place], [address], [employer] [facility] 08/23/2023 12:47:25 Influenza, high-dose, quadrivalent, PF 2 completed Leann Pineda APRN [address], [address], [place], [address], [employer] [facility] 08/23/2023 12:47:25 Influenza, adjuvanted, quadrivalent, PF 0 completed Leann Pineda APRN [address], [place], [address], [employer] 08/23/2023 12:47:25 COVID-19, mRNA, LNP-S, PF, 30 mcg/0.3 mL dose 1 completed Leann Pineda APRN [address], [address], [place], [address], [employer] [facility] 08/23/2023 12:47:25 COVID-19, mRNA, LNP-S, PF, 30 mcg/0.3 mL dose 1 deonna Pineda APRN [address], [address], [place], [address], [facility] [employer] [facility] 08/23/2023 12:47:25 COVID-19, mRNA, LNP-S, PF, 30 mcg/0.3 mL dose 1 completed Leann Pineda APRN [address], [address], [place], [address], [facility] [employer] [facility] 08/23/2023 12:47:25 COVID-19, mRNA, LNP-S, PF, 30 mcg/0.3 mL dose, nicole-sucrose 2 completed Leann Pineda APRN [address], [address], [place], [address], [facility] [employer] [facility] 08/23/2023 12:47:25 COVID-19, mRNA, LNP-S, bivalent, PF, 30 mcg/0.3 mL dose 2 completed Leann Pineda APRN [address], [address], [place], [address], [facility] [employer] [facility] 08/23/2023 12:47:25 Influenza, high-dose, trivalent, PF 8 completed Leann Pineda APRN [address], [address], [place], [address], [facility] [employer] [facility] 08/23/2023 12:47:25 Influenza, high-dose, quadrivalent, PF 3 completed Leann Pineda APRN [address], [address], [place], [address], [facility] [employer] [facility] 08/23/2023 12:47:37 RSV, bivalent, protein subunit RSVpreF, diluent reconstituted, 0.5 mL, PF 3 completed Leann Pineda APRN [address], [address], [place], [address], [facility] [employer] [facility] 08/23/2023 12:47:37 COVID-19, mRNA, LNP-S, PF, nicole-sucrose, 30 mcg/0.3 mL 3 completed Leann Pineda APRN [address], [place], [address], [facility] [employer] [facility] [employer] [facility] 08/23/2023 12:47:37 Influenza, high-dose, trivalent, PF 9 completed Leann Pineda APRN [address], [place], [address], [employer] [facility] [employer] [facility] 08/23/2023 12:47:37 zoster recombinant 4 completed Leann Pineda APRN [address], [place], [address], [employer] [facility] [employer] [facility] 03/20/2024 08:45:49 Pneumococcal conjugate PCV20, polysaccharide [id number] conjugate, adjuvant, PF 4 completed Leann Pineda APRN [address], [address], [place], [address], [employer] [facility] [employer] [facility] 03/20/2024 08:45:49 COVID-19, mRNA, LNP-S, PF, nicole-sucrose, 30 mcg/0.3 mL 4 completed Leann Pineda APRN [address], [address], [place], [address], [employer] [facility] [employer] [facility] 03/20/2024 08:45:49 Influenza, high-dose, trivalent, PF 4 completed Leann Pineda APRN [address], [address], [place], [address], [employer] [facility] [employer] [facility] 03/20/2024 08:45:49 Influenza, split virus, trivalent, preservative 3 completed Leann Pineda APRN [address], [place], [address], [employer] [facility] [employer] [facility] 08/23/2023 12:47:25 Influenza, split virus, quadrivalent, preservative 1 completed Not Available [facility] 05/11/2022 07:00:09 COVID-19, mRNA, LNP-S, PF, 100 mcg/0.5mL dose or 50 mcg/0.25mL dose 1 completed Leann Pineda APRN [address], [address], [place], [address], [facility] [employer] [facility] 08/23/2023 12:47:25 COVID-19, mRNA, LNP-S, PF, 100 mcg/0.5mL dose or 50 mcg/0.25mL dose 1 completed Leann Pineda APRN [address], [place], [address], [facility] [employer] [facility] 08/23/2023 12:47:25 Influenza, split virus, quadrivalent, preservative 0 completed Leann Pineda APRN [address], [place], [address], [facility] [employer] [facility] 08/23/2023 12:47:25 Influenza, split virus, quadrivalent, preservative 9 completed Not Available [facility] 05/11/2022 07:00:10 Tdap 8 completed Not Available [facility] 05/11/2022 07:00:10 Influenza, high-dose, trivalent, PF 7 completed Not Available [facility] 05/11/2022 07:00:10 Influenza, high-dose, trivalent, PF 6 completed Not Available [facility] 05/11/2022 07:00:10 Influenza, high-dose, trivalent, PF 5 completed Not Available [facility] 05/11/2022 07:00:10 Influenza, high-dose, trivalent, PF 4 completed Not Available [facility] 05/11/2022 07:00:10 Past Encounters Encounter ID Performer Location Encounter Start Date Encounter Closed Date Diagnosis/Indication Diagnosis SNOMED-CT Code Diagnosis ICD10 Code Diagnosis Note [id number] [facility] ic_Gateway [facility] Family Practice Claus kiran [address] [place] [address] 07/08/2020 00:00:00 07/08/2020 13:20:19 [id number] Juancarlos martinez MD [facility] [address] [place] [address] 11/10/2020 00:00:00 11/10/2020 13:23:11 [id number] Blue Stoll MD [facility] Family Practice [place] [address] [facility] [address] 02/09/2021 00:00:00 02/09/2021 10:06:50 [id number] [facility] ic_Gateway [facility] [place] [address] [place] [address] 04/01/2021 00:00:00 04/01/2021 16:19:44 [id number] [facility]_Histor ic_Gateway [facility] [place] [address] [place] [address] 05/19/2021 00:00:00 05/19/2021 16:58:51 [id number] ANTONETTE Hansen [facility] [address] [place] [address] 06/30/2021 00:00:00 06/30/2021 15:28:14 [id number] Blue Stoll MD [facility] [place] [address] [place] [address] 08/04/2021 00:00:00 08/04/2021 10:24:39 [id number] ANTONETTE Hansen [facility] [address] [place] [address] 08/23/2021 00:00:00 08/23/2021 15:45:33 [id number] ANTONETTE Hansen [facility] [address] [place] [address] 10/04/2021 00:00:00 10/04/2021 15:55:23 [id number] Christy Duffy [facility] [place] [address] [place] [address] 12/14/2021 00:00:00 12/14/2021 19:47:39 [id number] Yovana Wilson MD [facility] Primary [facility] [place] [address] [place] [address] 04/04/2022 00:00:00 04/11/2022 18:17:23 [id number] Yovana Wilson MD [facility] Primary [facility] [place] [address] [place] [address] 04/07/2022 00:00:00 04/11/2022 17:59:20 [id number] Yovana Wilson MD [facility] Primary [facility] [place] [address] [place] [address] 05/16/2022 11:46:43 05/16/2022 12:01:38 [id number] Christy Duffy [facility] [place] [facility] [place] [address] [place] [address] 06/14/2022 15:02:11 06/14/2022 15:27:41 Asthma 360225943 J45.909 ACT 22+ methacholi ne challenge testing 07/27/21Co ntinue Breo Ellipta 100 dailyDiscu ssed use and techniqueH e is aware to rinse and spit after useDiscuss ed reportable signs and symptomsRT C in 6 months, PRN for concerns Alpha-1-an titrypsin deficiency 13189080 E88.01 MS, normal levelHe is aware to get siblings and children tested Dyspnea on exertion 6084 5006 R06.09 Multifacto ralIGGS with slightly low subclass 1 and 2IGE normalIncr ease activity as toleratedQ uantiferon GOLD normalRAST and HP panel normal History of SARS-CoV-2 29 94359336 15514275 Z86.16 + 02/2021 Obstructiv e sleep apnea syndrome 22243512 G47.33 NOtcomplia nt with therapyUni nterested in troublesho oting [id number] Yovana Wilson MD [facility] Primary Care [facility] [address] [facility] [address] [place] [address] 10/20/2022 12:32:25 10/20/2022 13:53:28 Iron deficiency anemia 49623033 D50.9 continue mvi with ironcheck labs Diabetes mellitus 325931 09 E11.9 Hyperlipidemia 53057626 E78.5 Essential hypertension 42380968 I10 Cobalamin deficiency 190 616527 E53.8 Left inguinal hernia 236 988092 K40.90 Ok for activities as toleratedG eneral surgery referral given Osteoarthritis 701333518 M19.90 [id number] Christy Duffy, [facility] [place] [address] [place] [address] 12/14/2022 15:08:11 12/14/2022 16:40:48 Asthma 183987939 J45.909 ACT 24+ methacholi ne challenge testing 07/27/21Co ntinue Breo Ellipta 100 dailyDiscu ssed use and techniqueH e is aware to rinse and spit after useDiscuss ed reportable signs and symptomsAd vised vaccines this fall Alpha-1-an titrypsin deficiency 34550688 E88.01 MS, normal levelHe is aware to get siblings and children tested Dyspnea on exertion 6084 5006 R06.09 Multifacto ralIGGS with slightly low subclass 1 and 2IGE normalIncr ease activity as toleratedQ uantiferon GOLD normalRAST and HP panel normal History of SARS-CoV-2 29 24554303 12585006 Z86.16 + 02/2021 Obstructiv e sleep apnea syndrome 52989591 G47.33 Not compliant with therapyUni nterested in troublesho otingDiscu ssed the risks of uncorrecte d NIRU, including [id number] Yovana Wilson MD [facility] Primary Care [facility] [address] [facility] [address] [place] [address] 03/28/2023 09:08:52 03/28/2023 09:34:55 Acute bronchitis 35593604 J20.9 check cxrdoxycyc line 100 mg po bid x 10 dayspredni sone taper with food, avoid other nsaidscont inue inhalersca ll/return if no improvemen t in 1-2 days or sooner if neededrevi ewed s/s that warrant urgent/ami rgent eval in meantime [id number] Yovana Wilson MD [facility] Primary Care [facility] [address] [facility] [address] [place] [address] 05/30/2023 09:34:11 05/30/2023 11:24:07 Iron deficiency anemia 99563885 D50.9 continue mvi with ironcheck labs Diabetes mellitus 780848 09 E11.9 stable per home readingswi order cgheck labs Hyperlipidemia 16400849 E78.5 Essential hypertension 08066406 I10 monitored by cardiology no med changes this month Cobalamin deficiency 190 483332 E53.8 Left inguinal hernia 236 521677 K40.90 will have surgical repair this week with Dr. Pride [id number] Lisette nuñez MD [facility] Internal Med [address] [place] [address] 08/23/2023 10:30:18 08/23/2023 11:39:47 Adult health examination 311654954 Z00.00 Screening for disorder 013047207 Z13.9 [id number] Lisette nuñez MD [facility] Internal Med [address] [place] [address] 11/29/2023 10:24:38 11/29/2023 11:11:01 Hyperlipidemia 94879960 E78.5 Iron defic iency anemia 01756068 D50.9 Type 2 laine betes mellitus 34395284 E11.9 Bilateral shoulder joint pain 7308302288 1686935 M25.436 [id number] Rudy Rowe DPM [facility] Podiatry [facility] [address] [address] 12/12/2023 10:49:54 12/13/2023 11:32:27 Onychomycosis of toenails 102728885 B35.1 Pain in left foot 856774 3619 81638 M79.672 Pain in right foot 51608 99452 27162 M79.671 Peripheral neuropathy due to type 2 diabetes mellitus 5492737876 107 E11.42 [id number] Lisette nuñez MD [facility] Primary Care [facility] [address] [facility] [address] [place] [address] 03/20/2024 08:35:45 03/20/2024 08:59:09 Osteoarthritis 455801024 M19.90 Peripheral neuropathy due to type 2 diabetes mellitus 4019058627 107 E11.42 [id number] Lisette nuñez MD [facility] Internal Med [address] [facility] [place] [address] 05/29/2024 10:23:38 05/29/2024 11:18:07 Pain of multiple joints 58409385 M25.50 Cobalamin deficiency 190 556185 E53.8 Ferritin l evel below reference range 787684704 R77.8 Peripheral neuropathy due to type 2 diabetes mellitus 0804935549 107 E11.42 Gastroesop hageal reflux disease without esophagitis 872322473 K21.9 Osteoarthritis 324370331 M19.90 Type 2 laine betes mellitus without complication 470378082 E11.9 [id number] Lisette nuñez MD [facility] Primary Care [facility] [address] [facility] [address] [place] [address] 06/24/2024 16:01:13 06/24/2024 17:10:56 Screening - NAD 405808930 Z13.9 C-scope: Not doing now, denies any complaints Get yearly fluGet tdap if not doneGet shingrix vaccineGet COVID 19 boostersCa n do RSV vaccine and pneumonia vaccines RTC in 3 months, do labs, ER if worse Hyperlipidemia 18407128 E78.5 On ASAOn atorvastat in 20mg dailyGet labs Moderate r ecurrent major depression 71155063 F33.1 On lexaproNot suicidal or homicidalD oes not see psychiatry Diabetes mellitus 146879 09 E11.9 On trulicityN o history of MEN2 or MCT or thyroid or parathyroi d complaints , also no psychiatry complaints , and is on medication sGet labs Gastroesop hageal reflux disease without esophagitis 023294219 K21.9 On pantoprazo le 40mg daily as needed Pain of mu ltiple joints 35311268 M25.50 On tramadolOn celebrexAd vise to take ONLY as neededGet a referral to rheumatolo gy Neuropathy 121923049 G62 .9 On gabapentin Essential hypertension 79876796 I10 On ASAOn metoprolol ER 25mg dailyOn valsartan 320mg dailyOn xarelto 2.5mg bid Dr Nina [facility] 06/18/2024 Obstructiv e sleep apnea syndrome 45590953 G47.[address] Ricks 02/13/2024 Asthma 679360786 J45.[address] Ricks 02/13/2024 Anemia 639725509 D64.9 On ironGet labs Cerebrovas cular accident 116572362 I63.9 [facility] [id number] Lisette nuñez MD [facility] Primary Care [address] [place] [address] 06/25/2024 08:57:33 06/25/2024 09:34:16 [id number] Lisette nuñez MD [facility] Care [address] [place] [address] 07/24/2024 15:17:15 07/24/2024 16:54:43 Screening - NAD 232178719 Z13.9 C-scope: Not doing now, denies any complaints Get yearly fluGet tdap if not doneGet shingrix vaccineGet COVID 19 boostersCa n do RSV vaccine and pneumonia vaccines RTC in 3 months, do labs, ER if worse Hyperlipidemia 30925275 E78.5 On ASAOn atorvastat in 20mg dailyGet labs Moderate r ecurrent major depression 72612303 F33.1 On lexaproNot suicidal or homicidalD oes not see psychiatry Diabetes mellitus 306691 09 E11.9 On trulicityN o history of MEN2 or MCT or thyroid or parathyroi d complaints , also no psychiatry complaints , and is on medication sGet labs Gastroesop hageal reflux disease without esophagitis 770729159 K21.9 On pantoprazo le 40mg daily as needed Pain of mu ltiple joints 54165072 M25.50 On tramadolOn celebrexAd vise to take ONLY as neededGet a referral to rheumatabdiel gy Neuropathy 542352527 G62 .9 On gabapentin Essential hypertension 41091376 I10 On ASAOn metoprolol ER 25mg dailyOn valsartan 320mg dailyOn xarelto 2.5mg bid Dr Nina [facility] 06/18/2024 Obstructiv e sleep apnea syndrome 80261649 G47.[address] Ricks 02/13/2024 Now sees Christy Duffy [employer] Asthma 967216468 J45.[address] Ricks 02/13/2024 Anemia 411342908 D64.9 On ironGet labs Cerebrovas cular accident 159851886 I63.9 On xarelto 2.5mg bidSees [facility] Pain of le ft knee joint 0553778565 69984 M25.562 On tramadolOn celebrexAd vise to take ONLY as neededGet a referral to rheumatabdiel gy Seen by Dr Salbador Mohamud next apt in 09/2024 Health Concerns Section Related Observation LastModified by Organization Detai ls LastModified Time None Recorded Concern Status LastModified by Organization Details LastModified Time None Recorded Advance Directives Directive Y: Payers Insurance Date Sequence Insurance Name Policy Number Policy Shah Covered Member ID Shah Member ID Guarantor Name 09/20/2024 1 [employer] (MEDICARE REPLACEMENT/A DVANTAGE - PPO) [id number] Martín Gerardo [id number] Martín Carrillo Notes Date Note Type Note Provider Name and Address Organization Details Recorded Time 03/20/2024 text/html Martín presents today for medication refill. He is also in need of his handicapped parking placard to be renewed. He states that [facility] came out to his house in early February and his A1C was 6.1. He walks with a cane. Colt presents today for 3 month follow up. He states that he receives injections in his shoulders every 6 months. He states that he has tried using lidocaine patches and they have worked and he would like to have a prescription. He also states that he is on the Freestyle Pearl 2 to monitor his blood sugars. 08/23/2023negra presents today to establish care as his provider has left the area. He is also due to his Medicare Wellness. He was recently diagnosed with diabetes, he states his blood sugars have been under control with the [facility]. Leann Pineda APRN [address], [place], [address], [employer] 03/20/2024 08:55:59 05/29/2024 text/html Martín presents today [...] placard to be renewed. He states that [employer] came out to his house in early [...] also states that he is on the Freestyle Pearl 2 to monitor his blood sugars. 08/23/2023negra presents today to establish care as his provider has left the area. He is also due to his Medicare Wellness. He was recently diagnosed with diabetes, he states his blood sugars have been under control with the [facility]. Leann Pineda APRN [address], [address], [place], [address], [employer] 05/29/2024 10:55:16 06/24/2024 text/html OV 06/24/2024: Here to establish care Present Hx:HLDDepressionGE RDNeuropathyHTNOSA AsthmaAnemiaCVA Here to discuss above and to get labs Lisette Ray MD [address], [place], [address], [place] [facility] [employer] 06/24/2024 19:00:12 07/24/2024 text/html OV 06/24/2024: Here to establish care Present Hx:HLDDepressionGE RDNeuropathyHTNOSA AsthmaAnemiaCVA Here to discuss above and to get labs OV 07/24/2024:Here for his f/u apt, did do the labs, does well Lisette Ray MD [address] [place] [address], [place] [address], [place], [address], [facility] [employer] [facility] [employer] 07/24/2024 18:44:12
--- OUTSIDE RECORDS SUMMARY | 2024-10-03 15:36 | XMS_ITS | Clinical Summary ---
Author Organization [place] [id number] [facility] Address [address] [place] [address] Care Team Providers Care Polysomnographic Technician Name Role Phone Martin Varela MD Unavailable [phone] Leann Pineda NP Primary Care Provider Allergies [...] (obstructive sleep apnea) 05/01/2024 Assessment & Plan (07/31/2024 2:31 PM CDT): He had a positive home sleep study in 2021 with an AHI of 11.5. We have discussed the risks of uncorrected NIRU I previously placed an order for sleep medicine evaluation Assessment & Plan (05/01/2024 1:00 PM MANAGER WASTEWATER): He had a positive home sleep study in 2021 with an AHI of 11.5. 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 He does not have frequent exacerbations and he does not have significant peripheral eosinophilia We have discussed signs and symptoms that would require earlier evaluation or change to his plan of care Assessment & Plan (05/01/2024 1:01 PM MANAGER WASTEWATER): When he is at baseline I will repeat pulmonary function testing. Continue Breo Ellipta 200 for now. Albuterol as needed only, we have discussed indications for use. Upper respiratory tract infection due to influen za A virus 05/01/2024 Assessment & Plan (05/01/2024 12:58 PM MANAGER WASTEWATER): He has improved from initial infection 2 1/2 weeks ago but his sputum continues to be thick and yellow Start azithromycin Start NAC twice daily Monitor for worsening symptoms Heterozygous alpha 1-antitrypsin deficiency 04/13 Assessment & Plan (07/31/2024 2:30 PM CDT): M/S - his last level was 137 We will plan to check his levels annually and with changes in respiratory status. Assessment & Plan (05/01/2024 1:03 PM MANAGER WASTEWATER): M/S - his last level was 137 Right wrist pain 01/07/2022 Primary osteoarthritis of fi rst carpometacarpal joint of right hand 01/07/2022 Extensor carpi ulnaris tendinitis 01/07/2022 Coronary arteriosclerosis 07/19/2019 Essential hypertension 07/19/2019 Gastroesophageal reflux disease 07/19/2019 Hyperlipidemia 07/19/2019 Type 2 diabetes mellitus 07/19/2019 Vitamin B12 deficiency (non anemic) 07/19/2019 Hemiparesis affecting left side as late effect o f stroke 07/19/2019 Resolved Problems Problem Noted Date Diagnosed Date Resolved Date Chronic obstructive pulmonar y disease, unspecified 02/13/2024 07/31/2024 Encounters Date Type Department Care Team Description 07/31/2024 11:00 AM CDT Office Visit [facility] Medical [facility] Pulmonary at [address] [place] [address] Christy Duffy, PAT Mild intermittent asthma without complication (Primary Dx); Heterozygous alpha 1-antitrypsin deficiency (HCC); Elevated diaphragm; NIRU (obstructive sleep apnea) from Last 3 Months Immunizations Immunization Administration [...] on file Legal Sex Male 9:15 AM MANAGER WASTEWATER Gender Identity Male 07/18/2019 6:52 AM CDT Sexual Orientation Not on file Obstetrics History Last Filed Vital Signs Vital Sign Reading Time Taken Comments Blood Pressure 110/50 07/31/2024 11:16 AM CDT Pulse 69 07/31/2024 11:16 AM CDT Temperature 36.3 C (97.3 F) 07/31/2024 11:16 AM CDT Respiratory Rate 16 07/31/2024 11:16 AM CDT Oxygen Saturation 96% 07/31/2024 11:16 AM CDT Inhaled Oxygen Concentration - - Weight 86.3 kg (190 lb 4.8 oz) 07/31/2024 11:16 AM CDT Height 177.8 cm (5' 10) 07/31/2024 11:16 AM CDT Body Mass Index 27.31 07/31/2024 11:16 AM CDT Plan of Treatment Health Maintenance [...] Zoster Vaccine (2 of 2) 02/08/2024 12/14/2023 Influenza Vaccine (#1) 2024 4, 12/16/2020, 01/04/2020, Additional history exists DTaP/Tdap/Td Vaccine (2 - [...] MATA Estimated Average Glucose 148 mg/dL [facility] Comment: The ADA recommends reporting an estimated Average Glucose (eAG) with all Hemoglobin A1c results using the equation derived from a study of 507 normal and diabetic adults. Minority populations were underrepresented and children were not included. (Diabetes Care 31:5442-2039, 2008). The eAG is not equivalent to a fasting glucose. Blood specimen (specimen) 12/12/2018 3:01 PM CDT 12/12/2018 4:14 PM CDT Leann Ellis MD LAB BLOOD ORDERABLES Fin al Result [facility] [address] [place] [address] * Lipid panel (12/12/2018 3:01 PM CDT) [...] 2017. LDL, calculated 50 <=129 mg/dL [facility] Comment: Interpretive Data Ages < or [...] on 2017. Non-HDL Cholesterol 79 mg/dL [facility] Comment: Interpretive Data Ages < or [...] last revised on 2017. Chol/HDL ratio 3 [facility] Blood specimen (specimen) 12/12/2018 3:01 PM CDT 12/12/2018 3:11 PM CDT us Leann Ellis MD LAB BLOOD ORDERABLES Fin al Result [facility] [address] [place] [address] from Last 3 Months or Most Recently Relevant to Health Maintenance Insurance [facility]ICARE [facility] Address: [place] [id number] [employer] MEDICARE [facility] Address: [place] [id number] [facility]IC[facility] Address: [facility] [address] [place] [address] Advance Directives For more information, please contact: [phone] * LIMITED - No CPR (Latest Code [...] 11:06 PM 12/13/2018 2:31 AM Care Teams Polysomnographic Technician Relationship Specialty Start Date End Date Leann Pineda NP [address] [facility] [address] [place] [address] PCP - General Family Medicine 05/30/24 Martin Varela MD [address] [address] Surgeon Orthopedic Surgery 04/08/20
--- OUTSIDE RECORDS SUMMARY | 2024-10-03 15:37 | XMS_ITS | Clinical Summary ---
Author Organization [facility] Address [address] [place] [address] Care Team Providers Care Validation Specialist Name Role Phone Madisyn Echeverria NP Primary Care Provider Allergies Active Allergy [...] to thrombosis of right middle cerebral artery ([facility]) Take 1 tablet (325 mg total) by mouth daily. 120 tablet 12/26/2018 Active escitalopram 10 MG tablet 01/16/2019 Active Active Problems Problem Noted Date Diagnosed Date Spastic hemiparesis of left nondominant side ([facility]) 01/30/2019 Slurred speech 12/21/2018 Essential hypertension 12/21/2018 Diabetes ([facility]) 12/21/2018 CVA (cerebral vascular accident) ([facility]) 12/19/2018 Family History Medical History Relation [...] A M CDT Height 177.8 cm (5' 10) 12/19/2018 2:00 PM CDT Body Mass Index [...] 2:18 PM 12/19/2018 2:41 PM Care Teams Validation Specialist Relationship Specialty Start Date End Date Madisyn Echeverria NP [address] [place] [address] PCP - General NURSE PRACTITIONER 12/19/18
--- OUTSIDE RECORDS SUMMARY | 2024-10-03 15:37 | XMS_ITS | Encounter Summary ---
Author Organization [facility] Address 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 Clinical History: [...] AMK Procedure Note Provider, Historical - 05/23/[address] [address] Admit Date: 05/20/2008 MICHAEL CARRILLO Sex: M Admit Prov: MARTIN COOK Date: 1940 Primary Care Prov: CHEL MART CMRN: [id number] [id number] IMAGING SERVICES Ordering Prov: N/A Interpretation CHEST, [...] CDT) MCV 82.6 82.0 - 99.0 fL [facility] PLATELETS 166 140 - 350 K/uL [facility] HEMOGLOBIN 15.0 13.6 - 16.5 g/dL [facility] RDW 14.2 11.5 - 14.5 % [facility] WBC 5.7 4.0 - 9.8 K/uL [facility] MCH 27.1(L) 27.2 - 32.6 pg [facility] MPV 11.9 9.3 - 12.4 fL [facility] HEMATOCRIT 45.7 40.0 - 48.0 % [facility] RDW-STDEV 42.9 37.1 - 48.7 fL [facility] RBC 5.53(H) 4.50 - 5.40 M/uL [facility] MCHC 32.8 31.5 - 35.5 % [facility] EOSINOPHILS 2 0 - 7 % [facility] EOSINOPHIL ABSOLUTE 0.11 0.00 - 0.70 K/uL [facility] LYMPHOCYTES 26 16 - 45 % [facility] LYMPHOCYTE ABSOLUTE 1.48 0.70 - 4.50 K/uL [facility] BASOPHILS 1 0 - 2 % [facility] BASOPHILS ABSOLUTE 0.05 0.00 - 0.20 K/uL [facility] MONOCYTES 7 3 - 13 % [facility] MONOCYTE ABSOLUTE 0.40 0.10 - 1.30 K/uL [facility] NEUTROPHILS 64 45 - 70 % [facility] NEUTROPHIL ABSOLUTE 3.64 1.90 - 7.00 K/uL [facility] Blood specimen (specimen) 05/22/2008 1:34 PM CDT 05/22/2008 3:15 PM CDT us Martin Cook MD HEMATOLOGY ORDERABLES Edited INTERFACE SYSTEM Refer to clinic/hospital department [facility] CLIA# [id number] [place], [place] [address] * (ABNORMAL) COMPREHENSIVE METABOLIC PANEL (05/22/2008 1:34 PM CDT) CO2 24 22 - 30 mmol/L [facility] TOTAL PROTEIN 6.7 6.3 - 8.6 g/dL [facility] POTASSIUM 4.1 3.5 - 4.9 mmol/L [facility] GLUCOSE 162(H) 65 - 99 mg/dL [facility] AST 26 12 - 38 U/L [facility] BUN 12 6 - 20 mg/dL [facility] CALCIUM 9.3 8.6 - 10.2 mg/dL [facility] ALBUMIN 4.4 3.4 - 4.8 g/dL [facility] CHLORIDE 103 96 - 108 mmol/L [facility] CREATININE 0.93 0.67 - 1.17 mg/dL [facility] ALT 39 0 - 41 U/L [facility] SODIUM 137 135 - 145 mmol/L [facility] ALKALINE PHOSPHATASE 55 40 - 129 U/L [facility] BILIRUBIN TOTAL 0.6 0.2 - 1.0 mg/dL [facility] GFR, >60 >=60 mL/min/1. 7 sq meter [facility] GFR >60 >=60 mL/min/1. 7 sq meter [facility] Comment: Modification of Diet in Renal Disease (MDRD) study formula. Estimated GFR rate interpretative information for both Americans and non- Americans is available on the [facility] Intranet at: [email or web address] Select: Lab Policies and Procedures Select: Reference Ranges - GFR Blood specimen (specimen) 05/22/2008 1:34 PM CDT 05/22/2008 3:15 PM CDT Martin Cook MD CHEMISTRY ORDERABLES Edited INTERFACE SYSTEM Refer to clinic/hospital department [facility] CLIA# [id number] [address] [place] [address] documented in this encounter Visit Diagnoses Diagnosis Rotator cuff (capsule) sprain documented in this encounter
--- OUTSIDE RECORDS SUMMARY | 2024-10-03 15:37 | XMS_ITS | Referral Summary ---
Author Organization [place] [id number] [facility] Address [address] [place] [address] Care Team Providers Care Checker In Name Role Phone Martin Varela MD Unavailable [phone] Leann Pineda NP Primary Care Provider [phone] Encounters Date Type Department Care Team Description 07/31/2024 11:00 AM CDT Office Visit [facility] Medical Group Pulmonary at [address] [place] [address] Christy Duffy NP Mild intermittent asthma without complication (Primary Dx); Heterozygous alpha 1-antitrypsin deficiency (HCC); Elevated diaphragm; NIRU (obstructive sleep apnea) from Last 3 Months Allergies Active Allergy [...] evaluation Assessment & Plan (05/01/2024 1:00 PM CLINICAL RESEARCH MANAGER): He had a positive home sleep study [...] surgery Assessment & Plan (05/01/2024 1:01 PM CLINICAL RESEARCH MANAGER): Unsure if this is a true paralysis, [...] care Assessment & Plan (05/01/2024 1:01 PM CLINICAL RESEARCH MANAGER): When he is at baseline I will repeat pulmonary function testing. Continue Breo Ellipta 200 for now. Albuterol as needed only, we have discussed indications for use. Upper respiratory tract infection due to influen za A virus 05/01/2024 Assessment & Plan (05/01/2024 12:58 PM CLINICAL RESEARCH MANAGER): He has improved from initial infection 2 [...] status. Assessment & Plan (05/01/2024 1:03 PM CLINICAL RESEARCH MANAGER): M/S - his last level was 137 [...] obstructive pulmonar y disease, unspecified 02/13/2024 07/31/2024 Immunizations Immunization Administration Dates Next Due Influenza, [...] on file Legal Sex Male 9:15 AM CLINICAL RESEARCH MANAGER Gender Identity Male 07/18/2019 6:52 AM CDT [...] 07/31/2024 11:16 AM CDT Plan of Treatment Not on [...] and children were not included. (Diabetes Care 31:3294-2758, 2008). The eAG is not equivalent to a fasting glucose. Blood specimen (specimen) 12/12/2018 3:01 PM CDT 12/12/2018 4:14 PM CDT Leann Ellis MD LAB BLOOD ORDERABLES Fin al Result [facility] [address] [place] [address] * Lipid panel (12/12/2018 3:01 PM CDT) [...] revised on 2017. HDL 41 >=40 mg/dL [facility] Comment: Interpretive Data Ages < [...] on 2017. LDL, calculated 50 <=129 mg/dL [facility] Comment: Interpretive Data Ages < [...] revised on 2017. Non-HDL Cholesterol 79 mg/dL [facility] Comment: Interpretive Data Ages < [...] last revised on 2017. Chol/HDL ratio 3 [facility] Blood specimen (specimen) 12/12/2018 3:01 PM CDT 12/12/2018 3:11 PM CDT Leann Ellis MD LAB BLOOD ORDERABLES Fin al Result [facility] [address] [place] [address] from Last 3 Months or Most Recently Relevant to Health Maintenance Insurance [id number] MEDICARE ADVANTAGE [facility] MEDICARE ADVANTAGE [facility] [place] [address] Advance Directives For more information, please contact: [phone] * LIMITED - No CPR (Latest Code [...] 11:06 PM 12/13/2018 2:31 AM Care Teams Checker In Relationship Specialty Start Date End Date Leann Pineda NP [address] [facility] [address] [place] [address] PCP - General Family Medicine 05/30/24 Martin Varela MD [address] [facility] [address] [place] [address] Surgeon Orthopedic Surgery 04/08/20
--- OUTSIDE RECORDS SUMMARY | 2024-10-03 15:37 | XMS_ITS | Clinical Summary ---
Author Organization 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
--- OUTSIDE RECORDS SUMMARY | 2024-10-03 15:37 | XMS_ITS | Encounter Summary ---
Author Organization [facility] Address [address] [place] [address] Care Team Providers Care Final Finisher Name Role Phone Madisyn Echeverria NP Primary Care Provider [phone] Encounter Details Date Type Department Care Team (Late st Contact Info) Description 12/26/2018 Hospital Follow-up Call [facility] Inpatient [place] [address] Mere Carty Social History Tobacco Use Types [...] on filedocumented in this encounter Care Teams Final Finisher Relationship Specialty Start Date End Date Madisyn Echeverria NP [address] [place] [address] PCP - General NURSE PRACTITIONER 12/19/18 documented as of this encounter
--- OUTSIDE RECORDS SUMMARY | 2024-10-03 15:37 | XMS_ITS | Clinical Summary ---
Author Organization [facility] Address [address] [place] [address] Care Team Providers Care Zipper Joiner Name Role Phone Madisyn Echeverria ESTHER-CAN TESTER Primary Care Provider + Source Comments [facility],non-owned Affiliates and Associated Physician Practices is amultiple site organization consisting of ambulatory clinics and hospital sitesin [place], [place], [place] and [place]. This disclosure is being madepursuant to the Care Everywhere program and may not contain all information available regarding this patient. Last updated 17.[employer] [facility] Allergies Active Allergy Reactions Criticality Noted Date [...] 9:15 AM CDT Height 177.8 cm (5' 10) 07/30/2021 9:15 AM CDT Body Mass Index 26.54 07/30/2021 9:15 AM CDT Plan of Treatment Health Maintenance Due Date Last Done Comments DTAP/TDAP/TD VACCINES (1 - Tdap) 1960 PNEUMOCOCCAL VACCINE 50+ (1 of 1 - PCV) 1991 ZOSTER VACCINE (1 of 2) 1991 Respiratory Syncytial Virus (RSV) Vaccine Pt: or over 60 yrs (1 - 1-dose 75+ series) 2016 DIABETES-SERUM CREATININE 06/10/20212020, 06/09/2020, 03/04/2009, Additional history exists DIABETES-FOOT EXAM WITH MONOFILAMENT 07/27/2021 DIABETES-HGB A1C 07/27/2021 COVID-19 VACCINE ( season) 2023 06/26/2020, 06/07/2020 DEPRESSION SCREENING 03/13/2024 DIABETES - URINE PROTEIN SCREENING 03/13/2024 INFLUENZA VACCINE (#1) 2024 , 01/04/2020, 01/02/2019, Additional history exists HEPATITIS B [...] PANEL (CALCIUM TOTAL) (06/10/2020 3:30 AM CDT) [facility] Glucose 159(H) 70 - 105 mg/dL 06/10/2020 4:24 AM CDT [facility] Sodium 138 136 - 145 mmol/L 06/10/2020 4:24 AM CDT [facility] Potassium 4.3 3.5 - 5.1 mmol/L 06/10/2020 4:24 AM CDT [facility] Chloride 108(H) 98 - 107 mmol/L 06/10/2020 4:24 AM CDT [facility] CO2 21(L) 23 - 31 mmol/L 06/10/2020 4:24 AM CDT [facility] Calcium 9.6 8.4 - 10.4 mg/dL 06/10/2020 4:24 AM CDT [facility] Anion Gap 9 8 - 18 mmol/L 06/10/2020 4:24 AM CDT [facility] Comment:Attention clinician: Reference Range change. BUN 21 8.4 - 25.7 mg/dL 06/10/2020 4:24 AM CDT [facility] Creatinine 0.81 0.72 - 1.25 mg/dL 06/10/2020 4:24 AM CDT [facility] eGFR by MDRD >60 mL/min/1.7 3m2 06/10/2020 4:24 AM CDT [facility] eGFR by MDRD >60 mL/min/1.7 3m2 06/10/2020 4:24 AM CDT [facility] Blood BLOOD SPECIMEN / Unknown Lab Venipuncture / Unknown 06/10/2020 3:30 AM CDT 06/10/2020 3:46 AM CDT Keisha Martini MD LAB - CHEMISTRY ORDERABLES Final Result [facility] [address] [place] [id number] from Last 3 Months or Most Recently Relevant to Health Maintenance Insurance MEDICARE [employer] MEDICARE Advance Directives * Full Code (Latest Code Status on File) Date Activated Date Inactivated Comments 06/09/2020 8:16 PM 06/10/2020 8:56 PM * Full Code Date Activated Date Inactivated Comments 06/09/2020 7:13 PM 06/09/2020 8:16 PM Care Teams Zipper Joiner Relationship Specialty Start Date End Date Madisyn Echeverria APRN-WALDEMAR [address] [id number] PCP - General Nurse Practitioner 07/30/21
== END 2024-10-03 15:33 | disposition home or self-care (01) ==
PROVIDERS: PCP Internal Medicine; Visit Provider Internal Medicine
DX: M19.072 Primary osteoarthritis, left ankle and foot (principal); M19.071 Primary osteoarthritis, right ankle and foot; M19.042 Primary osteoarthritis, left hand; M19.041 Primary osteoarthritis, right hand; M43.04 Spondylolysis, thoracic region; M43.06 Spondylolysis, lumbar region; M41.85 Other forms of scoliosis, thoracolumbar region
CPT/HCPCS: 72110; 73120; 73620

== ENCOUNTER 2025-02-04 13:25 | Outpatient (CLI) | payer MEDICARE, SELFPAY ==
[2025-02-04 14:06] LABS: Total Protein Urine Random 10 mg/dL; Ur Ttl Prot Creatinine Ratio 0.16 mg/mg (0-0.20)
[2025-02-04 14:12] LABS: Albumin Level 4.1 g/dL (3.5-5.1); Anion Gap 6 mmol/L (4-12); Blood Urea Nitrogen 11 mg/dL (9-20); Calcium 9.7 mg/dL (8.4-10.2); Carbon Dioxide 25 mmol/L (22-30); Chloride 103 mmol/L (98-107); Estimated Glomerular Filt Rate > 60; Glucose 177 mg/dL (65-110); Potassium 4.1 mmol/L (3.4-5.0); Sodium 134 mmol/L (137-145)
--- OUTSIDE RECORDS SUMMARY | 2025-02-04 15:06 | XMS_ITS | Patient Health Record ---
Author Organization [facility] ekaterina Address [address] [place], [place] [id number] Care Team Providers Care Adoption Agent Name Role Phone BRITTNY BAER, CHEL Primary Care Provider Chyna Latham Unavailable [phone] REASON FOR REFERRAL No Information MEDICATIONS Medication [...] Code Notes Problem Osteoarthrosis (715.09) Active confirmed Osteoarthrosis ([id number]) PLAN OF TREATMENT No Information Insurance Providers Payer Name Payer Address Payer Phone Subscriber Number Group Number Insured Name Patient Relationship to Insured Coverage Start Date Coverage End Date MEDICARE ASSIGNMENT [address] [place] [address] [id number] Martín Carrillo Self - patient is the insured [address] [employer] [place] [address] [address] [place] [address] [id number] Gerardo Martín Self - patient is the insured 9 MEDICAL (GENERAL) HISTORY Medical History History ICD Code bruises easily hemorrhoids erectile dsyfunction Surgical History Surgery Date(Month/Year) heart bypass 1997 knee 2006 rotator cuff 2009
--- OUTSIDE RECORDS SUMMARY | 2025-02-04 15:07 | XMS_ITS | Data Portability ---
Author Organization [place] - [facility] [employer], Main Office Address [address] [place] [address] Assessment Encounter Date Assessment Date Assessment LastModified by Organization Details LastModified Time 06/24/2024 06/24/2024 45 minutes spent with the patient, meds reviewed, and referrals provided Not available 06/24/2024 18:59:55 07/24/2024 07/24/2024 06/27/2024: A1C 7.2 HGB 12.0 Gluc 133 Not available 07/24/2024 16:21:21 10/23/2024 10/23/2024 06/27/2024: A1C 7.2 HGB 12.0 Gluc 133 10/17/2024: A1C 6.9 Not available 10/23/2024 18:17:59 Plan of Treatment Reminders Order Date Submit Date Provider Last Modified By Organization Details Last Modified Time Details Appointments Follow Up 15 2024 01:30P M Lisette lunsford MD Not available Not available Not available Lab glycohemo globin, total, blood 2024 025 [facility], [address], [place], [address], 10/23/2024 16:11:19 microalbu min, urine 2024 025 [employer] [facility], [address], [place], [address], 10/23/2024 16:11:22 vitamin B12 + folate, serum or blood 2024 025 [facility], [address], [place], [address], 10/23/2024 16:11:20 lipid panel, serum 2024 025 [facility], [address], [place], [address], 10/23/2024 16:11:21 CBC w/ auto diff 2024 025 [facility], [address], [place], [address], 10/23/2024 16:11:23 TSH, serum or plasma 2024 025 [facility], [address], [place], [address], 10/23/2024 16:11:20 CMP, serum or plasma 2024 025 [facility], [address], [place], [address], 10/23/2024 16:11:21 glycohemo globin, total, blood 2024 025 [email or web address] [employer] [facility], [address], [place], [address], 10/17/2024 16:01:12 microalbu min, urine 2024 025 [facility], [address], [place], [address], 10/18/2024 22:26:20 vitamin B12 + folate, serum or blood 2024 025 [facility], [address], [place], [address], 10/18/2024 22:26:21 lipid panel, serum 2024 025 [employer] [facility], [address], [place], [address], 10/18/2024 22:26:18 CBC w/ auto diff 2024 [address] [place] [address] [facility], [address], [place], [address], 10/17/2024 15:34:17 TSH, serum or plasma 2024 025 [place] [address] [employer], [address], [place], [address], 10/17/2024 15:35:25 CMP, serum or plasma 2024 025 [place] [address] [facility], [address], [place], [address], 10/17/2024 15:36:26 glycohemo globin, total, blood [address] (Lab), [address] [place], [address], 07/23/2024 17:05:59 microalbu min, urine [address] (Lab), [address] [place], [address], 07/23/2024 17:05:59 lipid panel, serum 2024 025 [facility] (Lab), [address] [place], [address], 06/27/2024 05:06:05 CBC w/ auto diff 2024 025 [facility] (Lab), [address] [place], [address], 06/27/2024 05:06:08 TSH, serum or plasma 2024 025 [facility] (Lab), [address] [facility] [place], [address], 06/27/2024 05:06:10 CMP, serum or plasma 2024 025 [facility] (Lab), [address] [facility] [place], [address], 06/27/2024 05:06:07 Referral nephrolog ist referral - Please call patient to schedule an appointme nt. Thank you. 2024 025 [email or web address] Wayne Rodriguez MD, [address], [address], [place], [address], 01/28/2025 10:18:38 podiatris t referral - Please call patient to schedule an appointme nt. Thank you. 2024 025 [email or web address] Rupert Oliver DPM, [address] [facility], [facility] [address], [place], [address], 01/21/2025 09:54:18 rheumatol ogist referral - Please call patient to schedule an appointme nt. Thank you. 2024 025 [email or web address] Adeel Hogan MD, [address] [facility], [address], [place], [address], 01/23/2025 15:08:47 podiatris t referral - Please call patient to schedule an appointme nt. Thank you. 2024 025 [email or web address] Rupert Oliver DPM, [address] [facility], [address], [place], [address], 01/23/2025 15:08:46 rheumatol ogist referral - Please call patient to schedule an appointme nt. Thank you. 2024 025 [email or web address] David Hansen MD, [address] [facility], [address], [place], [address], 12/30/2024 09:01:12 podiatris t referral - Please call patient to schedule an appointme nt. Thank you. 2024 025 [email or web address] Rupert Oliver DPM, [address] [facility], [address], [place], [address], 12/23/2024 08:40:16 Procedures None recorded. Surgeries None recorded. Imaging None recorded. Medication Orders gabapenti n 100 mg capsule 2024 025 LYN [facility], [address] , [address], [place], [address], 10/23/2024 16:16:05 Patient TargetsNo targets recorded. Patient Instructions Encounter Date Encounter Id Patient Instructions Last Modified By Organization Details Last Modified Time 06/24/2024 [id number] diabetic eye exam* llalor Not available 12/23/2024 08:34:56 07/24/2024 [id number] diabetic eye exam* llalor Not available 01/20/2025 08:49:55 Reason for Referral [employer] Referral for Diab etes mellitus Please call patient to schedule an appointment. Thank you. Referring Physician: Lisette Ray, Internal Medicine, Encounter Date: 06/24/2024 Milling Operator Referral for Pain of multiple joints Please call patient to schedule an appointment. Thank you. Referring Physician: Lisette Ray Internal Medicine, Encounter Date: 06/24/2024 [employer] Referral for Diab etes mellitus Please call patient to schedule an appointment. Thank you. Referring Physician: Lisette Ray Internal Medicine, Encounter Date: 07/24/2024 Milling Operator Referral for Pain of multiple joints Please call patient to schedule an appointment. Thank you. Referring Physician: Lisette Ray Internal Medicine, Encounter Date: 07/24/2024 [employer]person [employer] Referral for Diab etes mellitus Please call patient to schedule an appointment. Thank you. Referring Physician: Lisette Ray, Internal Medicine, Encounter Date: 10/23/2024 Clinical Document Improvement Educator Referral for Ch ronic kidney disease Please call patient to schedule an appointment. Thank you. Referring Physician: Lisette Ray, Internal Medicine, Encounter Date: 10/23/2024 Results Created Date Observation Date Name Description Value Unit Range Abnormal Flag Note LastModifiedBy Organization Detail LastModifiedTime 07/10/1907/09/2024 imagi ng/di agnos tic resul t No observ ation record ed. [address] [address], [place], [address], 07/09/2024 14:04:56 07/17/19 25 07/16/2024 imagi ng/di agnos tic resul t No observ ation record ed. [address] [address], [place], [address], 07/16/2024 16:18:38 10/05/19 25 10/03/2024 imagi ng/di agnos tic resul t No observ ation record ed. [address] [address], [place], [address], 10/04/2024 08:24:59 10/05/1910/03/2024 imagi ng/di agnos tic resul t No observ ation record ed. [address] [address], [place], [address], 10/04/2024 08:26:01 10/05/19 25 10/03/2024 imagi ng/di agnos tic resul t No observ ation record ed. [address] [address], [place], [address], 10/04/2024 08:58:28 10/05/19 25 10/03/2024 imagi ng/di agnos tic resul t No observ ation record ed. [facility] [address], [place], [address], 10/04/2024 08:59:58 10/05/1910/03/2024 imagi ng/di agnos tic resul t No observ ation record ed. [facility] [address], [place], [address], 10/04/2024 09:01:05 01/29/2009/18/2024 imagi ng/di agnos tic resul t No observ ation record ed. [facility] [address], [place], [address], 01/28/2025 11:27:19 Result Notes None recorded. Problems Name Problem SNOMED Code Status Onset Date Resolution Date Notes Provider Name and Address Organization Details Recorded Time Excessive cerumen in ear canal 265871769 Completed Not Available [facility] 3 06:56:47 Indigesti on 853995005 Completed Not Available [facility] 3 06:56:48 Pain in throat 061297169 Completed Not Available [facility] 3 06:56:48 Nocturia due to benign prostatic hypertrop hy 38975322920 01 Joanie Pineda APRN [address], [address], [place], [address] , [facility] 4 13:07:45 Deformity of foot 475277198 ESTHER Martee, [address], [place], [address] , [facility] 4 13:07:13 Gastroeso phageal reflux disease 886094404 Joanie Pineda APRN [address], [address], [place], [address] , [facility] 4 13:07:30 Low back pain 445599141 ESTHER Marte, [address], [place], [address] , [facility] 4 13:07:39 Bronchiti s 03394669 Completed Not Available [facility] 3 06:56:48 Depressiv e disorder [id number] Joanie Pineda APRN [address], [address], [place], [address] , [facility] [employer] [facility] [employer] [facility] 4 13:07:15 Arthritis [id number] Joanie Pineda APRN [address], [address], [place], [address] , [facility] [employer] [facility] 4 13:07:02 Spider bite wound 833070073 Completed Not Available [facility] 3 06:56:48 Type 2 diabetes mellitus 76284020 Joanie Pineda APRN [address], [address], [place], [address] , [employer] [facility] [employer] [facility] 4 13:07:55 Cough 03208077 Completed Not Available [facility] 3 06:56:49 Coronary arteriosc lerosis 48582712 Joanie Pineda APRN [address], [address], [place], [address] , [employer] [facility] [employer] [facility] 4 13:07:10 Upper respirato ry infection 96320710 Completed BRYANT Torres [address], [address], [place], [address] , [facility] [employer] [facility] 4 16:01:10 Hyperlipi demia [id number] Joanie Pineda APRN [address], [address], [place], [address] , [facility] [employer] [facility] [employer] [facility] 4 13:07:33 Wheezing 86495878 Completed Not Available [facility] 3 06:56:49 Essential hypertens ion 86838318 Joanie Pineda APRN [address], [address], [place], [address] , [facility] [employer] [facility] [employer] [facility] 4 13:07:25 Vitamin B12 deficienc y (non anemic) 54532514 Active Not Available [facility] 3 06:56:49 Posterior rhinorrhe a 89048336 Active Not Available [facility] 3 06:56:50 Thyroid function tests abnormal 858186107 Active 2020 Not Available [facility] 3 06:56:48 COVID-19 880549156 Active 2020 Not Available [facility] 3 06:56:50 Asthma 832347484 Active 2021 Leann Pineda APRN [address], [address], [place], [address] , [employer] [facility] [employer] [facility] 4 13:07:05 Dysplasti c nevus of skin 076734006 Active 2021 Not Available [facility] 3 06:56:48 History of SARS-CoV- 2 69703726801 8764158 Active 2021 Not Available [facility] 3 06:56:48 Alpha-1-a ntitrypsi n deficienc y 20583612 Active 2021 Leann Pineda APRN [address], [address], [place], [address] , [employer] [facility] [employer] [facility] 4 13:07:01 Acute upper respirato ry infection 15834630 Active 2021 Not Available [facility] 3 06:56:49 Dyspnea on exertion 73156813 Active 2021 Not Available [facility] 3 06:56:49 History of exposure to second hand smoke 598470041 Active 2021 Not Available [facility] 3 06:56:49 Obstructi ve sleep apnea syndrome 60621533 Active 2021 Leann Pineda APRN [address], [address], [place], [address] , [employer] [facility] [employer] [facility] 4 13:07:48 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 [facility] [employer] 4 13:07:36 Cobalamin deficienc y 930269243 Active 2022 Leann Pineda APRN [address], [address], [place], [address] , [employer] 4 13:07:07 Diabetes mellitus 99587544 Active 2022 Leann Pineda APRN [address], [address], [place], [address] , [employer] [facility] [employer] 4 13:07:21 Left inguinal hernia 186600913 Active 2022 Yovana Wilson MD [address], [address], [place], [address] , [employer] [facility] [employer] [facility] [employer] 3 12:57:13 Osteoarth ritis 036269780 Active 2022 Leann Pineda APRN [address], [address], [place], [address] , [employer] [facility] [employer] [facility] [employer] 4 13:07:53 Upper respirato ry infection 61558449 Active 2023 BRYANT Torres [address], [address], [place], [address] , [employer] [facility] [employer] 4 16:01:10 Acute bronchiti s 09815645 Active 2023 Yovana Wilson MD [address], [address], [place], [address] , [employer] [facility] 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 2023 Leann Pineda APRN [address], [address], [place], [address] , [facility] 4 11:04:51 Bilateral shoulder joint pain 13148060742 747255 Active 2023 Leann Pineda APRN [address], [address], [place], [address] , [facility] 4 11:01:50 Onychomyc osis of toenails 996838621 Active 2023 Arvind Morfin, A null, [facility] 4 11:26:01 Pain in left foot 39903316026 9107 Active 2023 Rudy Rowe DPM [address], [address], [place], [address] , [facility] 4 08:53:17 Pain in right foot 36713368472 9107 Active 2023 Rudy Rowe DPM [address], [address], [place], [address] , [facility] 4 08:53:26 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 55636553297 07 Active 2023 Rudy Rowe DPM [address], [address], [place], [address] , [facility] 4 08:53:45 Ferritin level below reference range 147147761 Active 2023 Leann Pineda APRN [address], [address], [place], [address] , [facility] 4 20:21:08 Moderate recurrent major depressio n 09100884 Active 2024 Lisette nuñez MD [address], [address], [place], [address] , [facility] 5 16:05:16 Gastroeso phageal reflux disease without esophagit is 583365159 Active 2024 Lisette nuñez MD [address], [place], [address] , [employer] [facility] 5 16:05:45 Pain of multiple joints 09440409 Active 2024 Lisette nuñez MD [address], [address], [place], [address] , [employer] [facility] 5 16:06:36 Neuropath y 334803833 Active 2024 Lisette nuñez MD [address], [address], [place], [address] , [facility] 16:07:13 Anemia 475688663 Active 2024 Lisette nuñez MD [address], [address], [place], [address] , [employer] [facility] 16:11:36 Cerebrova scular accident 639150600 Active 2024 Lisette nuñez MD [address], [address], [place], [address] , [employer] [facility] 16:12:44 Pain of left knee joint 60882637529 4107 Active 2024 Lisette nuñez MD [address], [place], [address] , [employer] [facility] 5 16:17:03 Chronic kidney disease 979614730 Active 2024 Lisette nuñez MD [address], [place], [address] , [employer] [facility] 16:11:40 Notes:Some problems listed i n Document: #[id number] could not be added to this patient's chart. Please review this document and add these problems to the patient's chart manually as needed. Problem Notes None recorded. Procedures Surgical History Date Name Laterality Status Provider Name and Address Organization Details Recorded Time 12/12/19 24 Nail Debridement completed Rudy Rowe DPM [address], [address], [place], [address], [employer] 12/13/2023 08:53:02 12/12/19 24 Callus Debridement 2-4 completed Rudy Rowe DPM [address], [place], [address], [employer] 12/13/2023 08:53:11 08/23/19 24 Medicare Wellness CPT Code, subsequent completed David Levine LPN [employer] 08/23/2023 09:46:14 Carpal tunnel completed Not Available [facility] 05/11/2022 06:54:21 Cholecystectomy completed Not Available [facility] 05/11/2022 06:54:21 Hernia Repair completed Not Available [facility] 05/11/2022 06:54:21 EGD completed Not Available [facility] 05/11/2022 06:54:21 Colonoscopy completed Not Available [facility] 05/11/2022 06:54:21 other completed Not Available [facility] 05/11/2022 06:54:21 Imaging Results None recorded. Procedure Notes None recorded. Medical Equipment None Reported. Allergies Allergen ID Allergen Name Allergen Category Reaction Reaction Severity Criticality Documentation Date Start Date Code Code System Note Provider Name and Address Organization Details Recorded Time 67647 Iodinated contrast media (substanc e) medicatio n Not available Not available Not available 05/11/2022 18380 2004 SNOMED Not Available [facility] 07:00:18 Medications Name Sig Start Date [...] mg base)/3 mL nebulizati on soln active [facility]#: 0487-02 03-15 Not Available Not Available Not [...] Available Not Available No t Available Medrol (Jacqeus) 4 mg tablets in a dose pack [...] day by oral route as directed for 90 days. 2024 active Not Available Not Available Not [...] OF ONE PEN SUBCUTAN EOUSLY WEEKLY DIRECTED active Not Available Not Available No t Available OneTouch Verio Meter USE 1 TO CHECK GLUCOSE ONCE DAILY 11/28 completed Not Available Not Available Not Available Xarelto 2.5 mg tablet bid active Not Available Not Available Not Available OneTouch Delica Plus Lancet 33 gauge USE 1 LANCET TO CHECK GLUCOSE ONCE DAILY 11/28 completed Not Available Not Available Not Available FreeStyle Pearl 2 Leander Use as directed dx e11.9 active Not Available Not Available No t Available FreeStyle Pearl 2 Sensor active Not Available Not Available Not Available Fluad Quad 5116-4859( 65yr up)(PF) 60 mcg (15 mcg x [...] Updated DateTime 5 177.8 cm 27.7 kg/m2 12333.3 3 g 97.3 [degF] 60 /min 112/60 mm[Hg] SAQIB Faye [employer] 5 16:52:44 Date Recorded Body height Body mass index (BMI) Body weight Body temperature Heart rate Oxygen saturation Pain severity - 0-10 verbal numeric rating [Score] - Reported Systolic And Diastolic Provider Name and Address Organization Details Last Updated DateTime 5 177.8 cm 27.1 kg/m2 06939.9 6 g 98.1 [degF] 63 /min 95 % 1 118/64 mm[Hg] Ирина Marks MA [employer] 5 15:31:45 Date Recorded Body height Body mass index (BMI) Body weight Body temperature Heart rate Oxygen saturation Pain severity - 0-10 verbal numeric rating [Score] - Reported Systolic And Diastolic Provider Name and Address Organization Details Last Updated DateTime 5 177.8 cm 26.4 kg/m2 08228 g 98.5 [degF] 54 /min 96 % 0 118/64 mm[Hg] Ирина Marks MA [facility] [employer] 5 15:26:54 Social History Question Answer Notes LastModified by Organizat ion Details LastModified Time Tobacco Smoking Status Never Smoker Not Available [employer] 05/11/2022 06:54:14 Do You Have An Advance Directive? Yes [email or web address] Information not available 08/23/2023 Are You Blind Or Do You Have Difficulty Seeing? No [email or web address] Information not available 08/23/2023 Is Blood Transfusion Acceptable In An Emergency? Yes [email or web address] Information not available 08/23/2023 What Is Your Level Of Caffeine Consumption? Occasional [id number] Information not available 05/11/2022 How Much Tobacco Do You Chew? None [id number].48408 [id number] Information not available 05/11/2022 In The 14 Days Before Symptom Onset, Have You Had Close Contact With A Laboratory-confir med COVID-19 While That Case Was Ill? No MIGRATION.82592 [id number] Information not available 05/11/2022 In The 14 Days Before Symptom Onset, Have You Had Close Contact With A Person Who Is Under Investigation For COVID-19 While That Person Was Ill? No MIGRATION.67649 61150 Information not available 05/11/2022 Are You Deaf Or Do You Have Serious Difficulty Hearing? No [email or web address] Information not available 08/23/2023 What Type Of Diet Are You Following? REGULAR MIGRATION.53829 [id number] Information not available 05/11/2022 Which Illicit Or Recreational Drugs Have You Used? None MIGRATION.26367 72557 Information not available 05/11/2022 What Is The Highest Grade Or Level Of School You Have Completed Or The Highest Degree You Have Received? [id number] Information not available 08/23/2023 Do You Have An Electrostatic Air Filter? Yes MIGRATION.97759 69711 Information not available 05/11/2022 Have There Been Any Changes To Your Family Or Social Situation? No Information no t available 08/23/2023 Are There Any Guns Present In Your Home? Yes MIGRATION.23100 85082 Information not available 05/11/2022 Do You Have A Humidifier? Yes MIGRATION.42187 32486 Information not available 05/11/2022 Do You Use Insect Repellent Routinely? No Information not available 08/23/2023 Where Do You Live? [place]House MIGRATION.81553 54470 Information not available 05/11/2022 Presence Of Domestic Violence No [email or web address] Information no t available 08/23/2023 Guns Present In The Home? Yes Information not available 08/23/2023 Are You Able To Care For Yourself? Yes Information not available 08/23/2023 Are You Blind Or Do Yo Have Difficulty Seeing? No Information not available 08/23/2023 Are You Deaf Or Do You Have Serious Difficulty Hearing? No [email or web address] Information not available 08/23/2023 General Stress Level? Low [email or web address] Information not available 08/23/2023 Live Alone Of With Others? With Others [email or web address] Information not available 08/23/2023 Do You Have A Medical Power Of Sales Contractor? Yes Information not available 06/24/2024 Do You Have Moisture Problems In Your Home? No MIGRATION.71123 86683 Information not available 05/11/2022 What Was The Date Of Your Most Recent Tobacco Screening? 10/23/2024 Information not available 10/23/2024 How Many Children Do You Have? 3 Information not available 08/23/2023 Do You Have Any Pets? No MIGRATION.61498 51334 Information not available 05/11/2022 What Is Your Relationship Status? Information not available 08/23/2023 Do You Use Your Seat Belt Or Car Seat Routinely? Yes Information not available 08/23/2023 Do You Have Smoke And Carbon Monoxide Detectors In Your Home? Yes [id number] Information not available 05/11/2022 Are You Passively Exposed To Smoke? No [id number] Information not available 05/11/2022 Are There Any Smokers In Your House? No Information not available 08/23/2023 Do You Use Sunscreen Routinely? No [id number].[id number] Information not available 05/11/2022 Has Tobacco Cessation Counseling Been Provided? No N/a Information not available 06/24/2024 Have You Recently Traveled Abroad? No [id number].[id number] Information not available 05/11/2022 Do You Have Difficulty Walking Or Climbing Stairs? Yes [email or web address] Information not available 08/23/2023 Do You Have Any Dietary Restrictions? No MIGRATION.76806 06104 Information not available 05/11/2022 Sex: Male Functional Status Question Answer Note LastModified by Organizat ion Details LastModified Time Do you use any illicit or recreational drugs? No [id number] Information not available 05/11/2022 Do you or have you ever used any other forms of tobacco or nicotine? No [email or web address] Information not available 08/23/2023 What is your level of alcohol consumption? None MIGRATION.[id number] 026 Information not available 05/11/2022 Are you currently employed? No [email or web address] Information not available 08/23/2023 Do you have transportation difficulties? No [email or web address] Information not available 08/23/2023 Are you able to walk independently without assistance or assistive devices? YESWOREST [email or web address] Information not available 08/23/2023 Do you have difficulty doing errands alone? No [email or web address] Information not available 08/23/2023 Are you able to care for yourself independently? Yes [email or web address] Information not available 08/23/2023 What is your occupation? retired MIGRATION.[id number] 026 Information not available 05/11/2022 Do you have difficulty dressing, bathing, grooming, or toileting? No [email or web address] Information not available 08/23/2023 What is your exercise level? Occasional MIGRATION.[id number] 026 Information not available 05/11/2022 Mental Status Question Answer Note LastModified by Organizat ion Details LastModified Time Do you feel stressed (tense, restless, nervous, or anxious, or unable to sleep at night)? [id number] Information not available 08/23/2023 Do you have difficulty concentrating, remembering or making decisions? No Information no t available 08/23/2023 Family History Relationship Description Onset Age of this Age Resolved Age Notes LastModified by Organization Details LastModified Time Father Heart disease [id number] Not available 05/11/2022 06:54:22 Father Diabetes mellitus MIGRATION.410 [id number] Not available 05/11/2022 06:54:22 Mother Malignant neoplasm of breast MIGRATION.067 [id number] Not available 05/11/2022 06:54:22 Father Myocardial infarction Not available 06/24 16:50:23 Father Malignant neoplasm of prostate Not available 2024 16:50:33 Notes:arthritis runs in mom' s side Medical History Condition Response HEART DISEASE/HEART PROBLEMS Y ARTHRITIS Y DIABETES, TYPE Y BACK / NECK PROBLEMS Y STROKE/TIA Y Immunizations Vaccine Type Date Status Note Provider Nam e and Address Organization Details Recorded Time Influenza, high-dose, quadrivalent, PF 1 completed Leann Pineda APRN [address], [address], [place], [address], [employer] [facility] [employer] 08/23/2023 12:47:25 Influenza, high-dose, quadrivalent, PF 2 completed Leann Pineda APRN [address], [address], [place], [address], [employer] [facility] 08/23/2023 12:47:25 Influenza, adjuvanted, quadrivalent, PF 0 completed Leann Pineda APRN [address], [place], [address], [employer] 08/23/2023 12:47:25 COVID-19, mRNA, LNP-S, PF, 30 mcg/0.3 mL dose 1 completed Leann Pineda APRN [address], [place], [address], [employer] [facility] [employer] [facility] 08/23/2023 12:47:25 COVID-19, mRNA, LNP-S, PF, 30 mcg/0.3 mL dose 1 deonna Pineda APRN [address], [address], [place], [address], [facility] [employer] [facility] 08/23/2023 12:47:25 COVID-19, mRNA, LNP-S, PF, 30 mcg/0.3 mL dose 1 completed Leann Pineda APRN [address], [address], [place], [address], [facility] [employer] [facility] 08/23/2023 12:47:25 COVID-19, mRNA, LNP-S, PF, 30 mcg/0.3 mL dose, nicole-sucrose 2 completed Leann Pineda APRN [address], [place], [address], [facility] [employer] [facility] 08/23/2023 12:47:25 COVID-19, mRNA, LNP-S, bivalent, PF, 30 mcg/0.3 mL dose 2 completed Leann Pineda APRN [address], [place], [address], [facility] [employer] [facility] 08/23/2023 12:47:25 Influenza, high-dose, trivalent, PF 8 completed Leann Pineda APRN [address], [place], [address], [facility] [employer] [facility] 08/23/2023 12:47:25 Influenza, high-dose, quadrivalent, PF 3 completed Leann Pineda APRN [address], [place], [address], [facility] [employer] [facility] 08/23/2023 12:47:37 RSV, bivalent, protein subunit RSVpreF, diluent reconstituted, 0.5 mL, PF 3 completed Leann Pineda APRN [address], [place], [address], [facility] [employer] [facility] 08/23/2023 12:47:37 COVID-19, mRNA, LNP-S, PF, nicole-sucrose, 30 mcg/0.[address] mL [address], [place], [address], 5 CUPS and some sugar [facility] 08/23/2023 12:47:37 Influenza, high-dose, trivalent, PF 9 completed Leann Pineda APRN [address], [place], [address], 5 CUPS and some sugar [facility] 08/23/2023 12:47:37 zoster recombinant 4 completed Leann Pineda APRN [address], [place], [address], 5 CUPS and some sugar [facility] 03/20/2024 08:45:49 Pneumococcal conjugate PCV20, polysaccharide EPM151 conjugate, adjuvant, PF 4 completed Leann Pineda APRN [address], [place], [address], [employer] [facility] Yasuu [facility] 03/20/2024 08:45:49 COVID-19, mRNA, LNP-S, PF, nicole-sucrose, 30 mcg/0.3 mL 4 completed Leann Pineda APRN [address], [place], [address], [employer] [facility] 03/20/2024 08:45:49 Influenza, high-dose, trivalent, PF 4 completed Leann Pineda APRN [address], [place], [address], [employer] [facility] [employer] [facility] 03/20/2024 08:45:49 Influenza, split virus, trivalent, preservative 3 completed Leann Pineda APRN [address], [place], [address], [employer] [facility] 08/23/2023 12:47:25 Influenza, split virus, quadrivalent, preservative 1 completed Not Available [facility] 05/11/2022 07:00:09 COVID-19, mRNA, LNP-S, PF, 100 mcg/0.5mL dose or 50 mcg/0.25mL dose 1 completed Leann Pineda APRN [address], [place], [address], [facility] [employer] [facility] [employer] [facility] 08/23/2023 12:47:25 COVID-19, mRNA, LNP-S, PF, 100 mcg/0.5mL dose or 50 mcg/0.25mL dose 1 completed Leann Pineda APRN [address], [place], [address], [facility] [employer] [facility] [employer] [facility] 08/23/2023 12:47:25 Influenza, split virus, quadrivalent, preservative 0 completed Leann Pineda APRN [address], [place], [address], [facility] [employer] [facility] 08/23/2023 12:47:25 Influenza, split virus, quadrivalent, preservative 9 completed Not Available [facility] 05/11/2022 07:00:10 Tdap 8 completed Not Available [facility] 05/11/2022 07:00:10 Influenza, high-dose, trivalent, PF 7 completed Not Available [facility] 05/11/2022 07:00:10 Influenza, high-dose, trivalent, PF 6 completed Not Available [facility] 05/11/2022 07:00:10 Influenza, high-dose, trivalent, PF 5 completed Not Available [facility] 05/11/2022 07:00:10 Influenza, high-dose, trivalent, PF 4 completed Not Available [facility] 05/11/2022 07:00:10 Past Encounters Encounter ID Performer Location Encounter Start Date Encounter Closed Date Diagnosis/Indication Diagnosis SNOMED-CT Code Diagnosis ICD10 Code Diagnosis IMO Codes Diagnosis Note [id number] S[facility] Claus kiran [address] [place] [address] 07/08/2020 00:00:00 07/08/2020 13:20:19 [id number] Juancarlos martinez MD [facility] [address] [facility] [place] [address] 11/10/2020 00:00:00 11/10/2020 13:23:11 [id number] Blue Stoll MD [facility] Family Practice [place] [address] [facility] [address] 02/09/2021 00:00:00 02/09/2021 10:06:50 [id number] [facility] [place] [facility] [place] [address] [place] [address] 04/01/2021 00:00:00 04/01/2021 16:19:44 [id number] [facility] [place] [facility] [place] [address] [place] [address] 05/19/2021 00:00:00 05/19/2021 16:58:51 [id number] ANTONETTE Hansen S[facility] [place] [address] [place] [address] 06/30/2021 00:00:00 06/30/2021 15:28:14 [id number] Blue Stoll MD [facility] [address] [facility] [address] , [place] [address] 08/04/2021 00:00:00 08/04/2021 10:24:39 [id number] ANTONETTE Hansen S[facility] [facility] [place] [address] [place] [address] 08/23/2021 00:00:00 08/23/2021 15:45:33 [id number] ANTONETTE Hansen [facility] [place] [address] [place] [address] 10/04/2021 00:00:00 10/04/2021 15:55:23 [id number] Christy Duffy [facility] [place] [address] [place] [address] 12/14/2021 00:00:00 12/14/2021 19:47:39 [id number] Yovana Wilson MD [facility] Primary [facility] [place] [address] [place] [address] 04/04/2022 00:00:00 04/11/2022 18:17:23 [id number] Yovana Wilson MD [facility] Primary [facility] [place] [address] [place] [address] 04/07/2022 00:00:00 04/11/2022 17:59:20 [id number] Yovana Wilson MD [facility] Primary [facility] [place] [address] [place] [address] 05/16/2022 11:46:43 05/16/2022 12:01:38 [id number] Christy Duffy [facility] [place] [address] [place] [address] 06/14/2022 15:02:11 06/14/2022 15:27:41 Asthma 174266317 J45.909 ACT 22+ methacholi ne challenge testing 07/27/21Co ntinue Breo Ellipta 100 dailyDiscu ssed use and techniqueH e is aware to rinse and spit after useDiscuss ed reportable signs and symptomsRT C in 6 months, PRN for concerns Alpha-1-an titrypsin deficiency 42492679 E88.01 MS, normal levelHe is aware to get siblings and children tested Dyspnea on exertion 6084 5006 R06.09 Multifacto ralIGGS with slightly low subclass 1 and 2IGE normalIncr ease activity as toleratedQ uantiferon GOLD normalRAST and HP panel normal History of SARS-CoV-2 29 42284711 82496633 Z86.16 + 02/2021 Obstructiv e sleep apnea syndrome 71771222 G47.33 NOtcomplia nt with therapyUni nterested in troublesho oting [id number] Yovana Wilson MD [facility] Primary Care [facility] [address] [facility] [place] [address] 10/20/2022 12:32:25 10/20/2022 13:53:28 Iron deficiency anemia 01265490 D50.9 continue mvi with ironcheck labs Diabetes mellitus 784328 09 E11.9 Hyperlipidemia 49949666 E78.5 Essential hypertension 48427836 I10 Cobalamin deficiency 190 530836 E53.8 Left inguinal hernia 236 810131 K40.90 Ok for activities as toleratedG eneral surgery referral given Osteoarthritis 665160465 M19.90 [id number] Christy Duffy, [employer] [place] [facility] [place] [address] [place] [address] 12/14/2022 15:08:11 12/14/2022 16:40:48 Asthma 861227387 J45.909 ACT 24+ methacholi ne challenge testing 07/27/21Co ntinue Breo Ellipta 100 dailyDiscu ssed use and techniqueH e is aware to rinse and spit after useDiscuss ed reportable signs and symptomsAd vised vaccines this fall Alpha-1-an titrypsin deficiency 73946946 E88.01 MS, normal levelHe is aware to get siblings and children tested Dyspnea on exertion 6084 5006 R06.09 Multifacto ralIGGS with slightly low subclass 1 and 2IGE normalIncr ease activity as toleratedQ uantiferon GOLD normalRAST and HP panel normal History of SARS-CoV-2 29 49409217 52114198 Z86.16 + 02/2021 Obstructiv e sleep apnea syndrome 54234242 G47.33 Not compliant with therapyUni nterested in troublesho otingDiscu ssed the risks of uncorrecte d NIRU, including [id number] Yovana Wilson MD [facility] Primary Care [facility] [address] [facility] [address] [place] [address] 03/28/2023 09:08:52 03/28/2023 09:34:55 Acute bronchitis 13059908 J20.9 check cxrdoxycyc line 100 mg po bid x 10 dayspredni sone taper with food, avoid other nsaidscont inue inhalersca ll/return if no improvemen t in 1-2 days or sooner if neededrevi ewed s/s that warrant urgent/ami rgent eval in meantime [id number] Yovana Wilson MD [facility] Primary Care [facility] [address] [facility] [place] [address] 05/30/2023 09:34:11 05/30/2023 11:24:07 Iron deficiency anemia 86346968 D50.9 continue mvi with ironcheck labs Diabetes mellitus 283661 09 E11.9 stable per home readingswi order cgheck labs Hyperlipidemia 39299774 E78.5 Essential hypertension 35038263 I10 monitored by cardiology no med changes this month Cobalamin deficiency 190 783876 E53.8 Left inguinal hernia 236 794824 K40.90 will have surgical repair this week with Dr. Pride [id number] Lisette nuñez MD [facility] Internal Med [facility] [address] [place] [address] [place] [address] 08/23/2023 10:30:18 08/23/2023 11:39:47 Adult health examination 731982736 Z00.00 Screening for disorder 239613096 Z13.9 [id number] Lisette nuñez MD [facility] Internal Med [place] [address] [place] [address] 11/29/2023 10:24:38 11/29/2023 11:11:01 Hyperlipidemia 87397355 E78.5 Iron defic iency anemia 50089450 D50.9 Type 2 laine betes mellitus 53999573 E11.9 Bilateral shoulder joint pain 4488987288 0816088 M25.788 [id number] Rudy Rowe DPM [facility] Podiatry [facility] [address] [address] 12/12/2023 10:49:54 12/13/2023 11:32:27 Onychomycosis of toenails 808065701 B35.1 Pain in left foot 932687 9187 01777 M79.672 Pain in right foot 99474 53540 74206 M79.671 Peripheral neuropathy due to type 2 diabetes mellitus 0984928375 107 E11.42 [id number] Lisette nuñez MD [facility] Primary Care [facility] [address] [facility] [address] [place] [address] 03/20/2024 08:35:45 03/20/2024 08:59:09 Osteoarthritis 892850316 M19.90 Peripheral neuropathy due to type 2 diabetes mellitus 2408749357 107 E11.42 [id number] Lisette nuñez MD [facility] Internal Med [address] [facility] [address] [place] [address] 05/29/2024 10:23:38 05/29/2024 11:18:07 Pain of multiple joints 44823123 M25.50 Cobalamin deficiency 190 284340 E53.8 Ferritin l evel below reference range 095282787 R77.8 Peripheral neuropathy due to type 2 diabetes mellitus 0113628787 107 E11.42 Gastroesop hageal reflux disease without esophagitis 117679163 K21.9 Osteoarthritis 528404302 M19.90 Type 2 laine betes mellitus without complication 756229275 E11.9 [id number] Lisette nuñez MD [facility] Primary Care [facility] [address] [facility] [address] [place] [address] 06/24/2024 16:01:13 06/24/2024 17:10:56 Screening - NAD 614874055 Z13.9 C-scope: Not doing now, denies any complaints Get yearly fluGet tdap if not doneGet shingrix vaccineGet COVID 19 boostersCa n do RSV vaccine and pneumonia vaccines RTC in 3 months, do labs, ER if worse Hyperlipidemia 61956677 E78.5 On ASAOn atorvastat in 20mg dailyGet labs Moderate r ecurrent major depression 51792352 F33.1 On lexaproNot suicidal or homicidalD oes not see psychiatry Diabetes mellitus 991431 09 E11.9 On trulicityN o history of MEN2 or MCT or thyroid or parathyroi d complaints , also no psychiatry complaints , and is on medication sGet labs Gastroesop hageal reflux disease without esophagitis 701413720 K21.9 On pantoprazo le 40mg daily as needed Pain of mu ltiple joints 04769529 M25.50 On tramadolOn celebrexAd vise to take ONLY as neededGet a referral to rheumatolo gy Neuropathy 660543689 G62 .9 On gabapentin Essential hypertension 69547999 I10 On ASAOn metoprolol ER 25mg dailyOn valsartan 320mg dailyOn xarelto 2.5mg bid Dr Nina [facility] 06/18/2024 Obstructiv e sleep apnea syndrome 27017831 G47.[address] Ricks 02/13/2024 Asthma 942724398 J45.[address] Ricks 02/13/2024 Anemia 048167801 D64.9 On ironGet labs Cerebrovas cular accident 247695057 I63.9 [facility] [id number] Lisette nuñez MD [facility] Primary Care [address] [place] [address] 06/25/2024 08:57:33 06/25/2024 09:34:16 [id number] Lisette nuñez MD [facility] Care [address] [place] [address] 07/24/2024 15:17:15 07/24/2024 16:54:43 Screening - NAD 591581094 Z13.9 C-scope: Not doing now, denies any complaints Get yearly fluGet tdap if not doneGet shingrix vaccineGet COVID 19 boostersCa n do RSV vaccine and pneumonia vaccines RTC in 3 months, do labs, ER if worse Hyperlipidemia 30350306 E78.5 On ASAOn atorvastat in 20mg dailyGet labs Moderate r ecurrent major depression 88464897 F33.1 On lexaproNot suicidal or homicidalD oes not see psychiatry Diabetes mellitus 320703 09 E11.9 On trulicityN o history of MEN2 or MCT or thyroid or parathyroi d complaints , also no psychiatry complaints , and is on medication sGet labs Gastroesop hageal reflux disease without esophagitis 396810042 K21.9 On pantoprazo le 40mg daily as needed Pain of mu ltiple joints 92708657 M25.50 On tramadolOn celebrexAd vise to take ONLY as neededGet a referral to rheumatolo gy Neuropathy 030736308 G62 .9 On gabapentin Essential hypertension 66759059 I10 On ASAOn metoprolol ER 25mg dailyOn valsartan 320mg dailyOn xarelto 2.5mg bid Dr Nina [facility] 06/18/2024 Obstructiv e sleep apnea syndrome 63959131 G47.[address] Ricks 02/13/2024 Now sees Christy Duffy [employer] Asthma 220509793 J45.[address] Ricks 02/13/2024 Anemia 497368914 D64.9 On ironGet labs Cerebrovas cular accident 947844983 I63.9 On xarelto 2.5mg bidSees [facility] Pain of le ft knee joint 6797057024 38548 M25.562 427506 On tramadolOn celebrexAd vise to take ONLY as neededGet a referral to rheumatolo gy Seen by Dr Salbador Mohamud next apt in 09/2024 [id number] Lisette nuñez MD [facility] Primary Care [address] [place] [address] 10/17/2024 15:01:56 10/17/2024 15:22:25 [id number] Lisette nuñez MD [facility] Care [address] [place] [address] 10/23/2024 15:14:22 10/23/2024 16:21:43 Screening - NAD 437556229 Z13.9 C-scope: Not doing now, denies any complaints Get yearly fluGet tdap if not doneGet shingrix vaccineGet COVID 19 boostersCa n do RSV vaccine and pneumonia vaccines RTC in 3 months, do labs, ER if worse, he and his verbalized his understand ing of the above Hyperlipidemia 56874522 E78.5 On ASAOn atorvastat in 20mg dailyGet labs Moderate r ecurrent major depression 66958532 F33.1 On lexaproNot suicidal or homicidalD oes not see psychiatry Diabetes mellitus 448604 09 E11.9 On trulicityN o history of MEN2 or MCT or thyroid or parathyroi d complaints , also no psychiatry complaints , and is on medication sGet labs Gastroesop hageal reflux disease without esophagitis 129293066 K21.9 On pantoprazo le 40mg daily as needed Pain of mu ltiple joints 41802561 M25.50 On tramadolOn celebrexAd vise to take ONLY as neededGet a referral to rheumatabdiel gy 10/03/2024 xrays R/L hand/R/L foot/L spine: Dr Hansen Neuropathy 712433716 G62 .9 On gabapentin Essential hypertension 24206542 I10 On ASAOn metoprolol ER 25mg dailyOn valsartan 320mg dailyOn xarelto 2.5mg bid Dr Nina [facility] 06/18/2024 ,has another apt in 12/2024 Obstructiv e sleep apnea syndrome 81979977 G47.[address] Ricks 02/13/2024 Now sees Christy Duffy [employer] Asthma 303710935 J45.[address] Ricks 02/13/2024 Anemia 250315428 D64.9 On ironGet labs Cerebrovas cular accident 584611644 I63.9 On xarelto 2.5mg bidSees [facility] Pain of le ft knee joint 2537118574 52506 M25.562 827064 On tramadolOn celebrexAd vise to take ONLY as neededGet a referral to rheumatabdiel gy Seen by Dr Salbador Mohamud Chronic ki dney disease 021534115 N18.9 [id number] Get a referral to Dr Rodriguez Peripheral neuropathy due to type 2 diabetes mellitus 7678187965 107 E11.42 Is on gabapentin Renewed 10/23/2024 Health Concerns Section Related Observation LastModified by Organization Detai ls LastModified Time None Recorded Concern Status LastModified by Organization Details LastModified Time None Recorded Advance Directives Directive Y: Payers Insurance Date Sequence Insurance Name Policy Number Policy Shah Covered Member ID Shah Member ID Guarantor Name 10/23/2024 1 [facility] (MEDICARE REPLACEMENT/A DVANTAGE - PPO) [id number] Martín Carrillo [id number] Martín Carrillo Notes Date Note Type Note Provider Name and Address Organization Details Recorded Time 06/24/2024 text/html OV 06/24/2024: Here to establish care Present Hx:HLDDepression GERDNeuropathyHT NOSAAsthmaAnemia CVA Here to discuss above and to get labs Lisette Ray MD [address], [place], [address], [employer] 06/24/2024 19:00:12 07/24/2024 text/html OV 06/24/2024: Here to establish care Present Hx:HLDDepression GERDNeuropathyHT NOSAAsthmaAnemia CVA Here to discuss above and to get labs OV 07/24/2024:Here for his f/u apt, did do the labs, does well Lisette Ray MD [address], [place], [address], [employer] 07/24/2024 18:44:12 10/23/2024 text/html OV 06/24/2024: Here to establish care Present Hx:HLDDepression GERDNeuropathyHT NOSAAsthmaAnemia CVA Here to discuss above and to get labs OV 07/24/2024:Here for his f/u apt, did do the labs, does well OV 10/23/2024: Here for his f/u apt, he is doing well today, he is here with his , does well, he did do the labs Lisette Ray MD [address], [place], [address], [employer] 10/23/2024 18:18:17
--- OUTSIDE RECORDS SUMMARY | 2025-02-04 15:07 | XMS_ITS | Clinical Summary ---
Author Organization [place] [address] [facility] Address [address] [place] [address] Care Team Providers Care Public Information Coordinator Name Role Phone Martin Varela MD Unavailable [phone] Leann Pineda NP Primary Care Provider Allergies [...] for wheezing 1 each 11 4 Active gabapentin (NEURONTIN) 100 mg capsule 1 5 Active fluticasone furoate-vilante roL (BREO ELLIPTA) 100-25 mcg/dose diskus inhaler Inhale 1 puff daily Rinse mouth with water after use. Do not swallow. 30 each 11 5 01/02/20 26 Active Active Problems Problem Noted Date Diagnosed Date NIRU (obstructive sleep apnea) 05/01/2024 Assessment & Plan (01/01/2025 4:03 PM CDT): He had a positive home sleep study in 2021 with an AHI of 11.5. We have discussed the risks of uncorrected NIRU I previously placed an order for sleep medicine evaluation I would consider repeat testing at home Assessment & Plan (07/31/2024 2:31 PM CDT): He had a positive home sleep study in 2021 with an AHI of 11.5. We have discussed the risks of uncorrected NIRU I previously placed an order for sleep medicine evaluation Assessment & Plan (05/01/2024 1:00 PM SCALLOP BINDER): He had a positive home sleep study [...] surgery Assessment & Plan (05/01/2024 1:01 PM SCALLOP BINDER): Unsure if this is a true paralysis, consider sniff testing in the future Mild intermittent asthma without complication Assessment & Plan (01/01/2025 4:02 PM CDT): Continue Breo Ellipta 200 daily at the same time Albuterol 2 puffs every 4-6 hours as needed only, we have discussed indications for use. He does not have frequent exacerbations and he does not have significant peripheral eosinophilia We discussed vaccines Avoid triggers We have discussed signs and symptoms that would require earlier evaluation or change to his plan of care Assessment & Plan (07/31/2024 2:30 PM CDT): [...] care Assessment & Plan (05/01/2024 1:01 PM SCALLOP BINDER): When he is at baseline I will repeat pulmonary function testing. Continue Breo Ellipta 200 for now. Albuterol as needed only, we have discussed indications for use. Upper respiratory tract infection due to influen za A virus 05/01/2024 Assessment & Plan (05/01/2024 12:58 PM SCALLOP BINDER): He has improved from initial infection 2 1/2 weeks ago but his sputum continues to be thick and yellow Start azithromycin Start NAC twice daily Monitor for worsening symptoms Heterozygous alpha 1-antitrypsin deficiency 04/13 Assessment & Plan (01/01/2025 4:03 PM CDT): M/S - his last level was 137 We will plan to check his levels annually and with changes in respiratory status. Assessment & Plan (07/31/2024 2:30 PM CDT): M/S - his last level was 137 We will plan to check his levels annually and with changes in respiratory status. Assessment & Plan (05/01/2024 1:03 PM SCALLOP BINDER): M/S - his last level was 137 [...] Encounters Date Type Department Care Team Description 01/01/2025 9:15 AM CDT Office Visit [facility] Pulmonary at [address] [place] [id number] Christy Duffy, PAT Heterozygous alpha 1-antitrypsin deficiency (HCC) (Primary Dx); Mild intermittent asthma without complication; NIRU (obstructive sleep apnea) from Last 3 Months Immunizations Immunization Administration Dates Next Due Influenza, Trivalent, High D ose, Split, Preservative Free, Intramuscular 12/17/2018 Surgical History Surgery Date Site/Laterality Comments HIATAL HERNIA REPAIR CORONARY ARTERY BYPASS GRAFT Medical History Medical History Date Comments Diabetes mellitus Hypertension Hyperlipidemia CAD (coronary artery disease) Polio [...] on file Legal Sex Male 9:15 AM SCALLOP BINDER Gender Identity Male 07/18/2019 6:52 AM CDT Sexual Orientation Not on file Last Filed Vital Signs Vital Sign Reading Time Taken Comments Blood Pressure 119/68 01/01/2025 9:21 AM CDT Pulse 62 01/01/2025 9:21 AM CDT Temperature 36.4 C (97.6 F) 01/01/2025 9:21 AM CDT Respiratory Rate 20 01/01/2025 9:21 AM CDT Oxygen Saturation 97% 01/01/2025 9:21 AM CDT Inhaled Oxygen Concentration - - Weight 84.5 kg (186 lb 4.8 oz) 01/01/2025 9:21 A M CDT Height 177.8 cm (5' 10) 01/01/2025 9:21 AM CDT Body Mass Index 26.73 01/01/2025 9:21 AM CDT Plan of Treatment Health Maintenance Due Date Last Done Comments Albumin Creatinine Ratio, Urine 1941 Fall Risk Assessment 1940 eGFR 1940 Dilated Eye Exam 1941 Foot Exam 1941 Hepatitis B Screening 1959 Pneumococcal vaccine 65+ (1 of 2 - PCV) 1960 Well Visit 65+ 2006 Hemoglobin A1C 06/14/2019 12/13/2018, 12/12/2018 Depression Screening 12/13/2019 12/12/2018, 12/13/19 19 Lipid Panel 12/14/2019 12/13/2018, 12/12/2018 Zoster Vaccine (2 of 2) 02/08/2024 12/14/2023 Covid-19 Vaccine (5 - 2024-2 6 season) 2024 02/09/2021, 06/28/2020, 06/26/2020, Additional history exists Influenza Vaccine (#1) 2024 4, 12/16/2020, 01/04/2020, [...] and children were not included. (Diabetes Care 31:6173-0947, 2008). The eAG is not equivalent to a fasting glucose. Blood specimen (specimen) 12/12/2018 3:01 PM CDT 12/12/2018 4:14 PM CDT Leann Ellis MD LAB BLOOD ORDERABLES Fin al Result [facility] [address] [place] [address] * Lipid panel (12/12/2018 3:01 PM CDT) [...] on 2017. Triglycerides 146 <=149 mg/dL [facility] Comment: Interpretive Data Ages < or [...] on 2017. HDL 41 >=40 mg/dL [facility] Comment: Interpretive Data Ages < or [...] 2017. LDL, calculated 50 <=129 mg/dL [facility] Comment: Interpretive Data Ages < or [...] on 2017. Non-HDL Cholesterol 79 mg/dL [facility] Comment: Interpretive Data Ages [...] revised on 2017. Chol/HDL ratio 3 [facility] Blood specimen (specimen) 12/12/2018 3:01 PM CDT 12/12/2018 3:11 PM CDT Leann Ellis MD LAB BLOOD ORDERABLES Fin al Result [facility] [address] [place] [address] from Last 3 Months or Most Recently Relevant to Health Maintenance Insurance [facility] MEDICARE [facility] Address: [facility] [address] [place] [address] [facility] MEDICARE [facility] Address: [address] [address] [place] [address] [facility] MEDICARE [facility] Address: [address] [address] [place] [address] Advance Directives For more information, please contact: [phone] * LIMITED - No CPR (Latest Code [...] 11:06 PM 12/13/2018 2:31 AM Care Teams Public Information Coordinator Relationship Specialty Start Date End Date Leann Pineda NP [address] [facility] [address] [place] [address] PCP - General Family Medicine 05/30/24 Martin Varela MD [address] [facility] [address] [place] [address] Surgeon Orthopedic Surgery 04/08/20
--- OUTSIDE RECORDS SUMMARY | 2025-02-04 15:07 | XMS_ITS | Clinical Summary ---
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 120 tablet 12/26/2018 Active escitalopram 10 MG tablet 01/16/2019 Active Active Problems Problem Noted Date Diagnosed Date Spastic hemiparesis of left nondominant side Slurred speech 12/21/2018 Essential hypertension 12/21/2018 Diabetes 12/21/2018 CVA (cerebral vascular accident) 12/19/2018 Family History Medical History Relation Comments [...] and Td Vaccines (1 - Tdap) 1960 Pneumococcal Vaccine: 50+ Years (1 of 2 - PCV) 1960 Zoster Vaccines (1 of 2) 1991 Annual Medicare Wellness Visit 2006 RSV Immunization or 60+ Years (1 - 1-dose 75+ series) 2016 COVID-19 Vaccine ( - 2024- season) 2024 Influenza Adult (#1) 2024 11/28/2017, 01/05/2017, 12/14/2015, Additional history exists Hepatitis A Vaccines Aged Out No long er eligible based on patient's age to complete this topic Meningococcal B Vaccine Aged Out No l onger eligible based on patient's age to complete this topic Meningococcal Vaccine Aged Out No tigre luisa eligible based on patient's age to complete this topic RSV Immunizations Under 20 Months Aged Out No longer eligible based on patient's age to complete this topic Insurance AETNA MEDICARE Advance Directives * DNR (Latest Code Status on File) Date Activated Date Inactivated Comments 12/19/2018 2:41 PM 12/25/2018 4:32 PM * Full Code Date Activated Date Inactivated Comments 12/19/2018 2:18 PM 12/19/2018 2:41 PM Care Teams Sleep Technician Relationship Specialty Start Date End Date Madisyn Echeverria NP [facility] [place] [address] PCP - General NURSE PRACTITIONER 12/19/18
--- OUTSIDE RECORDS SUMMARY | 2025-02-04 15:07 | XMS_ITS | Encounter Summary ---
Author Organization [facility] Address [address] [place] [address] Care Team Providers Care Farm Mortgage Agent Name Role Phone Madisyn Echeverria NP Primary Care Provider [phone] Encounter Details Date Type Department Care Team (Late st Contact Info) Description 12/26/2018 Hospital Follow-up Call [facility] [place] [address] Mere Carty Social History Tobacco Use Types [...] on filedocumented in this encounter Care Teams Farm Mortgage Agent Relationship Specialty Start Date End Date Madisyn Echeverria NP [address] [place] [address] PCP - General NURSE PRACTITIONER 12/19/18 documented as of this encounter
--- OUTSIDE RECORDS SUMMARY | 2025-02-04 15:07 | XMS_ITS | Clinical Summary ---
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
--- OUTSIDE RECORDS SUMMARY | 2025-02-04 15:07 | XMS_ITS | Encounter Summary ---
Author Organization [facility] Address 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 Clinical History: [...] AMK Procedure Note Provider, Historical - 05/23/2008 [place] [id number] [place], [place] [address] Admit Date: 05/20/2008 MICHAEL CARRILLO Sex: M Admit Prov: MARTIN COOK Date: 1940 Primary Care Prov: CHEL MATR CMRN: [id number] [id number] IMAGING SERVICES Ordering Prov: N/A Interpretation CHEST, [...] 99.0 fL [facility] PLATELETS 166 140 - 350 K/uL [facility] HEMOGLOBIN 15.0 13.6 - 16.5 g/dL [facility] RDW 14.2 11.5 - 14.5 % [facility] WBC 5.7 4.0 - 9.8 K/uL [facility] MCH 27.1(L) 27.2 - 32.6 pg [facility] MPV 11.9 9.3 - 12.4 fL [facility] HEMATOCRIT 45.7 40.0 - 48.0 % [facility] RDW-STDEV 42.9 37.1 - 48.7 fL [facility] RBC 5.53(H) 4.50 - 5.40 M/uL [facility] MCHC 32.8 31.5 - 35.5 % [facility] EOSINOPHILS 2 0 - 7 % [facility] EOSINOPHIL ABSOLUTE 0.11 0.00 - 0.70 K/uL [facility] LYMPHOCYTES 26 16 - 45 % [facility] LYMPHOCYTE ABSOLUTE 1.48 0.70 - 4.50 K/uL [facility] BASOPHILS 1 0 - 2 % [facility] BASOPHILS ABSOLUTE 0.05 0.00 - 0.20 K/uL [facility] MONOCYTES 7 3 - 13 % [facility] MONOCYTE ABSOLUTE 0.40 0.10 - 1.30 K/uL [facility] NEUTROPHILS 64 45 - 70 % [facility] NEUTROPHIL ABSOLUTE 3.64 1.90 - 7.00 K/uL [facility] Blood specimen (specimen) 05/22/2008 1:34 PM CDT 05/22/2008 3:15 PM CDT us Martin Cook MD HEMATOLOGY ORDERABLES Edited INTERFACE SYSTEM Refer to clinic/hospital department [facility] CLIA# [id number] [address] [place], [place] [address] * (ABNORMAL) COMPREHENSIVE METABOLIC PANEL (05/22/2008 1:34 PM CDT) CO2 24 22 - 30 mmol/L [facility] TOTAL PROTEIN 6.7 6.3 - 8.6 g/dL [facility] POTASSIUM 4.1 3.5 - 4.9 mmol/L [facility] GLUCOSE 162(H) 65 - 99 mg/dL [facility] AST 26 12 - 38 U/L [facility] BUN 12 6 - 20 mg/dL [facility] CALCIUM 9.3 8.6 - 10.2 mg/dL [facility] ALBUMIN 4.4 3.4 - 4.8 g/dL [facility] CHLORIDE 103 96 - 108 mmol/L [facility] CREATININE 0.93 0.67 - 1.17 mg/dL [facility] ALT 39 0 - 41 U/L [facility] SODIUM 137 135 - 145 mmol/L [facility] ALKALINE PHOSPHATASE 55 40 - 129 U/L [facility] BILIRUBIN TOTAL 0.6 0.2 - 1.0 mg/dL [facility] GFR, >60 >=60 mL/min/1. 7 sq meter [facility] GFR >60 >=60 mL/min/1. 7 sq meter [facility] Comment: Modification of Diet in Renal Disease (MDRD) study formula. Estimated GFR rate interpretative information for both Americans and non- Americans is available on the [facility] Intranet at: [email or web address] Select: Lab Policies and Procedures Select: Reference Ranges - GFR Blood specimen (specimen) 05/22/2008 1:34 PM CDT 05/22/2008 3:15 PM CDT us Martin Cook MD CHEMISTRY ORDERABLES Edited INTERFACE SYSTEM Refer to clinic/hospital department [facility] CLIA# [id number] [address] [place] [address] documented in this encounter Visit Diagnoses Diagnosis Rotator cuff (capsule) sprain documented in this encounter
--- OUTSIDE RECORDS SUMMARY | 2025-02-04 15:07 | XMS_ITS | Clinical Summary ---
Author Organization [facility] Address [address] [place] [address] Care Team Providers Care Carpet Technician Name Role Phone Madisyn Echeverria ESTHER-SET UP OPERATOR Primary Care Provider + Source Comments [facility],non-owned Affiliates and Associated Physician Practices is amultiple site organization consisting of ambulatory clinics and hospital sitesin [place], [place], [place] and [place]. This disclosure is being madepursuant to the Care Everywhere program and may not contain all information available regarding this patient. Last updated [employer] [facility] Allergies Active Allergy Reactions Criticality Noted Date [...] - 1-dose 75+ series) 2016 DIABETES-SERUM CREATININE 06/10/2021 06/10/2020, DIABETES-FOOT EXAM WITH MONOFILAMENT 07/27/2021 DIABETES-HGB A1C 07/27/2021 DEPRESSION SCREENING 03/13/2024 DIABETES - URINE PROTEIN SCREENING 03/13/2024 COVID-19 VACCINE ( - 2024- season) 2024 06/26/2020, 06/07/2020 INFLUENZA VACCINE (#1) 2024 , 01/04/2020, 01/02/2019, [...] PANEL (CALCIUM TOTAL) (06/10/2020 3:30 AM CDT) [facility] Glucose 159(H) 70 - 105 mg/dL 06/10/2020 4:24 AM CDT [facility] Sodium 138 136 - 145 mmol/L 06/10/2020 4:24 AM CDT [facility] Potassium 4.3 3.5 - 5.1 mmol/L 06/10/2020 4:24 AM CDT [facility] Chloride 108(H) 98 - 107 mmol/L 06/10/2020 4:24 AM CDT [facility] CO2 21(L) 23 - 31 mmol/L 06/10/2020 4:24 AM CDT [facility] Calcium 9.6 8.4 - 10.4 mg/dL 06/10/2020 4:24 AM CDT [facility] Anion Gap 9 8 - 18 mmol/L 06/10/2020 4:24 AM CDT [facility] Comment:Attention clinician: Reference Range change. BUN 21 8.4 - 25.7 mg/dL 06/10/2020 4:24 AM CDT [facility] Creatinine 0.81 0.72 - 1.25 mg/dL 06/10/2020 4:24 AM CDT [facility] eGFR by MDRD >60 mL/min/1.7 3m2 06/10/2020 4:24 AM CDT [facility] eGFR by MDRD >60 mL/min/1.7 3m2 06/10/2020 4:24 AM CDT [facility] Blood BLOOD SPECIMEN / Unknown Lab Venipuncture / Unknown 06/10/2020 3:30 AM CDT 06/10/2020 3:46 AM CDT Keisha Martini MD LAB - CHEMISTRY ORDERABLES Final Result [facility] [address] [place] [id number] from Last 3 Months or Most Recently Relevant to Health Maintenance Insurance MEDICARE AETNA MEDICARE Advance Directives * Full Code (Latest Code Status on File) Date Activated Date Inactivated Comments 06/09/2020 8:16 PM 06/10/2020 8:56 PM * Full Code Date Activated Date Inactivated Comments 06/09/2020 7:13 PM 06/09/2020 8:16 PM Care Teams Carpet Technician Relationship Specialty Start Date End Date Madisyn Echeverria APRN-CNP [address] [phone] PCP - General Nurse Practitioner 07/30/21
[2025-02-05 13:09] LABS: Albumin 3.7 g/dL (2.9-4.4); Alpha-1-Globulin 0.2 g/dL (0.0-0.4); Alpha-2-Globulin 0.7 g/dL (0.4-1.0); Gamma Globulin 0.8 g/dL (0.4-1.8)
[2025-02-05 19:08] LABS: Anti-GBM Antibodies <0.2 units (0.0-0.9)
[2025-02-07 07:07] LABS: Albumin, U 55.3 % (.); Alpha-1-Globulin, U 5.3 % (.); Alpha-2-Globulin, U 10.6 % (.); Beta Globulin, U 20.2 % (.); Gamma Globulin, U 8.7 % (.)
[2025-02-10 08:07] LABS: ANA by IFA Rfx Titer/Pattern Negative (.)
== END 2025-02-04 13:26 | disposition home or self-care (01) ==
PROVIDERS: PCP Internal Medicine; Visit Provider Internal Medicine Nephrology
DX: E11.22 Type 2 diabetes mellitus with diabetic chronic kidney disease (principal); I12.9 Hypertensive chronic kidney disease with stage 1 through stage 4 chronic kidney disease, or unspecified chronic kidney disease; N18.9 Chronic kidney disease, unspecified
CPT/HCPCS: 36415; 80069; 82570; 84155; 84156; 84165; 84166; 86037; 86038; 86160; 86225; 86364

== ENCOUNTER 2025-02-14 16:21 | Outpatient (CLI) | payer MEDICARE, SELFPAY ==
--- NOTE | ~2025-02-14 | US_ITS ---
EXAMINATION: US renal BI, 02/14/2025 16:45 [employer] HISTORY: N17.9 - Acute kidney failure, unspecified Comparison: None Technique: Ornelas-scale and color Doppler images were obtained. Findings: KIDNEYS: The renal cortices are intact with no solid masses, cysts or calculi, no hydronephrosis. Right Kidney: Right kidney 12.6 x 6 x 5.5 cm. Left Kidney: Left kidney 10.8 x 5.6 x 4.9 cm. Bladder: The bladder is unremarkable. The prostate is enlarged measuring 9 x 7 x 7 cm with a heterogeneous appearance.. Impression: Enlarged prostate. Correlate with PSA. Reviewed, dictated and finalized at location P. [employer] Impression: Enlarged prostate. Correlate with PSA.
--- OUTSIDE RECORDS SUMMARY | 2025-02-14 16:25 | XMS_ITS | Clinical Summary ---
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
--- OUTSIDE RECORDS SUMMARY | 2025-02-14 16:25 | XMS_ITS | Clinical Summary ---
Author Organization [facility] [email or web address] Address [address] [place] [address] Care Team Providers Care Store Stocker Name Role Phone Madisyn Echeverria ESTHER-MANAGER SAFE Primary Care Provider + Source Comments [facility] [email or web address],non-owned Affiliates and Associated Physician Practices is amultiple site organization consisting of ambulatory clinics and hospital sitesin [place], [place], [place] and [place]. This disclosure is being madepursuant to the Care Everywhere program and may not contain all information available regarding this patient. Last updated 17[email or web address] Allergies Active Allergy Reactions Criticality Noted Date [...] TOTAL) (06/10/2020 3:30 AM CDT) [facility] Glucose 159(H) 70 - 105 mg/dL 06/10/2020 4:24 AM CDT [facility] Sodium 138 136 - 145 mmol/L 06/10/2020 4:24 AM CDT [facility] Potassium 4.3 3.5 - 5.1 mmol/L 06/10/2020 4:24 AM CDT [facility] Chloride 108(H) 98 - 107 mmol/L 06/10/2020 4:24 AM CDT [facility] CO2 21(L) 23 - 31 mmol/L 06/10/2020 4:24 AM CDT [facility] Calcium 9.6 8.4 - 10.4 mg/dL 06/10/2020 4:24 AM CDT [facility] Anion Gap 9 8 - 18 mmol/L 06/10/2020 4:24 AM CDT [facility] Comment:Attention clinician: Reference Range change. BUN 21 8.4 - 25.7 mg/dL 06/10/2020 4:24 AM CDT [facility] Creatinine 0.81 0.72 - 1.25 mg/dL 06/10/2020 4:24 AM CDT [facility] eGFR by MDRD >60 mL/min/1.7 3m2 06/10/2020 4:24 AM CDT [facility] eGFR by MDRD >60 mL/min/1.7 3m2 06/10/2020 4:24 AM CDT [facility] Blood BLOOD SPECIMEN / Unknown Lab Venipuncture / Unknown 06/10/2020 3:30 AM CDT 06/10/2020 3:46 AM CDT Keisha Martini MD LAB - CHEMISTRY ORDERABLES Final Result [facility] [address] [place] [id number] from Last 3 Months or Most Recently Relevant to Health Maintenance Insurance MEDICARE AETNA MEDICARE Advance Directives * Full Code (Latest Code Status on File) Date Activated Date Inactivated Comments 06/09/2020 8:16 PM 06/10/2020 8:56 PM * Full Code Date Activated Date Inactivated Comments 06/09/2020 7:13 PM 06/09/2020 8:16 PM Care Teams Store Stocker Relationship Specialty Start Date End Date Madisyn Echeverria APRN-CNP [address] [phone] PCP - General Nurse Practitioner 07/30/21
--- OUTSIDE RECORDS SUMMARY | 2025-02-14 16:25 | XMS_ITS | Encounter Summary ---
Author Organization [facility] Address [address] [place] [address] Care Team Providers Care Supervisor Stripping Name Role Phone Madisyn Echeverria NP Primary Care Provider [phone] Encounter Details Date Type Department Care Team (Late st Contact Info) Description 12/26/2018 Hospital Follow-up Call [facility] [place] [address] Mere Carty Social History Tobacco Use Types [...] on filedocumented in this encounter Care Teams Supervisor Stripping Relationship Specialty Start Date End Date Madisyn Echeverria NP [address] [place] [address] PCP - General NURSE PRACTITIONER 12/19/18 documented as of this encounter
--- OUTSIDE RECORDS SUMMARY | 2025-02-14 16:25 | XMS_ITS | Clinical Summary ---
Author Organization [facility] Address [address] [place] [address] Care Team Providers Care Liquor Grinding Mill Operator Name Role Phone Madisyn Echeverria NP Primary Care Provider [phone] Allergies Active Allergy Reactions Criticality Noted Date [...] 2:18 PM 12/19/2018 2:41 PM Care Teams Liquor Grinding Mill Operator Relationship Specialty Start Date End Date Madisyn Echeverria NP [facility] [place] [address] PCP - General NURSE PRACTITIONER 12/19/18
--- OUTSIDE RECORDS SUMMARY | 2025-02-14 16:25 | XMS_ITS | Encounter Summary ---
Author Organization [facility] Address 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 Clinical History: [...] AMK Procedure Note Provider, Historical - 05/23/2008 [address] [place], [place] [address] Admit Date: 05/20/2008 MICHAEL CARRILLO Sex: M Admit Prov: MARTIN COOK Date: 1940 Primary Care Prov: CHEL MART CMRN: [id number] [id number] [facility] Ordering Prov: N/A Interpretation CHEST, [...] CDT) MCV 82.6 82.0 - 99.0 fL [facility] PLATELETS 166 140 - 350 K/uL [facility] HEMOGLOBIN 15.0 13.6 - 16.5 g/dL [facility] RDW 14.2 11.5 - 14.5 % [facility] WBC 5.7 4.0 - 9.8 K/uL [facility] MCH 27.1(L) 27.2 - 32.6 pg [facility] MPV 11.9 9.3 - 12.4 fL [facility] HEMATOCRIT 45.7 40.0 - 48.0 % [facility] RDW-STDEV 42.9 37.1 - 48.7 fL [facility] RBC 5.53(H) 4.50 - 5.40 M/uL [facility] MCHC 32.8 31.5 - 35.5 % [facility] EOSINOPHILS 2 0 - 7 % [facility] EOSINOPHIL ABSOLUTE 0.11 0.00 - 0.70 K/uL [facility] LYMPHOCYTES 26 16 - 45 % [facility] LYMPHOCYTE ABSOLUTE 1.48 0.70 - 4.50 K/uL [facility] BASOPHILS 1 0 - 2 % [facility] BASOPHILS ABSOLUTE 0.05 0.00 - 0.20 K/uL [facility] MONOCYTES 7 3 - 13 % [facility] MONOCYTE ABSOLUTE 0.40 0.10 - 1.30 K/uL [facility] NEUTROPHILS 64 45 - 70 % [facility] NEUTROPHIL ABSOLUTE 3.64 1.90 - 7.00 K/uL [facility] Blood specimen (specimen) 05/22/2008 1:34 PM CDT 05/22/2008 3:15 PM CDT us Martin Cook MD HEMATOLOGY ORDERABLES Edited INTERFACE SYSTEM Refer to clinic/hospital department [facility] CLIA# [id number] [address] [place], [place] [address] * (ABNORMAL) COMPREHENSIVE METABOLIC PANEL (05/22/2008 1:34 PM CDT) CO2 24 22 - 30 mmol/L [facility] TOTAL PROTEIN 6.7 6.3 - 8.6 g/dL [facility] POTASSIUM 4.1 3.5 - 4.9 mmol/L [facility] GLUCOSE 162(H) 65 - 99 mg/dL [facility] AST 26 12 - 38 U/L [facility] BUN 12 6 - 20 mg/dL [facility] CALCIUM 9.3 8.6 - 10.2 mg/dL [facility] ALBUMIN 4.4 3.4 - 4.8 g/dL [facility] CHLORIDE 103 96 - 108 mmol/L [facility] CREATININE 0.93 0.67 - 1.17 mg/dL [facility] ALT 39 0 - 41 U/L [facility] SODIUM 137 135 - 145 mmol/L [facility] ALKALINE PHOSPHATASE 55 40 - 129 U/L [facility] BILIRUBIN TOTAL 0.6 0.2 - 1.0 mg/dL [facility] GFR, >60 >=60 mL/min/1. 7 sq meter [facility] GFR >60 >=60 mL/min/1. 7 sq meter [facility] Comment: Modification of Diet in Renal Disease (MDRD) study formula. Estimated GFR rate interpretative information for both Americans and non- Americans is available on the [facility] [place] at: [email or web address] Select: Lab Policies and Procedures Select: Reference Ranges - GFR Blood specimen (specimen) 05/22/2008 1:34 PM CDT 05/22/2008 3:15 PM CDT us Martin Cook MD CHEMISTRY ORDERABLES Edited INTERFACE SYSTEM Refer to clinic/hospital department [facility] CLIA# [id number] [address] [place] [address] documented in this encounter Visit Diagnoses Diagnosis Rotator cuff (capsule) sprain documented in this encounter
== END 2025-02-14 16:22 | disposition home or self-care (01) ==
PROVIDERS: PCP Internal Medicine; Visit Provider Internal Medicine Nephrology
DX: N17.9 Acute kidney failure, unspecified (principal); E11.9 Type 2 diabetes mellitus without complications; I12.9 Hypertensive chronic kidney disease with stage 1 through stage 4 chronic kidney disease, or unspecified chronic kidney disease; N18.9 Chronic kidney disease, unspecified; N40.0 Benign prostatic hyperplasia without lower urinary tract symptoms
CPT/HCPCS: 76770